=== PATIENT | male | born 1965 | race Caucasian/White ===

== ENCOUNTER 2017-01-16 15:43 | Emergency (ER) | payer MEDICARE, OTHER ==
[~2017-01-16] VITALS: Ht 160 cm; Wt 54.4 kg
[~2017-01-16 15:43] MED LIST: AMOX TR-K CLV1 EACH PO; CLINDAMYCIN HC300 MG PO; CYCLOBENZAPRINE10 MG PO; DEPAKOTE ER250 MG PO; FERROUS SULFAT325 MG PO; FISH OIL 1,0001 EAC2 PO; FLUDROCORTISON0.1 MG PO; GEODON40 MG PO; GOLD BOND MEDI TOP; IBUPROFEN800 MG PO; LAMOTRIGINE25 MG PO; LEVAQUIN750 MG; LEVOTHYROXINE125 MCG PO; LEVOTHYROXINE150 MCG PO; MILK OF MA400 MG/5 M PO; MIRALAX17 GM PO; NAPROXEN500 MG PO; NYSTOP60 GM TOP; QUETIAPINE FUM100 MG PO; SEROQUEL XR200 MG PO; SEROQUEL100 MG PO; SEROQUEL25 MG PO; SERTRALINE20 MG/1 ML PO; THEREMS1 EACH PO; TYLENOL EXTRA500 MG PO; VALPROIC A250 MG/51 PO; VITAMIN E1000 UNI2 PO
[2017-01-16] MEDS ORDERED: LEVOTHYROXINE50 MCG PO (16:13)
[2017-01-16] MEDS ORDERED: KEFLEX500 MG PO (17:04)
== END 2017-01-16 17:11 | disposition home or self-care (01) ==
LOC: ED 15:43
DX: T17.900A Unspecified foreign body in respiratory tract, part unspecified causing asphyxiation, initial encounter (principal); D64.9 Anemia, unspecified; Z88.8 Allergy status to other drugs, medicaments and biological substances; Z79.899 Other long term (current) drug therapy
CPT/HCPCS: 71010; 99283

== ENCOUNTER 2018-06-21 21:50 | Inpatient (IN) | payer MEDICARE, OTHER ==
[~2018-06-21] VITALS: Ht 160 cm; Wt 55.1 kg
--- OUTSIDE RECORDS SUMMARY | ~2018-06-21 | XMS | Clinical Summary ---
Demographics + + + | Address | [address] | | | [place] [address] | + + + | Home Phone | | + + + | Preferred Language | Unknown | + + + | Marital Status | Single | + + + | Bahai Affiliation | Unknown | + + + | Race | Unknown | + + + | Ethnic Group | Unknown | + + + Author + + + | Author | [facility] | + + + | Organization | [facility] | + + + | Address | Unknown | + + + | Phone | Unavailable | + + + Support + + + + + | Name | Relationship | Address | Phone | + + + + + | Doug Finney | ARCHANA | [place] | | | | | [phone] | | + + + + + | Doris Barclay | [place] | [address] | | | | | [place] | | | | | [address] | | + + + + + Care Team Providers + +------+ + | Care Floral Clerk Name | Role | Phone | + +------+ + | Ja Moody NP | PP | | + +------+ + Allergies + + + + + + | Active Allergy | Reactions | Severity | Noted | Comments | | | | | Date | | + + + + + + | Carbamazepine | Other (See Comments) | Medium | 06/10/19 | Unknown- allergy | | | | | 13 | listed in old chart | | | | | | notes | + + + + + + Current Medications + + + +---------+------+------+-------+ | Prescription | Sig. | Disp. | Refills | Star | End | Statu | | | | | | t | Date | s | | | | | | Date | | | + + + +---------+------+------+-------+ | valproic acid | Take 250 mg by mouth | | | | | Activ | | (DEPAKENE) 250 MG | 4 (four) times | | | | | e | | capsule | daily. | | | | | | + + + +---------+------+------+-------+ | Levothyroxine | Take 125 mg by mouth | | | | | Activ | | Sodium 125 MCG CAPS | daily. Skip on | | | | | e | | | saturdays | | | | | | + + + +---------+------+------+-------+ | ZIPRASIDONE HCL PO | Take 120 mg by mouth | | | | | Activ | | | nightly. | | | | | e | + + + +---------+------+------+-------+ | FLUDROCORTISONE | Take 0.1 mg by mouth | | | | | Activ | | ACETATE PO | daily. | | | | | e | + + + +---------+------+------+-------+ | QUEtiapine | Take 400 mg by mouth | | | | | Activ | | Fumarate (SEROQUEL | nightly. | | | | | e | | PO) | | | | | | | + + + +---------+------+------+-------+ | sertraline | Take 100 mg by mouth | | | | | Activ | | (ZOLOFT) 100 MG | daily. | | | | | e | | tablet | | | | | | | + + + +---------+------+------+-------+ | | Take 3 ml | 360 mL | 1 | 03/1 | | Activ | | ipratropium-albutero | nebulization every 6 | | | 1/20 | | e | | l (DUO-NEB) 0.5-2.5 | hours for the next | | | 13 | | | | mg/3mL | one week then 3 ml | | | | | | | | nebulization every 6 | | | | | | | | hours as needed for | | | | | | | | wheezing and | | | | | | | | shortness of breath. | | | | | | + + + +---------+------+------+-------+ | lip moisturizer | Apply 1 each | | | 03/1 | | Activ | | (CHAPSTICK) | topically as needed | | | 1/20 | | e | | | (to dry lips). | | | 13 | | | + + + +---------+------+------+-------+ | | Take one tablet by | 10 | 0 | 03/1 | | Activ | | amoxicillin-clavulan | mouth twice a day | tablet | | 1/20 | | e | | ate (AUGMENTIN) | after meals for five | | | 13 | | | | 875-125 MG per | more days. | | | | | | | tablet | | | | | | | + + + +---------+------+------+-------+ | nebulizer | Use as directed for | 1 each | 0 | 06/08 | | Activ | | | shortness of breath | | | 04/29 | | e | | | and hypoxemia. | | | 13 | | | + + + +---------+------+------+-------+ Active Problems + + + | Problem | Noted Date | + + + | Pressure ulcer, stage 2 | 06/18/2012 | + + + | Dysphagia, late effect of cerebrovascular disease | 06/17/2012 | + + + | Debility, unspecified | 06/14/2012 | + + + | Bacterial pneumonia, unspecified | 06/14/2012 | + + + | Aspiration pneumonia (HCC) | 06/09/2012 | + + + | Acute respiratory failure (HCC) | 06/09/2012 | + + + | Hypoxemia | 06/09/2012 | + + + | Acute renal failure (ARF) | 06/09/2012 | + + + | Septic shock(785.52) | 06/09/2012 | + + + | Down syndrome | | + + + | Recurrent aspiration pneumonia (HCC) | | + + + Immunizations + + + + | Name | Dates Previously Given | Next Due | + + + + | Influenza Split | 06/12/2012 | | + + + + | Pneumococcal | 06/12/2012 | | | Polysaccharide | | | | 23-valent | | | + + + + Family History + + +------+ + | Medical History | Relation | Name | Comments | + + +------+ + | Other (see comments) | Father | | COPD | + + +------+ + + +------+--------+ + | Relation | Name | Status | Comments | + +------+--------+ + | Father | | | | + +------+--------+ + Social History + +-------+ +--------+------+ | Tobacco Use | Types | Packs/Day | Years | Date | | | | | Used | | + +-------+ +--------+------+ | Never Smoker | | | | | + +-------+ +--------+------+ + +---+---+---+ | Smokeless Tobacco: | | | | | Never Used | | | | + +---+---+---+ + + +---------+ + | Alcohol Use | Drinks/We | oz/Week | Comments | | | ek | | | + + +---------+ + | No | | | | + + +---------+ + + + + | Sex Assigned at | Date Recorded | | | | + + + | Not on file | | + + + Last Filed Vital Signs + + + + | Vital Sign | Reading | Time Taken | + + + + | Blood Pressure | 113/74 | 06/18/2012 3:43 PM PDT | + + + + | Pulse | 75 | 06/18/2012 3:43 PM PDT | + + + + | Temperature | 36.4 C (97.5 F) | 06/18/2012 3:43 PM PDT | + + + + | Respiratory Rate | 16 | 06/18/2012 3:43 PM PDT | + + + + | Oxygen Saturation | 91% | 06/18/2012 3:43 PM PDT | + + + + | Inhaled Oxygen | - | - | | Concentration | | | + + + + | Weight | 89.1 kg (196 lb 6.9 | 06/18/2012 12:10 AM PDT | | | oz) | | + + + + | Height | 167.6 cm (5' 6") | 06/09/2012 5:00 PM PST | + + + + | Body Mass Index | 31.7 | 06/18/2012 12:10 AM PDT | + + + + Plan of Treatment Not on file Results Not on filefrom Last 3 Months Insurance + +--------+ +--------+-------+ + | Payer | Benefi | Subscriber | Type | Phone | Address | | | t Plan | ID | | | | | | / | | | | | | | Group | | | | | + +--------+ +--------+-------+ + | [place] - PREMIERCARE | [place] | [id number] | Medica | | | | FAMILY | [place] | | re | | | | | RE | | | | | | | FAMILY | | | | | + +--------+ +--------+-------+ + | MEDICAID | [place] | [id number] | | | [address] | | | N | | | | [place], [place] | | | [place] | | | | [phone] | | | PALLIATIVE NURSE | | | | | + +--------+ +--------+-------+ + + +--------+ +--------+ + + | Guarantor Name | Accoun | Relation to | Date | Phone | Billing Address | | | t Type | Patient | of | | | | | | | | | | + +--------+ +--------+ + + | JULIANE FINNEY JR. | Person | Self [birth year] | Home: | [address] | | | al/Fam | | 1966 | [phone] | [place] | | | ana | | | [phone] | + +--------+ +--------+ + +
--- OUTSIDE RECORDS SUMMARY | ~2018-06-21 | XMS | Clinical Summary ---
Demographics + + + | Address | [address] | | | [place] [address] | + + + | Home Phone [...] [facility] | + + + | Organization | [facility] | + + + | Address | Unknown | + + + | Phone | Unavailable | + + + Support + + + + + | Name | Relationship | Address | Phone | + + + + + | Doug Finney | [place] | [place] | | | | | [phone] | | + + + + + | Doris Barclay | [place] | [address] | | | | | [place] | | | | | [phone] | | + + + + + Care Team Providers + +------+ + | Care Truck Driver Name | Role | Phone | + [...] | [place] - PREMIERCARE | [place]-PRE | [id number] | Medica | | | | FAMILY | [place] | | re | | | | | RE | | | | | | | FAMILY | | | | | + +--------+ +--------+-------+ + | MEDICAID | [place] | [id number] | | | [address] | | | N | | | | [place], [place] | | | [place] | | | | [phone] | | | HEEL MOLDER | | | | | + +--------+ [...] Self | [birth year] | Home: | [address] | | | al/Fam | | 1966 | [phone] | [place] | | | [place] | | | [phone] | [phone] | + +--------+ +--------+ + +
--- OUTSIDE RECORDS SUMMARY | ~2018-06-21 | XMS | Clinical Summary ---
Demographics + + + | Address | [address] | | | [place] [address] | + + + | Home Phone | | + + + | Preferred Language | Unknown | + + + | Marital Status | Single | + + + | Yazidism Affiliation | 1013 | + + + | Race | Unknown | + + + | Ethnic Group | Unknown | + + + Author + + + | Author | [facility] | | | and [place] | + + + | Organization | [facility] [...] Team Providers + +------+ + | Care Stabilizing Machine Operator Name | Role | Phone | + +------+ + | Corin Cordero RESORT DESK CLERK | PP | Unavailable | + +------+ + Allergies No Known Allergies Current Medications + + + +---------+------+------+-------+ | Prescription | Sig. | Disp. | Refills | Star | End | Statu | | | | | | t | Date | s | | | | | | Date | | | + + + +---------+------+------+-------+ | Acetaminophen | Take by mouth Daily | | | | | Activ | | (MAPAP) 500 MG CAPS | as needed. | | | | | e | + + + +---------+------+------+-------+ | magnesium | Take by mouth Daily | | | | | Activ | | hydroxide (MILK OF | as needed for | | | | | e | | MAGNESIA) 400 mg/5 | Constipation. | | | | | | | mL suspension | | | | | | | + + + +---------+------+------+-------+ | QUEtiapine | Take 100 mg by mouth | | | | | Activ | | (SEROQUEL) 100 mg | nightly. | | | | | e | | tablet | | | | | | | + + + +---------+------+------+-------+ | Multiple Vitamin | Take by mouth | | | | | Activ | | (THEREMS PO) | Daily. | | | | | e | + + + +---------+------+------+-------+ | STARCH-MALTO | Take by mouth. | | | | | Activ | | DEXTRIN (THICK-IT) | | | | | | e | | POWD | | | | | | | + + + +---------+------+------+-------+ | Podiatric Products | Apply topically | | | | | Activ | | (GOLD MILLAN FOOT EX) | Daily. | | | | | e | + + + +---------+------+------+-------+ | chlorhexidine | Take 15 mLs by mouth | 900 mL | 11 | 07/0 | | Activ | | (PERIDEX) 0.12% | 2 times daily. | | | 920 | | e | | solution | | | | 15 | | | + + + +---------+------+------+-------+ | lamoTRIgine | Take one tablet | | | 03/2 | | Activ | | (LAMICTAL) 25 mg | twice daily | | | 8/20 | | e | | tablet | | | | 16 | | | + + + +---------+------+------+-------+ | levothyroxine | Take one tablet | | | 03/2 | | Activ | | (SYNTHROID, | daily | | | 2/20 | | e | | LEVOTHROID) 150 mcg | | | | 16 | | | | tablet | | | | | | | + + + +---------+------+------+-------+ | fludrocortisone | Take one tablet | | | 03/2 | | Activ | | [...] | | + +---+ | Seizure disorder (HCC) | | + +---+ | Oropharyngeal dysphagia | | + +---+ Immunizations + + + + | Name | Dates Previously Given | Next Due | + + + + | INFLUENZA, [id number], | 01/16/2014 | | | UNSPECIFIED | [...] + | Oxygen Saturation | 100% | 07/28/20156 PDT | + + + + | Inhaled Oxygen | - | - | | Concentration | | | + + + + | Weight | 64.4 kg (142 lb) | 07/28/20151025 PDT | + + + + | Height | 160 cm (5' 3") | 07/28/20151025 PDT | + + + + | Body Mass Index | 25.15 | 07/28/20151025 PDT | + + + + Plan [...] 01/17/2015, 01/16/2014, | | | (#1) | 8 | 06/12/2012 | | + + + + + Results Not on filefrom Last 3 Months Insurance + +--------+ +--------+ +---------+ | Payer | Benefi | Subscriber | Type | Phone | Address | | | t Plan | ID | | | | | | / | | | | | | | Group | | | | | + +--------+ +--------+ +---------+ | [employer] | MODA | [id number] | Medica | [phone] | | MEDICAID HMO | HEALTH | | id | [phone] | | | | MD[place] | | | | | | | [place]MO [place] | | | | | + +--------+ +--------+ +---------+ + +--------+ +--------+ + + | Guarantor Name | Accoun | Relation to | Date | Phone | Billing Address | | | t Type | Patient | of | | | | | | | | | | + +--------+ +--------+ + + | JULIANE FINNEY | Person | Self | [birth year] | Home: | [address] | | JR. | al/Fam | | 1966 | [phone] | [place] [address] | | | [place] | | | [phone] | | + +--------+ +--------+ + +
--- OUTSIDE RECORDS SUMMARY | ~2018-06-21 | XMS | Clinical Summary ---
Demographics + + + | Address | [address] | | | [place] [address] | + + + | Home Phone [...] Team Providers + +------+ + | Care Accounts Administrator Name | Role | Phone | + +------+ + PP | Unavailable | + +------+ + Source Comments LILA is fully live on both [facility] and [facility] Allergies + + + + + [...]
--- OUTSIDE RECORDS SUMMARY | ~2018-06-21 | XMS | Clinical Summary ---
Demographics + + + | Address | [address] | | | [place] [address] | + + + | Home Phone [...] | Author | [facility] | | | and [place] | + + + | Organization | [facility] | | | and [place] [...] Team Providers + +------+ + | Care Web Content Specialist Name | Role | Phone | + +------+ + | Corin Cordero REGISTERED HEALTH NURSE | PP | Unavailable | + +------+ [...] | + + + + | INFLUENZA, [id number], | 01/16/2014 | | | UNSPECIFIED | [...] | [employer] | MODA | [id number] | Medica | [phone] | | [...] JR. | al/Fam | | 1966 | [phone] | [place] [address] | | | ana | | | [phone] | | + +--------+ +--------+ + +
--- OUTSIDE RECORDS SUMMARY | ~2018-06-21 | XMS | Clinical Summary ---
Demographics + + + | Address | [address] | | | [place] [address] | + + + | Home Phone [...] Team Providers + +------+ + | Care Logistics Officer Name | Role | Phone | + +------+ + PP | Unavailable | + +------+ + Source Comments LILA is fully live on both [facility] and [facility] In[facility] Allergies + + + [...]
--- OUTSIDE RECORDS SUMMARY | ~2018-06-21 | XMS | Clinical Summary ---
Demographics + + + | Address | [address] | | | [place] [address] | + + + | Home Phone | | + + + | Preferred Language | Unknown | + + + | Marital Status | Single | + + + | Druze Affiliation | Unknown | + + + | Race | Unknown | + + + | Ethnic Group | Unknown | + + + Author + + + | Author | [facility] | + + + | Organization | [facility] | + + + | Address | Unknown | + + + | Phone | Unavailable | + + + Support + + + + + | Name | Relationship | Address | Phone | + + + + + | Doug Finney | [place]NA | [place] | | | | | [address] | | + + + + + | Doris Barclay | [place] | [address] | | | | | [place] | | | | | [address] | | + + + + + Care Team Providers + +------+ + | Care Sensor Technician Name | Role | Phone | [...] | [place] - PREMIERCARE | [place]-PRE | [id number] | Medica | | | | FAMILY | [place] | | re | | | | | RE | | | | | | | FAMILY | | | | | + +--------+ +--------+-------+ + | MEDICAID | [employer] | [id number] | | | [address] | | | N | | | | [place], [place] | | | [place] | | | | [phone] | | | BEHAVIORAL THERAPIST | | | | | + +--------+ [...] | [birth year] | Home: | [address] | | | al/Fam | | 1966 | [phone] | [place] | | | [place] | | | [phone] | [phone] | + +--------+ +--------+ + +
--- OUTSIDE RECORDS SUMMARY | ~2018-06-21 | XMS | Clinical Summary ---
Demographics + + + | Address | [address] | | | [place] [address] | + + + | Home Phone [...] | Author | [facility] | | | and [place] | + + + | Organization | [facility] [...] Team Providers + +------+ + | Care Rock Contractor Name | Role | Phone | + +------+ + | Corin Cordero CERTIFIED ORTHOTIC FITTER | PP | Unavailable | + +------+ [...] | + + + + | INFLUENZA, [id number], | 01/16/2014 | | | UNSPECIFIED | [...] | [employer] | MODA | [id number] | Medica | [phone] | | [...] | 1966 | [phone] | [place] [address] | | | [place] | | | [phone] | | + +--------+ +--------+ + +
--- OUTSIDE RECORDS SUMMARY | ~2018-06-21 | XMS | Clinical Summary ---
Demographics + + + | Address | [address] | | | [place] [address] | + + + | Home Phone [...] Providers + +------+ + | Care Sales Support Specialist Name | Role | Phone | + +------+ + PP | Unavailable | + +------+ + Source Comments LILA is fully live on both [facility] and [facility] In[facility] [place] Allergies + + + + [...]
[~2018-06-21 21:50] MED LIST changes: +KEFLEX500 MG PO; +LEVOTHYROXINE50 MCG PO
[2018-06-21] MEDS ORDERED: PERIDEX473 M1 MM (23:27)
[2018-06-21] MEDS ORDERED: COLACE100 MG PO (23:27)
[2018-06-21] MEDS ORDERED: THEREMS1 EACH PO (23:28)
--- NOTE | 2018-06-22 03:50 | NUR ---
PT ARRIVED VIA STRETCHER. HE IS SLEEPING WITH RR OF 16 WHICH IS EVEN AND NONLABORED. HE CALLED OUT WHEN TRANSFTERED OVER TO BED VIA DRAW SHEET. IV BOLUS IS INFUSING AND IV ABX. HIS CAREGIVERS CAME WITH HIM BUT ARE LEAVING NOW. CONTACT # FOR DETENTION IS ON THE WHITE BOARD.
--- NOTE | 2018-06-22 04:30 | NUR ---
PT IS RESTING WITH EYES CLOSED, HE IS AROUSABLE BUT HAYDEE OUT WHEN BOTHERED. ED STATES THEY TRIED TO STRAIGHT CATH HIM X2 BUT COULD NOT GET PAST HIS PROTATE. ATTENDS IS IN PLACE, PT DID NOT ANSWER IF HE NEEDED TO USE THE BATHROOM. PARTIAL ASSESSMENT COMPLETE BUT PT IS UNABLE TO ANSWER AND IS AGITATED WHEN WOKE UP. BED ALARM IS ON AND CALL LIGHT IS ON HIS LAP.
--- NOTE | 2018-06-22 05:40 | NUR ---
PT IS RESTING WITH EYES CLOSED, RR IS EVEN AND NONLABORED. CALL LIGHT IS CLOSE AND BED ALARM IS ON.
--- NOTE | 2018-06-22 07:24 | NUR ---
Bedside report recieved from Coral CARLTON. Pt sleeping at this time. Bed alarm on and call dickey within reach. Sat 90% on room air while sleeping.
--- NOTE | 2018-06-22 08:04 | NUR ---
MD TO BE NOTIFIED OF URINE OUTPUT, LAB RESULTS AND BP.
--- NOTE | 2018-06-22 08:30 | NUR ---
PT AWOKE TO VOICE AND APPEARS IN NO DISTRESS AT THIS TIME. SAT IS 93% ON ROOM AIR AT THIS TIME. PT'S BOTHER (BILL) IS NOW PRESENT AT THE BED SIDE.
--- NOTE | 2018-06-22 09:09 | NUR ---
Dr John notified of the pt's labs, bp and lack of urine as well as the pt's brother stating that he only takes thickened liquids. The pt had just finished eating breakfast which had been thickened. NPO status ordered at this time.
--- NOTE | 2018-06-22 09:21 | NUR ---
Pt sleeping at this time. IV site is CDI.
--- NOTE | 2018-06-22 10:01 | NUR ---
Pt sleeping, sat 91% on room air. Bed alarm is on and call light is within reach. The pt's brother (Yandel) remains at the bedside.
--- NOTE | 2018-06-22 10:20 | NUR ---
RACHEL ASLEEP. SPOKE WITH PATIENTS BROTHER, SIMIN WHO IS POA. HE STATES PATIENT HAS LIVED IN CURRENT SNF WITH [facility] ([phone]) FOR YEARS. HE STATES PATIENT IS WELL MANAGED THERE AND ROUTINE IS EVERYTHING FOR HIM. HE STATES THEY HAVE HIS MEDS WORKING WELL AND THE ONLY CHANGES MADE NEED TO GO THROUGH HIM, OR [facility]. ASSURRED HIM, THIS WILL BE OUR PLAN. HE STATES PATIENT IS NORMALLY AMBULATORY AND THAT PATIENTS PCP MYKEL MANDUJANO IS ALSO VERY GOOD WITH MANAGING PATIENTS CARE. WE DISCUSSED FOR HIM TO MAKE SURE HE UNDERSTANDS ALL DIAGNOSIS, TESTS, MEDICATIONS(SIDE EFFECTS), FOLLOW UP PLAN BEFORE DISCHARGE AND ENCOURAGED HIM TO ASK QUESTIONS NEEDED. HE STATES UNDERSTANDING. QUESTIONS ANSWERED, NO FURTHER CONCERNS AT THIS TIME.
--- NOTE | 2018-06-22 11:06 | NUR ---
Pt's iv was covered with an paul wrap to help prevent the pt from pulling on it. The pt has yet to produce any urine, his brother states that he had a wet diaper just before he came into the hospital. His brother also states it is normal for him to go quite a long time between voids.
--- NOTE | 2018-06-22 11:11 | NUR ---
SAT 95% ON ROOM AIR WHILE SLEEPING.
--- NOTE | 2018-06-22 11:46 | NUR ---
PT ASLEEP, CG IN RM. WILL CONTINUE TO FOLLOW NEEDED
--- NOTE | 2018-06-22 12:41 | NUR ---
I WAS NOTIFIED BY THE PT'S BROTHER THAT HE WAS FEEDING THE PT MINCED FOOD AND THICKENED WATER AND HE COUGHED AND FOOD CAME OUT OF HIS NOSE. HE WAS SITTING UP HIGH IN HIS BED WHEN THIS HAPPENED. HIS LUNG SOUNDS REMAIN UNCHANGED AND HIS SAT IS 91% ON ROOM AIR.
--- NOTE | 2018-06-22 13:51 | NUR ---
Pt sitting up in his bed with his brother in the room. Sat is 90% on room air.
--- NOTE | 2018-06-22 14:12 | NUR ---
Pt has not yet voided and he was bladder scanned for 596ml. Dr John notified of this. Pt is requires very close monitoring to prevent him from pulling out his iv and now an aide is sitting with the pt. Sat is 92% on room air.
--- NOTE | 2018-06-22 16:24 | NUR ---
1550: VO RECEIVED TO PLACE A FERRER CATH. ATTEMPTED A 16 CAPE VERDEAN IN WHICH IT STOPPED AFTER A VERY SHORT DISTANCE. CHANGE THE CATH TO A COUDE AND IT ADVANCED FARTHER BUT WOULD NOT GO IN COMPLETLY. DR ROSE CALLED AND NOTIFIED. BLADDER SCANNED AGAIN WHICH IT STATES GREATER THAN 700 ML. UROJET APPLIED AND WAS HELD IN PLACE FOR A FEW MINUTES AND THEN ANOTHER COUDE WAS USED WHICH WAS SUCCESSFUL. TWO OTHER NURSES AND THE AIDE WERE HELPING TO HOLD HIS ARMS AND LEGS OUT OF THE FIELD. UA DRAWN AND SENT TO THE LAB. FERRER DRAINING CLEAR YELLOW URINE AT THIS TIME.
[2018-06-22] MEDS ORDERED: QUETIAPINE FUM100 MG PO (16:27)
[2018-06-22] MEDS ORDERED: BAZA PROTECT C142 GM TOP (16:30)
[2018-06-22] MEDS ORDERED: [UNRECOGNIZED DRUG - OTHER] TOP (16:31)
[2018-06-22] MEDS ORDERED: IMODIUM A-D2 M2 PO (16:33)
--- NOTE | 2018-06-22 16:35 | NUR ---
725 ML OF CLEAR YELLOW URINE EMPTIED FROM THE FERRER.
[2018-06-22] MEDS ORDERED: CLARITIN10 MG PO (16:41)
[2018-06-22] MEDS ORDERED: NYSTOP60 GM TOP (16:47)
[2018-06-22] MEDS ORDERED: TOBREX3.5 GM OPTH (16:48)
--- NOTE | 2018-06-22 16:49 | NUR ---
MED REC COMPLETE
--- NOTE | 2018-06-22 18:24 | NUR ---
Pt is a 1 on 1 as he tries to get out of bed, pull his iv, pulse ox cord, and raymond. He had not voided until this afternoon when a raymond was placed. The raymond placement was difficult to place. IV infusing d5w 1/2 ns with 20 kcl at 75 ml/hr. UA was drawn from the raymond.
--- NOTE | 2018-06-22 19:40 | NUR ---
REPORT RECEIVED, PT RESTING IN BED, SITTER IN ROOM WITH PT AT THE TIME, PT SITTING UP IN BED, NO VERBAL RESPONSE FROM PT, PT ABLE TO MAKE SOME SOUNDS BUT NOT ABLE TO FOLLOW VERBAL COMMANDS, PT DOES NOT APPEAR TO BE IN ANY DISTRESS, CPOX ON, O2 SAT 98%, HR 80'S, IV FLUIDS INFUSING PER EMAR WNL. CALL LIGHT WITHIN REACH. SITTER REMAINS IN ROOM WITH PT.
--- NOTE | 2018-06-22 21:00 | NUR ---
IN ROOM TO ADMIN EVENING MEDS, SHIFT ASSESSMENT COMPLETE, PT ABLE TO COMMUNICATE SHORT SIMPLE WORDS, UNABLE TO RESPOND MEANINGFULLY TO VERBAL STIMULI BUT NO SIGNS OF DISCOMFORT OR AGITATION PRESENT, SITTER IN ROOM WITH PT, PT APPROPRIATE RESTING IN BED, UNABLE TO ASSESS ORIENTATION, IV FLUIDS INFUSING PER EMAR WNL, FERRER CATH DRAINING WNL, VSS, ON RA, CPOX ON, O2 SAT 98% ON RA, PT WAS ABLE TO TAKE PILLS CRUSHED IN APPLE SAUCE W/O DIFFICULTY, FOLLOWED DIRECTIONS WELL, ASPIRATION PRECAUTIONS USED, NO REQUESTS AT THIS TIME, SITTER REMAINS IN ROOM, CALL LIGHT WITHIN REACH, FALL PRECAUTIONS IN PLACE.
--- NOTE | 2018-06-22 23:15 | NUR ---
PT CRYING OUT, YELLING, SCREAMING IN APPARENT DISCOMFORT, PT UNABLE TO COMMUNICATE WHERE OR WHAT DISCOMFORT IS ORIGINATING FROM, UNABLE TO ASSESS PAIN VERBALLY WITH PT, UNABLE TO COMFORT PT, PT IS DIGGING AT BEDDING, TOSSING IN BED, AND FREQUENLTY YELLING, SITTER RN NOTIFIED THIS RN OF PT'S DISCOMFORT, PT GIVEN PRN TYLENOL IN APPLESAUCE, TOLERATED WELL. NO FURTHER REQUESTS. MAINETER REMAINS IN ROOM.
--- NOTE | 2018-06-22 23:25 | NUR ---
COLLEGE ATHLETE ROUNDING NOTE. RN IN ROOM FOR 1:1, PRIMARY RN ALSO IN ROOM.
--- NOTE | 2018-06-23 00:15 | NUR ---
PT CONTINUES TO INCREASE IN RATE OF CRYING OUT IN APPARENT DISTRESS/DISCOMFORT, FACIAL GRIMACE NOTED, PT WIMPERING, NOTED TO BE CONTINUING TO TOSS AND TURN IN BED, GRABBING AT BLANKETS, THIS RN AND RN IN ROOM SITTING WITH PT UNABLE TO COMFORT PT, PT UNABLE TO COMMUNICATE NEEDS OR LOCATE SOURCE OF DISCOMFORT, DR. ROSE NOTIFIED OF PT'S DISCOMFORT AND CRYING OUT, NEW ORDER FOR OXYCODONE 5-10MG PRN PAIN Q4, PT GIVEN 5MG OF OXYCODONE IN APPLESAUCE PER EMAR, TOLERATED WELL. SITTER REMAINS IN ROOM WITH PT, PT ON CPOX, O2 SAT 98%, VSS, HR 80'S, IV FLUIDS INFUSING PER EMAR WNL, FERRER CATH DRAINING WNL. CALL LIGHT WITHIN REACH.
--- NOTE | 2018-06-23 01:14 | NUR ---
SAT WITH PT . PT WAS CRYING OUT AND PULLING AT HIS FRONT ATTENDS AREA.
--- NOTE | 2018-06-23 02:24 | NUR ---
PT RESTING IN BED, SITTER AT BEDSIDE, PT'S EYES CLOSED, BREATHS EVEN, UNLABORED, ON CPOX, O2 SAT > 95%, HR 80'S NO SIGNS OF DISCOMFORT OR AGITATION, CALL LIGHT WITHIN REACH, IV FLUIDS INFUSING PER EMAR WNL.
--- NOTE | 2018-06-23 04:23 | NUR ---
PT RESTING IN BED QUIETLY, RN SITTER IN ROOM, NO SIGNS OF DISCOMFORT OR AGITATION, PT NODDING IN AND OUT OF SLEEP, IV FLUIDS INFUSING PER EMAR WNL, FERRER CATH DRAINING WNL. SITTER REMAINS IN ROOM.
--- NOTE | 2018-06-23 06:21 | NUR ---
PT ABLE TO COMMUNICATE SHORT PHRASES AT BEST, UNABLE TO ASSESS ORIENTATION, UNABLE TO FOLLOW COMMANDS, PT DID BECOME RESTLESS OCCASIONALLY THIS SHIFT AND WAS YELLING IN DISCOMFORT, CRYING, TEARING CLOTHES OFF, PT WAS PAINFUL AND RECEIVED PRN PAIN MEDICATION X1 THIS SHIFT WELL TYLENOL X2 THIS SHIFT, PT WAS ABLE TO SLEEP ON AND OFF OTHERWISE, PT WAS 1:1 ALL NIGHT, IV FLUIDS INFUSING PER EMAR WNL, FERRER CATH DRAINING WNL, URINE OUTPUT QS. VSS, AFEBRILE, 2 PERSON ASSIST TO BSC/PIVOT, NO BM THIS SHIFT.
--- NOTE | 2018-06-23 07:29 | NUR ---
Bedside report recieved from Devang CARLTON. Pt sitting in his bed and appears in no distress at this time. Jessy CASTELLANO is sitting with to pt to prevent the pt from pulling his iv and raymond and for pt safety.
--- NOTE | 2018-06-23 07:36 | NUR ---
PATIENT IS SLEEPING.
--- NOTE | 2018-06-23 07:58 | NUR ---
ONE OF THE OTHER VICE PRESIDENT FINANCIAL BROUGHT ME A WARM BLANKET FOR THE PATIENT. PATIENT IS NOW SLEEPING. WAITING FOR HIS BREAKFAST.
--- NOTE | 2018-06-23 09:36 | NUR ---
PT RESTING IN HIS BED AND HE APPEARS COMFORTABLE AND IN NO DISTRESS AT THIS TIME. IV ABX INFUSING AT THIS TIME. O2 SAT ON ROOM AIR IS 95%.
--- NOTE | 2018-06-23 09:59 | NUR ---
HELPED PATIENT EAT HIS BREAKFAST. NOW I AM GOING TO ORDERED HIS LUNCH AND DINNER. I AM GOING TO TRY TO GIVE HIM A BED BATH. RIGHT NOW HE IS SLEEPING. HE IS ALSO ON PULSE OX.
--- NOTE | 2018-06-23 10:32 | NUR ---
Pt sleeping with a sat of 97% on room air. Jessy CASTELLANO remains at the bedside.
--- NOTE | 2018-06-23 11:00 | NUR ---
PATIENT GOT A BED BATH AND WASHED HIS HAIR. FERRER CARE. CHANGED HIS ATTENDS.
--- NOTE | 2018-06-23 11:16 | NUR ---
PT IN HIS BED PLAYING WITH HIS BLANKETS. HE APPEARS COMFORTABLE AND IN NO DISTRESS AT THIS TIME.
--- NOTE | 2018-06-23 11:17 | NUR ---
PT WAS GIVEN A BED BATH AND FERRER CARE BY THE COMMERCIAL SUBCONTRACTOR WHICH HE TOLERATED WELL.
--- NOTE | 2018-06-23 11:54 | NUR ---
PATIENT IS VERY UPSET. HE WAS TRYING TO PULL OUT HIS IV. AND YELLING HE WANTS HIS FAMILY RIGHT NOW. TOLD ME TO GET OUT. SO I AM LEAVING HIM ALONE TO SEE IF HE WILL CALM DOWN.
--- NOTE | 2018-06-23 12:22 | NUR ---
Pt appears in no distress at this time. He continues to play with his blankets. IV and raymond remain in place and intact. PROP SETTER remains at the bedside.
--- NOTE | 2018-06-23 14:31 | NUR ---
PATIENT IS NOW SLEEPING.
--- NOTE | 2018-06-23 14:41 | NUR ---
PT AWOKE AT THIS TIME AND APPEARS COMFORTABLE AND IN NO DISRESS.
--- NOTE | 2018-06-23 15:27 | NUR ---
PATIENT IS SLEEPING.
--- NOTE | 2018-06-23 16:55 | NUR ---
Pt sleeping at this time. His caregiver is present in the room at this time.
--- NOTE | 2018-06-23 18:52 | NUR ---
PATIENT CAREGIVER CAME IN TO VISIT AND ALSO SHE FED HIM. FERRER AND IV ARE STILL INTACT. NOW HE IS PLAYING WITH HIS SWEATSHIRT. HE LIKES TO SLEEP WITH THE LIGHTS ON.
--- NOTE | 2018-06-23 19:00 | NUR ---
SHIFT REPORT RECIEVED. PATIENT SITTING UP IN BED. AMORTIZATION CLERK IN ROOM FOR 1:1.
--- NOTE | 2018-06-23 19:30 | NUR ---
TOOL PLANNER ROUNDING NOTE. PT'S IV SITE REWRAPPED WITH ILDA WRAP. PT TOLERATED WELL. DIE FORGER PRESENT FOR 1:1 IN ROOM.
--- NOTE | 2018-06-23 20:15 | NUR ---
PATIENT'S IV SITE ASSESSED. ILDA WRAP REMOVED. GAUZE SLEEVE APPLIED. IV FLUSHES EASILY. REINFORCED WITH FOAM TAPE. PATIENT TOLERATED WELL. PATIENT IS RESTLESS, PULLING ON SHEETS AND HIS SWEATER. APPEARS CALM. REMIANS 1:1 WITH MASSEUR/MASSEUSE.
--- NOTE | 2018-06-23 21:45 | NUR ---
EVENING MEDS PROVIDED PER ORDER. PATIENT TOLERATED THEM WELL IN PUDDING. NO SIGNS OF ASPIATION. IV FLUIDS PER ORDER, SITE WNL. PATIENT RESPONDS TO HIS NAME BUT UNABLE TO ANSWER ORIENTATION QUESTIONS. LUNGS ARE CLEAR. TOLERATING ROOM AIR. APPEARS CALM AND COMFORTABLE, IS FIGETING WITH BLANKETS. UNIFORM DESIGNER 1:1 TO KEEP IV SITE AND FERRER FROM BEING PULLED. FERRER DRAINING ADEQUATE CLEAR YELLOW URINE.
--- NOTE | 2018-06-23 23:57 | NUR ---
SAT WITH PATIENT. AFTER 20 MINUTES, PATIENT FALL ASLEEP. BED ALARM ON.
--- NOTE | 2018-06-24 | NUR ---
PATIENT RESTING QUIETLY IN BED. EYES CLOSED. RR18. MODEL MAKER KEEPING 1:1 WITH PATIENT.
--- NOTE | 2018-06-24 01:17 | NUR ---
Pt was sitting in bed, no aggitation or aggrestion. Repositioned pt at 2044, pt fell asleep between 2099 and 2114. Pt continues to sleep.
--- NOTE | 2018-06-24 02:10 | NUR ---
Pt continues to sleep. Emptied raymond bag.
--- NOTE | 2018-06-24 02:30 | NUR ---
PATIENT APPEARS TO BE SLEEPING. RR 20. IV FLUIDS INFUSING, SITE WNL. FERRER DRAINING FREELY, DILUTE YELLOW URINE.
--- NOTE | 2018-06-24 04:30 | NUR ---
PATIENT CONTINUES TO SLEEP PEACEFULLY. RR 18. IV FLUIDS PER ORDER, SITE WNL.
--- NOTE | 2018-06-24 04:33 | NUR ---
Pt is sleeping.
--- NOTE | 2018-06-24 06:31 | NUR ---
PATIENT CONTINUES TO SLEEP SOUNDLY. RR 17. IV FLUIDS PER ORDER, SITE WNL.
--- NOTE | 2018-06-24 06:32 | NUR ---
PATIENT SLEPT SOUNDLY BETWEEN 2300 AND THIS TIME. VS STABLE. IV FLUIDS PER ORDER. FERRER IN PLACE, URINE OUTPUT QS. DILUTE YELLOW URINE. PATIENT TOLERATES HIS PILLS WITH PUDDING AND REQUIRES REMINDERS TO EAT/DRINK SLOW TO AVOID ASPIRATION. PATIENT WAS 1:1 WHILE AWAKE DUE TO HIS RESTLESS NATURE AND PULLING AT MEDICAL SUPPLIES. LUNGS ARE CLEAR. TOLERATING ROOM AIR. PATIENT HAS DOWNS SYNDROME, HAS SOME VERBAL RESPONCES BUT IS LIMITED. THICKED LIQUIDS WITH PUREE DIET.
--- NOTE | 2018-06-24 06:49 | NUR ---
Pt rested most of the night. Took pts vitals. Pt woke up about 0645. Pt is upset about having vitals done and blood drawn.
--- NOTE | 2018-06-24 07:23 | NUR ---
BEDSIDE REPORT RECIEVED FROM BRIANNA CARLTON. THE PT IS SITTING IN HIS BED AND APPEARS COMFORTABLE AND IS IN A GOOD MOOD. SITTER REMAINS AT THE BEDSIDE. FERRER PRODUCING LIGHT YELLOW URINE. IV SITE INTACT.
--- NOTE | 2018-06-24 08:30 | NUR ---
PATIENT ATE 100% OF BREAKFAST. NOW SITTING UP IN BED. PROVIDING DISTRACTION FROM IV LINE AND FERRER CATHETER. PATIENT SMILING AND LAUGHING.
--- NOTE | 2018-06-24 09:30 | NUR ---
PATIENT CONTINUING TO SIT UP IN BED. APPEARS PLEASANT AND STATING " YEP" AND NODDING HEAD. ENCOURAGING PATIENT TO LEAVE IV LINE ALONE AND FERRER CATHETER TUBING. CONTINUES TO WANT TO PULL LINES OUT. PATIENT STATES " FUCK, I WANT MY FAMILY". REASSURED PATIENT FAMILY WOULD MOST LIKELY BE IN TODAY TO VISIT LATER. PATIENT REDIRECTABLE.
--- NOTE | 2018-06-24 10:36 | NUR ---
CONTINUING TO PROVIDE 1:1 PROTECTING LINES AND TUBES FROM BEING PULLED. PATIENT ROCKING BACK AND FORTH IN BED AND PLAYING WITH SWEATSHIRT. PROVIDED PATIENT WITH WARM BLANKET AND TURNED CARTOONS ON.
--- NOTE | 2018-06-24 10:45 | NUR ---
Pt sitting in his bed and he appears in no distress. Urine continues draining via the raymond and is very light yellow in color and or a good amount.
--- NOTE | 2018-06-24 11:30 | NUR ---
PATIENT UP AMBULATING IN HALLS WITH 2 PERSON ASSIST, SECONDARY TO IV LINE AND FERRER CATHETER. PATIENT STEADY ON FEET WITH GAIT BELT IN PLACE. PATIENT DID 2 LAPS IN HALLS.
--- NOTE | 2018-06-24 12:20 | NUR ---
IV fluid stopped and the site saline locked, site remains CDI.
--- NOTE | 2018-06-24 12:36 | NUR ---
PATIENT AMBULATED ANOTHER LAP IN [place] WITH 1 PERSON ASSIST. ASSISTED PATIENT WITH PUTTING PANTS ON. PATIENT IS NO LONGER PULLING AT FERRER CATHETER WITH PANTS IN PLACE. PATIENT NOW RESTING BACK IN RECLINER, SMILING AND CLAPPING TO SELF. ENCOURAGING MORE ORAL INTAKE, HOWEVER PATIENT IS TAKING FLUIDS WELL AND JUST NEEDS TO BE OFFERED OFTEN.
--- NOTE | 2018-06-24 14:00 | NUR ---
PATIENT CALLING OUT FOR FAMILY. CALLED PATIENT'S BROTHER SIMIN. HIS BROTHER TALKED TO HIM ON PHONE AND SEEMED TO CALM PATIENT. CALLED CAREGIVER IVETTE, WHO REPORTED CAREGIVER WOULD BE UP TO VISIT HIM. PATIENT THEN CALLING OUT AND AND CRYING, TOOK PATIENT FOR A RIDE IN CHAIR. MADE LONG LOOPS THROUGHOUT HOSPITAL, PATIENT APPEARED TO CALM. BACK TO ROOM PATIENT SMILING, AND LAUGHING. CAREGIVER ARRIVED TO ROOM. NOW VISITING WITH PATIENT.
--- NOTE | 2018-06-24 14:32 | NUR ---
PT SLEEPING, HIS CAREGIVER IS AT THE BEDSIDE AT THIS TIME.
--- NOTE | 2018-06-24 15:27 | NUR ---
STAFF SITTING WITH THE PT WHO IS SLEEPING AT THIS TIME.
--- NOTE | 2018-06-24 16:33 | NUR ---
PATIENT RESTING IN RECLINER WITH EYES CLOSED. 1:1 PROVIDED. IV INTACT AND FERRER CATHETER IN PLACE DRAINING CLEAR YELLOW URINE.
--- NOTE | 2018-06-24 17:39 | NUR ---
Pt resting in bed and appears comfortable. He has taken many walks in the [place] with staff today and tolerated it well. Agarwal continues draining yellow urine.
--- NOTE | 2018-06-24 17:56 | NUR ---
PATIENT UP AMBULATING IN HALLS. COMPLETED 4 LOOPS, THEN DINNER ARRIVED. PATIENT CONSUMED 100%, SWALLLOWING WELL, NO CHOKING NOTED. DRINKING WELL. PATIENT UP TO BATHROOM, PASSED GAS. PATIENT RUBBING STOMACH AND BLOWING NOSE. APPEARS CONTENT, SMILING AND LAUGHING WHEN SPOKEN TOO.
--- NOTE | 2018-06-24 18:35 | NUR ---
PATIENT PULLING AT BRIEF AND GOING INTO BATHROOM, NOTED GAS PASSED. AMBULATED IN HALLS. REPORTED PATIENT ANXIOUSNESS TO DR. ROSE AND THAT PATIENT HAD BM REPORTED ON THE 06/22. NEW ORDER FOR MIRALAX, PATIENT DRANK MIXED IN THICKENED JUICE.
--- NOTE | 2018-06-24 19:05 | NUR ---
SHIFT REPORT RECEIVED. PATIENT RESTING IN THE RECLINER. TECHNICAL ASSISTANCE CONSULTANT IN ROOM FOR 1:1.
--- NOTE | 2018-06-24 19:42 | NUR ---
PATIENT UP WALKING IN HALLWAY WITH FIELD CROP FARMING SUPERVISOR. PATIENT HOLDING ONTO FIELD CROP FARMING SUPERVISOR ARM AND WALKING STEADILY.
--- NOTE | 2018-06-24 20:21 | NUR ---
Pt was sitting in chair at the beginning of shift. Took pt for a walk twice around the unit. Took pt to the restroom, pt had a bowel movement. While pt was in restroom he undressed himself. Helped pt to redress and put a new breif on him. Tried to get pt to go for another walk, he would only stand up and then sit back down on the bed. Pt was starting to get aggitated. Pt is now sitting in bed running his hands up and down seams on his sheets and sweatshirt.
--- NOTE | 2018-06-24 20:45 | NUR ---
PATIENT SITTING UP IN BED. ROTO MIXER OPERATOR IN ROOM. PATIENT APPEARS RESTLESS AND TELLS THIS NURSE "GET OUT OF MY ROOM NOW". ROTO MIXER OPERATOR ABLE TO REDIRECT PATIENT. SCHEDULED MEDS PROVIDED AND PATIENT TOLERATED WELL WITH PUDDING. PATIENT BECAME ANXIOUS AGAIN AND YELLING AT THIS NURSE. LEFT ROOM TO ALLOW PATIENT TO CALM DOWN. ROTO MIXER OPERATOR AT BEDSIDE.
--- NOTE | 2018-06-24 21:02 | NUR ---
Helped pt brush his teeth, took pt for walk twice around unit.
--- NOTE | 2018-06-24 22:00 | NUR ---
PATIENT APPEARS RELAXED. ASSESSMENT COMPLETED. PATIENT RESPONDS TO HIS NAME, BUT UNABLE TO ANSWER ORIENTATION QUESTIONS. LUNGS ARE CLEAR. ABD IS SOFT, BOWEL SOUNDS ACTIVE. PATIENT HAD MEDIUM HARD STOOL ACCORDING TO THE VIRTUAL CUSTOMER ASSISTANT. CMS APPEARS INTACT. FERRER IN PLACE. DRAINING FREELY, CLEAR YELLOW URINE. IV FLUSHES EASILY, SITE WNL. PATIENT HAS BEEN UP AMBULATING WITH VIRTUAL CUSTOMER ASSISTANT AND IS NOW PREPARING FOR SLEEP. VIRTUAL CUSTOMER ASSISTANT AT BEDSIDE.
--- NOTE | 2018-06-24 22:08 | NUR ---
Walked with pt around unit 4 laps. Pt is now back in bed.
--- NOTE | 2018-06-24 22:38 | NUR ---
Door is shut, lights are on, pt feel asleep at 2030.
--- NOTE | 2018-06-25 00:40 | NUR ---
Pt is sleeping, RR16.
--- NOTE | 2018-06-25 02:00 | NUR ---
PATIENT APPEARS TO BE SLEEPING SOUNDLY. LIGHT ARMORED VEHICLE OFFICER KEEPING FREQUENT WATCH. RR 16.
--- NOTE | 2018-06-25 04:02 | NUR ---
PATIENT WOKE BRIEFLY. REPOSITION IN BED. APPEARS COMFORTABLE. ALLOWED PATIENT TO REST.
--- NOTE | 2018-06-25 04:30 | NUR ---
Pt has been sleeping. Pt started to wake up around 0400. Got pt a warm blanket to help his go back to sleep. Pt is now awake in bed resting.
--- NOTE | 2018-06-25 05:14 | NUR ---
Pt had a large bm, went into bathroom, bm was not contained by breif. Showered pt to remove bm. Showered, dressed, warm blankets, pt is now back in bed sleeping.
--- NOTE | 2018-06-25 06:22 | NUR ---
PATIENT IN ROOM WITH BRICK VENEER MAKER, SITTING IN BED. APPEARS TO BE IN GOOD SPIRITS.
--- NOTE | 2018-06-25 06:23 | NUR ---
PATIENT ABLE TO HAVE TWO LARGE BM THIS SHIFT, RECOMMEND TO HOLD BOWEL CARE TODAY. TOLERATING DIET. AMULATED IN HALLWAY MULTIPLE TIMES, SBA. SLEPT MOST OF THIS NIGHT. WAS SHOWERED THIS MORNING DUE TO MESSY BM. FERRER IN PLACE, URINE OUTPUT QS. TOLERATING ROOM AIR, LUNG SOUNDS ARE CLEAR.
--- NOTE | 2018-06-25 07:06 | NUR ---
RECIEVED BEDSIDE REPORT FROM BIANKA REED. PT IN BED RESTING QUIETLY.
--- NOTE | 2018-06-25 08:07 | NUR ---
PATIENT IS SLEEPING.
--- NOTE | 2018-06-25 08:19 | NUR ---
PT UPRIGHT IN BED, WITH HOB ELEVATED. SAYING GOOD MORNING AND SMILING AT STAFF. TOOK AM MEDICATIONS, PO IN PUDDING. GRAY HANSON AT BEDSIDE.
[2018-06-25] MEDS ORDERED: DOXYCYCLINE HY100 MG PO (10:01)
[2018-06-25] MEDS ORDERED: TAMSULOSIN HCL0.4 MG PO (10:01)
[2018-06-25] MEDS ORDERED: MELATONIN1 MG PO (10:03)
--- NOTE | 2018-06-25 10:08 | NUR ---
HELPED PATIENT EAT HIS BREAKFAST. WASHED HIS FACE. TOOK VITALS. NOW PATIENT IS SLEEPING.
--- NOTE | 2018-06-25 11:20 | NUR ---
PT IN BED, SLEEPING SOUNDLY. GRAY HANSON IN ROOM AT PT'S BEDSIDE.
--- NOTE | 2018-06-25 12:40 | NUR ---
TOOK PATIENT'S IV OUT AROUND NOON ALSO DID HIS VITALS.
--- NOTE | 2018-06-25 13:24 | NUR ---
[facility] STAFF IN TO PICK PT UP FOR DISCHARGE. GAVE THIS CAREGIVER DISCHARGE INSTRUCTIONS, VERBAL, WRITTEN, ALSO SHOWED CAREGIVER FERRER CATHETER CARE. QUESTIONS ASKED AND ANSWERED. CAREGIVER VERBALIZED UNDERSTANDING. DISCHARGE PACKET, DISCHARGE INSTRUCTIONS PRINTED, AND DISCHARGE EDUCATION PRINTED MATERIALS GIVEN TO Pankaj HARDIN, CAREGIVER.
--- NOTE | 2018-06-26 14:35 | NUR ---
FAXED TO [facility] AND ORDER. FAX CONFIRMATION RECEIVED 06/26/18 201PM.
--- NOTE | 2018-06-26 16:05 | NUR ---
FAXED TO [facility]. CALLED AND SPOKE WITH [facility] [phone] WHO STATES THEY RECEIVED AND ARE PROCESSING.
== END 2018-06-25 13:30 | disposition home health service (06) | DRG 682 ==
LOC: ED 21:50 → MS 21:51
PROVIDERS: ADMIT Internal Medicine
DX: N17.9 Acute kidney failure, unspecified (principal); J69.0 Pneumonitis due to inhalation of food and vomit; J15.4 Pneumonia due to other streptococci; R33.9 Retention of urine, unspecified; Q90.9 Down syndrome, unspecified; G47.00 Insomnia, unspecified; Z88.8 Allergy status to other drugs, medicaments and biological substances; Z79.52 Long term (current) use of systemic steroids; Z79.899 Other long term (current) drug therapy
CPT/HCPCS: 36415; 51701; 71045; 74022; 80048; 80053; 81001; 83605; 83735; 85025; 87088; 99285-25; J0696; J1650; J1720; J2543; J7030; J7060; J7120

== ENCOUNTER 2018-08-09 20:29 | Observation (INO) | payer MEDICARE, OTHER ==
[~2018-08-09] VITALS: Ht 160 cm; Wt 62.0 kg
--- OUTSIDE RECORDS SUMMARY | ~2018-08-09 | XMS | Clinical Summary ---
Demographics + + + | Address | [address] | | | [place] [address] | + + + | Home Phone | | + + + | Preferred Language | Unknown | + + + | Marital Status | Single | + + + | Jainism Affiliation | Unknown | + + + | Race | White | + + + | Ethnic Group | Not or | + + + Author + + + | Author | [facility] | + + + | Organization | [facility] | + + + | Address | Unknown | + + + | Phone | Unavailable | + + + Support + + +---------+ + | Name | Relationship | Address | Phone | + + +---------+ + | IVETTE IRENE | ECON | Unknown | | + + +---------+ + Care Team Providers + +------+ + | Care Car Hop Name | Role | Phone | + +------+ + PP | Unavailable | + +------+ + Source Comments LILA is fully live on both [facility] and [facility] Allergies + + + + + + | Active Allergy | Reactions | Severity | Noted | Comments | | | | | Date | | + + + + + + | Carbamazepine | | | 10/30/19 | behavioral | | | | | 09 | problems | + + + + + + Current Medications + + +-------+---------+------+------+-------+ | Prescription | Sig. | Disp. | Refills | Star | End | Statu | | | | | | t | Date | s | | | | | | Date | | | + + +-------+---------+------+------+-------+ | divalproex DR | Take 250 mg by | | | | | Activ | | (DEPAKOTE) 250 mg | mouth. | | | | | e | | Oral Tablet, Delayed | | | | | | | | Release (E.C.) | | | | | | | + + +-------+---------+------+------+-------+ | ferrous sulfate | Take 650 mg by mouth | | | | | Activ | | delayed release 325 | once daily. | | | | | e | | mg (65 mg Iron) Oral | | | | | | | | Tablet, Delayed | | | | | | | | Release (E.C.) | | | | | | | + + +-------+---------+------+------+-------+ | OMEGA-3 FATTY | Take by mouth two | | | | | Activ | | ACIDS (FISH OIL | times daily. | | | | | e | | CONCENTRATE ORAL) | | | | | | | + + +-------+---------+------+------+-------+ | fludrocortisone | Take 0.1 mg by mouth | | | | | Activ | | (FLORINEF ACETATE) | once daily. | | | | | e | | 0.1 mg Oral Tablet | | | | | | | + + +-------+---------+------+------+-------+ | ziprasidone | Take 40 mg by mouth | | | | | Activ | | (GEODON) 40 mg Oral | once daily in the | | | | | e | | Capsule | evening. | | | | | | + + +-------+---------+------+------+-------+ | levothyroxine 125 | Take 125 mcg by | | | | | Activ | | mcg Oral Tablet | mouth. Every day but | | | | | e | | | skip Monday | | | | | | + + +-------+---------+------+------+-------+ | POLYETHYLENE | Take by mouth once | | | | | Activ | | GLYCOL 3350 (MIRALAX | daily. Two | | | | | e | | ORAL) | tablespoons daily as | | | | | | | | needed | | | | | | + + +-------+---------+------+------+-------+ | MULTIVITAMINS | Take by mouth once | | | | | Activ | | (MULTIVITAMIN ORAL) | daily. | | | | | e | + + +-------+---------+------+------+-------+ | Quetiapine | Take 200 mg by mouth | | | | | Activ | | (SEROQUEL [...] | | | | | + + +-------+---------+------+------+-------+ | Quetiapine | Take 50 mg by mouth | | | | | Activ | | (SEROQUEL [...] | | | | | + + +-------+---------+------+------+-------+ | sertraline 100 mg | Take 100 mg by mouth | | | | | Activ | | Oral Tablet | once daily. | | | | | e | + + +-------+---------+------+------+-------+ | ACETAMINOPHEN | Take 500 mg by | | | | | Activ | | (TYLENOL EXTRA | mouth. Every 4-6 | | | | | e | | STRENGTH ORAL) | hours as needed | | | | | | + + +-------+---------+------+------+-------+ | vitamin E 1,000 | Take 1,000 Units by | | | | | Activ | | unit Oral Capsule | mouth once daily. | | | | | e | + + +-------+---------+------+------+-------+ Active Problems Not on file Social History [...] on file | | + + + Plan of Treatment + + + + + | Health Maintenance | Due Date | Last Done | Comments | + + + + + | Influenza (Flu) | | | | | vaccination (#1) | 8 | | | + + + + + Results Not on filefrom Last 3 Months"
--- OUTSIDE RECORDS SUMMARY | ~2018-08-09 | XMS | Clinical Summary ---
Demographics + + + | Address | [address] | | | [place] [address] | + + + | Home Phone | | + + + | Preferred Language | Unknown | + + + | Marital Status | Single | + + + | Jain Affiliation | 1013 | + + + | Race | Unknown | + + + | Ethnic Group | Unknown | + + + Author + + + | Author | [facility] | | | and Angelana | + + + | Organization | [facility] | | | and Angelana | + + + | Address | Unknown | + + + | Phone | Unavailable | + + + Support + + +---------+ + | Name | Relationship | Address | Phone | + + +---------+ + | Kristy Abbasi | ECON | Unknown | | + + +---------+ + | Yandel Finney | ECON | Unknown | | + + +---------+ + Care Team Providers + +------+ + | Care Agile Java Developer Name | Role | Phone | + +------+ + | Corin Cordero GREENSKEEPER SUPERVISOR | PP | Unavailable | + +------+ + Allergies No Known Allergies Medications + + + +---------+------+------+-------+ | Medication | Sig | Dispensed | Refills | Star | End | Statu | | | | | | t | Date | s | | | | | | Date | | | + + + +---------+------+------+-------+ | Acetaminophen | Take by mouth Daily | | 0 | | | Activ | | (MAPAP) 500 MG CAPS | as needed. | | | | | e | + + + +---------+------+------+-------+ | magnesium | Take by mouth Daily | | 0 | | | Activ | | hydroxide (MILK OF | as needed for | | | | | e | | MAGNESIA) 400 mg/5 | Constipation. | | | | | | | mL suspension | | | | | | | + + + +---------+------+------+-------+ | QUEtiapine | Take 100 mg by mouth | | 0 | | | Activ | | (SEROQUEL) 100 mg | nightly. | | | | | e | | tablet | | | | | | | + + + +---------+------+------+-------+ | Multiple Vitamin | Take by mouth | | 0 | | | Activ | | (THEREMS PO) | Daily. | | | | | e | + + + +---------+------+------+-------+ | STARCH-MALTO | Take by mouth. | | 0 | | | Activ | | DEXTRIN (THICK-IT) | | | | | | e | | POWD | | | | | | | + + + +---------+------+------+-------+ | Podiatric Products | Apply topically | | 0 | | | Activ | | (GOLD MILLAN FOOT EX) | Daily. | | | | | e | + + + +---------+------+------+-------+ | chlorhexidine | Take 15 mLs by mouth | 900 mL | 11 | 07/0 | | Activ | | (PERIDEX) 0.12% | 2 times daily. | | | 9/20 | | e | | solution | | | | 15 | | | + + + +---------+------+------+-------+ | lamoTRIgine | Take one tablet | | 0 | 03/2 | | Activ | | (LAMICTAL) 25 mg | twice daily | | | 8/20 | | e | | tablet | | | | 16 | | | + + + +---------+------+------+-------+ | levothyroxine | Take one tablet | | 0 | 03/2 | | Activ | | (SYNTHROID, | daily | | | 2/20 | | e | | LEVOTHROID) 150 mcg | | | | 16 | | | | tablet | | | | | | | + + + +---------+------+------+-------+ | fludrocortisone | Take one tablet | | 0 | 03/2 | | Activ | | (FLORINEF) 0.1 mg | daily | | | 2/20 | | e | | tablet | | | | 16 | | | + + + +---------+------+------+-------+ Active Problems + + + | Problem | Noted Date | + + + | Exercise hypoxemia | 01/23/2015 | + + + | Translocation Down syndrome | 01/23/2015 | + + + | Recurrent pneumonia | 01/23/2015 | + + + | Anemia | | + + + | Osteoarthritis | | + + + | Chronic kidney disease | | + + + + + | Overview: stage 2 | + + + +---+ | Delayed developmental milestones | | + +---+ | Depression | | + +---+ | Hypercholesterolemia | | + +---+ | Hypotension | | + +---+ | Obsessive compulsive disorder | | + +---+ | Urge incontinence of urine | | + +---+ | Seizure disorder | | + +---+ | Oropharyngeal dysphagia | | + +---+ Immunizations + + + + | Name | Dates Previously Given | Next Due | + + + + | INFLUENZA, [id number], | 01/16/2014 | | | UNSPECIFIED | | | + + + + | INFLUENZA, | 01/17/2015 | | | UNSPECIFIED | | | | FORMULATION | | | + + + + | PNEUMOCOCCAL | 01/16/2010 | | | POLYSACCHARIDE | | | | 23-VALENT (PPSV23) | | | + + + + Family History + + +------+ + | Medical History | Relation | Name | Comments | + + +------+ + | COPD | Father | | | + + +------+ + | Lung cancer | Father | | | + + +------+ + + +------+ + + | Relation | Name | Status | Comments | + +------+ + + | Brother | | Alive | | + +------+ + + | Brother | | | | + +------+ + + | Father | | | lung cancer | | | | (Age | | | | | 76) | | + +------+ + + | Mother | | | | + +------+ + + | Sister | | Alive | | + +------+ + + | Sister | | Alive | | + +------+ + + Social History + +-------+ +--------+------+ | Tobacco Use | Types | Packs/Day | Years | Date | | | | | Used | | + +-------+ +--------+------+ | Never Smoker | | | | | + +-------+ +--------+------+ + +---+---+---+ | Smokeless Tobacco: | | | | | Never Used | | | | + +---+---+---+ + + | Tobacco Cessation: Counseling Given: No | | Comments: Exposed to second hand smoke | + + + + +---------+ + | Alcohol Use | Drinks/We | oz/Week | Comments | | | ek | | | + + +---------+ + | No | 0 | 0.0 | | | | Standard | | | | | drinks or | | | | | | | | | | equivalen | | | | | t | | | + + +---------+ + + + + | Sex Assigned at [...] recent travel history available. | + + Last Filed Vital Signs + + + + | Vital Sign | Reading | Time Taken | + + + + | Blood Pressure | 110/70 | 07/28/2015 1026 PDT | + + + + | Pulse | 70 | 07/28/2015 1026 PDT | + + + + | Temperature | 37 C (98.6 F) | 10/16/2014 1505 PDT | + + + + | Respiratory Rate | 16 | 01/23/2015 1117 PDT | + + + + | Oxygen Saturation | 100% | 07/28/2015 1026 PDT | + + + + | Inhaled Oxygen | - | - | | Concentration | | | + + + + | Weight | 64.4 kg (142 lb) | 07/28/2015 1026 PDT | + + + + | Height | 160 cm (5' 3") | 07/28/2015 1026 PDT | + + + + | Body Mass Index | 25.15 | 07/28/20156 PDT | + + + + Plan of Treatment + + + + + | Health Maintenance | Due Date | Last Done | Comments | + + + + + | Vaccine: | | | | | Dtap/Tdap/Td (1 - | 5 | | | | Tdap) | | | | + + + + + | Vaccine: Zoster (1 | | | | | of 2) | 6 | | | + + + + + | Vaccine: Influenza | | 01/17/2015, 01/16/2014, | | | (Season Ended) | 9 | 06/12/2012 | | + + + + + Results Not on filefrom Last 3 Months Insurance + +--------+ +--------+ +---------+--------+ | Payer | Benefi | Subscriber | Effect | Phone | Address | Type | | | t Plan | ID | greg | | | | | | / | | Dates | | | | | | Group | | | | | | + +--------+ +--------+ +---------+--------+ | [employer] | MODA | [id number] | 10/09/19 | [phone] | | Medica | | MEDICAID HMO | HEALTH | | 14-Pre | 1 | | id | | | MDCD | | sent | | | | | | HMO [place] | | | | | | + +--------+ +--------+ +---------+--------+ + +--------+ +--------+ + + | Guarantor Name | Accoun | Relation to | Date | Phone | Billing Address | | | t Type | Patient | of | | | | | | | | | | + +--------+ +--------+ + + | Ladarius Finney | Person | Self | [birth year] | [address] | | | [place]jas | | 1966 | [phone] | [place] [address] | | | ana | | | 8 (Home) | | + +--------+ +--------+ + + Advance Directives Patient has advance care planning documents on file. For more information, please contact:[place] [address]
--- OUTSIDE RECORDS SUMMARY | ~2018-08-09 | XMS | Clinical Summary ---
Demographics + + + | Address | [address] | | | [place] [address] | + + + | Home Phone | | + + + | Preferred Language | Unknown | + + + | Marital Status | Single | + + + | Quaker Affiliation | 1013 | + + + | Race | Unknown | + + + | Ethnic Group | Unknown | + + + Author + + + | Author | [facility] | | | and [place]ana | + + + | Organization | [facility] | | | and Angelana [...] Team Providers + +------+ + | Care Spanish Interpreter Name | Role | Phone | + +------+ + | Corin Cordero MOLD SHAKER | PP | Unavailable | + +------+ [...] | + + + + | INFLUENZA, [id number], | 01/16/2014 | | | UNSPECIFIED | [...] | [employer] | MODA | [id number] | 10/09/19 | [phone] | | Medica [...] | | alberto/Tejas | | 1966 | [phone] | [place] [address] | | | ana | | | 8 (Home) | | + +--------+ +--------+ + + Advance Directives Patient has advance care planning documents on file. For more information, please contact:[facility] [place] [address]
--- OUTSIDE RECORDS SUMMARY | ~2018-08-09 | XMS | Clinical Summary ---
Demographics + + + | Address | [address] | | | [place] [address] | + + + | Home Phone | | + + + | Preferred Language | Unknown | + + + | Marital Status | Single | + + + | Caodaism Affiliation | 1013 | + + + | Race | Unknown | + + + | Ethnic Group | Unknown | + + + Author + + + | Author | [facility] | | | and Angelana | + + + | Organization | [facility] | | | and [...] Team Providers + +------+ + | Care Master Electrician Name | Role | Phone | + +------+ + | Corin Cordero FIREMAN HELPER | PP | Unavailable | + +------+ [...] | + + + + | INFLUENZA, [id number], | 01/16/2014 | | | UNSPECIFIED | [...] | [employer] | MODA | [id number] | 10/09/19 | [phone] | | Medica [...] | | alberto/Tejas | | 1966 | [phone] | [place] [address] | | | ana | | | 8 (Home) | | + +--------+ +--------+ + + Advance Directives Patient has advance care planning documents on file. For more information, please contact:[facility] [place] [address]
--- OUTSIDE RECORDS SUMMARY | ~2018-08-09 | XMS | Clinical Summary ---
Demographics + + + | Address | [address] | | | [place] [address] | + + + | Home Phone | | + + + | Preferred Language | Unknown | + + + | Marital Status | Single | + + + | Amish Affiliation | Unknown | + + + | Race | Unknown | + + + | Ethnic Group | Unknown | + + + Author + + + | Author | [facility] | + + + | Organization | [facility] | + + + | Address | Unknown | + + + | Phone | Unavailable | + + + Support + + + + + | Name | Relationship | Address | Phone | + + + + + | Doug Finney | [place] | [place] | | | | | [address] | | + + + + + | Doris Barclay | [place] | [address] | | | | | [place] | | | | | [address] | | + + + + + Care Team Providers + +------+ + | Care Catalytic Converter Operator Helper Name | Role | Phone | [...] | [place] PREMIERCARE | [place]-PRE | [id number] | Medica | | | | FAMILY | [place] | | re | | | | | RE | | | | | | | FAMILY | | | | | + +--------+ +--------+-------+ + | MEDICAID | [place] | [id number] | | | [address] | | | N | | | | [place], [place] | | | [place] | | | | [phone] | | | BALER OPERATOR | | | | | + [...] Self | [birth year] | Home: | [address] | | | al/Fam | | 1966 | [phone] | [place] | | | ana | | | [phone] | [phone] | + +--------+ +--------+ + +
--- OUTSIDE RECORDS SUMMARY | ~2018-08-09 | XMS | Clinical Summary ---
Demographics + + + | Address | [address] | | | [place] [address] | + + + | Home Phone [...] | Author | [facility] | + + + | Organization | [facility] | + + + | Address | Unknown | + + + | Phone | Unavailable | + + + Support + + + + + | Name | Relationship | Address | Phone | + + + + + | Doug Finney | [place]NA | [place] | | | | | [address] | | + + + + + | Doris Barclay | [place] | [address] | | | | | [place] | | | | | [address] | | + + + + + Care Team Providers + +------+ + | Care Sawmill Tally Clerk Name | Role | Phone | [...] | [place] - PREMIERCARE | [place]-PRE | [id number] | Medica | | | | FAMILY | [place] | | re | | | | | RE | | | | | | | FAMILY | | | | | + +--------+ +--------+-------+ + | MEDICAID | [facility] | [id number] | | | [address] | | | N | | | | [place], [place] | | | [place] | | | | [phone] | | | PATTERN MOLDER | | | | | + [...] Self | [birth year] | Home: | [address] | | | al/Fam | | 1966 | [phone] | [place] | | | ana | | | [phone] | [phone] | + +--------+ +--------+ + +
--- OUTSIDE RECORDS SUMMARY | ~2018-08-09 | XMS | Clinical Summary ---
Demographics + + + | Address | [address] | | | [place] [address] | + + + | Home Phone [...] Team Providers + +------+ + | Care Physical Optics Teacher Name | Role | Phone | + +------+ + PP | Unavailable | + +------+ + Source Comments LILA is fully live on both [facility] and [facility] Allergies + + + + [...]
--- OUTSIDE RECORDS SUMMARY | ~2018-08-09 | XMS | Clinical Summary ---
Demographics + + + | Address | [address] | | | [place] [address] | + + + | Home Phone | | + + + | Preferred Language | Unknown | + + + | Marital Status | Single | + + + | Catholic Affiliation | Unknown | + + [...] Team Providers + +------+ + | Care Sustainable Agriculture Specialist Name | Role | Phone | + +------+ + PP | Unavailable | + +------+ + Source Comments LILA is fully live on both [facility] and [facility] InPatient.[facility] Allergies + + + + [...]
--- OUTSIDE RECORDS SUMMARY | ~2018-08-09 | XMS | Clinical Summary ---
Demographics + + + | Address | [address] | | | [place] [address] | + + + | Home Phone | | + + + | Preferred Language | Unknown | + + + | Marital Status | Single | + + + | Shinto Affiliation | 1013 | + + + | Race | Unknown | + + + | Ethnic Group | Unknown | + + + Author + + + | Author | [facility] | | | and Angelana | + + + | Organization | [facility] | | | and [...] Team Providers + +------+ + | Care Metal Furniture Assembly Supervisor Name | Role | Phone | + +------+ + | Corin Cordero EAR MUFF ASSEMBLER | PP | Unavailable | + +------+ [...] | + + + + | INFLUENZA, [id number], | 01/16/2014 | | | UNSPECIFIED | [...] | [employer] | MODA | [id number] | 10/09/19 | [phone] | | Medica [...] | | alberto/Tejas | | 1966 | [phone] | [place] [address] | | | ana | | | 8 (Home) | | + +--------+ +--------+ + + Advance Directives Patient has advance care planning documents on file. For more information, please contact:[facility] [place] [address]
--- OUTSIDE RECORDS SUMMARY | ~2018-08-09 | XMS | Clinical Summary ---
Demographics + + + | Address | [address] | | | [place] [address] | + + + | Home Phone | | + + + | Preferred Language | Unknown | + + + | Marital Status | Single | + + + | Druze Affiliation | Unknown | + + + | Race | Unknown | + + + | Ethnic Group | Unknown | + + + Author + + + | Author | [facility] | + + + | Organization | [facility] | + + + | Address | Unknown | + + + | Phone | Unavailable | + + + Support + + + + + | Name | Relationship | Address | Phone | + + + + + | Doug Finney | [place]NA | [place] | | | | | [address] | | + + + + + | Doris Barclay | [place] | [address] | | | | | [place] | | | | | [address] | | + + + + + Care Team Providers + +------+ + | Care Spa Director Name | Role | Phone | [...] | [place] - PREMIERCARE | [place]-PRE | [id number] | Medica | | | | FAMILY | [place] | | re | | | | | RE | | | | | | | FAMILY | | | | | + +--------+ +--------+-------+ + | MEDICAID | [place] | [id number] | | | [address] | | | N | | | | [place], [place] | | | [place] | | | | [phone] | | | SOLAR INSTALLATION TECHNICIAN | | | | | + [...] Self | [birth year] | Home: | [address] | | | al/Fam | | 1966 | [phone] | [place] | | | [place] | | | [phone] | [phone] | + +--------+ +--------+ + +
--- OUTSIDE RECORDS SUMMARY | ~2018-08-09 | XMS | Clinical Summary ---
Demographics + + + | Address | [address] | | | [place] [address] | + + + | Home Phone | | + + + | Preferred Language | Unknown | + + + | Marital Status | Single | + + + | Restorationist Affiliation | Unknown | + + + | Race | Unknown | + + + | Ethnic Group | Unknown | + + + Author + + + | Author | [facility] | + + + | Organization | [facility] | + + + | Address | Unknown | + + + | Phone | Unavailable | + + + Support + + + + + | Name | Relationship | Address | Phone | + + + + + | Doug Finney | [place]NA | [place] | | | | | [address] | | + + + + + | Doris Barclay | [place] | [address] | | | | | [place] | | | | | [address] | | + + + + + Care Team Providers + +------+ + | Care Child Psychologist Name | Role | Phone | + [...] | [place] - PREMIERCARE | [place]-PRE | [id number] | Medica | | | | FAMILY | [place] | | re | | | | | RE | | | | | | | FAMILY | | | | | + +--------+ +--------+-------+ + | MEDICAID | [facility] | [id number] | | | [address] | | | N | | | | [place], [place] | | | [place] | | | | [phone] | | | APPLIANCE SERVICE REPRESENTATIVE | | | | | + +--------+ [...] | [birth year] | Home: | [address] | | | al/Fam | | 1966 | [phone] | [place] | | | ana | | | [phone] | [phone] | + +--------+ +--------+ + +
--- OUTSIDE RECORDS SUMMARY | ~2018-08-09 | XMS | Clinical Summary ---
Demographics + + + | Address | [address] | | | [place] [address] | + + + | Home Phone | | + + + | Preferred Language | Unknown | + + + | Marital Status | Single | + + + | Methodist Affiliation | Unknown | + + + [...] Providers + +------+ + | Care Manager Radiation Name | Role | Phone | + +------+ + PP | Unavailable | + +------+ + Source Comments LILA is fully live on both [facility] and [facility] InPatient.[facility] Allergies + + + + [...]
[~2018-08-09 20:29] MED LIST changes: +COLACE100 MG PO; +DOXYCYCLINE HY100 MG PO; -GOLD BOND MEDI TOP; -LAMOTRIGINE25 MG PO; +MELATONIN1 MG PO; -MILK OF MA400 MG/5 M PO; +PERIDEX473 M1 MM; +TAMSULOSIN HCL0.4 MG PO; +TOBREX3.5 GM OPTH; -TYLENOL EXTRA500 MG PO
--- NOTE | 2018-08-10 00:32 | NUR ---
PT ARRIVED TO THE UNIT VIA STRETCHER, PT EASILY AROUSABLE, PT ALERT, CONFUSED, UNABLE TO ASSESS ORIENTATION, PT MOSTLY NONVERBAL, OCCASIONAL ONE WORD RESPONSE "OK, YEAH, GOOD, NO" PT'S RESPONSES ARE NOT IN CONTEXT WITH COMMUNICATION. IV FLUIDS INFUSING PER EMAR, PT'S LEVOPHED DRIP ON STANDBY AT THIS TIME DUE TO PT'S SYSTOLIC BP > 100. ASSESSMENT COMPLETE, PT'S CAREGIVER HANNA AT BEDSIDE, ABLE TO ANSWER QUESTIONS. NEW IV PLACED IN PT'S LEFT HAND, 22G BY LIZETTE RN, WNL, PT DID NOT TOLERATE WELL. PT PLACED ON 2LNC DUE TO DESATURATION. PT'S VS: BP:106/76, HR:98, O2 SAT:88, RR:19, FERRER CATH DRAINING WNL, URINE OUTPUT GOOD. THIS RN REMAINS IN ROOM WITH PT.
--- NOTE | 2018-08-10 01:15 | NUR ---
IV LEVOPHED STARTED AT 4MCG/MIN, PT'S BP 84/40 (46), HR:104, O2:92 ON 2LNC, PT RESTLESS IN BED, ATTEMPTING TO PULL LINES AND TUBING. IV FLUIDS INFUSING PER EMAR WNL, FERRER CATH DRAINING WNL, THIS RN REMAINS AT BEDSIDE.
--- NOTE | 2018-08-10 01:30 | NUR ---
IV FLUID BOLUS COMPLETE, MAINTENANCE FLUIDS STARTED, PT'S BP:100/58 HR:102 , LEVOPHED DRIP REMAINS AT 4 MCG/MIN, PT'S URINE OUTPUT REMAINS TO BE QS, PT REMAINS TO BE RESTLESS AND ATTEMPTING TO PULL ON LINES, THIS RN REMAINS AT BEDSIDE. PT REMAINS ON 2LNC, O2 SAT 93%.
--- NOTE | 2018-08-10 01:45 | NUR ---
PT'S BP: 89/43 (53), HR: 100, PT'S IV LEVOPHED DRIP TITRATED UP TO 8MCG/MIN, PT BEGINNING TO CLOSE EYES AND REST, BREATHS EVEN, UNLABORED, FERRER CATH DRAINING WNL, URINE QS.
--- NOTE | 2018-08-10 02:00 | NUR ---
PT'S BP 71/40 (48), LEVOPHED DRIP TITRATED UP TO 12 MCG/MIN HR: 90, PT RESTING QUIETLY IN BED, EYES CLOSED, BREATHS EVEN, UNLABORED, ON 2LNC, O2 SAT 94. THIS RN REMAINS IN ROOM.
--- NOTE | 2018-08-10 02:10 | NUR ---
PT'S BP 101/59 (66), HR 84, LEVOPHED DRIP REMAINS AT 12 MCG/MIN, VSS, PT RESTING QUIETLY, THIS RN REMAINS IN ROOM.
--- NOTE | 2018-08-10 02:30 | NUR ---
PT HAS VOIDED 750 MLS OF CLEAR YELLOW URINE IN LAST HOUR, FERRER CATH DRAINING WNL, PT'S IV LEVOPHED DRIP REMAINS AT 12MCG/MIN, BP:105/57(69), HR 86, ON 2LNC, O2 SAT: 96, RR: 15, PT RESTING QUIETLY IN BED, EYES CLOSED, BREATHS EVEN, UNLABORED, THIS RN REMAINS IN ROOM, IV FLUIDS INFUSING PER EMAR NWL.
--- NOTE | 2018-08-10 03:16 | NUR ---
PT RESTING IN BED, EYES CLOSED, BREATHS EVEN, UNLABORED, VSS, PT'S BP: 129/73 (85), PT'S LEVOPHED DRIP TITRATED DOWN TO 10 MCG/MIN, PT'S HR 81, ON 2LNC, O2 SAT 98%, IV FLUIDS INFUSING PER EMAR WNL, FERRER CATH DRAINING WNL. BED ALARM ON. PT VISIBLE FROM NURSES STATION.
--- NOTE | 2018-08-10 03:32 | NUR ---
PT'S LEVOPHED DRIP TITRATED TO 8MCG/MIN, PT'S BP 120/68 (81), VSS. PT RESTING QUIETLY IN BED, VISIBLE FROM NURSES STATION. IV FLUIDS INFUSING PER EMAR WNL.
--- NOTE | 2018-08-10 03:45 | NUR ---
PT'S BP: 114/64 (73), IV LEVOPHED DRIP TITRATED DOWN TO 6 MCG/MIN, PT'S HR 80, O2 SAT 98% ON 2LNC, OXYGEN TITRATED DOWN TO 1LNC, PT RESTING QUIETLY IN BED, EYES CLOSED, BREATHS EVEN, UNLABORED, NO REQUESTS AT THIS TIME.
--- NOTE | 2018-08-10 04:51 | NUR ---
PT CONTINUES TO REST IN BED, EYES CLOSED, BREATHS EVEN, UNLABORED, VSS, ON 1LNC, O2 SAT 98%, HR 77, BP: 109/66(76), RR: 14, LEVOPHED DRIP CURRENTLY AT 6 MCG/MIN, IV FLUIDS INFUSING PER EMAR WNL, FERRER CATH DRAINING WNL. BED ALARM ON, VISIBLE FROM NURSES STATION.
--- NOTE | 2018-08-10 05:46 | NUR ---
PT RESTING IN BED, EYES CLOSED, BREATHS EVEN, UNLABORED, ON 1LNC, O2 SAT 98%, BP: 113/66 (78), HR: 74, RR: 16, PT'S LEVOPHED DRIP ON 6MCG/MIN, IV FLUIDS INFUSING PER EMAR WNL, FERRER CATH DRAINING WNL, URINE OUTPUT QS. NO SIGNS OF RESTLESNESS OR DISCOMFORT, VISIBLE FROM NURSES STATION.
--- NOTE | 2018-08-10 06:00 | NUR ---
PT'S VSS, PT'S LEVOPHED TITRATED TO 4 MCG/MIN, BP: 121/68 (80), HR 70'S, ON 1LNC, O2 SAT 96%, NO SIGNS OF DISTRESS OR DISCOMFORT, CALL LIGHT WITHIN REACH. FALL PRECAUTIONS IN PLACE. VISIBLE FROM NURSES STATION.
--- NOTE | 2018-08-10 06:39 | NUR ---
PT DROWSY BUT ABLE TO AROUSE TO GENTLE TOUCH, PT WAS ABLE TO TAKE PO MED IN APPLE SAUCE, PT QUICK TO FALL BACK TO SLEEP. IV FLUIDS INFUSING PER EMAR WNL, LEVOPHED DRIP AT 4MCG/MIN, BP: 104/58 (68), HR 70'S, ON 1LNC, O2 SAT 96%, NO SIGNS OF DISTRESS OR DISCOMFORT, FERRER CATH DRAINING WNL, IV ABX INFUSING PER EMAR WNL. PT VISIBLE FROM NURSES STATION. FALL PRECAUTIONS IN PLACE. BED ALARM ON.
--- NOTE | 2018-08-10 08:31 | NUR ---
LEVPHED DRIP DECREASED TO 4MCG/MIN AT THIS TIME FOR A BP 107/58 (70).
--- NOTE | 2018-08-10 09:32 | NUR ---
PT BROTHER IS AT THE BEDSIDE ALL QUESTION ANSWERED AT THIS TIME. STARTED TALKING ABOUT HIS WISHES FOR CARE OF HIS BROTHER IF HIS HEART OR IF HE WOULD STOP BREATHING. POLST FORM GIVEN TALKED ABAOUT ALL THE DIFFERENT SECETIONS ON THE FORM. EXPLAINED THAT THERE IS A WEBSITE THAT HE CAN LOOK AT FOR MORE INFORMATION ABOUT THE USE OF THE FORM.
--- NOTE | 2018-08-10 09:34 | NUR ---
LEVPHED DRIP INCREASED BACK TO 6MCG/MIN DUE TO BP DRECREASED. SCOWMAN INTO TALK WITH THE BROTHER AT THIS TIME ALSO.
--- NOTE | 2018-08-10 11:15 | NUR ---
YLEVOPHED DRIP PLACED ON STANDBY AT THIS TIME, MAP GREATER THAN 65 AT THIS TIME. PT SONTIOUES TO BE SITTING UP IN BED, TV ON WITH CARTOONS. NURSE IN ROOM WITH PT AT THIS TIME. BED ALARM ON ALSO AT THIS TIME.
--- NOTE | 2018-08-10 11:16 | NUR ---
DR ROSE INTO SEE PT NEW ORDERS AT THIS TIME. DIET INCREASED, LUNCH TRAY ORDERED FOR PT. LEVEPHODE DRIP REMAINS OFF AT THIS TIME,. MAP (88). NURSE REMAINS AT THE BEDSIDE.
--- NOTE | 2018-08-10 11:43 | NUR ---
PT UP TO CHAIR A TIS TIME, LEVOPHED DRIP REMAINS OFF AT THIS TME MAP (85). PT DRANK THE CUP OF ENSURE AND JUICE THAT HE WAS GIVEN. NO COUGHING NOTED WHEN DRINKING AT THIS TIME.
--- NOTE | 2018-08-10 13:25 | NUR ---
PT BACK TO BED AT THIS TIME, ONE PERSON ASSITS TO BED, PT ATTENDS CHANGED, PT IS PASSING GAS. SIDE RAILS X 4 AND BED ALARM ON. IV BOLUS IS RUNNING.
--- NOTE | 2018-08-10 14:17 | NUR ---
STAFF AT THE BEDSIDE TO KEEP PT FROM PULLING AT TUBES. PT TALKS AT TIME BUT NOT IN ANY RHYMUN OR REASON WHICH IS HIS BASE LINE. BOLUS OF IV FLUIDS CONTIOUE TO INFUSE.
--- NOTE | 2018-08-10 15:36 | NUR ---
PT IN BED STAFF AT BEDSIDE, PT IS COOPERATIVE WITH HOSPITAL ROUTINE. PT WAS GIVEN A STUFF ANIMAL TODAY. PT DOES INTERACT WITH IT.
[2018-08-10] MEDS ORDERED: IRON325 M1 PO (17:01)
[2018-08-10] MEDS ORDERED: LAMOTRIGINE25 MG PO (17:02)
[2018-08-10] MEDS ORDERED: TYLENOL EXTRA500 MG PO (17:04)
[2018-08-10] MEDS ORDERED: DESITIN57 GM TOP (17:04)
[2018-08-10] MEDS ORDERED: BAZA PROTECT C142 GM TOP (17:05)
[2018-08-10] MEDS ORDERED: GOLD BOND MEDI TOP (17:06)
[2018-08-10] MEDS ORDERED: [UNRECOGNIZED DRUG - OTHER] TOP (17:07)
[2018-08-10] MEDS ORDERED: IMODIUM A-D2 M2 PO (17:08)
[2018-08-10] MEDS ORDERED: CLARITIN10 MG PO (17:09)
[2018-08-10] MEDS ORDERED: MELATIN3 MG PO (17:12)
[2018-08-10] MEDS ORDERED: MILK OF MA400 MG/5 M PO (17:13)
--- NOTE | 2018-08-10 17:14 | NUR ---
PT ATE DINNER AT THIS TIME. PT SITTING UP IN BED AND FEED HIS DINNER. NO COUGHING NOTED WHEN FEEDING PT AT THIS MEAL. HANDS AND FACE WASHED AFTER HIS MEAL. PT CONTIOUES TO SIT UPRIGHT IN BED. HE CONTIOUES TO BE COOPERATIVE WITH HOSPITAL ROUTINE.
--- NOTE | 2018-08-10 17:18 | NUR ---
MED REC COMPLETE
--- NOTE | 2018-08-10 19:32 | NUR ---
REPORT RC'D FROM DAY SHIFT NURSE NEHA. REPORTS LEVOPHED OFF, BP GOOD, CAREGIVER TO RETURN THIS EVENING. PT CURRENTLY IN BED WATCHING TV WITH NURSE AT BEDSIDE.
--- NOTE | 2018-08-10 20:02 | NUR ---
PT ONE ON ONE WITH WITH RN IN ROOM. PT RESTING IN BED WATCHING TV. PT ALERT, PLAYING WITH TOY AND BLANKETS, OCCASIONAL WORDS SUCH "OK" AND "YEAH." PT EASILY AGGITATED WITH ASSESSMENT BUT QUICKLY REASSURED. SINUS RHYTHM, SYSTOLIC TRENDING LOW 100'S, NO EDEMA, PULSES +2 IN UPPER AND LOWER EXTEMITIES. BUL CLEAR, BLL DIMINISHED, ON ROOM AIR. BOWEL TONES ACTIVE, GOOD PO INTAKE, ASPIRATION PRECAUTIONS. FERRER CATH IN PLACE DRAINING DILUTE YELLOW URINE. IV SITES PATENT, WNL, COVERED AND SECURED. LR INFUSING AT 75 MLS/HR.
--- NOTE | 2018-08-10 21:27 | NUR ---
HOB ELEVATED, PT SITTING UPRIGHT IN BED, MEDICATIONS CRUSHED AND IN APPLESAUCE, PT UNABLE TO FOLLOW COMANDS. PT SWALLOWED ALL MEDICATIONS W/O DIFFICULTY. HOB TO REMAIN ELEVATED. WILL CONTINUE TO MONTIOR.
--- NOTE | 2018-08-10 22:30 | NUR ---
RN NOTIFIED BY GROUP ACTIVITIES AIDE THAT PT WAS GIVEN SNACK AND TOELRATED WELL. HOB REMAINS ELEVATED. RN AT BESIDE TO MONITOR LINES CLOSELY. NO ACUTE DISTRESS NOTRED.
--- NOTE | 2018-08-11 | NUR ---
NO ACUTE CHANGES TO ASSESSMENT. PT REMAINS PLEASANT AND UP IN BED PLAYING WITH TOYS AND BLANKETS. NO ACUTE DISTRESS NOTED. RN AT BEDSIDE TO MONITOR LINES CLOSELY.
--- NOTE | 2018-08-11 02:59 | NUR ---
PT REMAINS UP IN BED WATCHING TV AND PLAYING WITH TOYS.
--- NOTE | 2018-08-11 04:00 | NUR ---
NO ACUTE CHANGES. PT REMAINS AWAKE AND UP IN BED.
--- NOTE | 2018-08-11 05:55 | NUR ---
STAFF AT BEDSIDE TO SIT WITH PT. PT ABLE TO DRINK CHOCOLATE ENSURE W/O DIFFICULTY. PT PLEASANT, UP IN BED INTERACTING WITH STAFF AND WATCHING TV.
--- NOTE | 2018-08-11 06:51 | NUR ---
PT AWAKE FOR ENTIRE SHIFT, PLEASANT, DIRECTABLE, AND NO EMOTIONAL OUTBURTS. BP HAVE REMAINED STABLE WITH NO HYPOTENSION. LUNG SOUNFS UNCHANGED AND TOLERATING ROOM AIR. BOWEL TONES ACTIVE, TOLERATING MINCED MOIST FOOD, ASPIRATION PRECAUTIONS, ABLE TO SWALLOW W/O DIFFICULTY. FERRER CATH IN PLACE AND VOIDING QS. REDNESS TO COCCYX BLANCHABLE AND NO BREAKDOWN NOTED. IV SITES PATENT, WNL, AND COVERED. LR INFUSING AT 75 MLS/HR.
--- NOTE | 2018-08-11 07:51 | NUR ---
PATIENT AWAKE, SITTING UP IN BED UPON INITIAL ASSESSMENT. PT IS IN A PLEASANT MOOD, AND ALLOWS ASSESSMENT TO BE PERFORMED. BREAKFAST ORDERED FOR PATIENT. PT CONTINUES TO HAVE FERRER CATHETER DRAINING YELLOW URINE. IV FLUIDS CONTINUE IN RIGHT AC WITH LR AT 75 ML/HR. MORNING MEDICATIONS GIVEN WITH APPLE SAUCE. CONTINUE TO MONITOR.
--- NOTE | 2018-08-11 08:39 | NUR ---
pt able to eat a full applesauce and a full serving of oatmeal with feeding from nurse. pt able to drink two milks with a straw slightly more independent. pt cooperative and appears in good spirits this morning.
--- NOTE | 2018-08-11 09:08 | NUR ---
PT UP AMBULATED TO THE TOILET WITH ONE PERSON STANDBY ASSIST. PT ABLE TO HAVE A EXTRA LARGE BM, CLEAN ATTENDS IN PLACE. PT AMBULATED BACK TO BED. PT COOPERATIVE AND APPEARS CHEERFUL.
--- NOTE | 2018-08-11 10:27 | NUR ---
DR. ORSE IN ROOM TO SEE PATIENT. PATIENT WILL BE TRANSFERRED TO MED/SURG WITHOUT TELEMETRY. IVF TO BE D/C. PT CURRENTLY SLEEPING IN BED, BUT AWAKENS WHEN LIGHTLY TOUCHED. CONTINUE TO MONITOR.
--- NOTE | 2018-08-11 11:08 | NUR ---
REPORT GIVEN TO BIANKA DHALIWAL. PATIENT TO BE TRANSFERRED TO MED/SURG ROOM 121 VIA BED. ALL BELONGINGS TO BE TAKEN WITH PATIENT.
--- NOTE | 2018-08-11 11:08 | NUR ---
REPORT RECEIVED FROM BIANKA STERN. PT ARRIVES TO ROOM 121 MED SURG. PT ASSESSMENT COMPLETED AND CALL LIGHT AND H20 IN REACH. PT NOW APPEARS TO BE SLEEPING COMFORTABLY WITH EYES CLOSED AND RESPIRATIONS EVEN AND UNLABORED.
--- NOTE | 2018-08-11 13:55 | NUR ---
PATIENT IN BED WATCHING TV. RN IN ROOM. VITAL SIGNS AND I&O DONE. CALL LIGHT WITHIN REACH. NO OTHER NEEDS AT THIS TIME
--- NOTE | 2018-08-11 14:11 | NUR ---
PT RESTING SUPINE IN BED WITH HOB ELEVATED. PT WATCHING TV. IV ABX INFUSING. CALL LIGHT AND H2O IN REACH. 1:1 WITH MANAGER SAS AT THIS TIME PT HAS SATYA IMPULSIVE AND ATTEMPTS TO GET OUT OF BED.
--- NOTE | 2018-08-11 18:24 | NUR ---
P TSITTING UP IN BED, WATCHING TV. PT REMAINS IMPULSIVE ATTEMTPS TO PULL AT CATHETER AT TIMES AND ATTEMPTS TO GET UP OUT OF BED AT TIMES WELL SO HE REMAINS A 1:1 WITH GRAY ROJAS FOR SAFETY.
--- NOTE | 2018-08-11 19:47 | NUR ---
WITH THE HELP OF BIANKA CLEMONS WE CHANGED PT'S ATTEND DUE TO INCONTINENCE OF BM.BED ALARM SET. BEDSIDE TABLE AND CALL LIGHT IN REACH.
--- NOTE | 2018-08-11 19:59 | NUR ---
REPORT RECEIVED, PT RESTING IN BED, NO SIGNS OF RESTLESNESS OR AGITATION, PT INCONTINENT OF STOOL ATTENDS CHANGED, SITTER IN ROOM, NO REQUESTS AT THIS TIME, CALL LIGHT WITHIN REACH. FALL PRECAUTIONS IN PLACE. BED ALARM ON.
--- NOTE | 2018-08-11 20:21 | NUR ---
PT WAS ABLE TO TAKE PO MEDS IN APPLE SAUCE, TOLERATED WELL. ASSESSMENT COMPLETE, PT ALERT, UNABLE TO ASSESS ORIENTATION, PT ABLE TO VERBALIZE SHORT RESPONSES: "YEP, OK, HELLO, NO", PT RESTING IN BED, NO SIGNS OF DISCOMFORT OR AGITATION, PT'S LS CLEAR, ON RA, FERRER CATH DRAINING WNL, BT ACTIVE, ABDOMEN NONTENDER, PULSES EQUAL, FALL PRECAUTIONS IN PLACE. BED ALARM ON. VISIBLE FROM NURSES STATION.
--- NOTE | 2018-08-11 20:51 | NUR ---
VITALS DONE AND CHARTED. BEDSIDE TABLE AND CALL LIGHT IN REACH. BED ALARM ON.
--- NOTE | 2018-08-11 22:26 | NUR ---
PT RESTING IN BED, EYES CLOSED, BREATHS EVEN, UNLABORED, NO REQUESTS AT THIS TIME, CALL LIGHT WITHIN REACH. FALL PRECAUTIONS IN PLACE. BIANKA LOOMIS WATCHING PT FROM NURSES STATION. FALL PRECAUTIONS IN PLACE. CARISSA ARRINGTON WNL.
--- NOTE | 2018-08-11 23:56 | NUR ---
PT C/O FEELING ANXIOUS, STATING "MY NERVES ARE SHOT", PT GIVEN PRN ANXIETY MED PER EMAR. NO FURTHER REQUESTS AT THIS TIME. ADOPTION COUNSELOR JULY IN PT'S ROOM SITTING 1:1 WITH HIM. FALL PRECAUTIONS IN PLACE.
--- NOTE | 2018-08-12 00:59 | NUR ---
PT RESTING IN BED, EYES CLOSED, BREATHS EVEN, UNLABORED, REPOSTIONED IN BED, NO REQUESTS AT THIS TIME, CALL LIGHT WITHIN REACH. VISIBLE FROM NURSES STATION, FALL PRECAUTIONS IN PLACE. BED ALARM ON.
--- NOTE | 2018-08-12 02:56 | NUR ---
PT RESTING IN BED, EYES CLOSED, BREATHSE EVEN, UNLABORED, NO REQUESTS AT THIS TIME, CALL LIGHT WITHIN REACH. FERRER CATH DRAINING WNL.
--- NOTE | 2018-08-12 05:24 | NUR ---
PT ALERT, CONFUSED, NO SIGNS OF DISTRESS OR AGITATION, PT HAS BEEN ABLE TO REST MOST OF SHIFT, BED ALARM ON, VISIBLE FROM NURSES STATION. FERRER CATH DRAINING WNL, VSS, 1 PERSON ASSIST/FWW, PT DID HAVE A BM THIS SHIFT, ATTENDS ON,
[2018-08-12] MEDS ORDERED: DOXYCYCLINE HY100 MG PO (09:13)
--- NOTE | 2018-08-12 09:31 | NUR ---
PT SITTNIG UP IN RECLINER, GRAY AJ AT SIDE, PT COLORING ON PAPER WITH MARKERS. PT ATE 100% OF BREAKFAST WITH ASSIST FROM BIANKA ALTAMIRANO WHILE SITTING UP IN RECLINER. PT TOLERATED WELL. PT TOOK PO MEDICATIONS CRUSHED IN PUDDING. PT SMILING, MAKING VOCALIZATIONS, SAYING "YEAH" IN RESPONSE TO QUESTIONS. DID NOT GIVE APROPRIATE RESPONSES FOR ORIENTATION QUESTIONS. THIS IS PT'S BASELINE. RESPIRATIONS EVEN AND UNLABORED, 20 BPM. LUNGS CTA.
== END 2018-08-12 12:23 | disposition home or self-care (01) ==
LOC: ED 20:29 → CCU 20:30 → ED 23:57 → CCU 23:57 → MS 08-11 11:25
PROVIDERS: ADMIT Student in an Organized Health Care Education/Training Program
DX: A41.9 Sepsis, unspecified organism (principal); J69.0 Pneumonitis due to inhalation of food and vomit; R33.9 Retention of urine, unspecified; E03.9 Hypothyroidism, unspecified; Q90.9 Down syndrome, unspecified; Z79.52 Long term (current) use of systemic steroids; Z79.899 Other long term (current) drug therapy
CPT/HCPCS: 36415; 51702; 71046; 80048; 80053; 81001; 83605; 83735; 83880; 85025; 85610; 85730; 87088; 87502; 96361; 96372; 96375; 96376; 99284-25; G0378; J0456; J0696; J1650; J1720; J2543; J7030; J7060; J7120

== ENCOUNTER 2018-08-18 22:15 | Observation (INO) | payer MEDICARE, OTHER ==
[~2018-08-18] VITALS: Ht 160 cm; Wt 56.7 kg
--- OUTSIDE RECORDS SUMMARY | ~2018-08-18 | XMS | Clinical Summary ---
Demographics + + + | Address | [address] | | | [place] [address] | + + + | Home Phone | | + + + | Preferred Language | Unknown | + + + | Marital Status | Single | + + + | Mandaeism Affiliation | Unknown | + + + | Race | White | + + + | Ethnic Group | Not or | + + + Author + + + | Author | [facility] | + + + | Organization | [facility] | + + + | Address | Unknown | + + + | Phone | Unavailable | + + + Support + + +---------+ + | Name | Relationship | Address | Phone | + + +---------+ + | Kristy Sharma | ECON | Unknown | | + + +---------+ + Care Team Providers + +------+ + | Care Information Security Director Name | Role | Phone | + +------+ + PP | Unavailable | + +------+ + Source Comments LILA is fully live on both [facility] Ambulatory and [facility] InPatient.[facility] Allergies + + + + + + | Active Allergy | Reactions | Severity | Noted | Comments | | | | | Date | | + + + + + + | Carbamazepine | | | 10/30/19 | behavioral | | | | | 09 | problems | + + + + + + Medications + + + +---------+------+------+-------+ | Medication | Sig | Dispensed | Refills | Star | End | Statu | | | | | | t | Date | s | | | | | | Date | | | + + + +---------+------+------+-------+ | divalproex DR | Take 250 mg by | | 0 | | | Activ | | (DEPAKOTE) 250 mg | mouth. | | | | | e | | Oral Tablet, Delayed | | | | | | | | Release (E.C.) | | | | | | | + + + +---------+------+------+-------+ | ferrous sulfate | Take 650 mg by mouth | | 0 | | | Activ | | delayed release 325 | once daily. | | | | | e | | mg (65 mg Iron) Oral | | | | | | | | Tablet, Delayed | | | | | | | | Release (E.C.) | | | | | | | + + + +---------+------+------+-------+ | OMEGA-3 FATTY | Take by mouth two | | 0 | | | Activ | | ACIDS (FISH OIL | times daily. | | | | | e | | CONCENTRATE ORAL) | | | | | | | + + + +---------+------+------+-------+ | fludrocortisone | Take 0.1 mg by mouth | | 0 | | | Activ | | (FLORINEF ACETATE) | once daily. | | | | | e | | 0.1 mg Oral Tablet | | | | | | | + + + +---------+------+------+-------+ | ziprasidone | Take 40 mg by mouth | | 0 | | | Activ | | (GEODON) 40 mg Oral | once daily in the | | | | | e | | Capsule | evening. | | | | | | + + + +---------+------+------+-------+ | levothyroxine 125 | Take 125 mcg by | | 0 | | | Activ | | mcg Oral Tablet | mouth. Every day but | | | | | e | | | skip Monday | | | | | | + + + +---------+------+------+-------+ | POLYETHYLENE | Take by mouth once | | 0 | | | Activ | | GLYCOL 3350 (MIRALAX | daily. Two | | | | | e | | ORAL) | tablespoons daily as | | | | | | | | needed | | | | | | + + + +---------+------+------+-------+ | MULTIVITAMINS | Take by mouth once | | 0 | | | Activ | | (MULTIVITAMIN ORAL) | daily. | | | | | e | + + + +---------+------+------+-------+ | Quetiapine | Take 200 mg by mouth | | 0 | | | Activ | | (SEROQUEL XR) 200 mg | three times daily. | | | | | e | | Oral Tablet | Take with additional | | | | | | | Sustained Release 24 | 50 mg tablet for | | | | | | | hr | total of 250 mg | | | | | | | | three times daily | | | | | | + + + +---------+------+------+-------+ | Quetiapine | Take 50 mg by mouth | | 0 | | | Activ | | (SEROQUEL XR) 50 mg | three times daily. | | | | | e | | Oral Tablet | Take with 200 mg | | | | | | | Sustained Release 24 | tablet of seroquel | | | | | | | hr | for total of 250 mg | | | | | | | | 3 x per day | | | | | | + + + +---------+------+------+-------+ | sertraline 100 mg | Take 100 mg by mouth | | 0 | | | Activ | | Oral Tablet | once daily. | | | | | e | + + + +---------+------+------+-------+ | ACETAMINOPHEN | Take 500 mg by | | 0 | | | Activ | | (TYLENOL EXTRA | mouth. Every 4-6 | | | | | e | | STRENGTH ORAL) | hours as needed | | | | | | + + + +---------+------+------+-------+ | vitamin E 1,000 | Take 1,000 Units by | | 0 | | | Activ | | unit Oral Capsule | mouth once daily. | | | | | e | + + + +---------+------+------+-------+ Active Problems Not on file Social History + +-------+ +--------+------+ | Tobacco Use | Types | Packs/Day | Years | Date | | | | | Used | | + +-------+ +--------+------+ | Never Assessed | | | | | + +-------+ +--------+------+ + + + | Sex Assigned at | Date Recorded | | | | + + + | Not on file | | + + + + + + + | Job Start Date | Occupation | Industry | + + + + | Not on file | Not on file | Not on file | + + + + + + + + | Travel History | Travel Start | Travel End | + + + + + + | No recent travel history available. | + + Plan of Treatment + + + + + | Health Maintenance | Due Date | Last Done | Comments | + + + + + | Influenza (Flu) | | | | | vaccination (Season | 9 | | | | Ended) | | | | + + + + + Results Not on filefrom Last 3 Months Advance Directives + + + + + | Type | Date Recorded | Patient | Explanation | | | | Surgical Elastic Knitter Hand Frame | | + + + + + | Advance | | | | | Directives and | | | | | Living Will | | | | + + + + + | Power of | | | | | Gerentological Physiotherapist | | | | + + + + +"
--- OUTSIDE RECORDS SUMMARY | ~2018-08-18 | XMS | Encounter Summary ---
Demographics + + + | Address | [address] | | | [place] [address] | + + + | Home Phone | | + + + | Preferred Language | Unknown | + + + | Marital Status | Single | + + + | Mandaen Affiliation | Unknown | + + + | Race | White | + + + | Ethnic Group | Not or | + + + Author + + + | Author | [facility] | + + + | Organization | [facility] | + + + | Address | Unknown | + + + | Phone | Unavailable | + + + Support + + +---------+ + | Name | Relationship | Address | Phone | + + +---------+ + | Kristy Medabalime | ECON | Unknown | | + + +---------+ + Care Team Providers + +------+ + | Care Gas Meter Installer Helper Name | Role | Phone | + +------+ + | Kvng Wheatley MD | PCP | | + +------+ + Encounter Details +--------+ + + + + | Date | Type | Department | Care Team | Description | +--------+ + + + + | 10/30/ | General Production Worker | Cardiology General | Mannie Rosa | Screening for | | 2008 | | at [facility] [address] | EMD [address] | Cardiovascular | | | | Sean Lenz Mailcode: | [place], [place] | Condition (Primary | | | | [facility] | [address] | Dx) | | | | Health and Healing, | [phone] | | | | | [address]th Floor [place], | | | | | | [place] [address] | | | | | | [phone] | | | +--------+ + + + [...] Not on filedocumented as of this encounter Visit Diagnoses + + | Diagnosis | + + | Screening for cardiovascular condition - Primary Screening for other and unspecified | | cardiovascular conditions | + + documented in this encounter"
--- OUTSIDE RECORDS SUMMARY | ~2018-08-18 | XMS | Clinical Summary ---
Demographics + + + | Address | [address] | | | [place] [address] | + + + | Home Phone | | + + + | Preferred Language | Unknown | + + + | Marital Status | Single | + + + | Evangelical Affiliation | 1013 | + + + | Race | Unknown | + + + | Ethnic Group | Unknown | + + + Author + + + | Author | [facility] | | | and [place] | + + + | Organization | [facility] | | | and Angelana [...] Team Providers + +------+ + | Care Sewer Pipe Press Operator Name | Role | Phone | + +------+ + | Corin Cordero MIXER WET POUR | PP | Unavailable | + +------+ [...] | + + + + | INFLUENZA, [id number], | 01/16/2014 | | | UNSPECIFIED | [...] | [employer] [facility] [employer] | [facility] | [id number] | 10/09/19 | [phone] | | Medica [...] | | alberto/Tejas | | 1966 | [phone] | [place] [address] | | | ana | | | 8 (Home) | | + +--------+ +--------+ + + Advance Directives Patient has advance care planning documents on file. For more information, please contact:[place] [address]
--- OUTSIDE RECORDS SUMMARY | ~2018-08-18 | XMS | Clinical Summary ---
Demographics + + + | Address | [address] | | | [place] [address] | + + + | Home Phone | | + + + | Preferred Language | Unknown | + + + | Marital Status | Single | + + + | Tenriism Affiliation | 1013 | + + + | Race | Unknown | + + + | Ethnic Group | Unknown | + + + Author + + + | Author | [facility] | | | and [place] | + + + | Organization | [facility] | | | and [...] Team Providers + +------+ + | Care Production Control Scheduler Name | Role | Phone | + +------+ + | Corin Cordero CLINICAL REHAB SPECIALIST | PP | Unavailable | + +------+ [...] | + + + + | INFLUENZA, [id number], | 01/16/2014 | | | UNSPECIFIED | [...] | [employer] | [facility] | [id number] | 10/09/19 | [phone] | | Medica [...] | | alberto/Tejas | | 1966 | [phone] | [place] [address] | | | ana | | | 8 (Home) | | + +--------+ +--------+ + + Advance Directives Patient has advance care planning documents on file. For more information, please contact:[facility] [place] [address]
--- OUTSIDE RECORDS SUMMARY | ~2018-08-18 | XMS | Clinical Summary ---
Demographics + + + | Address | [address] | | | [place] [address] | + + + | Home Phone | | + + + | Preferred Language | Unknown | + + + | Marital Status | Single | + + + | Gnosticist Affiliation | Unknown | + + + [...] Team Providers + +------+ + | Care Gluing Machine Operator Electronic Name | Role | Phone | + +------+ + PP | Unavailable | + +------+ + Source Comments LILA is fully live on both [facility] Ambulatory and [facility] InPatient.[facility] Allergies + + + + + [...] Patient | Explanation | | | | Sleeve Machine Tender | | + + + + + | Advance | | | | | Directives and | | | | | Living Will | | | | + + + + + | Power of | | | | | Heavy Forger Helper | | | | + + + + +"
--- OUTSIDE RECORDS SUMMARY | ~2018-08-18 | XMS | Clinical Summary ---
Demographics + + + | Address | [address] | | | [place] [address] | + + + | Home Phone | | + + + | Preferred Language | Unknown | + + + | Marital Status | Single | + + + | Amish Affiliation | Unknown | + + + [...] Team Providers + +------+ + | Care Survey Technologist Name | Role | Phone | + +------+ + PP | Unavailable | + +------+ + Source Comments LILA is fully live on both [facility] Ambulatory and [facility] InPatient.[facility] Allergies + + + + + [...] Patient | Explanation | | | | Circus Roustabout | | + + + + + | Advance | | | | | Directives and | | | | | Living Will | | | | + + + + + | Power of | | | | | Development Rep | | | | + + + + +"
--- OUTSIDE RECORDS SUMMARY | ~2018-08-18 | XMS | Clinical Summary ---
Demographics + + + | Address | [address] | | | [place] [address] | + + + | Home Phone | | + + + | Preferred Language | Unknown | + + + | Marital Status | Single | + + + | Church Affiliation | 1013 | + + + | Race | Unknown | + + + | Ethnic Group | Unknown | + + + Author + + + | Author | [facility] | | | and [place] | + + + | Organization | [facility] | | | and [place] [...] Team Providers + +------+ + | Care Offset Second Press Operator Name | Role | Phone | + +------+ + | Corin Cordero STULL INSTALLER | PP | Unavailable | + +------+ [...] | + + + + | INFLUENZA, [id number], | 01/16/2014 | | | UNSPECIFIED | [...] | [employer] | MOD[facility] | [id number] | 10/09/19 | [phone] | | Medica [...] | | alberto/Tejas | | 1966 | [phone] | [place] [address] | | | ana | | | 8 (Home) | | + +--------+ +--------+ + + Advance Directives Patient has advance care planning documents on file. For more information, please contact:[facility] [address]
--- OUTSIDE RECORDS SUMMARY | ~2018-08-18 | XMS | Clinical Summary ---
Demographics + + + | Address | [address] | | | [place] [address] | + + + | Home Phone | | + + + | Preferred Language | Unknown | + + + | Marital Status | Single | + + + | Jewish Affiliation | Unknown | + + + | Race | Unknown | + + + | Ethnic Group | Unknown | + + + Author + + + | Author | [facility] [employer] [facility] [facility] | + + + | Organization | [facility] [employer] [facility] [facility] | + + + | Address | Unknown | + + + | Phone | Unavailable | + + + Support + + + + + | Name | Relationship | Address | Phone | + + + + + | Doug Finney | [place]CHANA | [place] | | | | | [address] | | + + + + + | Doris Braclay | [place] | [address] | | | | | [place] | | | | | [address] | | + + + + + Care Team Providers + +------+ + | Care Utility Operator Yarn Name | Role | Phone | + [...] | MA - PREMIERCARE | MA-PRE | [id number] | Medica | | | | FAMILY | [place] | | re | | | | | RE | | | | | | | FAMILY | | | | | + +--------+ +--------+-------+ + | MEDICAID | EASTER | [id number] | | | [address] | | | N | | | | [place], [place] | | | [place] | | | | [phone] | | | TOBACCO PACKING MACHINE OPERATOR | | | | | + +--------+ [...] Self | [birth year] Home: | [address] | | | al/Fam | | 1966 | [phone] | [place] | | | ana | | | [address] | [phone] | + +--------+ +--------+ + +
--- OUTSIDE RECORDS SUMMARY | ~2018-08-18 | XMS | Clinical Summary ---
Demographics + + + | Address | [address] | | | [place] [address] | + + + | Home Phone | | + + + | Preferred Language | Unknown | + + + | Marital Status | Single | + + + | Confucianism Affiliation | Unknown | + + + | Race | Unknown | + + + | Ethnic Group | Unknown | + + + Author + + + | Author | [facility] | + + + | Organization | [facility] | + + + | Address | Unknown | + + + | Phone | Unavailable | + + + Support + + + + + | Name | Relationship | Address | Phone | + + + + + | Doug Finney | ARCHANA | [place] | | | | | [phone] | | + + + + + | Doris Barclay | ARCHANA | [address] | | | | | [place] | | | | | [phone] | | + + + + + Care Team Providers + +------+ + | Care Apprentice Cosmetologist Name | Role | Phone | + [...] | MA - PREMIERCARE | MA-PRE | [id number] | Medica | | | | FAMILY | [place] | | re | | | | | RE | | | | | | | FAMILY | | | | | + +--------+ +--------+-------+ + | MEDICAID | [facility] | [id number] | | | [address] | | | N | | | | [place], [place] | | | [place] | | | | [address] | | | AUTOMOTIVE ENGINEERING TECHNICIAN | | | | | + +--------+ [...] Self | [birth year] | Home: | [address] | | | al/Fam | | 1966 | [phone] | [place] | | | ana | | | [phone] | [phone] | + +--------+ +--------+ + +
--- OUTSIDE RECORDS SUMMARY | ~2018-08-18 | XMS | Encounter Summary ---
Demographics + + + | Address | [address] | | | [place] [address] | + + + | Home Phone | | + + + | Preferred Language | Unknown | + + + | Marital Status | Single | + + + | Hoahaoism Affiliation | Unknown | + + + | Race | White | + + + | Ethnic Group | Not or | + + + Author + + + | Author | [facility] | + + + | Organization | [facility] | + + + | Address | Unknown | + + + | Phone | Unavailable | + + + Support + + +---------+ + | Name | Relationship | Address | Phone | + + +---------+ + | Kristy Medabalime | ECON | Unknown | | + + +---------+ + Care Team Providers + +------+ + | Care Automobile Tester Name | Role | Phone | + +------+ + | Kvng Wheatley MD | PCP | | + +------+ + Encounter Details +--------+ + + + + | Date | Type | Department | Care Team | Description | +--------+ + + + + | 10/29/ | Hand Carver | Cardiology General | Mannie Rosa | Screening for | | 2008 | | at [facility] [address] | [address] | Cardiovascular | | | | Sean Lenz Mailcode: | [place], [place] | Condition (Primary | | | | [facility] for | [address] | Dx); Cardiac Murmur | | | | Health and Healing, | [phone] | | | | | 9th [facility], | | | | | | [place] [address] | | | | | | [phone] | | | +--------+ + + + [...]
--- OUTSIDE RECORDS SUMMARY | ~2018-08-18 | XMS | Encounter Summary ---
Demographics + + + | Address | [address] | | | [place] [address] | + + + | Home Phone | | + + + | Preferred Language | Unknown | + + + | Marital Status | Single | + + + | Zoroastrianism Affiliation | Unknown | + + + | Race | White | + + + | Ethnic Group | Not or | + + + Author + + + | Author | [facility] | + + + | Organization | [facility] | + + + | Address | Unknown | + + + | Phone | Unavailable | + + + Support + + +---------+ + | Name | Relationship | Address | Phone | + + +---------+ + | Kristy Medabalime | ECON | Unknown | | + + +---------+ + Care Team Providers + +------+ + | Care Oracle Erp Developer Name | Role | Phone | + +------+ + | Kvng Wheatley MD | PCP | | + +------+ + Encounter Details +--------+ + + + + | Date | Type | Department | Care Team | Description | +--------+ + + + + | 10/29/ | Feed Mill Lab Technician | Cardiology General | Mannie Rosa | Screening for | | 2008 | | at [facility] [address] | [address] | Cardiovascular | | | | Sean Lenz Mailcode: | [place], [place] | Condition (Primary | | | | [facility] | [address] | Dx); Cardiac Murmur | | | | Health and Healing, | [phone] | | | | | 9th [facility], | | | | | | [place] [address] | | | | | | [phone] | | | +--------+ + + + [...]
--- OUTSIDE RECORDS SUMMARY | ~2018-08-18 | XMS | Encounter Summary ---
Demographics + + + | Address | [address] | | | [place] [address] | + + + | Home Phone [...] Author + + + | Author | [facility] | + + + | Organization | [facility] | + + + | Address | Unknown | + + + | Phone | Unavailable | + + + Support + + +---------+ + | Name | Relationship | Address | Phone | + + +---------+ + | Kristy Medabalime | ECON | Unknown | | + + +---------+ + Care Team Providers + +------+ + | Care Communications Representative Name | Role | Phone | + +------+ + | Kvng Wheatley MD | PCP | | + +------+ + Encounter Details +--------+ + + + + | Date | Type | Department | Care Team | Description | +--------+ + + + + | 10/29/ | Prototype Fabricator | Cardiology General | Mannie Rosa | Screening for | | 2008 | | at [facility] [address] | [address] | Cardiovascular | | | | Sean Lenz Mailcode: | [place], [place] | Condition (Primary | | | | [facility] | [address] | Dx); Cardiac Murmur | | | | Health and Healing, | [phone] | | | | | 9th [facility], | | | | | | [place] [address] | | | | | | [phone] | | | +--------+ + + + [...]
--- OUTSIDE RECORDS SUMMARY | ~2018-08-18 | XMS | Encounter Summary ---
Demographics + + + | Address | [address] | | | [place] [address] | + + + | Home Phone [...] Author + + + | Author | [facility] | + + + | Organization | [facility] | + + + | Address | Unknown | + + + | Phone | Unavailable | + + + Support + + +---------+ + | Name | Relationship | Address | Phone | + + +---------+ + | Kristy Medabalime | ECON | Unknown | | + + +---------+ + Care Team Providers + +------+ + | Care Process Camera Operator Name | Role | Phone | + +------+ + | Kvng Wheatley MD | PCP | | + +------+ + Encounter Details +--------+ + + + + | Date | Type | Department | Care Team | Description | +--------+ + + + + | 10/30/ | Translational Specialist | Cardiology General | Mannie Rosa | Screening for | | 2008 | | at [facility] [address] | [address] | Cardiovascular | | | | Sean Lenz Mailcode: | [place], [place] | Condition (Primary | | | | [facility] | [address] | Dx) | | | | Health and Healing, | [phone] | | | | | 9th Floor [place], | | | | | | [place] [address] | | | | | | [phone] | | | +--------+ + + + [...]
--- OUTSIDE RECORDS SUMMARY | ~2018-08-18 | XMS | Clinical Summary ---
Demographics + + + | Address | [address] | | | [place] [address] | + + + | Home Phone | | + + + | Preferred Language | Unknown | + + + | Marital Status | Single | + + + | Buddhism Affiliation | Unknown | + + + | Race | Unknown | + + + | Ethnic Group | Unknown | + + + Author + + + | Author | [facility] | + + + | Organization | [facility] | + + + | Address | Unknown | + + + | Phone | Unavailable | + + + Support + + + + + | Name | Relationship | Address | Phone | + + + + + | Doug Finney | ARCHANA | [place] | | | | | [address] | | + + + + + | Doris Barclay | ARCHANA | [address] | | | | | [place] | | | | | [address] | | + + + + + Care Team Providers + +------+ + | Care Grievance And Appeals Specialist Name | Role | Phone | [...] | MA - PREMIERCARE | MA-PRE | [id number] | Medica | | | | FAMILY | [place] | | re | | | | | RE | | | | | | | FAMILY | | | | | + +--------+ +--------+-------+ + | MEDICAID | [facility] | [id number] | | | [address] | | | N | | | | [place], [place] | | | [place] | | | | [address] | | | LEGAL AIDE | | | | | + +--------+ [...] Self | [birth year] | Home: | [address] | | | al/Fam | | 1966 | [phone] | [place] | | | [place] | | | [phone] | [phone] | + +--------+ +--------+ + +
--- OUTSIDE RECORDS SUMMARY | ~2018-08-18 | XMS | Encounter Summary ---
Demographics + + + | Address | [address] | | | [place] [address] | + + + | Home Phone | | + + + | Preferred Language | Unknown | + + + | Marital Status | Single | + + + | Protestant Affiliation | Unknown | + + + | Race | White | + + + | Ethnic Group | Not or | + + + Author + + + | Author | [facility] | + + + | Organization | [facility] | + + + | Address | Unknown | + + + | Phone | Unavailable | + + + Support + + +---------+ + | Name | Relationship | Address | Phone | + + +---------+ + | Kristy Medabalime | ECON | Unknown | | + + +---------+ + Care Team Providers + +------+ + | Care Emt/Paramedic Name | Role | Phone | + +------+ + | Kvng Wheatley MD | PCP | | + +------+ + Encounter Details +--------+ + + + + | Date | Type | Department | Care Team | Description | +--------+ + + + + | 10/30/ | Site Project Manager | Cardiology General | Mannie Rosa | Screening for | | 2008 | | at [facility] [address] | [address] | Cardiovascular | | | | Sean Lenz Mailcode: | [place], [place] | Condition (Primary | | | | [facility] | [address] | Dx) | | | | Health and Healing, | [phone] | | | | | 9th Floor [place], | | | | | | [place] [address] | | | | | | [phone] | | | +--------+ + + + [...]
[~2018-08-18 22:15] MED LIST changes: +BAZA PROTECT C142 GM TOP; +CLARITIN10 MG PO; +DESITIN57 GM TOP; +GOLD BOND MEDI TOP; +IMODIUM A-D2 M2 PO; +IRON325 M1 PO; +LAMOTRIGINE25 MG PO; +MELATIN3 MG PO; +MILK OF MA400 MG/5 M PO; +TYLENOL EXTRA500 MG PO; +[UNRECOGNIZED DRUG - OTHER] TOP
--- OUTSIDE RECORDS SUMMARY | 2018-08-18 22:18 | XMS ---
PreManage Notification: JULIANE MARINA Security Surgical Rn Events No recent Security Events currently on file CRITERIA MET - [facility] - 2 Visits in 30 Days CARE PROVIDERS LEENA MANDUJANO Nurse Practitioner: 06/29/2018-Current PHONE: [phone] LEENA MANDUJANO Primary Care 12/09/2010-Current PHONE: Unknown Eric has no Care Guidelines for this patient. Kim VISIT COUNT (12 MO.) [address] [place] [address] TOTAL 3 NOTE: Visits indicate total known visits. ED/UCC VISIT TRACKING (12 MO.) 08/18/2018 22:15 [facility] [place] TYPE: Emergency COMPLAINT: - FEVER 08/09/2018 20:29 [facility] [place] TYPE: Emergency COMPLAINT: - PNEUMONIA, NON SEVERE SEPSIS 06/21/2018 21:50 [facility] [place] TYPE: Emergency COMPLAINT: - PAIN INPATIENT VISIT TRACKING (12 MO.) 08/09/2018 20:30 [facility] [place] TYPE: Observation COMPLAINT: - PNEUMONIA, NON SEVERE SEPSIS DIAGNOSES: - Volume depletion, unspecified - ocean transportation intermediary (current) use of systemic steroids - Hypothyroidism, unspecified - Other [place] [facility] ([facility] drug therapy - Sepsis, unspecified organism - Down syndrome, unspecified - Retention of urine, unspecified - Pneumonitis due to inhalation of food and vomit 06/22/2018 11:15 [facility] [place] TYPE: Medical Surgical COMPLAINT: - PNEUMONIA, DEHYDRATION DIAGNOSES: - Pneumonia due to other streptococci - Pneumonitis due to inhalation of food and vomit - shelter (current) use of systemic steroids - Down syndrome, unspecified - Retention of urine, unspecified - Pneumonitis due to inhalation of food and vomit - Acute kidney failure, unspecified - Pneumonia due to other streptococci - Insomnia, unspecified - Other superintendent container terminal (current) drug therapy - shelter (current) use of systemic steroids - Allergy status to other drugs, medicaments and biological substances status - Retention of urine, unspecified - Insomnia, unspecified - Down syndrome, unspecified - Other [place] [facility] (current[facility] drug therapy - Allergy status to other drugs, medicaments and biological substances status [email or web address]
--- NOTE | 2018-08-19 | NUR ---
PATIENT ARRIVED FROM ER VIA STRETCHER AND MOVED INTO HOSPITAL BED WITH A DRAW SHEET WHERE HIS ASSESSMENT WAS DONE. CAREGIVER FROM [facility] PRESENT.
--- NOTE | 2018-08-19 02:20 | NUR ---
PATIENT FELL ASLEEP ALSMOST SOON HE WAS PUT IN BED AND TALKS JIBBRISH IN HIS SLEEP, WHICH IS NOT MUCH DIFFERENT THEN WHEN AWAKE WITH HIS DOWN SYNDROME. PATIENT RESTING QUIETLY AT THIS TIME AND VS ARE STABLE EXCEPT HIS BLOOD PRESSURE IS STILL A LITTLE SOFT IT WAS IN THE ER. IV FLUIDS AT 125MLS/HR.
--- NOTE | 2018-08-19 05:22 | NUR ---
PATIENT HAS REMAINED RESTING QUIETLY EXCEPT FOR OCCASIONAL WORDS IN HIS SLEEP ,EYES CLOSED, RESPIRATIONS REGULAR AND EVEN. B/P REMAINS SOFT IN ER AND PER HX AT 90/50. FERRER DRAINING WELL. IV WNL AT 125MLS/HR.
--- NOTE | 2018-08-19 07:46 | NUR ---
Pt resting in his bed and appears comfortable. Call dickey within reach and the bed alarm is on. WBC's 34.1 called to me at 0720 and the results were called to DR John with no new orders given at this time.
--- NOTE | 2018-08-19 09:27 | NUR ---
PT APPEARS COMFORTABLE AND IN NO DISTRESS. VSS. DR CEBALLOS TO BEDSIDE CHECKING ON THE PT. PT MOVING ABOUT IN HIS BED, SAT IN THE 90'S ON ROOM AIR AND HR IN THE 80'S AND SINUS RHYTHM. TELE DC'D AT THIS TIME.
--- NOTE | 2018-08-19 09:40 | NUR ---
D5 1/2 NS WITH 20 KCL RATE CHANGED TO 100 ML/HR ORDERED.
--- NOTE | 2018-08-19 09:40 | NUR ---
PATIENT WALKING IN THE [place]EN[place] WITH PHYSICAL THERAPIST AND RN. PATIENT WALKED ONE LAP. LINENS CHANGED. PATIENT BACKS TO BED. CALL LIGHT WITHIN REACH. BED ALARM ON. NO OTHER NEEDS AT THIS TIME
--- NOTE | 2018-08-19 09:51 | NUR ---
A DOSE OF ROBITUSSIN WAS GIVEN REQUESTED BY DR CEBALLOS DUE TO HIS POST NASAL DRIP WHICH COULD POSSIBLY BE CAUSING HIS ASPIRATION. PT SITTING UP IN HIS BED PLAYING WITH HIS BLANKETS AT THIS TIME.
--- NOTE | 2018-08-19 11:18 | NUR ---
PATIENT SITTING UP IN BED. RN IN ROOM. VITAL SIGNS DONE. LOW SYSTOLIC BLOOD PRESSURE. RN NOTIFIED. CALL LIGHT WITHIN REACH. NO OTHER NEEDS AT THIS TIME
--- NOTE | 2018-08-19 11:26 | NUR ---
CALLED IVETTE JEWELRY TECHNICIAN WITH [facility]. PT HAS BEEN UPSET SAYING "LET MY FAMILY GO" AND CRYING OUT IN DISTRESS, IVETTE AGREEABLE TO SPEAK WITH PATIENT ON PHONE, THIS HELPED PT CALM NOW RESTING IN BED WITH 1:1 STAFF FOR PT SAFTY HE HAS ATTEMPTED TO EXIT BED WITHOUT ASSISTANCE. IVETTE SAID SHE WOULD GET READY AND COME VISIT PATIENT SOON.
--- NOTE | 2018-08-19 11:36 | NUR ---
AROUND 1030 A STAFF MEMBER IS SITTING WITH THE PT. PHYSICAL THERAPY HAS ALSO SEEN HIM AND TOOK HIM FOR A WALK IN THE HEN[place].
--- NOTE | 2018-08-19 13:14 | NUR ---
patient was becoming aggitated. assistted patient to the bathroom, patient had an incontinent bowel movement, patient was cleaned up, bed was changed, patient is currently up in the chair listening to music.
--- NOTE | 2018-08-19 16:01 | NUR ---
PT RESTING IN HIS CHIAR WITH A 1 ON 1 STAFF MEMBER WITH HIM. PT APPEARS IN NO DISTRESS AT THIS TIME.
--- NOTE | 2018-08-19 16:35 | NUR ---
IV AND FERRER CONTINUE FUNCTIONING CORRECLTY. PT APPEARS IN NO CURRENT DISTRESS AND IS SITTING UP IN HIS BED INTERACTING WITH THE FLOW TRADER.
--- NOTE | 2018-08-19 17:53 | NUR ---
PATIENT HAS BEEN IN GOOD SPIRITS, PLAYING WITH DOG, AND BLANKETS, AND LAUGHING, PATIENT AND THIS CNA2 WENT ON A WALK, PATIENT TOLERATED THE WALK WELL
--- NOTE | 2018-08-19 19:08 | NUR ---
CHARGE REPORT FROM DAY RN. PT UP AMBULATING HENSON WITH CIRCULAR KNITTER HELPER.
--- NOTE | 2018-08-19 19:20 | NUR ---
BEDSIDE REPORT RECEIVED FROM OFFGOING RN. PT SITTING IN BED WITH 1:1 CLIENT EXPERIENCE SPECIALIST PRESENT. ROOM IN VIEW OF RN STATION.
--- NOTE | 2018-08-19 20:44 | NUR ---
pt up in eubanks with 1:1 emissions testing technician. pt ambulates easily back to room and climbs into bed. tolerates well. speech is garbled, pt repeats phrases in response to questions. does not answer appropriately. no nonverbal s/sx of pain present at this time. lung sounds dim throughout. pt with dry sounding cough during assessment. raymond cath draining clear yellow urine. attends in place for stool incontinence. emissions testing technician remains 1:1 with pt. room in view of rn station.
--- NOTE | 2018-08-19 22:26 | NUR ---
PT RESTING IN BED AWAKE WITH 1:1 MACHINE BILLER PRESENT. NO NONVERBAL S/SX OF DISTRESS PRESENT. CALL LIGHT IN REACH. ROOM IN VIEW OF RN STATION.
--- NOTE | 2018-08-19 22:59 | NUR ---
V/S AND I&O TAKEN AND RECORDED. HELPED PICKER FLOAT CLEANED/ CHANGED ATTENDS.
--- NOTE | 2018-08-19 23:51 | NUR ---
PT RESTING IN BED, CONTINUES TO BE RESTLESS. NO NONVERBAL S/SX OF DISTRESS NOTED. 1:1 FUEL CELL BATTERY TECHNICIAN PRESENT IN ROOM. CALL LIGHT IN REACH. ROOM IN VIEW OF RN STATION.
--- NOTE | 2018-08-20 02:18 | NUR ---
PT RESTING IN BED WITH EYES CLOSED. RESPIRATIONS EVEN AND UNLABORED. PT APPEARS TO BE SLEEPING, DOES NOT WAKE WHILE WATERPROOF COATING MACHINE TENDER CLEARS PUMP. CALL LIGHT IN REACH. 1:1 CAR RENTAL AGENT PRESENT IN ROOM. ROOM IN VIEW OF RN STATION.
--- NOTE | 2018-08-20 03:54 | NUR ---
PT RESTING IN BED WITH EYES CLOSED. RESPIRATIONS EVEN AND UNLABORED. PT APPEARS TO BE SLEEPING. DOES NOT WAKE WHILE RISK ASSESSMENT ANALYST IN DOORWAY. CALL LIGHT WITHIN REACH. ROOM IN VIEW OF RN STATION. 1:1 STUDIO OPERATION ENGINEER PRESENT.
--- NOTE | 2018-08-20 05:13 | NUR ---
PT ASSESSMENT COMPLETE. PT SLEPT THROUGHOUT ASSESSMENT, OPENED EYES ONLY BRIEFLY BUT QUICKLY FELL BACK TO SLEEP. LUNGS SOUND DIM THROUGHOUT. NO COUGH NOTED DURING ASSESSMENT. FERRER CATH DRAINING CLEAR YELLOW URINE. ATTENDS IN PLACE FOR INCONTINENCE. 1:1 BAKER HEAD CONTINUES TO BE PRESENT. ROOM IN VIEW OF RN STATION. CALL LIGHT WITHIN REACH.
--- NOTE | 2018-08-20 05:28 | NUR ---
PT SLEPT MOST OF SHIFT. NO NONVERBAL S/SX OF DISTRESS NOTED THIS SHIFT. LUNG SOUND DIM THROUGHOUT. OCCASSIONAL COUGH NOTED. PT TOLERATING RA WELL. CHRONIC FERRER CATH IN PLACE SINCE 06/15/2018. CLEAR YELLOW URINE, UO QS. ATTENDS IN PLACE FOR STOOL INCONTINENCE. PUDDING THICK LIQ. MEDS WITH PUDDING. REDNESS TO GROIN AND BUTTOCK, BARRIER CREAM. MARTA. D51/2NS+20K @ 100. 1 PA. 1:1 DUE TO IMPULSIVITY.
--- NOTE | 2018-08-20 07:50 | NUR ---
PATIENT IN BED RESTING WITH EYES CLOSED. CENTRAL SERVICE SUPPLY DISTRIBUTOR IN ROOM 1:1. CALL LIGHT IN REACH. NO FURTHER NEEDS AT THIS TIME.
--- NOTE | 2018-08-20 10:00 | NUR ---
PT SITTING UP IN BED, BE BELT BRANDER AND CAREGIVER AT BEDSIDE WITH PT. PT VERBAL COMMUNICATION LIMITED, REPEATS "YEAH" FREQUENTLY. PT SMILEY AND COOPERATIVE AT THIS TIME. LUNG SOUND DIMINISHED BUT CLEAR, NO WHEEZES NOTED. PT HAS OCC MOIST SOUNDING COUGH. CHRONIC FERRER IN PLACE PUTTING OUT QS YELLOW URINE. IV INFUSING WNL. PT ASSISTED TO HAVE MILDLY THICK CLEAR LIQUIDS FOR BREAKFAST, BETO WELL. BED ALARM ON.
--- NOTE | 2018-08-20 12:38 | NUR ---
PATIENT WAS SLEEPING WHEN I ARRIVED AT 7 AM. AROUND 9 AM PATIENT CAREGIVER CAME IN. STAYED UNTIL 11:30 AM. PATIENT ATE A GOOD BREAKFAST AND ALSO ATE 90 % OF HIS LUNCH. PATIENT IS SETTING UP IN BED, PATIENT IS IN A VERY GOOD MOOD.
--- NOTE | 2018-08-20 12:50 | NUR ---
PT SITTING UP IN BED. DIET ADVANCED TO MINCED AND MOIST. PT ATE MOST OF LUNCH WITH ASSISTANCE FROM BETO LR. PT SMILING AND LAUGHING. NO SIGNS OF RESPIRATORY DISTRESS. BED ALARM ON. BE AT BEDSIDE.
--- NOTE | 2018-08-20 13:17 | NUR ---
PT APPEARS TO BE SOMEWHAT AGGITATED. 1X1 WITH COMPUTER FIELD TECHNICIAN AND RN IN CARING FOR PT. WILL CONTINUE TO MONITOR, WILL FOLLOW NEEDED
--- NOTE | 2018-08-20 14:10 | NUR ---
PT AMB WITH BE IN HALLWAY, APPEARS TO BE BETO WELL. NO SIGNS OF DISTRESS NOTED.
--- NOTE | 2018-08-20 14:44 | NUR ---
Medications reconciled with chart notes from last week's admission. Doxycycline x 5 days therapy was ordered at discharge. This therapy is completed
--- NOTE | 2018-08-20 17:10 | NUR ---
PT SITTING UP IN BED EATING DINNER WITH ASSISTANCE FROM BE CASTELLANO. NO NEEDS OR CONCERNS AT THIS TIME.
--- NOTE | 2018-08-20 17:20 | NUR ---
Patient has been awake all day, patient walked around the nurses station 2 x 1/2 . patient ambulated to and from the bed to the restroom X2. fresh water was given. shower was given.
--- NOTE | 2018-08-20 19:05 | NUR ---
BEDSIDE REPORT RECEIVED FROM OFFGOING RN. PT SITTING UP IN BED, FIDGETS WITH BLANKETS. 1:1 KOSHER DIETARY SERVICE MANAGER PRESENT IN ROOM WITH PT. CALL LIGHT IN REACH. ROOM IN VIEW OF RN STATION.
--- NOTE | 2018-08-20 22:28 | NUR ---
PT ASSESSMENT COMPLETE. PT DISORIENTED TO ALL. SITTING IN BED. REPEATS PHRASES MULTIPLE TIMES. PT LAUGHING AND COVERING HIS FACE SAYING "[place]". LUNG SOUNDS DIM THROUGHOUT. PT WITH OCCASIONAL COUGH DURING ASSESSMENT. IV SITE FLUSHED, WITH SOME RESISTANCE INTIALLY. COBAN SECURMENT REMOVED. IV TUBING REPOSITIONED, AND COBAN REPLACED. GOOD BLOOD RETURN TO IV SITE, FLUSHES WELL. INFUSING WNL. PT WITH FERRER CATH DRAINING CLEAR YELLOW URINE. ATTENDS IN PLACE FOR INCONTINENCE. PT UP TO WALK WITH 1:1 FILTER TIP INSPECTOR.
--- NOTE | 2018-08-20 22:53 | NUR ---
@4348 HELPED FLOAT HOOKER OFF CLEANED/CHANGED PATIENT'S ATTENDS. PATIENT HAD A SMEAR BOWEL MOVEMENT.
--- NOTE | 2018-08-21 01:20 | NUR ---
PT RESTING IN BED WITH EYES CLOSED. RESPIRATIONS EVEN AND UNLABORED. PT APPERAS TO BE SLEEPING. 1:1 BELT CONVEYOR DRIER PRESENT. ROOM IN VIEW OF RN STATION.
--- NOTE | 2018-08-21 03:55 | NUR ---
PT ASSESSMENT COMPLETE. PT AWAKE AND RESTLESS IN BED. PT REPEATS "GOOD MORNING". LUNG SOUND DIMINISHED IN BILATERAL BASES. PT COUGHS OCCASIONALLY DURING ASSESSMENT. NO NONVERBAL S/SX OF DISTRESS NOTED. IV SITE FLUSHED, BLOOD RETURN PRESENT. IV FLUIDS INFUSING WNL. 1:1 DOCTOR OF PHARMACY PRESENT WITH PT. ROOM IN VIEW OF RN STATION. CALL LIGHT WITHIN REACH.
--- NOTE | 2018-08-21 05:40 | NUR ---
PT RESTING IN BED AWAKE. 1:1 YOKE PRESSER PRESENT. ROOM IN VIEW OF RN STATION. CALL LIGHT IN REACH.
--- NOTE | 2018-08-21 05:42 | NUR ---
PT RESTED WELL THIS SHIFT. NO NONVERBAL S/SX OF PAIN, NAUSEA, OR SOB. LUNG SOUNDS DIM IN BASES. TOLERATING RA WELL. CHRONIC FERRRE CATH IN PLACE, DRAINING LARGE AMOUNTS OF CLEAR YELLOW URINE. NYSTATIN TO GROIN AND BUTTOCK REDNESS. ATTENDS IN PLACE. MARTA. D51/2NS+20K @ 100. HOME TODAY? 1:1. 1 TIFFANIE.
--- NOTE | 2018-08-21 07:50 | NUR ---
PT SITTING UP IN BED REPEATING "YEAH!". BE CASTELLANO AT BEDSIDE. NO SIGNS OF DISTRESS OR PAIN. IV INFUSING WNL.
--- NOTE | 2018-08-21 08:03 | NUR ---
PATIENT SITTING UP IN BED, MANUFACTURING QUALITY INSPECTOR IN ROOM 1:1. CALL LIGHT IN REACH. NO FURTHER NEEDS AT THIS TIME.
[2018-08-21] MEDS ORDERED: AUGMENTIN600 MG/5 M PO (08:18)
--- NOTE | 2018-08-21 09:35 | NUR ---
PATIENT WAS AWAKE WHEN GRAY CEDILLO ARRIVED, PATIENT HAS BEEN IN A GOOD MOOD VERY TALKATIVE. PATIENT ATE ALL HIS BREAKFAST. PATIENT WAS GIVEN FRESH WATER. PERPARED PATIENT TO GO HOME.
--- NOTE | 2018-08-21 10:22 | NUR ---
IV DC'D, CATH TIP INTACT, SITE WITHOUT REDNESS OR INFLAMMATION. BE CASTELLANO ASSISTING PT TO GET DRESSED. PT ATE 100% OF BREAKFAST WITH ASSISTANCE, BETO WELL.
[2018-08-21] MEDS ORDERED: DOXYCYCLINE HY100 MG PO (11:15)
== END 2018-08-21 11:23 | disposition home or self-care (01) ==
LOC: ED 22:15 → MS 08-19 00:50
PROVIDERS: ADMIT Internal Medicine
DX: J18.9 Pneumonia, unspecified organism (principal); Q90.9 Down syndrome, unspecified; I95.89 Other hypotension; R47.01 Aphasia; R13.10 Dysphagia, unspecified; R33.9 Retention of urine, unspecified; Z79.899 Other long term (current) drug therapy; Z88.8 Allergy status to other drugs, medicaments and biological substances
CPT/HCPCS: 36415; 51701; 71045; 80048; 80053; 81001; 83605; 85025; 87088; 96372; 96374; 96376; 97161; 99284-25; G0378; J1650; J1720; J2543; J7030; J7060

== ENCOUNTER 2018-09-01 20:50 | Observation (INO) | payer MEDICARE, OTHER ==
[~2018-09-01] VITALS: Ht 160 cm; Wt 59.1 kg
--- OUTSIDE RECORDS SUMMARY | ~2018-09-01 | XMS | Encounter Summary ---
Demographics + + + | Address | [address] | | | [place] [address] | + + + | Home Phone | | + + + | Preferred Language | Unknown | + + + | Marital Status | Single | + + + | Restorationism Affiliation | Unknown | + + + | Race | White | + + + | Ethnic Group | Not or | + + + Author + + + | Author | [facility] | + + + | Organization | [facility] | + + + | Address | Unknown | + + + | Phone | Unavailable | + + + Support + + +---------+ + | Name | Relationship | Address | Phone | + + +---------+ + | Kristy Medabalime | ECON | Unknown | | + + +---------+ + Care Team Providers + +------+ + | Care Network Controller Name | Role | Phone | + +------+ + | Kvng Wheatley MD | PCP | | + +------+ + Encounter Details +--------+ + + + + | Date | Type | Department | Care Team | Description | +--------+ + + + + | 10/30/ | Box Stapler | Cardiology General | Mannie Rosa | Screening for | | 2008 | | at [facility] [address] | EMD [address] | Cardiovascular | | | | Sean Lenz Mailcode: | [place], [place] | Condition (Primary | | | | [facility] | [address] | Dx) | | | | Health and Healing, | [phone] | | | | | 9th Floor [place], | | | | | | [place] [address] | | | | | | [phone] | | | +--------+ + + + [...]
--- OUTSIDE RECORDS SUMMARY | ~2018-09-01 | XMS | Clinical Summary ---
Demographics + + + | Address | [address] | | | [place] [address] | + + + | Home Phone | | + + + | Preferred Language | Unknown | + + + | Marital Status | Single | + + + | Jain Affiliation | Unknown | + + + [...] Team Providers + +------+ + | Care Tea Leaf Reader Name | Role | Phone | + +------+ + PP | Unavailable | + +------+ + Source Comments LILA is fully live on both [facility] and [facility] Allergies + + + + [...] | + + + + + | Pneumococcal | Aged Out | | No longer eligible | | vaccination | | | based on patient's | | | | | age to complete this | | | | | topic | + + + + + Results Not on filefrom Last 3 Months Advance Directives + + + + + | Type | Date Recorded | Patient | Explanation | | | | Auto Parts Counter Person | | + + + + + | Advance | | | | | Directives and | | | | | Living Will | | | | + + + + + | Power of | | | | | Ship'S Electronic Warfare Officer | | | | + + + + +"
--- OUTSIDE RECORDS SUMMARY | ~2018-09-01 | XMS | Encounter Summary ---
Demographics + + + | Address | [address] | | | [place] [address] | + + + | Home Phone | | + + + | Preferred Language | Unknown | + + + | Marital Status | Single | + + + | Roman Catholic Affiliation | Unknown | + + + | Race | White | + + + | Ethnic Group | Not or | + + + Author + + + | Author | [facility] | + + + | Organization | [facility] | + + + | Address | Unknown | + + + | Phone | Unavailable | + + + Support + + +---------+ + | Name | Relationship | Address | Phone | + + +---------+ + | Kristy Medabalime | ECON | Unknown | | + + +---------+ + Care Team Providers + +------+ + | Care Ship Cleaner Name | Role | Phone | + +------+ + | Kvng Wheatley MD | PCP | | + +------+ + Encounter Details +--------+ + + + + | Date | Type | Department | Care Team | Description | +--------+ + + + + | 10/30/ | Lace Weaver | Cardiology General | Mannie oRsa | Screening for | | 2008 | | at [facility] [address] | E[address] | Cardiovascular | | | | Sean Lenz Mailcode: | [place], [place] | Condition (Primary | | | | [facility] | [address] | Dx) | | | | Health and Healing, | [phone] | | | | | 9th Floor [place], | | | | | | [place] [address] | | | | | | [phone] | | | +--------+ + + + [...]
--- OUTSIDE RECORDS SUMMARY | ~2018-09-01 | XMS | Clinical Summary ---
Demographics + + + | Address | [address] | | | [place] [address] | + + + | Home Phone | | + + + | Preferred Language | Unknown | + + + | Marital Status | Single | + + + | Sikhism Affiliation | Unknown | + + + [...] Team Providers + +------+ + | Care Steel Inspector Name | Role | Phone | + +------+ + PP | Unavailable | + +------+ + Source Comments LILA is fully live on both [facility] and [facility] InPatient.[facility] Allergies + + + + + [...] Patient | Explanation | | | | Produce Inspector | | + + + + + | Advance | | | | | Directives and | | | | | Living Will | | | | + + + + + | Power of | | | | | Gate Clerk | | | | + + + + +"
--- OUTSIDE RECORDS SUMMARY | ~2018-09-01 | XMS | Encounter Summary ---
Demographics + + + | Address | [address] | | | [place] [address] | + + + | Home Phone | | + + + | Preferred Language | Unknown | + + + | Marital Status | Single | + + + | Latter Day Affiliation | Unknown | + + + | Race | White | + + + | Ethnic Group | Not or | + + + Author + + + | Author | [facility] | + + + | Organization | [facility] | + + + | Address | Unknown | + + + | Phone | Unavailable | + + + Support + + +---------+ + | Name | Relationship | Address | Phone | + + +---------+ + | Kristy Medabalime | ECON | Unknown | | + + +---------+ + Care Team Providers + +------+ + | Care Resolution Rep Name | Role | Phone | + +------+ + | Kvng Wheatley MD | PCP | | + +------+ + Encounter Details +--------+ + + + + | Date | Type | Department | Care Team | Description | +--------+ + + + + | 10/29/ | Airplane Rental Clerk | Cardiology General | Mannie Rosa | Screening for | | 2008 | | at [facility] [address] | [address] | Cardiovascular | | | | Sean Lenz Mailcode: | [place], [place] | Condition (Primary | | | | [facility] | [address] | Dx); Cardiac Murmur | | | | Health and Healing, | [phone] | | | | | 9th [facility], | | | | | | [place] [address] | | | | | | [phone] | | | +--------+ + + + [...]
--- OUTSIDE RECORDS SUMMARY | ~2018-09-01 | XMS | Encounter Summary ---
Demographics + + + | Address | [address] | | | [place] [address] | + + + | Home Phone [...] Author + + + | Author | [facility] | + + + | Organization | [facility] | + + + | Address | Unknown | + + + | Phone | Unavailable | + + + Support + + +---------+ + | Name | Relationship | Address | Phone | + + +---------+ + | Kristy Medabalime | ECON | Unknown | | + + +---------+ + Care Team Providers + +------+ + | Care Fire Investigation Manager Name | Role | Phone | + +------+ + | Kvng Wheatley MD | PCP | | + +------+ + Encounter Details +--------+ + + + + | Date | Type | Department | Care Team | Description | +--------+ + + + + | 10/29/ | Jewel Diameter Gauger | Cardiology General | Mannie Rosa | Screening for | | 2008 | | at [facility] [address] | [address] | Cardiovascular | | | | Sean Lenz Mailcode: | [place], [place] | Condition (Primary | | | | [facility] | [address] | Dx); Cardiac Murmur | | | | Health and Healing, | [phone] | | | | | 9th [facility], | | | | | | [place] [address] | | | | | | [phone] | | | +--------+ + + + [...]
--- OUTSIDE RECORDS SUMMARY | ~2018-09-01 | XMS | Encounter Summary ---
Demographics + + + | Address | [address] | | | [place] [address] | + + + | Home Phone | | + + + | Preferred Language | Unknown | + + + | Marital Status | Single | + + + | Episcopal Affiliation | Unknown | + + + | Race | White | + + + | Ethnic Group | Not or | + + + Author + + + | Author | [facility] | + + + | Organization | [facility] | + + + | Address | Unknown | + + + | Phone | Unavailable | + + + Support + + +---------+ + | Name | Relationship | Address | Phone | + + +---------+ + | Kristy Medabalime | ECON | Unknown | | + + +---------+ + Care Team Providers + +------+ + | Care Head Irrigator Name | Role | Phone | + +------+ + | Kvng Wheatley MD | PCP | | + +------+ + Encounter Details +--------+ + + + + | Date | Type | Department | Care Team | Description | +--------+ + + + + | 10/29/ | Packer | Cardiology General | Mannie Rosa | Screening for | | 2008 | | at [facility] [address] | [address] | Cardiovascular | | | | Sean Lenz Mailcode: | [place], [place] | Condition (Primary | | | | [facility] | [address] | Dx); Cardiac Murmur | | | | Health and Healing, | [phone] | | | | | 9th [facility], | | | | | | [place] [address] | | | | | | [phone] | | | +--------+ + + + [...]
--- OUTSIDE RECORDS SUMMARY | ~2018-09-01 | XMS | Clinical Summary ---
Demographics + + + | Address | [address] | | | [place] [address] | + + + | Home Phone | | + + + | Preferred Language | Unknown | + + + | Marital Status | Single | + + + | Roman Catholic Affiliation | 1013 | + + + | Race | Unknown | + + + | Ethnic Group | Unknown | + + + Author + + + | Author | [facility] | | | and [place] | + + + | Organization | [facility] | | | and [place] | [...] Team Providers + +------+ + | Care Players Club Representative Name | Role | Phone | + +------+ + | Corin Cordero CHIROPRACTIC DOCTOR | PP | Unavailable | + +------+ [...] | + + + + | INFLUENZA, [id number], | 01/16/2014 | | | UNSPECIFIED | [...] | [employer] | MODA | [id number] | 10/09/19 | [phone] | | Medica [...] | [address] | | | alberto/eTjas | | 1966 | [phone] | [place] [address] | | | ana | | | 8 (Home) | | + +--------+ +--------+ + + Advance Directives Patient has advance care planning documents on file. For more information, please contact:[facility] [address]
--- OUTSIDE RECORDS SUMMARY | ~2018-09-01 | XMS | Clinical Summary ---
Demographics + + + | Address | [address] | | | [place] [address] | + + + | Home Phone | | + + + | Preferred Language | Unknown | + + + | Marital Status | Single | + + + | Sikhism Affiliation | Unknown | + + + | Race | Unknown | + + + | Ethnic Group | Unknown | + + + Author + + + | Author | [facility] | + + + | Organization | [facility] | + + + | Address | Unknown | + + + | Phone | Unavailable | + + + Support + + + + + | Name | Relationship | Address | Phone | + + + + + | Doug Finney | [place] | [place] | | | | | [address] | | + + + + + | Doris Barclay | [place] | [address] | | | | | [place] | | | | | [address] | | + + + + + Care Team Providers + +------+ + | Care Travertine Installer Name | Role | Phone | + [...] | [place] - PREMIERCARE | [place]-PRE | [id number] | Medica | | | | FAMILY | [place] | | re | | | | | RE | | | | | | | FAMILY | | | | | + +--------+ +--------+-------+ + | MEDICAID | [place] | [id number] | | | [address] | | | N | | | | [place], [place] | | | [place] | | | | [address] | | | [employer] | | | | | + +--------+ [...] Self | [birth year] | Home: | [address] | | | al/Fam | | 1966 | [phone] | [place] | | | ana | | | [phone] | [phone] | + +--------+ +--------+ + +
--- OUTSIDE RECORDS SUMMARY | ~2018-09-01 | XMS | Clinical Summary ---
Demographics + + + | Address | [address] | | | [place] [address] | + + + | Home Phone | | + + + | Preferred Language | Unknown | + + + | Marital Status | Single | + + + | Rastafarian Affiliation | 1013 | + + + | Race | Unknown | + + + | Ethnic Group | Unknown | + + + Author + + + | Author | [facility] | | | and [place] | + + + | Organization | [facility] | | | and [place] [...] Providers + +------+ + | Care Senior Qa Engineer Name | Role | Phone | + +------+ + | Corin Cordero ABRASIVE GRINDER | PP | Unavailable | + +------+ [...] | + + + + | INFLUENZA, [id number], | 01/16/2014 | | | UNSPECIFIED | [...] | [employer] | MODA | [id number] | 10/09/19 | [phone] | | Medica [...] | | alberto/Tejas | | 1966 | [phone] | [place] [address] | | | ana | | | 8 (Home) | | + +--------+ +--------+ + + Advance Directives Patient has advance care planning documents on file. For more information, please contact:[facility] [place] [address]
--- OUTSIDE RECORDS SUMMARY | ~2018-09-01 | XMS | Encounter Summary ---
Demographics + + + | Address | [address] | | | [place] [address] | + + + | Home Phone [...] Author + + + | Author | [facility] | + + + | Organization | [facility] | + + + | Address | Unknown | + + + | Phone | Unavailable | + + + Support + + +---------+ + | Name | Relationship | Address | Phone | + + +---------+ + | Kristy Medabalime | ECON | Unknown | | + + +---------+ + Care Team Providers + +------+ + | Care Development Geologist Name | Role | Phone | + +------+ + | Kvng Wheatley MD | PCP | | + +------+ + Encounter Details +--------+ + + + + | Date | Type | Department | Care Team | Description | +--------+ + + + + | 10/30/ | Web Production Designer | Cardiology General | Mannie Rosa | Screening for | | 2008 | | at [facility] [address] | [address] | Cardiovascular | | | | Sean Lenz Mailcode: | [place], [place] | Condition (Primary | | | | [facility] | [address] | Dx) | | | | Health and Healing, | [phone] | | | | | 9th Floor [place], | | | | | | [place] [address] | | | | | | [phone] | | | +--------+ + + + [...]
--- OUTSIDE RECORDS SUMMARY | ~2018-09-01 | XMS | Clinical Summary ---
Demographics + + + | Address | [address] | | | [place] [address] | + + + | Home Phone | | + + + | Preferred Language | Unknown | + + + | Marital Status | Single | + + + | Rastafarian Affiliation | Unknown | + + + [...] Team Providers + +------+ + | Care Lisw Name | Role | Phone | + +------+ + PP | Unavailable | + +------+ + Source Comments LILA is fully live on both [facility] and [facility] Allergies + + + + [...] Patient | Explanation | | | | Technical Writing Lead/Mgr | | + + + + + | Advance | | | | | Directives and | | | | | Living Will | | | | + + + + + | Power of | | | | | Shoe Puller | | | | + + + + +"
--- OUTSIDE RECORDS SUMMARY | ~2018-09-01 | XMS | Clinical Summary ---
Demographics + + + | Address | [address] | | | [place] [address] | + + + | Home Phone | | + + + | Preferred Language | Unknown | + + + | Marital Status | Single | + + + | Synagogue Affiliation | Unknown | + + + | Race | Unknown | + + + | Ethnic Group | Unknown | + + + Author + + + | Author | [facility] | + + + | Organization | [facility] | + + + | Address | Unknown | + + + | Phone | Unavailable | + + + Support + + + + + | Name | Relationship | Address | Phone | + + + + + | Doug Finney | [place] | [place] | | | | | [address] | | + + + + + | Doris Barclay | [place] | [address] | | | | | [place] | | | | | [address] | | + + + + + Care Team Providers + +------+ + | Care Group Exercise Manager Name | Role | Phone | [...] | [place] - PREMIERCARE | [place]-PRE | [id number] | Medica | | | | FAMILY | [place] | | re | | | | | RE | | | | | | | FAMILY | | | | | + +--------+ +--------+-------+ + | MEDICAID | [facility] | [id number] | | | [address] | | | N | | | | [place], [place] | | | [place] | | | | [address] | | | [employer] | | | | | + +--------+ [...] Self | [birth year] | Home: | [address] | | | al/Fam | | 1966 | [phone] | [place] | | | [place] | | | [phone] | [phone] | + +--------+ +--------+ + +
--- OUTSIDE RECORDS SUMMARY | ~2018-09-01 | XMS | Clinical Summary ---
Demographics + + + | Address | [address] | | | [place] [address] | + + + | Home Phone | | + + + | Preferred Language | Unknown | + + + | Marital Status | Single | + + + | Anglican Affiliation | 1013 | + + + | Race | Unknown | + + + | Ethnic Group | Unknown | + + + Author + + + | Author | [facility] | | | and [place] | + + + | Organization | [facility] | | | and [place] [...] Team Providers + +------+ + | Care Heel Emery Buffer Name | Role | Phone | + +------+ + | Corin Cordero CARTRIDGE GAUGER | PP | Unavailable | + +------+ [...] | + + + + | INFLUENZA, [id number], | 01/16/2014 | | | UNSPECIFIED | [...] | [employer] | MODA | [id number] | 10/09/19 | [phone] | | Medica [...] | | alberto/Tejas | | 1966 | [phone] | [place] [address] | | | ana | | | 8 (Home) | | + +--------+ +--------+ + + Advance Directives Patient has advance care planning documents on file. For more information, please contact:[facility] [address]
--- OUTSIDE RECORDS SUMMARY | ~2018-09-01 | XMS | Clinical Summary ---
Demographics + + + | Address | [address] | | | [place] [address] | + + + | Home Phone | | + + + | Preferred Language | Unknown | + + + | Marital Status | Single | + + + | Evangelical Affiliation | Unknown | + + + | Race | Unknown | + + + | Ethnic Group | Unknown | + + + Author + + + | Author | [facility] | + + + | Organization | [facility] | + + + | Address | Unknown | + + + | Phone | Unavailable | + + + Support + + + + + | Name | Relationship | Address | Phone | + + + + + | Doug Finney | [place]NA | [place] | | | | | [address] | | + + + + + | oDris Barclay | [place] | [address] | | | | | [place] | | | | | [address] | | + + + + + Care Team Providers + +------+ + | Care Polisher Eyeglass Frames Name | Role | Phone | + [...] | [place] - PREMIERCARE | [place]-PRE | [id number] | Medica | | | | FAMILY | [place] | | re | | | | | RE | | | | | | | FAMILY | | | | | + +--------+ +--------+-------+ + | MEDICAID | [facility] | [id number] | | | [address] | | | N | | | | [place], [place] | | | [place] | | | | [address] | | | RN TELEPHONE TRIAGE | | | | | + +--------+ [...] | [birth year] | Home: | [address] | | | al/Fam | | 1966 | [phone] | [place] | | | ana | | | [phone] | [phone] | + +--------+ +--------+ + +
[~2018-09-01 20:50] MED LIST changes: +AUGMENTIN600 MG/5 M PO
--- OUTSIDE RECORDS SUMMARY | 2018-09-01 20:52 | XMS ---
PreManage Notification: JULIANE MAIRNA Security Pulp Cooker Events No recent Security Events currently on file CRITERIA MET - [facility] - 2 Visits in 30 Days CARE PROVIDERS LEENA MANDUJANO Nurse Practitioner: 06/29/2018-Current PHONE: [phone] LEENA MANDUJANO Primary Care 12/09/2010-Current PHONE: Unknown Eric has no Care Guidelines for this patient. iKm VISIT COUNT (12 MO.) [address] [place] [address] TOTAL 4 NOTE: Visits indicate total known visits. ED/UCC VISIT TRACKING (12 MO.) 09/01/2018 20:[address] [facility] [place] TYPE: Emergency COMPLAINT: - FEVER 08/18/2018 22:15 [facility] [place] TYPE: Emergency COMPLAINT: - PNEUMONIA DIAGNOSES: - Aphasia - Other mcfp (current) drug therapy - Other hypotension - Allergy status to other drugs, medicaments and biological substances status - Dysphagia, unspecified - Pneumonia, unspecified organism - Down syndrome, unspecified - Retention of urine, unspecified 08/09/2018 20:[address] [facility] [place] TYPE: Emergency COMPLAINT: - PNEUMONIA, NON SEVERE SEPSIS 06/21/2018 21:[address] [facility] [place] TYPE: Emergency COMPLAINT: - PAIN INPATIENT VISIT TRACKING (12 MO.) 08/18/2018 22:[address] [facility] [place] TYPE: Observation COMPLAINT: - PNEUMONIA DIAGNOSES: - Other hypotension - Down syndrome, unspecified - Other manager intermediate (current) drug therapy - Retention of urine, unspecified - Pneumonia, unspecified organism - Allergy status to other drugs, medicaments and biological substances status - Dysphagia, unspecified - Aphasia 08/09/2018 20:30 [facility] [place] TYPE: Observation COMPLAINT: - PNEUMONIA, NON SEVERE SEPSIS DIAGNOSES: - Volume depletion, unspecified - FCI (current) use of systemic steroids - Hypothyroidism, unspecified - Other manager intermediate (current) drug therapy - Sepsis, unspecified organism - Down syndrome, unspecified - Retention of urine, unspecified - Pneumonitis due to inhalation of food and vomit 06/22/2018 11:15 [facility] [place] TYPE: Medical Surgical COMPLAINT: - PNEUMONIA, DEHYDRATION DIAGNOSES: - Pneumonia due to other streptococci - Pneumonitis due to inhalation of food and vomit - intermodal dispatcher (current) use of systemic steroids - Down syndrome, unspecified - Retention of urine, unspecified - Pneumonitis due to inhalation of food and vomit - Acute kidney failure, unspecified - Pneumonia due to other streptococci - Insomnia, unspecified - Other mcfp (current) drug therapy - FCI (current) use of systemic steroids - Allergy status to other drugs, medicaments and biological substances status - Retention of urine, unspecified - Insomnia, unspecified - Down syndrome, unspecified - Other mcfp (current) drug therapy - Allergy status to other drugs, medicaments and biological substances status [email or web address]
--- NOTE | 2018-09-02 01:04 | NUR ---
NEW ADMIT TO THE FLOOR. PT AWAKE, ALERT AND ORIENTED. PT ORIENTED TO ROOM AND CALL LIGHT. PT ON RA, RESP EVEN AND NON LABORED. VS STABLE. FERRER INTACT, CLEAR YELLOW URINE IN BAG. PT DENIES NEEDS. CALL LIGHT WITHIN REACH. 1:1 WITH PT FOR SUPERVISION PURPOSES TO PREVENT IV AND FERRER FROM BEING PULLED OUT. PER REPORT PT PULLING AT LINES.
--- NOTE | 2018-09-02 07:18 | NUR ---
REPORT RECEIVED FROM SALESPERSON DRIVER RN. PT IN BED AWAKE. APPEARS COMFORTABLE. RESPIRATIONS EQUAL AND NONLABORED. FERRER IN PLACE WITH YELLOW URINE. NS AT 125ML/HR. ZOSYN INFUSING. PT 1:1 JOSE HANSON CNA.
--- NOTE | 2018-09-02 07:35 | NUR ---
HE DIDN'T WANT TO WASH HIS FACE. I DID COMB HIS HAIR. HE IS SITTING UP IN HIS BED.
--- NOTE | 2018-09-02 07:37 | EKG ---
[facility] [address] [facility] [place], [place] [address] Signed Sinus tachycardia Otherwise normal ECG No previous ECGs available Confirmed by SURYA CEBALLOS MD ([id number]) on 09/02/2018 7:37:02 AM Electronically Signed By: SURYA CEBALLOS MD 09/02/18 0737 PATIENT NAME: JULIANE MARINA Electrocardiogram DATE OF : 65 PHYSICIAN: SURYA CEBALLOS MD REPORT #: [id number] REPORT IS CONFIDENTIAL AND NOT TO BE RELEASED WITHOUT AUTHORIZATION
--- NOTE | 2018-09-02 09:57 | NUR ---
BED SIDE SWALLOW EVAL DONE. PT TOLERATED 3 SPOON FULLS OF WATER WITHOUT COUGHING. SWALLOWED WATER WITHIN 2 SECONDS. PILLS ADMINISTERED CRUSHED IN APPLE SAUCE. PT TOLERATED WELL. CAN 1:1 AT BEDSIDE. TYLENOL ADMINISTERED.
--- NOTE | 2018-09-02 10:00 | NUR ---
PATIENT IS RESTING.
--- NOTE | 2018-09-02 10:39 | NUR ---
PATIENT IS SLEEPING.
--- NOTE | 2018-09-02 12:08 | NUR ---
PATIENT IS SLEEPING. THIS MORNING CHANGED HIS GOWN.
--- NOTE | 2018-09-02 13:17 | NUR ---
pt in bed. appears comfortable. ns at 125. zosyn started. pt smiling and laughing. respiraiotns equal and nonlabored. lungs clear and dim in the bases.bed alarm in place.
--- NOTE | 2018-09-02 14:22 | NUR ---
PATIENT SITTING ON BED. THIS SALES REPRESENTATIVE ELECTRIC SERVICE IN ROOM 1 ON 1. CALL LIGHT IN REACH. NO FURTHER NEEDS AT THIS TIME.
--- NOTE | 2018-09-02 16:19 | NUR ---
PATIENT UP TO AMBULATE IN HALLWAY, 3 LAPS, 1PA. PATIENT NOW IN CHAIR RESTSING WITH EYES CLOSED. LINENS CHANGED. CALL LIGHT IN REACH. NO FURTHER NEEDS AT THIS TIME.
--- NOTE | 2018-09-02 18:07 | NUR ---
PATIENT IS SITTING UP IN HIS CHAIR. WE BROUGHT HIM TWO WARM BLANKETS.
--- NOTE | 2018-09-02 21:01 | NUR ---
ROUNDED CHARGE. NATHANAEL SLATERA PRESENT IN ROOM A 1 ON 1. NO NEEDS NOTED. CALL LIGHT IN REACH.
--- NOTE | 2018-09-02 21:02 | NUR ---
SITTING UP IN BED, WAS SEMI COOPERATIVE WITH ASSESSMENT AND VITASL, CONTINUES NPO X FOR MEDS. ASPIRATION PRECAUTIONS IN PLACE. NURSING STAFF IN ROOM WITHIN ARMS REACH TO PREVENT ACCIDENTAL DISLODGEMENT OF IV TUBES. IVF INFUSING W/O PROBLEMS. PT HAS A F/C CHRONIC, PATENT. CALM AT THIS TIME. WAS SEMICOOPERATIVE WITH ASSESSMENTS, EASILY REDIRECTABLE.
--- NOTE | 2018-09-02 22:28 | NUR ---
V/S AND I&O TAKEN AND RECORDED. PM CARE DONE.
--- NOTE | 2018-09-03 00:04 | NUR ---
RESTING, NO DISTRESS, IVF INFUSING, ASPIRATION PRECAUTIONS IN PLACE. BED ALARM ON,. CALL LIGHT AT BEDSIDE
--- NOTE | 2018-09-03 04:15 | NUR ---
AWAKE, HAS SLEPT SINCE 2099 TIL NOW, CONTINUES TO MAKE VERBAL NOISE BUT CALM, EASILY REDIRECTABLE, F/C PATENT, NO BM. BED ALARM ON, CONTINUES TO BE ON CLOSE OBSERVATION STATUS, ASPIRATION PRECAUTIONS IN PLACE, NPO
--- NOTE | 2018-09-03 04:59 | NUR ---
PATIENT FALL ASLEEP AT 2100 AND WOKE UP @ 0400.
--- NOTE | 2018-09-03 05:14 | NUR ---
PT SLEPT LAST NIGHT THIS SHIFT. CURRENTLY AWAKE, SITTING IN BED, CALM, TALKS SOME WORDS, IVF INFUSING, NO ADVERSE REACTION TO ABX. ON TOOM AIR, LUNGS DIM AT BASES. CHRONIC F/C IN PLACE, ATTENDS IN PLACE, NO BM THIS SHIFT. CONTINUES ON ASPIRATION PRECAUTIONS, NPO, NURSING STAFF AT [facility], . PT ON HIGH RISK FALL PRECAUTIONS. CALL LIGHT AT BEDSIDE, BED ALARM ON.
--- NOTE | 2018-09-03 07:24 | NUR ---
RECIEVED BEDSIDE REPORT FROM BIANKA POTTS. SHAISTA CASTELLANO AT BEDSIDE FOR SAFETY. PT SITTING IN BED, AWAKE AND ALERT.
--- NOTE | 2018-09-03 08:33 | NUR ---
PATIENT SITTING IN BED, HAT CUTTER IN ROOM. CALL LIGHT IN REACH. NO FURTHER NEEDS AT THIS TIME.
--- NOTE | 2018-09-03 09:46 | NUR ---
RN AT BEDSIDE. ASSISTED WITH PUREE DIET. PT TOLERATED DIET WELL. PT IS AXIOUS AND AGITATED IN BED.
--- NOTE | 2018-09-03 11:04 | NUR ---
PATIENT IS SETTING UP IN BED, ATE A LITTLE BREAKFAST, VITALS TAKEN.
--- NOTE | 2018-09-03 17:26 | NUR ---
PT AWAKE AND ALERT MOST OF THE DAY. AT BASELINE FOR BEHAVIORS, PT HAD SEVERAL EPISODES OF AGITATION. EASILY DISTRACTED BY WALKS. REMAINED 1:1 WITH SAFETY PATROL OFFICER BAG CUTTER. PT HAD LARGE BM. FERRER IS DRAINING WELL.
--- NOTE | 2018-09-03 19:05 | NUR ---
CHARGE NURSE REPORT RECEIVED FROM SARITA BROWN WITH 1:1.
--- NOTE | 2018-09-03 19:30 | NUR ---
REPORT RECEIVED FROM DAY SHIFT RNCARLOS. PT SITTING UP IN BED. FRONT END WHEEL LOADER OPERATOR AT BEDSIDE. CARISSA PATENT. CALL LIGHT IN REACH.
--- NOTE | 2018-09-03 21:53 | NUR ---
PT SITTING UP IN BED. GENERATOR OPERATOR STRAIGHT BEVEL GEAR AT BEDSIDE. PM MEDICATIONS GIVEN CRUSHED IN PUDDING, NO SWALLOWING DIFFICULTIES OR CHOKING NOTED. IV ABX DC'D PER MD DUE TO INFILTRATED IV SITE. EXCORIATED ABILIO AREA NOTED, ABILIO AND CATH CARE COMPLETED. BARRIER CREAM APPLIED. ASSESSMENT COMPLETE. GENERATOR OPERATOR STRAIGHT BEVEL GEAR REMAINS AT BEDSIDE.
--- NOTE | 2018-09-03 22:30 | NUR ---
PATIENTS IV NO LONGER PATENT. ORDER RECEIVED FROM DR CEBALLOS TO LEAVE IV OUT, AND THAT HE WILL BE TRANSTITIONED TO PO ABX IN AM. MAY SKIP IV DOSE THIS EVENING. PATIENTS GROIN AREAS IS RED AND INFLAMMED. PATIENTS STAT LOCK REMOVED AND SORES NOTICED UNDER STAT LOCK. ABILIO AND COATH CARE COMPLETED, BARRIER CREAM PLACED ON GROIN AREA. BACATRACIN PLACED ON LEFT INNER THIGH AND ALLYVEN OVER THE TOP. STAT LOCK MOVED TO LEFT INNER THIGH. PATIENT TOELRATED ACTIVITY WELL. PICS TAKEN AND PLACED IN THE CHART.
--- NOTE | 2018-09-04 00:40 | NUR ---
PT RESTING IN BED WITH EYES CLOSED. RR EVEN AND UNLABORED. FERRER DRAINING CLEAR YELLOW URINE. BED ALARM FOR PT SAFETY.
--- NOTE | 2018-09-04 03:30 | NUR ---
PT RESTING IN BED WITH EYES CLOSED. RR EVEN AND UNLABORED. BED ALARM ON FOR PT SAFETY. INDUSTRIAL MAINTENANCE ELECTRICIAN AT THE DOOR TO OBSERVE PT. CALL LIGHT IN REACH.
--- NOTE | 2018-09-04 05:07 | NUR ---
PT RESTED WELL THROUGH THE NIGHT. PT LEFT WRIST SL JUAN DANIEL'Veronique. AWARE. PT'S ABILIO AREA NOTED TO BE EXCORIATED WELL SCABS/EXCORIATION UNDER STAT LOCK ON RIGHT THIGH. ABILIO AREA CLEANED AND DRIED. NYSTATIN POWDER APPLIED. ALLEVYN DRESSING APPLIED TO RIGHT THIGH BY BIANKA WILEY. PT REMAINS 1:1 WHEN AWAKE. AMBULATES THE HENSON WITH SBA. TAKES MEDS CRUSHED IN PUDDING WITHOUT DIFFICULTY. LUNG SOUNDS CLEAR, O2 SATS WNL
--- NOTE | 2018-09-04 06:05 | NUR ---
ASSESSMENT COMPLETE. PT PLEASANT AND COOPERATIVE. THICK LIQ PROVIDED, LIE DETECTOR OPERATOR ASSISTING PT. PT BETO WELL, NO CHOCKING NOTED. LIE DETECTOR OPERATOR TO REMAIN AT BED SIDE.
--- NOTE | 2018-09-04 06:24 | NUR ---
PATIENTS COCYX IS NOTED TO BE RED AND EXCORIATED. PLACED ALLYVN ON COCYX. PATIENT REMAINS 1 ON 1. WINE CONSULTANT IN ROOM WITH PATIENT. NEW BEDDING AND GOWN PLACED ON PATIENT. WINE CONSULTANT REMAINS ON THE ROOM.
--- NOTE | 2018-09-04 07:32 | NUR ---
Pt awake, alert and oriented x3. Pt sitting up visiting with tooling inspector at bedside. Pt appears comfortable, flacc scale 0/10. Personal supplies and call light within reach. No needs.
[2018-09-04] MEDS ORDERED: AUGMENTIN600 MG/5 M PO (09:22)
== END 2018-09-04 10:30 | disposition home or self-care (01) ==
LOC: ED 20:50 → MS 20:51
PROVIDERS: ADMIT Internal Medicine
DX: R50.9 Fever, unspecified (principal); Q90.9 Down syndrome, unspecified; I95.89 Other hypotension; D64.9 Anemia, unspecified; E03.9 Hypothyroidism, unspecified; R13.10 Dysphagia, unspecified; Z88.8 Allergy status to other drugs, medicaments and biological substances; Z79.899 Other long term (current) drug therapy; Z96.0 Presence of urogenital implants
CPT/HCPCS: 36415; 71045; 80048; 80053; 81001; 83605; 85025; 87088; 93005; 93010; 96361; 96366; 96374; 96375; 99284-25; G0378; J1720; J2543; J7030; J7060

== ENCOUNTER 2019-04-16 18:38 | Emergency (ER) | payer MEDICARE, OTHER ==
[~2019-04-16] VITALS: Ht 160 cm; Wt 59.1 kg
--- OUTSIDE RECORDS SUMMARY | ~2019-04-16 | XMS | Encounter Summary ---
Demographics + + + | Address | [address] | | | [place] [address] | + + + | Home Phone | | + + + | Preferred Language | Unknown | + + + | Marital Status | Single | + + + | Sikh Affiliation | 1013 | + + + | Race | Unknown | + + + | Ethnic Group | Unknown | + + + Author + + + | Author | [facility] | | | and Angelana | + + + | Organization | [facility] | | | and [place] | + + + | Address | Unknown | + + + | Phone | Unavailable | + + + Support + + +---------+ + | Name | Relationship | Address | Phone | + + +---------+ + | Kristy Medavaline | ECON | Unknown | | + + +---------+ + | Yandel Finney | ECON | Unknown | | + + +---------+ + Care Team Providers + +------+ + | Care Animal Nutrition Teacher Name | Role | Phone | + +------+ + | Corin Cordero NP | PCP | | + +------+ + Encounter Details +--------+ + + + + | Date | Type | Department | Care Team | Description | +--------+ + + + + | 10/05/ | Orders Only | [facility] | Gloria Coombs, | | | 2010 | | MEDICAL CENTER | [address] | | | | | CLINICAL LABORATORY | [place] [address] | | | | | [address] | [phone] | | | | | [place], [place] | | | | | | [address] | | | | | | [phone] | | | +--------+ + + + + Social History + +-------+ +--------+------+ | Tobacco [...] recent travel history available. | + + documented as of this encounter Plan of Treatment Not on filedocumented as of this encounter Procedures + +--------+ + + + | Procedure Name | Priori | Date/Time | Associated Diagnosis | Comments | | | ty | | | | + +--------+ + + + | HISTORICAL | Routin | 10/05/2010 | | Results for this | | MICROBIOLOGY RESULT | e | 3:06 PM | | procedure are in the | | | | PDT | | results section. | + +--------+ + + + documented in this encounter Results HISTORICAL MICROBIOLOGY RESULT (10/05/2010 3:06 PM PDT) + + | Specimen | + + | | + + + + + | Narrative | Performed At | + + + | Toxigenic C Difficile Toxigenic C.diff NEGATIVE | EXTERNAL LAB | | Testing performed at [facility];[address] [facility];[place] [address] | | + + + + +---------+ + + | Performing | Address | City/State/Zipcode | Phone Number | | Organization | | | | + +---------+ + + | EXTERNAL LAB | | | | + +---------+ + + documented in this encounter Visit Diagnoses Not on filedocumented in this encounter"
--- OUTSIDE RECORDS SUMMARY | ~2019-04-16 | XMS | Encounter Summary ---
Demographics + + + | Address | [address] | | | [place] [address] | + + + | Home Phone | | + + + | Preferred Language | Unknown | + + + | Marital Status | Single | + + + | Temple Affiliation | 1013 | + + + | Race | Unknown | + + + | Ethnic Group | Unknown | + + + Author + + + | Author | [facility] | | | and [place] | + + + | Organization | [facility] | | | and [place] | + + + | Address | Unknown | + + + | Phone | Unavailable | + + + Support + + +---------+ + | Name | Relationship | Address | Phone | + + +---------+ + | Kristy Medavaline | ECON | Unknown | | + + +---------+ + | Bill Blue | ECON | Unknown | | + + +---------+ + Care Team Providers + +------+ + | Care Customer Care Representative Name | Role | Phone | + +------+ + PCP | Unavailable | + +------+ + Encounter Details +--------+ + + + + | Date | Type | Department | Care Team | Description | +--------+ + + + + | 03/06/ | Hospital | [facility] | | | | 2000 | Encounter | MED CTR GENERIC OP | | | | | | CONV DEPT [address] | | | | | | [place], | | | | | | [place] [address] | | | | | | [phone] | | | +--------+ + + + [...] filedocumented as of this encounter Visit Diagnoses Not on filedocumented in this encounter"
--- OUTSIDE RECORDS SUMMARY | ~2019-04-16 | XMS | Encounter Summary ---
Demographics + + + | Address | [address] | | | [place] [address] | + + + | Home Phone | | + + + | Preferred Language | Unknown | + + + | Marital Status | Single | + + + | Yazidism Affiliation | Unknown | + + + | Race | White | + + + | Ethnic Group | Not or | + + + Author + + + | Author | [facility] | + + + | Organization | [facility] | + + + | Address | Unknown | + + + | Phone | Unavailable | + + + Support + + +---------+ + | Name | Relationship | Address | Phone | + + +---------+ + | Kristy Medabalime | ECON | Unknown | | + + +---------+ + Care Team Providers + +------+ + | Care Pipefitter Welder Name | Role | Phone | + +------+ + | Corin Cordero NP | PCP | | + +------+ + Encounter Details +--------+ + + + + | Date | Type | Department | Care Team | Description | +--------+ + + + + | 09/07/ | Housing Property Manager | Pulmonary & | Clinic, Pulmonary | Pneumonitis due to | | 2018 | | Critical Care | | inhalation of food | | | | Medicine at | | and vomit (HCC) | | | | [facility] | | (Primary Dx) | | | | [address] | | | | | | [address] Mailcode: | | | | | | [facility] | | | | | | [address] | | | | | | [place], [place] | | | | | | [address] | | | | | | [phone] | | | +--------+ + + + [...] Not on filedocumented as of this encounter Results SPIROMETRY, PULM FUNCTION LAB (12/11/2018 11:30 AM PDT) + + + + + + | Component | Value | Ref Range | Performed | Pathologist | | | | | At | Signature | + + + + + + | PULMONARY | Site: [facility] | | [facility] | | | INTERPRETAT | [facility], [address] | [address] | | [address] | [address] | | DIAGNOSTICS | | | | [address],[place], [place], | | - | | | | [address]ZM: [id number] | | PULMONARY | | | | Name: JULIANE FINNEY | | FUNCTION | | | | EVisit Date: 12/11/2018 | | | | | | Second ID: | | | | | | [id number]: | | | | | | PalmBrianelleAge: 53 | | | | | | : 1965 Sex: | | | | | | Male Race: | | | | | | CaucasianHeight: 157.00 | | | | | | Cms Weight: 50.00 | | | | | | Kgs BSA: 1.48Order | | | | | | IDs: [id number] | | | | | | Test(s): | | | | | | <SPIROMETRY>Diagnosis: | | | | | | J69.0 pnemonitisDyspnea: | | | | | | No Dyspnea Cough: No | | | | | | Cough Wheeze: No | | | | | | WheezeTbco Prod: Never | | | | | | SmokedPost Test | | | | | | Comments: ATS not met- | | | | | | Quality Review: The | | | | | | results of this test | | | | | | donot meet ATS | | | | | | standards, although a | | | | | | physician will review | | | | | | the data to determineany | | | | | | potential benefit. | | | | | | The results of this | | | | | | test are questionable | | | | | | due to thepatient's | | | | | | inability to perform the | | | | | | maneuvers according to | | | | | | the ATS | | | | | | standards.Interpret with | | | | | | caution.Review Status: | | | | | | Completed+Posted+Locked | | | | | | | | | | | | | | | | | | Pre-Bronch | | | | | | Post-Bronch | | | | | | | | | | | | Pred | | | | | | Actual %Pred Actual | | | | | | %ChngSPIROMETRYFVC (L) | | | | | | | | | | | | 3.67 | | | | | | 1.69 46FEV1 (L) | | | | | | | | | | | | 2.84 1.33 | | | | | | 46FEV1/FVC (%) | | | | | | | | | | | | 77 78 | | | | | | 101FEF 25% (L/sec) | | | | | | | | | | | | 5.99 2.08 | | | | | | 34FEF 50% (L/sec) | | | | | | 4.29 | | | | | | 1.69 39FEF 75% | | | | | | (L/sec) | | | | | | 1.24 0.48 | | | | | | 38FEF 25-75% | | | | | | (L/sec) | | | | | | 2.58 1.26 | | | | | | 48FEF Max (L/sec) | | | | | | | | | | | | 7.91 2.18 | | | | | | 27FIVC (L) | | | | | | | | | | | | 0.70FIF 50% | | | | | | (L/sec) | | | | | | 6.27 1.46 | | | | | | 23FIF Max (L/sec) | | | | | | | | | | | | | | | | | | 1.58Expiratory Time | | | | | | (sec) | | | | | | 4.56Back Extrap | | | | | | Vol (L) | | | | | | 0.03Time | | | | | | To FEFmax (sec) | | | | | | 0.141 | | | | | | Interpretation: | | | | | | INTERPRETATION:Results | | | | | | unable to be | | | | | | interepreted as test | | | | | | results did not meet ATS | | | | | | standards.This | | | | | | interpretation has been | | | | | | electronically signed: | | | | | | Lashawn Isaac | | | | | | 12/22/201804:15:21 PM | | | | + + + + + + | FVC PRE | 1.69 | 3.67 L | [facility] | | | | | | SPECIAL | | | | | | DIAGNOSTICS | | | | | | - | | | | | | PULMONARY | | | | | | FUNCTION | | + + + + + + | FVC PRE | 46 | % | [facility] | | | (%REF) | | | SPECIAL | | | | | | DIAGNOSTICS | | | | | | - | | | | | | PULMONARY | | | | | | FUNCTION | | + + + + + + | FEV1 PRE | 1.33 | 2.84 L | [facility] | | | | | | SPECIAL | | | | | | DIAGNOSTICS | | | | | | - | | | | | | PULMONARY | | | | | | FUNCTION | | + + + + + + | FEV1 PRE | 46 | % | [facility] | | | (%REF) | | | SPECIAL | | | | | | DIAGNOSTICS | | | | | | - | | | | | | PULMONARY | | | | | | FUNCTION | | + + + + + + | FEV1/FVC | 78 | 77 % | [facility] | | | PRE | | | SPECIAL | | | | | | DIAGNOSTICS | | | | | | - | | | | | | PULMONARY | | | | | | FUNCTION | | + + + + + + | FEV1/FVC | 101 | % | [facility] | | | PRE (%REF) | | | SPECIAL | | | | | | DIAGNOSTICS | | | | | | - | | | | | | PULMONARY | | | | | | FUNCTION | | + + + + + + | PEF PRE | 2.18 | 7.91 L/sec | [facility] | | | | | | SPECIAL | | | | | | DIAGNOSTICS | | | | | | - | | | | | | PULMONARY | | | | | | FUNCTION | | + + + + + + | PEF PRE | 27 | % | [facility] | | | (%REF) | | | SPECIAL | | | | | | DIAGNOSTICS | | | | | | - | | | | | | PULMONARY | | | | | | FUNCTION | | + + + + + + | RNG09-47% | 1.26 | 2.58 L/sec | [facility] | | | PRE | | | SPECIAL | | | | | | DIAGNOSTICS | | | | | | - | | | | | | PULMONARY | | | | | | FUNCTION | | + + + + + + | HWA25-32% | 48 | % | [facility] | | | PRE (%REF) | | | SPECIAL | | | | | | DIAGNOSTICS | | | | | | - | | | | | | PULMONARY | | | | | | FUNCTION | | + + + + + + | FIF50% PRE | 1.46 | 6.27 L/sec | [facility] | | | | | | SPECIAL | | | | | | DIAGNOSTICS | | | | | | - | | | | | | PULMONARY | | | | | | FUNCTION | | + + + + + + | FIF50% PRE | 23 | % | [facility] | | | (%REF) | | | SPECIAL | | | | | | DIAGNOSTICS | | | | | | - | | | | | | PULMONARY | | | | | | FUNCTION | | + + + + + + + + | Specimen | + + | | + + + + + | Narrative | Performed At | + + + | | | + + + + + + + + | Performing | Address | City/State/Zipcode | Phone Number | | Organization | | | | + + + + + | [facility] | [address] | [place], [place] | | | DIAGNOSTICS - | [address] | [address] | | | PULMONARY FUNCTION | | | | + + + + + documented in this encounter Visit Diagnoses + + | Diagnosis | + + | Pneumonitis due to inhalation of food and vomit (HCC) - Primary Pneumonitis due to | | inhalation of food or vomitus | + + documented in this encounter"
--- OUTSIDE RECORDS SUMMARY | ~2019-04-16 | XMS | Encounter Summary ---
Demographics + + + | Address | [address] | | | [place] [address] | + + + | Home Phone | | + + + | Preferred Language | Unknown | + + + | Marital Status | Single | + + + | Mandaen Affiliation | 1013 | + + + | Race | Unknown | + + + | Ethnic Group | Unknown | + + + Author + + + | Author | [facility] | | | and [place] | + + + | Organization | [facility] | | | and [...] Team Providers + +------+ + | Care Director Of Restaurant Name | Role | Phone | + +------+ + | Corin Cordero NP | PCP | | + +------+ + Encounter Details +--------+ + + + + | Date | Type | Department | Care Team | Description | +--------+ + + + + | 10/05/ | Orders Only | [facility] | Gloria Coombs, | | | 2010 | | MEDICAL CENTER | [address] | | | | | CLINICAL LABORATORY | [place] [address] | | | | | [address] | [phone] | | | | | [place], [place] | | | | | | [address] | | | | | | [phone] | | | +--------+ + + + [...] EXTERNAL LAB | | Testing performed at [facility];[address] [facility];[place] [address] | | + + + + +---------+ + + | Performing | Address | City/State/Zipcode | Phone Number | | Organization | | | | + +---------+ + + | EXTERNAL LAB | | | | + +---------+ + + documented in this encounter Visit Diagnoses Not on filedocumented in this encounter"
--- OUTSIDE RECORDS SUMMARY | ~2019-04-16 | XMS | Encounter Summary ---
Demographics + + + | Address | [address] | | | [place] [address] | + + + | Home Phone | | + + + | Preferred Language | Unknown | + + + | Marital Status | Single | + + + | Oriental Orthodox Affiliation | Unknown | + + + | Race | White | + + + | Ethnic Group | Not or | + + + Author + + + | Author | [facility] | + + + | Organization | [facility] | + + + | Address | Unknown | + + + | Phone | Unavailable | + + + Support + + +---------+ + | Name | Relationship | Address | Phone | + + +---------+ + | Kristy Medabalime | ECON | Unknown | | + + +---------+ + Care Team Providers + +------+ + | Care Still Operator Gin Name | Role | Phone | + +------+ + | Corin Cordero NP | PCP | | + +------+ + Encounter Details +--------+ + + + + | Date | Type | Department | Care Team | Description | +--------+ + + + + | 09/02/ | Abstract | Pulmonary & | Service, Pulmonary | | | 2019 | | Critical Care | Consult [address] | | | | | Medicine at | [facility] | | | | | [facility] | Road [place], [place] | | | | | [address] | [address] | | | | | Loop Mailcode: | | | | | | [id number] | | | | | | [address] | | | | | | [place], [place] | | | | | | [address] | | | | | | [phone] | | | +--------+ + + + [...] + + documented as of this encounter Progress Notes Jose Stevens MD - 09/02/2018 2:50 PM PDTReviewed outside imaging, now available. Patie nt had a right middle lobe pulmonary abscess with small ipsilateral free flowing pleural eff usion on CT 2014 with subsequent CXRs showing appropriate resolution. This accounts for the right middle lobe scarring noted on current imaging. Continue with previously recommended pl an. documented in this encounter Plan of Treatment Not on filedocumented as of this encounter Visit Diagnoses Not on filedocumented in this encounter"
--- OUTSIDE RECORDS SUMMARY | ~2019-04-16 | XMS | Encounter Summary ---
Demographics + + + | Address | [address] | | | [place] [address] | + + + | Home Phone | | + + + | Preferred Language | Unknown | + + + | Marital Status | Single | + + + | Anabaptism Affiliation | Unknown | + + + | Race | White | + + + | Ethnic Group | Not or | + + + Author + + + | Organization | Unknown | + + + | Address | Unknown | + + + | Phone | Unavailable | + + + Support + + +---------+ + | Name | Relationship | Address | Phone | + + +---------+ + | Kristy Sharma | ECON | Unknown | | + + +---------+ + Care Team Providers + +------+ + | Care Senior Mainframe Programmer Analyst Name | Role | Phone | + +------+ + | Corin Cordero NP | PCP | | + +------+ + Encounter Details +--------+--------+ + + + | Date | Type | Department | Care Team | Description | +--------+--------+ + + + | 09/03/ | Travel | | | | | 2019 | | | | | +--------+--------+ + + + Social History + +-------+ +--------+------+ | Tobacco Use | Types | Packs/Day | Years | Date | | | | | Used | | + +-------+ +--------+------+ | Passive Smoke | | | | | | Exposure - Never | | | | | | Smoker | | | | | + +-------+ +--------+------+ + +---+---+---+ | Smokeless Tobacco: | | | | | Never Used | | | | + +---+---+---+ + + + | Sex Assigned at [...]
--- OUTSIDE RECORDS SUMMARY | ~2019-04-16 | XMS | Encounter Summary ---
Demographics + + + | Address | [address] | | | [place] [address] | + + + | Home Phone | | + + + | Preferred Language | Unknown | + + + | Marital Status | Single | + + + | Cheondoism Affiliation | Unknown | + + + | Race | White | + + + | Ethnic Group | Not or | + + + Author + + + | Author | [facility] | + + + | Organization | [facility] | + + + | Address | Unknown | + + + | Phone | Unavailable | + + + Support + + +---------+ + | Name | Relationship | Address | Phone | + + +---------+ + | Kristy Medabalime | ECON | Unknown | | + + +---------+ + Care Team Providers + +------+ + | Care Data Reduction Technician Name | Role | Phone | + +------+ + | Corin Cordero NP | PCP | | + +------+ + Encounter Details +--------+ + + + + | Date | Type | Department | Care Team | Description | +--------+ + + + + | 12/11/ | Hospital | Pulmonary Function | Tech, Pfl Adult | | | 2019 | Encounter | Lab at [facility] [address] | [address] | | | | | [address] | [facility] | | | | | Mailcode: [facility] | [place] [address] | | | | | [place] | | | | | | [address] [place], [place] | | | | | | [address] | | | | | | [phone] | | | +--------+ + + + [...] + + documented as of this encounter Medications at Time of Discharge + + + +---------+--------+ + | Medication | Sig | Dispensed | Refills | Start | End Date | | | | | | Date | | + + + +---------+--------+ + | ACETAMINOPHEN | Take 500 mg by | | 0 | | | | (TYLENOL EXTRA | mouth. Every 4-6 | | | | | | STRENGTH ORAL) | hours as needed | | | | | + + + +---------+--------+ + | fludrocortisone | Take 0.1 mg by mouth | | 0 | | | | (FLORINEF ACETATE) | once daily. | | | | | | 0.1 mg Oral Tablet | | | | | | + + + +---------+--------+ + | lamoTRIgine 25 mg | Take 50 mg by mouth | | 0 | | | | oral tablet | two times daily. | | | | | + + + +---------+--------+ + | levothyroxine 50 | Take 50 mcg by mouth | | 0 | | | | mcg oral tablet | before breakfast. | | | | | + + + +---------+--------+ + | loperamide 2 mg | Take 4 mg by mouth | | 0 | | | | oral capsule | four times daily as | | | | | | | needed for diarrhea. | | | | | + + + +---------+--------+ + | loratadine 10 mg | Take 10 mg by mouth | | 0 | | | | oral tablet | once daily. | | | | | + + + +---------+--------+ + | magnesium | Take by mouth. | | 0 | | | | hydroxide (MILK OF | | | | | | | MAGNESIA ORAL) | | | | | | + + + +---------+--------+ + | Menthol-Zinc Oxide | Apply to affected | | 0 | | | | (GOLD MILLAN | area. | | | | | | MEDICATED) 0.8-5 % | | | | | | | topical powder | | | | | | + + + +---------+--------+ + | multivitamin | Take 1 tablet by | | 0 | | | | (THEREMS) oral | mouth once daily. | | | | | | tablet | | | | | | + + + +---------+--------+ + | nystatin 100,000 | Apply to affected | | 0 | | | | unit/gram topical | area two times | | | | | | ointment | daily. Apply | | | | | | | liberally to the | | | | | | | affected areas. | | | | | + + + +---------+--------+ + | QUEtiapine 100 mg | Take 100 mg by mouth | | 0 | | | | oral tablet | once daily. | | | | | + + + +---------+--------+ + | tobramycin | 0.5 inches three | | 0 | | | | (TOBREX) 0.3 % | times daily. | | | | | | ophthalmic (eye) | | | | | | | ointment | | | | | | + + + +---------+--------+ + documented as of this encounter Plan of Treatment Not on filedocumented as of this encounter Procedures + +--------+ + + + | Procedure Name | Priori | Date/Time | Associated Diagnosis | Comments | | | ty | | | | + +--------+ + + + | SPIROMETRY, PULM | Routin | 12/11/2018 | Pneumonitis due to | Results for this | | FUNCTION LAB | e | 11:30 AM | inhalation of food | procedure are in the | | | | PDT | and vomit (HCC) | results section. | + +--------+ + + + documented in this encounter Results SPIROMETRY, PULM FUNCTION LAB (12/11/2018 11:30 AM PDT) + + + + + + | Component | Value | Ref Range | Performed | Pathologist | | | | | At | Signature | + + + + + + | PULMONARY | Site: [facility] and | | [facility] | | | INTERPRETAT | [facility] | | SPECIAL | | | ION | [facility] | | DIAGNOSTICS | | | | Rd,[place], [place], | | - | | | | [address]AF: [id number] | | PULMONARY | | | | Name: JULIANE FINNEY | | FUNCTION | | | | EVisit Date: 12/11/2018 | | | | | | Second ID: | | | | | | [id number]: | | | | | | Jerica Teixeira: 53 | | | | | | : 1965 Sex: | | | | | | Male Race: | | | | | | CaucasianHeight: 157.00 | | | | | | Cms Weight: 50.00 | | | | | | Kgs BSA: 1.48Order | | | | | | IDs: [id number] | | | | | | Test(s): [...] signed: | | | | | | Isaac Hardin | | | | | | 12/22/201804:15:21 [...] + + + + + + | PHC22-67% | 1.26 | 2.58 L/sec | [facility] | | | PRE | | | SPECIAL | | | | | | DIAGNOSTICS | | | | | | - | | | | | | PULMONARY | | | | | | FUNCTION | | + + + + + + | XFT02-43% | 48 | % | [facility] | [...] + + + + + | [facility] | [address] | [place], [place] | | | DIAGNOSTICS - | [address] | [address] | | | PULMONARY FUNCTION | | | | + + + + + documented in this encounter Visit Diagnoses + + | Diagnosis | + + | Pneumonitis due to inhalation of food and vomit (HCC) Pneumonitis due to inhalation | | of food or vomitus | + + documented in this encounter"
--- OUTSIDE RECORDS SUMMARY | ~2019-04-16 | XMS | Encounter Summary ---
Demographics + + + | Address | [address] | | | [place] [address] | + + + | Home Phone | | + + + | Preferred Language | Unknown | + + + | Marital Status | Single | + + + | Jehovah'S Witness Affiliation | 1013 | + + + | Race | Unknown | + + + | Ethnic Group | Unknown | + + + Author + + + | Author | [facility] | | | and Angelana | + + + | Organization | [facility] | | | and Angelana [...] Team Providers + +------+ + | Care Wafer Substrate Tester Name | Role | Phone | + +------+ + | Corin Cordero NP | PCP | | + +------+ + Encounter Details +--------+ + + + + | Date | Type | Department | Care Team | Description | +--------+ + + + + | 01/23/ | Orders Only | [facility] [place] | Luz Godfrey, | Exercise hypoxemia | | 2015 | | PULMONARY [address] | RN | | | | | [place], | | | | | | [place] [address] | | | | | | [phone] | | | +--------+ + + + + Social History + +-------+ +--------+------+ | Tobacco Use | Types | Packs/Day | Years | Date | | | | | Used | | + +-------+ +--------+------+ | Never Smoker | | | | | + +-------+ +--------+------+ + + | Comments: exposed to second hand smoke | + + + + +---------+ + | Alcohol Use | Drinks/Week | oz/Week | Comments | + + +---------+ + | No | 0 Standard drinks | 0.0 | | | | or equivalent | | | + + +---------+ + [...] + | Diagnosis | + + | Exercise hypoxemia Hypoxemia | + + documented in this encounter"
--- OUTSIDE RECORDS SUMMARY | ~2019-04-16 | XMS | Encounter Summary ---
Demographics + + + | Address | [address] | | | [place] [address] | + + + | Home Phone | | + + + | Preferred Language | Unknown | + + + | Marital Status | Single | + + + | Evangelical Affiliation | 1013 | + + + | Race | Unknown | + + + | Ethnic Group | Unknown | + + + Author + + + | Author | [facility] | | | and Angelana | + + + | Organization | [facility] | | | and Angelana [...] Team Providers + +------+ + | Care Sales Account Executive Name | Role | Phone | + +------+ + | Corin Cordero NP | PCP | | + +------+ + Encounter Details +--------+ + + + + | Date | Type | Department | Care Team | Description | +--------+ + + + + | 09/30/ | Orders Only | [facility] | Jose Daniel Nicole | | | 2010 | | MEDICAL CENTER | Howie Cifuentes MD [address] | | | | | CLINICAL LABORATORY | [address] | | | | | [address] | [place] [address] | | | | | [place], [place] | [phone] | | | | | [address] | | | | | | [phone] | | | +--------+ + + + [...] | + +--------+ + + + | CULTURE, BLOOD | Timed | 09/30/2010 | | Results for this | | | | 2:15 AM | | procedure are in the | | | | PDT | | results section. | + +--------+ + + + documented in this encounter Results Culture, Blood (09/30/2010 2:15 AM PDT) + + | Specimen | + + | | + + + + + | Narrative | Performed At | + + + | Specimen Description BLOOD, PERIPHERAL DRAW | EXTERNAL LAB | | Testing performed | | | at [facility];[address] [place] [address];[place] [address] CULTURE | | | NO GROWTH IN 5 DAYS. | | | Testing performed at [facility];[address] [address] [facility] | | | [place] [address] REPORT STATUS | | | 10/05/2010 FINAL | | + + + + +---------+ + + | Performing | Address | City/State/Zipcode | Phone Number | | Organization | | | | + +---------+ + + | EXTERNAL LAB | | | | + +---------+ + + documented in this encounter Visit Diagnoses Not on filedocumented in this encounter"
--- OUTSIDE RECORDS SUMMARY | ~2019-04-16 | XMS | Encounter Summary ---
Demographics + + + | Address | [address] | | | [place] [address] | + + + | Home Phone | | + + + | Preferred Language | Unknown | + + + | Marital Status | Single | + + + | Mormon Affiliation | 1013 | + + + | Race | Unknown | + + + | Ethnic Group | Unknown | + + + Author + + + | Author | [facility] | | | and Angelana | + + + | Organization | [facility] | | | and [...] Team Providers + +------+ + | Care Compressor Repairer Name | Role | Phone | + +------+ + | Corin Cordero NP | PCP | | + +------+ + Encounter Details +--------+ + + + + | Date | Type | Department | Care Team | Description | +--------+ + + + + | 01/23/ | Hospital | [facility] | Offenstein, | Recurrent pneumonia | | 2015 | Encounter | MED CTR XRAY [address] | Yareli Nava MD | | | | | [address] | | | | | | [place] [address] | | | | | | [phone] | | | +--------+ + + + [...] at Time of Discharge + + + +---------+ + + | Medication | Sig | Dispensed | Refills | Start | End Date | | | | | | Date | | + + + +---------+ + + | Acetaminophen | Take by mouth Daily | | 0 | | | | (MAPAP) 500 MG CAPS | as needed. | | | | | + + + +---------+ + + | chlorhexidine | Take 15 mLs by mouth | 900 mL | 11 | 10/17/19 | | | (PERIDEX) 0.12% | 2 times daily. | | | 15 | | | solution | | | | | | + + + +---------+ + + | magnesium | Take by mouth Daily | | 0 | | | | hydroxide (MILK OF | as needed for | | | | | | MAGNESIA) 400 mg/5 | Constipation. | | | | | | mL suspension | | | | | | + + + +---------+ + + | Multiple Vitamin | Take by mouth | | 0 | | | | (THEREMS PO) | Daily. | | | | | + + + +---------+ + + | Podiatric Products | Apply topically | | 0 | | | | (GOLD MILLAN FOOT EX) | Daily. | | | | | + + + +---------+ + + | QUEtiapine | Take 100 mg by mouth | | 0 | | | | (SEROQUEL) 100 mg | nightly. | | | | | | tablet | | | | | | + + + +---------+ + + | STARCH-MALTO | Take by mouth. | | 0 | | | | DEXTRIN (THICK-IT) | | | | | | | POWD | | | | | | + + + +---------+ + + | azithromycin | Take 2 tablets by | 6 | 0 | 01/24/20 | | | (ZITHROMAX) 250 mg | mouth on day 1, and | tablet | | 15 | 5 | | tablet | 1 tablet by mouth | | | | | | | every day | | | | | + + + +---------+ + + | divalproex | Take 250 mg by mouth | | 0 | | | | (DEPAKOTE) 250 mg EC | 2 times daily. | | | | 6 | | tablet | 500mg in am and | | | | | | | 750mg in pm, | | | | | | | tapering off | | | | | + + + +---------+ + + | ferrous sulfate | Take 325 mg by mouth | | 0 | | | | 325 mg tablet | daily (with | | | | 6 | | | breakfast). | | | | | + + + +---------+ + + | levothyroxine | Take 125 mcg by | | 0 | | | | (SYNTHROID, | mouth every morning | | | | 6 | | LEVOTHROID) 125 mcg | (before breakfast). | | | | | | tablet | | | | | | + + + +---------+ + + | Skin Protectants, | Apply topically as | | 0 | | | | Misc. | needed. | | | | 6 | | (DIMETHICONE-ZINC | | | | | | | OXIDE) cream | | | | | | + + + +---------+ + + documented as of this encounter Plan of Treatment Not on filedocumented as of this encounter Procedures + +--------+ + + + | Procedure Name | Priori | Date/Time | Associated Diagnosis | Comments | | | ty | | | | + +--------+ + + + | XR CHEST PA AND | Routin | 01/23/2015 | Recurrent | Results for this | | LATERAL | e | 1:06 PM | pneumonia | procedure are in the | | | | PDT | | results section. | + +--------+ + + + documented in this encounter Results XR Chest PA and Lateral (01/23/2015 1:06 PM PDT) + + | Specimen | + + | | + + + + + | Narrative | Performed At | + + + | XR CHEST PA AND LATERAL 01/23/2015 1:06 PM HISTORY: mild cough, | [facility] | | known history of recurrent pneumonia with minimal presenting signs. | [facility] | | COMPARISON: Multiple priors. Findings: Heart size is within | MEDICAL CENTER | | normal limits. Aorta is normal. Mediastinum is unremarkable. Central | - IMAGING | | pulmonary vasculature is normal. There has been interval development | | | of a small amount of airspace disease in the right middle lobe that | | | is consistent with known pneumonia. The left lung is clear. No pleural | | | effusion or pneumothorax is present. There are no acute osseous | | | abnormalities. Prominent gas is in the stomach. IMPRESSION - | | | Interval development of mild pneumonia in right middle lobe. | | | Dictated and Signed by: Chuy Cruz MD Electronically signed: | | | 01/23/2015 1:10 PM | | + + + + + | Procedure Note | + + | Enrike, Rad Results In - 01/23/2015 1:13 PM PDT XR CHEST PA AND LATERAL 01/23/2015 1:06 | | PMHISTORY: mild cough, known history of recurrent pneumonia with minimalpresenting | | signs.COMPARISON: Multiple priors.Findings:Heart size is within normal limits. Aorta is | | normal. Mediastinum isunremarkable. Central pulmonary vasculature is normal. There has | | been intervaldevelopment of a small amount of airspace disease in the right middle lobe | | thatis consistent with known pneumonia. The left lung is clear. No pleural effusionor | | pneumothorax is present. There are no acute osseous abnormalities. Prominentgas is in | | the stomach.IMPRESSION -Interval development of mild pneumonia in right middle | | lobe.Dictated and Signed by: Chuy Cruz MD Electronically signed: 01/23/2015 1:10 PM | |unremarkable. Central pulmonary vasculature is normal. There has been interval | |development of a small amount of airspace disease in the right middle lobe that | |is consistent with known pneumonia. The left lung is clear. No pleural effusion | |or pneumothorax is present. There are no acute osseous abnormalities. Prominent | |gas is in the stomach. | | | |IMPRESSION - | |Interval development of mild pneumonia in right middle lobe. | | | |Dictated and Signed by: Chuy Cruz MD | | Electronically signed: 01/23/2015 1:10 PM | + + + + + + + | Performing | Address | City/State/Zipcode | Phone Number | | Organization | | | | + + + + + | [facility] | [address] | [place] | [phone] | | [facility] | | [address] | | | - IMAGING | | | | + + + + + documented in this encounter Visit Diagnoses + + | Diagnosis | + + | Recurrent pneumonia Pneumonia, organism unspecified | + + documented in this encounter"
--- OUTSIDE RECORDS SUMMARY | ~2019-04-16 | XMS | Encounter Summary ---
Demographics + + + | Address | [address] | | | [place] [address] | + + + | Home Phone | | + + + | Preferred Language | Unknown | + + + | Marital Status | Single | + + + | Caodaism Affiliation | Unknown | + + + | Race | White | + + + | Ethnic Group | Not or | + + + Author + + + | Author | [facility] | + + + | Organization | [facility] | + + + | Address | Unknown | + + + | Phone | Unavailable | + + + Support + + +---------+ + | Name | Relationship | Address | Phone | + + +---------+ + | Kristy Medabalime | ECON | Unknown | | + + +---------+ + Care Team Providers + +------+ + | Care Senior Construction Project Manager Name | Role | Phone | + +------+ + | Kvng Wheatley MD | PCP | | + +------+ + Encounter Details +--------+ + + + + | Date | Type | Department | Care Team | Description | +--------+ + + + + | 10/29/ | Institutional Research Director | Cardiology General | Mannie Rosa | Screening for | | 2008 | | at [facility] [address] | Cardiovascular | | | | Sean Lenz Mailcode: | [place], [place] | Condition (Primary | | | | [facility] Center for | [address] | Dx); Cardiac Murmur | | | | Health and Healing, | [phone] | | | | | | | | | | | Floor [place], [place] | | | | | | [address] | | | | | | [phone] | | | +--------+ + + + [...] as of this encounter Plan of Treatment + +------+--------+ + + | Name | Type | Priori | Associated Diagnoses | Order Schedule | | | | ty | | | + +------+--------+ + + | 12 LEAD ECG | ECG | Routin | Screening for | Ordered: 10/29/2008 | | | | e | Cardiovascular | | | | | | Condition Cardiac | | | | | | Murmur | | + +------+--------+ + + documented as of this encounter Visit Diagnoses + + | Diagnosis | + + | Screening for cardiovascular condition - Primary Screening for other and unspecified | | cardiovascular conditions | + + | Cardiac murmur Undiagnosed cardiac murmurs | + + documented in this encounter"
--- OUTSIDE RECORDS SUMMARY | ~2019-04-16 | XMS | Encounter Summary ---
Demographics + + + | Address | [address] | | | [place] [address] | + + + | Home Phone | | + + + | Preferred Language | Unknown | + + + | Marital Status | Single | + + + | Buddhism Affiliation | 1013 | + + + | Race | Unknown | + + + | Ethnic Group | Unknown | + + + Author + + + | Author | [facility] | | | and Angelana | + + + | Organization | [facility] | | | and Angelana | [...] Team Providers + +------+ + | Care Consulting Database Administrator Name | Role | Phone | + +------+ + | Corin Cordero NP | PCP | | + +------+ + Reason for Visit +---------+ + | Reason | Comments | +---------+ + | Results | walking oximetry | +---------+ + Encounter Details +--------+ + + + + | Date | Type | Department | Care Team | Description | +--------+ + + + + | 08/05/ | Telephone | [facility] [place] | Offenstein, | Results (walking | | 2015 | | PULMONARY [address] | Yareli Nava MD | oximetry) | | | | [place], | | | | | | [place] [address] | | | | | | [phone] | | | +--------+ + + + [...] | | + +---+---+---+ + + | Comments: Exposed to second hand smoke [...] of this encounter Plan of Treatment + + +--------+ + + | Name | Type | Priori | Associated Diagnoses | Order Schedule | | | | ty | | | + + +--------+ + + | Oxygen Therapy | Respiratory | Routin | Exercise hypoxemia | 1 Occurrences | | | Care | e | | starting 08/06/2015 | | | | | | until 08/05/2016 | + + +--------+ + + documented as of this encounter Visit Diagnoses + + | Diagnosis | + + | Exercise hypoxemia - Primary Hypoxemia | + + documented in this encounter"
--- OUTSIDE RECORDS SUMMARY | ~2019-04-16 | XMS | Encounter Summary ---
Demographics + + + | Address | [address] | | | [place] [address] | + + + | Home Phone | | + + + | Preferred Language | Unknown | + + + | Marital Status | Single | + + + | Jehovah'S Witness Affiliation | Unknown | + + + | Race | White | + + + | Ethnic Group | Not or | + + + Author + + + | Author | [facility] | + + + | Organization | [facility] | + + + | Address | Unknown | + + + | Phone | Unavailable | + + + Support + + +---------+ + | Name | Relationship | Address | Phone | + + +---------+ + | Kristy Medabalime | ECON | Unknown | | + + +---------+ + Care Team Providers + +------+ + | Care Sorting Machine Operator Name | Role | Phone | + +------+ + | Kvng Wheatley MD | PCP | | + +------+ + Encounter Details +--------+ + + + + | Date | Type | Department | Care Team | Description | +--------+ + + + + | 10/29/ | Premix Operator Concentrate | Cardiology General | Mannie Rosa | Screening for | | 2008 | | at [facility] [address] | Cardiovascular | | | | Sean Lenz Mailcode: | [place], [place] | Condition (Primary | | | | [facility] Center for | [address] | Dx); Cardiac Murmur | | | | Health and Healing, | [phone] | | | | | | | | | | | Floor [place], [place] | | | | | | [address] | | | | | | [phone] | | | +--------+ + + + [...]
--- OUTSIDE RECORDS SUMMARY | ~2019-04-16 | XMS | Encounter Summary ---
Demographics + + + | Address | [address] | | | [place] [address] | + + + | Home Phone | | + + + | Preferred Language | Unknown | + + + | Marital Status | Single | + + + | Pentecostal Affiliation | Unknown | + + + | Race | White | + + + | Ethnic Group | Not or | + + + Author + + + | Author | [facility] | + + + | Organization | [facility] | + + + | Address | Unknown | + + + | Phone | Unavailable | + + + Support + + +---------+ + | Name | Relationship | Address | Phone | + + +---------+ + | Kristy Medabalime | ECON | Unknown | | + + +---------+ + Care Team Providers + +------+ + | Care Supervisor Leaf Spring Repair Name | Role | Phone | + +------+ + | Corin Cordero NP | PCP | | + +------+ + Encounter Details +--------+------+ + + + | Date | Type | Department | Care Team | Description | +--------+------+ + + + | 12/11/ | Lab | Laboratory, | | Pneumonia due to | | 2018 | | Specimen Collection | | organism | | | | at [address] | | | | | | [address] | | | | | | Loop [place], [place] | | | | | | [address] | | | | | | [phone] | | | +--------+------+ + + + Social History + +-------+ [...] | + +--------+ + + + | CBC AND AUTO DIFF | Routin | 12/11/2018 | Pneumonia due to | Results for this | | | e | 2:33 PM | organism | procedure are in the | | | | PDT | | results section. | + +--------+ + + + | CBC, WITH | Routin | 12/11/2018 | Pneumonia due to | Results for this | | DIFFERENTIAL | e | 2:33 PM | organism | procedure are in the | | | | PDT | | results section. | + +--------+ + + + | COMPLETE METABOLIC | Routin | 12/11/2018 | Pneumonia due to | Results for this | | SET | e | 2:33 PM | organism | procedure are in the | | (NA,K,CL,CO2,BUN,CRE | | PDT | | results section. | | AT,GLUC,CA,AST,ALT,B | | | | | | MARIA TOTAL,ALK | | | | | | PHOS,ALB,PROT TOTAL) | | | | | + +--------+ + + + | IGM, SERUM | Routin | 12/11/2018 | Pneumonia due to | Results for this | | | e | 2:33 PM | organism | procedure are in the | | | | PDT | | results section. | + +--------+ + + + | IGG, SERUM | Routin | 12/11/2018 | Pneumonia due to | Results for this | | | e | 2:33 PM | organism | procedure are in the | | | | PDT | | results section. | + +--------+ + + + | IGA, SERUM | Routin | 12/11/2018 | Pneumonia due to | Results for this | | | e | 2:33 PM | organism | procedure are in the | | | | PDT | | results section. | + +--------+ + + + documented in this encounter Results CBC AND AUTO DIFF (12/11/2018 2:33 PM PDT) + + + + + + | Component | Value | Ref Range | Performed | Pathologist | | | | | At | Signature | + + + + + + | WHITE CELL | 7.96 | 3.50 - 10.80 | [facility] | | | COUNT | | K/cu mm | LABORATORY | | | | | | SERVICES, | | | | | | CORE | | + + + + + + | RED CELL | 3.68 (L) | 4.50 - 6.00 | [facility] | | | COUNT | | M/cu mm | LABORATORY | | | | | | SERVICES, | | | | | | CORE | | + + + + + + | HEMOGLOBIN | 11.6 (L) | 13.5 - 17.5 | [facility] | | | | | g/dL | LABORATORY | | | | | | SERVICES, | | | | | | CORE | | + + + + + + | HEMATOCRIT | 36.6 (L) | 41.0 - 53.0 % | [facility] | | | | | | LABORATORY | | | | | | SERVICES, | | | | | | CORE | | + + + + + + | MCV | 99.5 | 80.0 - 100.0 fL | [facility] | | | | | | LABORATORY | | | | | | SERVICES, | | | | | | CORE | | + + + + + + | MCHC | 31.7 (L) | 32.0 - 36.0 | [facility] | | | | | g/dL | LABORATORY | | | | | | SERVICES, | | | | | | CORE | | + + + + + + | RDW SD | 63.0 (H) | 35.1 - 46.3 fL | [facility] | | | | | | LABORATORY | | | | | | SERVICES, | | | | | | CORE | | + + + + + + | PLATELET | 269 | 150 - 400 K/cu | [facility] | | | COUNT | | mm | LABORATORY | | | | | | SERVICES, | | | | | | CORE | | + + + + + + | MPV | 10.9 | 9.7 - 12.3 fL | [facility] | | | | | | LABORATORY | | | | | | SERVICES, | | | | | | CORE | | + + + + + + | NRBC% | 0.0 | 0.0 - 0.3 % | [facility] | | | | | | LABORATORY | | | | | | SERVICES, | | | | | | CORE | | + + + + + + | NRBC# | 0.00 | 0.00 - 0.02 | [facility] | | | | | K/cu mm | LABORATORY | | | | | | SERVICES, | | | | | | CORE | | + + + + + + | NEUTROPHIL | 66.0 | 50.0 - 70.0 % | [facility] | | | % | | | LABORATORY | | | | | | SERVICES, | | | | | | CORE | | + + + + + + | LYMPHOCYTE | 24.0 | 18.0 - 42.0 % | [facility] | | | % | | | LABORATORY | | | | | | SERVICES, | | | | | | CORE | | + + + + + + | MONOCYTE % | 8.8 | 3.5 - 9.0 % | [facility] | | | | | | LABORATORY | | | | | | SERVICES, | | | | | | CORE | | + + + + + + | EOS % | 0.4 (L) | 1.0 - 3.0 % | [facility] | | | | | | LABORATORY | | | | | | SERVICES, | | | | | | CORE | | + + + + + + | BASO % | 0.4 | 0.0 - 2.0 % | [facility] | | | | | | LABORATORY | | | | | | SERVICES, | | | | | | CORE | | + + + + + + | IG% | 0.4Comment: Increased | 0.0 - 1.0 % | [facility] | | | | immature granulocytes | | LABORATORY | | | | (IG) define a left | | SERVICES, | | | | shift. Immature | | CORE | | | | granulocytes (IG) are an | | | | | | automated count of | | | | | | metamyelocytes, | | | | | | myelocytes and | | | | | | promyelocytes. Bands | | | | | | are not included in the | | | | | | IG count. Bands are | | | | | | included in the | | | | | | neutrophil count. | | | | + + + + + + | NEUTROPHIL | 5.26 | 1.80 - 7.70 | [facility] | | | # | | K/cu mm | LABORATORY | | | | | | SERVICES, | | | | | | CORE | | + + + + + + | LYMPHOCYTE | 1.91 | 1.00 - 4.80 | [facility] | | | # | | K/cu mm | LABORATORY | | | | | | SERVICES, | | | | | | CORE | | + + + + + + | MONOCYTE # | 0.70 | 0.10 - 0.90 | [facility] | | | | | K/cu mm | LABORATORY | | | | | | SERVICES, | | | | | | CORE | | + + + + + + | EOS # | 0.03 | 0.00 - 0.50 | [facility] | | | | | K/cu mm | LABORATORY | | | | | | SERVICES, | | | | | | CORE | | + + + + + + | BASO # | 0.03 | 0.00 - 0.10 | [facility] | | | | | K/cu mm | LABORATORY | | | | | | SERVICES, | | | | | | CORE | | + + + + + + | IG# | 0.03 | 0.00 - 0.10 | [facility] | | | | | K/cu mm | LABORATORY | | | | | | SERVICES, | | | | | | CORE | | + + + + + + + + | Specimen | + + | Blood - Blood | | (substance) | + + + + + | Narrative | Performed At | + + + | Increased immature granulocytes (IG) define a left shift. Immature | [facility] | | granulocytes (IG) are an automated count of metamyelocytes, myelocytes | LABORATORY | | and promyelocytes. Bands are not included in the IG count. Bands are | SERVICES, CORE | | included in the neutrophil count. | | + + + + + + + + | Performing | Address | City/State/Zipcode | Phone Number | | Organization | | | | + + + + + | [facility] | [address] | [place] [address] | | | SERVICES, CORE | [address] | | | + + + + + IGG, SERUM (12/11/2018 2:33 PM PDT) + +-------+ + + + | Component | Value | Ref Range | Performed | Pathologist | | | | | At | Signature | + +-------+ + + + | IGG SERUM | 1171 | 700 - 1600 | [facility] | | | | | mg/dL | [facility] | | | | | | [place] | | + +-------+ + + + + + | Specimen | + + | Blood - Blood | | (substance) | + + + + + + + | Performing | Address | City/State/Zipcode | Phone Number | | Organization | | | | + + + + + | [facility] - | [address] | [place] [address] | | | [facility] | | | | + + + + + COMPLETE METABOLIC SET (NA,K,CL,CO2,BUN,CREAT,GLUC,CA,AST,ALT,BILI TOTAL,ALK PHOS,ALB,PROT TOTAL) (12/11/2018 2:33 PM PDT) + +---------+ + + + | Component | Value | Ref Range | Performed | Pathologist | | | | | At | Signature | + +---------+ + + + | GLUCOSE, | 85 | 70 - 99 mg/dL | [facility] | | | PLASMA | | | LABORATORY | | | (LAB) | | | SERVICES, | | | | | | CORE | | + +---------+ + + + | BUN, PLASMA | 27 (H) | 6 - 20 mg/dL | [facility] | | | (LAB) | | | LABORATORY | | | | | | SERVICES, | | | | | | CORE | | + +---------+ + + + | CREATININE | 0.92 | 0.70 - 1.30 | [facility] | | | PLASMA | | mg/dL | LABORATORY | | | (LAB) | | | SERVICES, | | | | | | CORE | | + +---------+ + + + | EGFR | >60 | >60 mL/min | [facility] | | | - | | | LABORATORY | | | THAI | | | SERVICES, | | | | | | CORE | | + +---------+ + + + | EGFR NON | >60 | >60 mL/min | [facility] | | | -MIGUEL A | | | LABORATORY | | | RICAN | | | SERVICES, | | | | | | CORE | | + +---------+ + + + | SODIUM, | 140 | 136 - 145 | [facility] | | | PLASMA | | mmol/L | LABORATORY | | | (LAB) | | | SERVICES, | | | | | | CORE | | + +---------+ + + + | POTASSIUM, | 4.2 | 3.4 - 5.0 | [facility] | | | PLASMA | | mmol/L | LABORATORY | | | (LAB) | | | SERVICES, | | | | | | CORE | | + +---------+ + + + | CHLORIDE, | 104 | 97 - 108 mmol/L | [facility] | | | PLASMA | | | LABORATORY | | | (LAB) | | | SERVICES, | | | | | | CORE | | + +---------+ + + + | TOTAL CO2, | 31 | 21 - 32 mmol/L | [facility] | | | PLASMA | | | LABORATORY | | | (LAB) | | | SERVICES, | | | | | | CORE | | + +---------+ + + + | CALCIUM, | 9.1 | 8.6 - 10.2 | [facility] | | | PLASMA | | mg/dL | LABORATORY | | | (LAB) | | | SERVICES, | | | | | | CORE | | + +---------+ + + + | CALCIUM(ALB | 10.0 | 8.6 - 10.2 | [facility] | | | CORRECTED) | | mg/dL | LABORATORY | | | | | | SERVICES, | | | | | | CORE | | + +---------+ + + + | BILIRUBIN | 0.4 | 0.3 - 1.2 mg/dL | [facility] | | | TOTAL | | | LABORATORY | | | | | | SERVICES, | | | | | | CORE | | + +---------+ + + + | TOTAL | 7.4 | 6.4 - 8.2 g/dL | [facility] | | | PROTEIN, | | | LABORATORY | | | PLASMA | | | SERVICES, | | | (LAB) | | | CORE | | + +---------+ + + + | ALBUMIN, | 2.9 (L) | 3.5 - 4.7 g/dL | [facility] | | | PLASMA | | | LABORATORY | | | (LAB) | | | SERVICES, | | | | | | CORE | | + +---------+ + + + | ALK PHOS | 72 | 53 - 128 U/L | [facility] | | | | | | LABORATORY | | | | | | SERVICES, | | | | | | CORE | | + +---------+ + + + | AST(SGOT) | 25 | <=41 U/L | [facility] | | | | | | LABORATORY | | | | | | SERVICES, | | | | | | CORE | | + +---------+ + + + | ALT (SGPT) | 24 | <=60 U/L | [facility] | | | | | | LABORATORY | | | | | | SERVICES, | | | | | | CORE | | + +---------+ + + + | ANION GAP | 5 | 4 - 11 mmol/L | [facility] | | | | | | LABORATORY | | | | | | SERVICES, | | | | | | CORE | | + +---------+ + + + | ANION | 7 | 4 - 11 mmol/L | [facility] | | | GAP(ALB | | | LABORATORY | | | CORRECTED) | | | SERVICES, | | | | | | CORE | | + +---------+ + + + | POTASSIUM | No Hemo | | [facility] | | | CMNT | | | LABORATORY | | | | | | SERVICES, | | | | | | CORE | | + +---------+ + + + | BILI T CMNT | No Hemo | | [facility] | | | | | | LABORATORY | | | | | | SERVICES, | | | | | | CORE | | + +---------+ + + + | AST CMNT | No Hemo | | [facility] | | | | | | LABORATORY | | | | | | SERVICES, | | | | | | CORE | | + +---------+ + + + + + | Specimen | + + | Blood - Blood | | (substance) | + + + + + | Narrative | Performed At | + + + | GFR is estimated using the MDRD equation recommended by the National | [facility] | | Kidney Disease Education Program. Estimated GFR Interpretive | LABORATORY | | Information: <60 mL/min/1.73 sq m Chronic Kidney | SERVICES, CORE | | Disease <15 mL/min/1.73 sq m Kidney Failure | | | Estimated GFR greater than 60 mL/min/1.73 sq m is of limited clinical | | | value. The MDRD equation is not valid in the following situations: - | | | Patients under 18 years of age - Severe malnutrition or obesity - | | | Vegetarian diet - Rapidly changing kidney function - Amputees, | | | paraplegics, or other muscle-wasting diseases | | + + + + + + + + | Performing | Address | City/State/Zipcode | Phone Number | | Organization | | | | + + + + + | [facility] | [address] | [place] [address] | | | SERVICES, CORE | [address] | | | + + + + + IGM, SERUM (12/11/2018 2:33 PM PDT) + +-------+ + + + | Component | Value | Ref Range | Performed | Pathologist | | | | | At | Signature | + +-------+ + + + | IGM SERUM | 167 | 40 - 230 mg/dL | [facility] | | | | | | [facility] | | | | | | [place] | | + +-------+ + + + + + | Specimen | + + | Blood - Blood | | (substance) | + + + + + + + | Performing | Address | City/State/Zipcode | Phone Number | | Organization | | | | + + + + + | [facility] - | [address] | [place] [address] | | | [place] | | | | + + + + + IGA, SERUM (12/11/2018 2:33 PM PDT) + +---------+ + + + | Component | Value | Ref Range | Performed | Pathologist | | | | | At | Signature | + +---------+ + + + | IGA SERUM | 515 (H) | 70 - 400 mg/dL | [facility] | | | | | | [facility] - | | | | | | [place] | | + +---------+ + + + + + | Specimen | + + | Blood - Blood | | (substance) | + + + + + + + | Performing | Address | City/State/Zipcode | Phone Number | | Organization | | | | + + + + + | [facility] - | [address] | [place] [address] | | | [place] | | | | + + + + + documented in this encounter Visit Diagnoses + + | Diagnosis | + + | Pneumonia due to organism Pneumonia due to other specified organism | + + documented in this encounter"
--- OUTSIDE RECORDS SUMMARY | ~2019-04-16 | XMS | Encounter Summary ---
Demographics + + + | Address | [address] | | | [place] [address] | + + + | Home Phone | | + + + | Preferred Language | Unknown | + + + | Marital Status | Single | + + + | Hinduism Affiliation | Unknown | + + + | Race | White | + + + | Ethnic Group | Not or | + + + Author + + + | Author | [facility] | + + + | Organization | [facility] | + + + | Address | Unknown | + + + | Phone | Unavailable | + + + Support + + +---------+ + | Name | Relationship | Address | Phone | + + +---------+ + | Kristy Medabalime | ECON | Unknown | | + + +---------+ + Care Team Providers + +------+ + | Care Fitness Assistant Name | Role | Phone | + [...] 2019 | | Critical Care | Consult [address] | | | | | Medicine at | [facility] | | | | | [facility] | Road [place], [place] | | | | | [address] | [address] | | | | | Loop Mailcode: | | | | | | [id number] [address] | | | | | [address] | | | | | | [place], [place] | | | | | | [address] | | | | | | [phone] | | | +--------+ + + + [...]
--- OUTSIDE RECORDS SUMMARY | ~2019-04-16 | XMS | Clinical Summary ---
Demographics + + + | Address | [address] | | | [place] [address] | + + + | Home Phone [...] Team Providers + +------+ + | Care Envelope Folding Machine Adjuster Name | Role | Phone | + +------+ + | Consuelo Corin Abad LEWIS | PCP | | + +------+ + Source Comments LILA is fully live on both [facility] and [facility] Allergies + + + + + + [...] | | + + + +---------+------+------+-------+ | ACETAMINOPHEN | Take 500 mg by | | 0 | | | Activ | | (TYLENOL EXTRA | mouth. Every 4-6 | | | | | e | | STRENGTH ORAL) | hours as needed | | | | | | + + + +---------+------+------+-------+ | lamoTRIgine 25 mg | Take 50 mg by mouth | | 0 | | | Activ | | oral tablet | two times daily. | | | | | e | + + + +---------+------+------+-------+ | levothyroxine 50 | Take 50 mcg by mouth | | 0 | | | Activ | | mcg oral tablet | before breakfast. | | | | | e | + + + +---------+------+------+-------+ | QUEtiapine 100 mg | Take 100 mg by mouth | | 0 | | | Activ | | oral tablet | once daily. | | | | | e | + + + +---------+------+------+-------+ | multivitamin | Take 1 tablet by | | 0 | | | Activ | | (THEREMS) oral | mouth once daily. | | | | | e | | tablet | | | | | | | + + + +---------+------+------+-------+ | Menthol-Zinc Oxide | Apply to affected | | 0 | | | Activ | | (GOLD MILLAN | area. | | | | | e | | MEDICATED) 0.8-5 % | | | | | | | | topical powder | | | | | | | + + + +---------+------+------+-------+ | loperamide 2 mg | Take 4 mg by mouth | | 0 | | | Activ | | oral capsule | four times daily as | | | | | e | | | needed for diarrhea. | | | | | | + + + +---------+------+------+-------+ | magnesium | Take by mouth. | | 0 | | | Activ | | hydroxide (MILK OF | | | | | | e | | MAGNESIA ORAL) | | | | | | | + + + +---------+------+------+-------+ | nystatin 100,000 | Apply to affected | | 0 | | | Activ | | unit/gram topical | area two times | | | | | e | | ointment | daily. Apply | | | | | | | | liberally to the | | | | | | | | affected areas. | | | | | | + + + +---------+------+------+-------+ | loratadine 10 mg | Take 10 mg by mouth | | 0 | | | Activ | | oral tablet | once daily. | | | | | e | + + + +---------+------+------+-------+ | tobramycin | 0.5 inches three | | 0 | | | Activ | | (TOBREX) 0.3 % | times daily. | | | | | e | | ophthalmic (eye) | | | | | | | | ointment | | | | | | | [...] Filed Vital Signs + + + + + | Vital Sign | Reading | Time Taken | Comments | + + + + + | Blood Pressure | 105/75 | 12/11/2018 12:41 PM | | | | | PDT | | + + + + + | Pulse | 73 | 12/11/2018 12:41 PM | | | | | PDT | | + + + + + | Temperature | - | - | | + + + + + | Respiratory Rate | 16 | 12/11/2018 12:41 PM | | | | | PDT | | + + + + + | Oxygen Saturation | 99% | 12/11/2018 12:41 PM | | | | | PDT | | + + + + + | Inhaled Oxygen | - | - | | | Concentration | | | | + + + + + | Weight | 55.6 kg (122 lb 9.6 | 12/11/2018 12:41 PM | | | | oz) | PDT | | + + + + + | Height | 160 cm (5' 3") | 12/11/2018 12:41 PM | | | | | PDT | | + + + + + | Body Mass Index | 21.72 | 12/11/2018 12:41 PM | | | | | PDT | | + + + + + Plan of Treatment + + + + + | Health Maintenance | Due Date | Last Done | Comments | + + + + + | Influenza (Flu) | | 01/08/2018, 01/16/2017, | | | vaccination (#1) | 9 | 01/04/2016, Additional history | | | | | exists | | + + + + + | Pneumococcal | Aged Out | 06/12/2012, 01/16/2010, | No longer eligible | | vaccination | | 08/13/2008, Additional history | based on patient's | | | | exists | age to complete this | | | | | topic | + + + + + Results Not on filefrom Last 3 Months Insurance + +--------+ +--------+ + +--------+ | Payer | Benefi | Subscriber | Effect | Phone | Address | Type | | | t Plan | ID | greg | | | | | | / | | Dates | | | | | | Group | | | | | | + +--------+ +--------+ + +--------+ | MEDICARE | MEDICA | xxxxxxxxxxx | | [phone] | [address] | [address] | | | RE A & | | [phone] | | [address] | | [address] | | [place] | | | | | | | | [phone] | | + +--------+ +--------+ + +--------+ | REGIONAL CLINICAL DIRECTOR MEDICAID | REGIONAL CLINICAL DIRECTOR | xxxxxxxx | | | | Medica | | | [place] | | [address] | | | id | | | [place] | | esent | | | | + +--------+ +--------+ + +--------+ + +--------+ +--------+ + + | Guarantor Name | Accoun | Relation to | Date | Phone | Billing Address | | | t Type | Patient | of | | | | | | | | | | + +--------+ +--------+ + + | Ladarius Finney | Person | Self [birth year] | [address] | | | al/Fam | | 1966 | [phone] | [place] [address] | | | ana | | | 8 (Home) | | + +--------+ +--------+ + + Advance Directives + + + + + | Type | Date Recorded | Patient | Explanation | | | | Art Gallery Director | | + + + + + | Advance | | | | | Directives and | | | | | Living Will | | | | + + + + + | Power of | | | | | Hunter Guide | | | | + + + + +
--- OUTSIDE RECORDS SUMMARY | ~2019-04-16 | XMS | Encounter Summary ---
Demographics + + + | Address | [address] | | | [place] [address] | + + + | Home Phone | | + + + | Preferred Language | Unknown | + + + | Marital Status | Single | + + + | Mu-Ism Affiliation | 1013 | + + + | Race | Unknown | + + + | Ethnic Group | Unknown | + + + Author + + + | Author | [facility] | | | and [place] | + + + | Organization | [facility] | | | and [place] [...] Team Providers + +------+ + | Care Gun Number Name | Role | Phone | + +------+ + | Corin Cordero NP | PCP | | + +------+ + Encounter Details +--------+ + + + + | Date | Type | Department | Care Team | Description | +--------+ + + + + | 10/08/ | Orders Only | [facility] | Gloria Coombs, | | | 2010 | | MEDICAL CENTER | [address] | | | | | CLINICAL LABORATORY | [place] [address] | | | | | [address] | [phone] | | | | | [place], [place] | | | | | | [address] | | | | | | [phone] | | | +--------+ + + + [...] | + +--------+ + + + | EXTERNAL LAB: OCCULT | STAT | 10/08/2010 | | Results for this | | BLOOD, SCREENING | | 12:32 AM | | procedure are in the | | | | PDT | | results section. | + +--------+ + + + documented in this encounter Results External Lab: Occult Blood, Screening (10/08/2010 12:32 AM PDT) + + | Specimen | + + | | + + + + + | Narrative | Performed At | + + + | Fecal Occult Blood NEGATIVE Testing | EXTERNAL LAB | | performed at [facility];[address];[place] [address] | | + + + + +---------+ + + | Performing | Address | City/State/Zipcode | Phone Number | | Organization | | | | + +---------+ + + | EXTERNAL LAB | | | | + +---------+ + + documented in this encounter Visit Diagnoses Not on filedocumented in this encounter"
--- OUTSIDE RECORDS SUMMARY | ~2019-04-16 | XMS | Encounter Summary ---
Demographics + + + | Address | [address] | | | [place] [address] | + + + | Home Phone | | + + + | Preferred Language | Unknown | + + + | Marital Status | Single | + + + | Lutheran Affiliation | [id number] | + + + | Race | Unknown | + + + | Ethnic Group | Unknown | + + + Author + + + | Author | [facility] | | | and Angelana | + + + | Organization | [facility] | | | and Angelana [...] Team Providers + +------+ + | Care Needle Setter Name | Role | Phone | + +------+ + | Corin Cordero NP | PCP | | + +------+ + Reason for Visit +--------+ + | Reason | Comments | +--------+ + | Other | 3 month follow up | +--------+ + Encounter Details +--------+---------+ + + + | Date | Type | Department | Care Team | Description | +--------+---------+ + + + | 01/23/ | Office | [facility] | [place], | Exercise hypoxemia | | 2015 | Visit | PULMONARY [address] | Yareli Nava MD | (Primary Dx); | | | | [place], | | Translocation [place] | | | | [place] [address] | | syndrome; Recurrent | | | | [phone] | | pneumonia; Anemia, | | | | | | unspecified anemia | | | | | | type; Oropharyngeal | | | | | | dysphagia | +--------+---------+ + + + Social History + +-------+ [...] + + documented as of this encounter Last Filed Vital Signs + + + + + | Vital Sign | Reading | Time Taken | Comments | + + + + + | Blood Pressure | 120/60 | 01/23/2015 11:17 AM | | | | | PDT | | + + + + + | Pulse | 97 | 01/23/2015 11:17 AM | | | | | PDT | | + + + + + | Temperature | - | - | | + + + + + | Respiratory Rate | 16 | 01/23/2015 11:17 AM | | | | | PDT | | + + + + + | Oxygen Saturation | 98% | 01/23/2015 11:17 AM | 2 liters | | | | PDT | | + + + + + | Inhaled Oxygen | - | - | | | Concentration | | | | + + + + + | Weight | 71.2 kg (157 lb) | 01/23/2015 11:17 AM | | | | | PDT | | + + + + + | Height | 160 cm (5' 3") | 01/23/2015 11:17 AM | | | | | PDT | | + + + + + | Body Mass Index | 27.81 | 01/23/2015 11:17 AM | | | | | PDT | | + + + + + documented in this encounter Patient Instructions Patient Instructions Yareli Love MD - 01/23/2015 12:16 PM PDTDiscontinue the oxy gen at night. He does not need oxygen at rest. If he walks for more than 1-2 minutes, he should wear 1-2L of oxygen. I would try swabbing the chlorhexidine instead of doing a swish, and you can just put enoug h on there to basically scrub his mouth with, you don't need to drip it in to prevent him sw allowing it. Check chest x-ray today. Have heart ultrasound here when convenient. I will find out what blood tests Dr. Suresh ordered, and then send orders to [facility] in [place] with what I want. We will call and let you know the orders are there. Electronically sig siva by Yareli Love MD at 01/23/2015 12:32 PM PDT documented in this encounter Progress Notes Yareli Love MD - 01/23/2015 11:22 AM PDTFormatting of this note might be differe nt from the original. Pulmonary Follow Up HPI Ladarius Finney Jr. is a 49 y.o. male patient of Corin Cordero NP here today fo r follow up of hypoxemia and recurrent aspiration. At their last visit, we had ordered a reflux evaluation, walking oximetry, and overnight ox imetry. They note that he seems to be doing better overall. He seems like he has more energy . They are working to keep him awake during the day, and keep things quiet at night. He is s taying awake all of the day, and then a lot of the night. He is staying awake until 2-3 am. He then gets up between 7:30am and 8am. They find he sleeps very well on the couch, which he has historically slept on, and they will keep him awake until drowsy, and then when they pu t him down in his bed, he will be wide awake. He is on the quetiapine at night still at 100m g. They do note that he seems a little red around they eyes today, he has been coughing a abdelrahman le bit, and has a little bit of runny nose the last few days. They are not certain if he is catching a cold or having allergies. He did do another swallow study, which again did not show aspiration. They continue to work with him prevent any aspiration. He did not have aspiration on his reflux evaluation either. His overnight oximetry showed he did not need oxygen at night. His ambulating oximetry show ed he required oxygen at 1L with exertion only. He does seem somewhat short of breath when he is walking. They do take him for walks, and h e does get tired out pretty easily. He is getting a bone marrow biopsy at the end of the month due to low red blood cells. He s aw Dr. Meyers in [place] on Monday. There was no additional lab work done at that visit, but he apparently is doing lab work at the time of the biopsy. Past Medical History Past Medical History Diagnosis Date Anemia Osteoarthritis Chronic kidney disease stage 2 Delayed developmental milestones Depression Hypercholesterolemia Hypotension Obsessive compulsive disorder Translocation Down syndrome Urge incontinence of urine Respiratory failure (HCC) 07/2014 Pneumonia 07/2014 Pneumonia 09/2012 Pneumonia 2010 Seizure disorder (HCC) Oropharyngeal dysphagia Past Surgical History History reviewed. No pertinent past surgical history. Social History: History Social History Marital Status: Single Spouse Name: N/A Number of Children: N/A Years of Education: N/A Occupational History [employer] Social History Main Topics Smoking status: Never Smoker Smokeless tobacco: None Comment: exposed to second hand smoke Alcohol Use: No Drug Use: No Sexual Activity: None Other Topics Concern None Social History Narrative Lives: in [place] With: foster home [place] up: [place] previously lived in: [place] Exposure to toxic chemicals: no Exposure to asbestos: no Exposure to tuberculosis: none known Has had a PPD or Quantiferon before: yes, negative Has pets at home: dogs and cats Has ever owned birds: yes Other animal exposures: no Hobbies: reading, working around the home, signs Allergies: No Known Allergies Medications: Outpatient Encounter Prescriptions as of 01/23/2015 Medication Sig Dispense Refill Acetaminophen (MAPAP) 500 MG CAPS Take by mouth Daily as needed. chlorhexidine (PERIDEX) 0.12% solution Take 15 mLs by mouth 2 times daily. 900 mL 11 divalproex (DEPAKOTE) 250 mg EC tablet Take 250 mg by mouth 2 times daily. ferrous sulfate 325 mg tablet Take 325 mg by mouth daily (with breakfast). levothyroxine (SYNTHROID, LEVOTHROID) 125 mcg tablet Take 125 mcg by mouth every mornin g (before breakfast). magnesium hydroxide (MILK OF MAGNESIA) 400 mg/5 mL suspension Take by mouth Daily as n eeded for Constipation. Multiple Vitamin (THEREMS PO) Take by mouth Daily. Podiatric Products (GOLD MILLAN FOOT EX) Apply topically Daily. QUEtiapine (SEROQUEL) 100 mg tablet Take 100 mg by mouth nightly. Skin Protectants, Misc. (DIMETHICONE-ZINC OXIDE) cream Apply topically as needed. STARCH-MALTO DEXTRIN (THICK-IT) POWD Take by mouth. No facility-administered encounter medications on file as of 01/23/2015. Review of Systems: General: []Weight loss/gain (over 10 lbs) [x]Fever/chills/sweats []Night sweats EENT: []Hearing loss []Vision loss/change [x]Sinus congestion/nasal drainage []Nosebleeds [ ]Hoarseness Cardiac: []Chest pain []Palpitations/heart racing []Swelling of legs/ankles []Waking up at night s hort of breath []Difficulty sleeping flat Gastrointestinal: []Nausea/vomiting []Difficulty swallowing []Heartburn/acid reflux []Loss of appetite [x]Ab dominal pain Urologic: []Blood in urine []Frequent urination at night []Burning/painful urination []Difficulty wit h urination Objective BP 120/60 mmHg | Pulse 97 | Resp 16 | Ht 1.6 m (5' 3") | Wt 71.215 kg (157 lb) | BMI 27.82 kg/m2 | SpO2 98% General Appearance: Alert, cooperative, no distress, appears stated age, non verbal, giggl ing a lot Head: Down's facies, without obvious abnormality, atraumatic Eyes: PERRL, conjunctiva clear, no scleral icterus, EOM's intact Ears: Normal TM's, external auditory canals, seemingly normal acuity Nose: Nares normal, septum midline, mucosa normal Mouth: No oral lesions or exudate Neck: Supple, symmetrical, no adenopathy Lungs: No accessory muscle use, breath sounds are diminished bilaterally, no wheezes, leather crafter ckles or rhonchi Chest Wall: No deformity Heart: Regular rate and rhythm, no murmur, rub or gallop Abdomen: Soft, non-tender, non-distended, mildly obese Extremities: No cyanosis, clubbing, or edema Pulses: Radial pulses 2+ and symmetric Skin: Warm and dry Lymph nodes: Cervical and supraclavicular nodes normal Data: UGI barium swallow was done on October 18, 2014 and was reviewed and interpreted in clinic tonancy ortiz. It shows no evidence of reflux. Overnight oximetry was done on October 18, 2014 on room air and was reviewed and interpreted i n clinic today. It shows he spent 40 minutes with a saturation less than 88%. This appeared to be artifact. Ambulating oximetry was done prior to clinic today and was reviewed and interpreted in clin ic today. It shows he required 1 L to keep his saturation more than 88% with exertion only. Immunization History Administered Date(s) Administered INFLUENZA, [id number], ALL FORMULATIONS 01/16/2014 INFLUENZA, UNSPECIFIED FORMULATION 01/17/2015 PNEUMOCOCCAL, UNSPECIFIED FORMULATION 01/16/2010 Assessment ICD-10-CM ICD-9-CM 1. Exercise hypoxemia R09.02 799.02 Likely primarily related to hypoventilation, but I woul d check an echo to exclude shunt given history of Down's syndrome and risk for congenital ca rdiac disease. His oxygen needs have decreased significantly, and we will wean him to 2L with exertion onl y. ECHO Complete Oxygen Order 2. Translocation Down syndrome Q90.2 758.0 ECHO Complete 3. Recurrent pneumonia J18.9 486 Likely related to dysphagia, though per caregiver report, his second swallow study did not show significant aspiration. He may only aspirate at times however. I do not have those results to know exactly what was said regarding his risk. I would continue the chlorhexidine and good oral hygiene. XR Chest PA and Lateral 4. Anemia, unspecified anemia type D64.[address] Meyers and undergoing evalua tion for blood dyscrasia. I will see what labs he ordered so I do not duplicate as I would a lso like to do testing for immunodeficiency given negative swallow study and UGI. 5. Oropharyngeal dysphagia R13.12 787.22 Following speech path recommendations. Plan 1.Change oxygen to 1-2L with exertion, and only if he walks for more than 1-2 minutes. 2.Check echocardiogram with bubble study. 3.Continue aspiration precautions, and chlorhexidine swabs. 4. Check basic immunodeficiency work up (Ig levels, SPEP, UPEP) once I see what Dr. Darius cox ordered. 5. Check chest x-ray today given cough. He was advised to call if new pulmonary symptoms were to develop. Return to clinic in 3 months, or sooner with concerns. CC: Corin Cordero NP Portions of this report were transcribed using voice recognition software. Every effort wa s made to ensure accuracy; however, inadvertent computerized rn training errors may be pre sent. documented in t his encounter Plan of Treatment + + +--------+ + + | Name | Type | Priori | Associated Diagnoses | Order Schedule | | | | ty | | | + + +--------+ + + | Oxygen Order | Respiratory | Routin | Exercise hypoxemia | Expected: | | | Care | e | | 01/23/2015, Expires: | | | | | | 01/23/2016 | + + +--------+ + + documented as of this encounter Results XR Chest PA and Lateral (01/23/2015 1:06 PM PDT) + + | Specimen | + + | | + + + + + | Narrative | Performed At | + + + | XR CHEST PA AND LATERAL 01/23/2015 1:06 PM HISTORY: mild cough, | [facility] | | known history of recurrent pneumonia with minimal presenting signs. | [facility] | | COMPARISON: Multiple priors. Findings: Heart [...] | + + + + + | [facility] | [address] | [place], [place] | [phone] | | [facility] | | [id number] | | | - IMAGING | | | | + + + + + documented in this encounter Visit Diagnoses + + | Diagnosis | + + | Exercise hypoxemia - Primary Hypoxemia | + + | Translocation Down syndrome Down's syndrome | + + | Recurrent pneumonia Pneumonia, organism unspecified | + + | Anemia, unspecified anemia type | + + | Oropharyngeal dysphagia Dysphagia, oropharyngeal phase | + + documented in this encounter
--- OUTSIDE RECORDS SUMMARY | ~2019-04-16 | XMS | Encounter Summary ---
Demographics + + + | Address | [address] | | | [place] [address] | + + + | Home Phone | | + + + | Preferred Language | Unknown | + + + | Marital Status | Single | + + + | Congregation Affiliation | Unknown | + + + | Race | White | + + + | Ethnic Group | Not or | + + + Author + + + | Author | [facility] | + + + | Organization | [facility] | + + + | Address | Unknown | + + + | Phone | Unavailable | + + + Support + + +---------+ + | Name | Relationship | Address | Phone | + + +---------+ + | Kristy Medabalime | ECON | Unknown | | + + +---------+ + Care Team Providers + +------+ + | Care Paint Spray Inspector Name | Role | Phone | + +------+ + | Corin Cordero NP | PCP | | + +------+ + Encounter Details +--------+ + + + + | Date | Type | Department | Care Team | Description | +--------+ + + + + | 12/20/ | Telephone | Pulmonary & | [facility], | | | 2019 | | Critical Care | [address] | | | | | Medicine at | [facility] | | | | | [facility] | [place], [place] | | | | | [address] | [address] | | | | | Loop Mailcode: | [phone] | | | | | [id number] | | | | | | [address] | | | | | | [place], [place] | | | | | | [address] | | | | | | [phone] | | | +--------+ + + + [...]
--- OUTSIDE RECORDS SUMMARY | ~2019-04-16 | XMS | Encounter Summary ---
Demographics + + + | Address | [address] | | | [place] [address] | + + + | Home Phone [...] Author + + + | Author | [facility] | | | and [place] | + + + | Organization | [facility] | | | and [...] Team Providers + +------+ + | Care Group Underwriter Name | Role | Phone | + +------+ + | Corin Cordero NP | PCP | | + +------+ + Encounter Details +--------+ + + + + | Date | Type | Department | Care Team | Description | +--------+ + + + + | 07/27/ | Hospital | [facility] | [place], | Exercise hypoxemia | | 2016 | Encounter | MED CTR PULMONARY | Yareli Nava MD | | | | | FUNCTION [address] | | | | | | [place], | | | | | | [place] [address] | | | | | | [phone] | | | +--------+ + + + [...] + + + +---------+ + + | fludrocortisone | Take one tablet | | 0 | 06/30/19 | | | (FLORINEF) 0.1 mg | daily | | | 16 | | | tablet | | | | | | + + + +---------+ + + | lamoTRIgine | Take one tablet | | 0 | 07/06/19 | | | (LAMICTAL) 25 mg | twice daily | | | 16 | | | tablet | | | | | | + + + +---------+ + + | levothyroxine | Take one tablet | | 0 | 06/30/19 | | | (SYNTHROID, | daily | | | 16 | | | LEVOTHROID) 150 mcg | | | | | | | [...] | + +--------+ + + + | PFT PULMONARY | NURY | 07/28/2015 | Exercise hypoxemia | | | FUNCTION TESTING | | 11:50 AM | | | | ORDERS | | PDT | | | + +--------+ + + + | DIAGNOSTIC REPORT - | | 07/28/2015 | | Results for this | | EXTERNAL SCAN | | 12:00 AM | | procedure are in the | | | | PDT | | results section. | + +--------+ + + + | DIAGNOSTIC REPORT - | | 07/28/2015 | | Results for this | | EXTERNAL SCAN | | 12:00 AM | | procedure are in the | | | | PDT | | results section. | + +--------+ + + + documented in this encounter Results DIAGNOSTIC REPORT - EXTERNAL SCAN (07/28/2015 12:00 AM PDT) + + + | Narrative | Performed At | + + + | Ordered by an | | | unspecified provider. | | + + + DIAGNOSTIC REPORT - EXTERNAL SCAN (07/28/2015 12:00 AM PDT) + + + | Narrative | Performed At | + + + | Ordered by an | | | unspecified provider. | | + + + documented in this encounter Visit Diagnoses + + | Diagnosis | + + | Exercise hypoxemia Hypoxemia | + + documented in this encounter"
--- OUTSIDE RECORDS SUMMARY | ~2019-04-16 | XMS | Encounter Summary ---
Demographics + + + | Address | [address] | | | [place] [address] | + + + | Home Phone | | + + + | Preferred Language | Unknown | + + + | Marital Status | Single | + + + | Shinto Affiliation | Unknown | + + + | Race | White | + + + | Ethnic Group | Not or | + + + Author + + + | Author | [facility] | + + + | Organization | [facility] | + + + | Address | Unknown | + + + | Phone | Unavailable | + + + Support + + +---------+ + | Name | Relationship | Address | Phone | + + +---------+ + | Kristy Medabalime | ECON | Unknown | | + + +---------+ + Care Team Providers + +------+ + | Care Mechatronics Technician Name | Role | Phone | + +------+ + | Corin Cordero DOCUMENT DESIGN SPECIALIST | PCP | | + +------+ + Reason for Visit Intake Referral (Routine) + +--------+ + + + + | Status | Reason | Specialty | Diagnoses / | Referred By | Referred To | | | | | Procedures | Contact | Contact | + +--------+ + + + + | Referred | | Pulmonary | Diagnoses | | Pul Faculty | | | | Disease | Pneumonitis | Consuelo, | 3rd Ppv | | | | | due to | Corin Del Toro NP | [address] | | | | | inhalation | [facility] [address] | | | | | of food and | [facility] | Mailcode: | | | | | vomit | [address] | [address] | | | | | | [address] [place] | Physician's | | | | | | [place], | [address] | | | | | | [place] [address] | [place], [place] | | | | | | Phone: | [phone] | | | | | | [phone] | Phone: | | | | | | Fax: | [phone] | | | | | | [phone] | Fax: | | | | | | | [phone] | + +--------+ + + + + Encounter Details +--------+---------+ + + + | Date | Type | Department | Care Team | Description | +--------+---------+ + + + | 12/11/ | Office | Pulmonary & | Jose Stevens, | Pneumonia due to | | 2019 | Visit | Critical Care | [address] | organism (Primary | | | | Medicine at | [facility] [facility] [address] | Dx) | | | | [facility] | [place], [place] | | | | | [address] | [phone] | | | | | [address] Mailcode: | [phone] | | | | | [facility] [facility] | | | | | | [address] | | | | | | [place], [place] | | | | | | [address] | | | | | | [phone] | | | +--------+---------+ + + + Social History [...] in this encounter Patient Instructions Patient Instructions Jose Stevens MD - 12/11/2018 12:40 PM PDTWhat is my diagnosis/What am I being treated for? -Recurrent pneumonia. Aspiration with or without subsequent abscess is a reasonable diagnos is, though we should evaluate other immunosuppression What is my plan for today s visit (what tests I have to do when I leave, how am I suppose d to use my medications)? -Get blood tests to evaluate immunosuppression -Repeat a chest X-Ray; if it looks ok then we won't worry about a CT scan. We'll have our s taff get the images moved to our system. -Talk to Mrs Cordero about starting an anti-acid medication -I will look into the chlorhexidine mouth swabs -Come back to us in about 3-6 months What is the name of the doctor I saw today? -Jose Stevens MD How do I get in touch with the doctor(s) in case I have a question? -Call [phone] We recommend signing up for [facility] our secure online messaging system that will allow you to communicate with your provider electronically. Directions for signing up are included in this packet. My Chart is an excellent way to ask questions and get advice about non-urgent problems. For more pressing concerns, call our office. In the event of an medical emergency you shou ld call 911 or present to the nearest Emergency Room. documented in this encounter Progress Notes Jose Stevens MD - 12/11/2018 12:40 PM PDTFormatting of this note might be different fro m the original. Pulmonary New Referral Clinic Visit on 12/11/2018 with Jose Stevens PCP: Corin Cordero NP Referred by: Corin Cordero NP [facility] [address] [address] Reason for Referral: Recurrent pneumonia ID: Ladarius Finney is a 53 y.o. male, never smoker, with a history of Downs Syndrome and two hospitalizations 08/2018 for bilateral lower hemithorax pneumonia attributed to aspiration w keiko is referred for recurrent pneumonia. Subjective/HPI: Patient presents with Kristy (caregiver at adult foster home) for evaluation. Entire histor y taken from Kristy, who has been caring for the patient for almost a decade, as patient is developmentally delayed. Patient apparently had multiple admissions April, July, and August for pneumonia after developing fever (and noted to be septic on presentation) with significa nt clear nasal drainage but without cough, obvious aspiration, new sputum, or wheeze. He was treated with multiple rounds of antibiotics for recurrent aspiration pneumonia dx on CXR by ED providers at [facility] in [place], and fever ultimately resolved at the end of August. Jodie del toro was also treated for UTI once during this time and now has an indwelling catheter for urin eddie retention. The patient is a known aspiration risk and had multiple pneumonias in his lif e, but the last one was two years prior. He had been doing well well with thickened nectar l iquids, close observation during eating, and raising head of bed to 45%. He sleeps well with melatonin, though does intermittent talk in his sleep. Without melatonin, caregivers have a difficult time getting him to rest. At baseline, he has no respiratory difficulty but does exhibit choking if food isn't cut up appropriately. At baseline, he has no respiratory signs ; caregiver denies cough, wheeze, shortness of breath. He tends to follow caregivers around and walks up and down stairs with them. He can lay flat without respiratory distress but hoffman s occasionally have lower extremity edema after standing all day (caregivers have to encoura ge him to sit, otherwise he will stand all day) He used to follow with Dr Yareli enciso (pul), who moved away from [place] in 2016. Given sinus drainage with these events, he was evaluated by ENT with x-rays that (per caregiver) showed no evidence of chronic sinusiti s. Pulmonary History: Smoking history: Never smoker, second hand smoke from dad (left 8-9 years ago). Denies othe r Occupation history: Prior jail work Hobbies: Follows wrokers around, likes car rides Inhalants/fumes: Denies Asbestos: Denies Pets: Dogs, no birds, no farm animals Travel/Areas Lived: [place] and [place] TB exposure: Denies Sinus disease: Denies, saw ENT after perfuse nasal secretions; XRay neg; Allergic rhinitis: ?seasonal allergies, on claritin Aspiration: swallow study 08/31/2018, +aspiration and pooling secretions, on purreed/nectar thick liquids GERD: no coughing after meal, no "spit-ups" Joint issues: arthritis (knees and hips; some days has a hard time walking; depends on his sleeping positional). Most morning not stiff but some days stiff most of day; ankles and kne es swell intermittently Skin issues: has rash in gluteal cleft from georges gdpeneds upp, from catheter, occasionall y if really sweaty between legs; no facial/arm rashes Raynaud's? Sometimes hand durns white/purple especially when white, usually couple of minut es, resolves with jacket Medication exposure? denies SETH: did a home sleep study, negative Vaccinations: up to date, pending flu shot Sick contacts: no sick contacts at the time Family history: dad had emphysea and lung cancer, no autoimmune, brother had leukemia Review of Systems: General: Denies fatigue, changes in weight, fevers, chills, night sweats Eyes: Denies changes in vision, tearing, or eye pain Ears/Nose/Throat: Denies sore throat, dental pain, hoarseness, dysphagia, hearing loss, ear pain Pulmonary: As indicated in HPI section Cardiovascular: Denies chest pain, palpitations, orthopnea, paroxysmal nocturnal dyspnea Gastrointestinal: Denies abdominal or flank pain, anorexia, nausea or vomiting, dysphagia, change in bowel habits, black or bloody stools Genitourinary: Denies dysuria, hematuria, polyuria Musculoskeletal: Denies joint pain, swelling, myalgias, back pain Neurologic: Denies focal motor or sensory neurologic deficit, loss of balance, vertigo Skin: Denies recent rashes, sores, skin changes Psychological: Denies anxiety or depression Heme/Lymphatic: Denies abnormal bruising, abnormal bleeding, enlarged lymph nodes Sleep: Denies frequent awakenings, known snoring, witnessed apneas, nonrefreshing sleep Past Medical History: Down's syndrome Chronic hypotension on fludrocortisone Urinary retention Constipation Past Surgical History: None Home Medications: Current Outpatient Medications Medication Sig ACETAMINOPHEN (TYLENOL EXTRA STRENGTH ORAL) Take 500 mg by mouth. Every 4-6 hours as ne eded fludrocortisone (FLORINEF ACETATE) 0.1 mg Oral Tablet Take 0.1 mg by mouth once daily. lamoTRIgine 25 mg oral tablet Take 50 mg by mouth two times daily. levothyroxine 50 mcg oral tablet Take 50 mcg by mouth before breakfast. loperamide 2 mg oral capsule Take 4 mg by mouth four times daily as needed for diarrhea . loratadine 10 mg oral tablet Take 10 mg by mouth once daily. magnesium hydroxide (MILK OF MAGNESIA ORAL) Take by mouth. Menthol-Zinc Oxide (GOLD MILLAN MEDICATED) 0.8-5 % topical powder Apply to affected area. multivitamin (THEREMS) oral tablet Take 1 tablet by mouth once daily. nystatin 100,000 unit/gram topical ointment Apply to affected area two times daily. Darion ly liberally to the affected areas. QUEtiapine 100 mg oral tablet Take 100 mg by mouth once daily. tobramycin (TOBREX) 0.3 % ophthalmic (eye) ointment 0.5 inches three times daily. No current facility-administered medications for this visit. Allergies: Allergies Allergen Reactions Carbamazepine behavioral problems Social History: Social History Tobacco Use Smoking status: Passive Smoke Exposure - Never Smoker Smokeless tobacco: Never Used Substance Use Topics Alcohol use: Not on file Social History Social History Narrative Not on file Family History: Physical Exam: BP 105/75 | Pulse 73 | Resp 16 | Ht 1.6 m (5' 3") | Wt 55.6 kg (122 lb 9.6 oz) | SpO2 99% | BMI 21.72 kg/m | BSA 1.57 m General Appearance: Non-toxic, in NAD, single word sentences but breathing comfortably HEENT: EOMI, MMM, nares patent Neck: No LAD, no JVP CV: RRR, no M/R/G Respiratory: CTAB Abdomen: Soft, NT, ND, +BS, raymond in place draining clear urine Extremities: WWP, no cyanosis, 1+ edema at ankles, no clubbing Skin: No rashes Psych: Euthymic Neuro: A&O, no focal deficits, normal gait Labs Reviewed Today: 08/2018 normal except WBC 25 Lab Results Component Value Date WBC 7.96 12/11/2018 HB 11.6 12/11/2018 HCT 36.6 12/11/2018 PLT 269 12/11/2018 MCV 99.5 12/11/2018 RDW 63.0 12/11/2018 Lab Results Component Value Date NA 140 12/11/2018 K 4.2 12/11/2018 CL 104 12/11/2018 BICARB 31 12/11/2018 BUN 27 12/11/2018 CR 0.92 12/11/2018 GLU 85 12/11/2018 CA 9.1 12/11/2018 AST 25 12/11/2018 ALT 24 12/11/2018 AP 72 12/11/2018 TBILI 0.4 12/11/2018 TP 7.4 12/11/2018 ALB 2.9 12/11/2018 ANIONGAP 5 12/11/2018 ANIONALBCOR 7 12/11/2018 No results found for: APTT, FIBRINOGEN 09/2010 IGG 1130 Subclass 1 836 Subclass 2 150 Subclass 3 194 (H) Subclass 4 8 12/2018 IgA 515 IgG 1171 IgM 167 PFT's Spirometry FVC Pre FVC Pre % FEV1 PRE FEV1 Pre % FEV1/FVC Pre FEV1/FVC PRE (% REF) 12/11/18 1130 1.69 46 1.33 46 78 101 Pulmonary Function Test: " Result Narrative Yareli Love MD 10/19/2014 20:35 PULMONARY FUNCTION TESTING METHOD: Spirometry was obtained pre administration of inhaled bronchodilator only. Further testing was not performed due to patient's difficulty understanding testing. ATS standards were not met as the patient had difficulty understanding how to perform testing. SPIROMETRY: FVC was moderately reduced at 2.03 L or 51% of predicted. FEV1 was moderately reduced at 1.75 L or 54% of predicted. FEV1/FVC ratio was normal at 86%. IMPRESSION: Spirometry is consistent with moderate restrictive physiology, but results should be interpreted with caution Electronically signed by: Yareli Love MD 10/19/2014 20:33 [facility] " Imaging: None available; per referral CXR 08/19/18: "FINDINGS: New airspace opacities are note dint he right lower lobe with silhouetting of th e hemidiaphragm and probably to some extent the right middle lobe. The remainder the airspac es are clear. The heart is not enlarged. IMPRESSION: Findings suggestive of multifocal bronchopneumonia." CT Chest 02/2016: IMPRESSION 1. BILATERAL/SYMMETRIC ASPIRATION PNEUMONITIS. 2. EXPANSION OF THE ESOPHAGUS AT THE LEVEL OF THE THORACIC INLET SUSPICIOUS FOR RETAINED FOREIGN BODY AT THIS LEVEL. THIS CAN BE APPRECIATED ON IMAGE 4. CXR 12/11/18: Radiology calls [facility] linear scar, lungs appear normal to me. Other Data: No results found for this or any previous visit. There is no immunization history on file for this patient. Impression Ladarius Finney is a 53 y.o. male, never smoker, with a history of Downs Syndrome and two hos pitalizations 08/2018 for bilateral lower hemithorax pneumonia attributed to aspiration who i s referred for recurrent pneumonia. Keo shows decrease in FVC which would be concerning fo r restriction, but is more likely due to inability to comply with maneuver. CXR 2 view today is clear, which argues against fixed mass causing obstruction. Additionally, the patient sotelo s no risk factors (smoking, immunosuppression) for endobronchial mass and a malignancy causi ng post-obstructive pneumonia would show signs of progression between 2016 and 2019. His imm unoglobulins are normal, which argue against an acquired immunodeficiency. Aspiration is mos t like the etiology of his pneumonias. His requiring multiple rounds of antibiotics may be r elated to ongoing aspiration, a pulmonary abscess that was finally treated after multiple co urses of abx, or non-pulmonary source of infection (such as sinuses). Regardless, the event has resolved and he is clinically doing well with serologic and radiographic signs of cleari ng. Unfortunately, there is not much intervention we can recommend for aspiration other than attention to precautions. An anti-acid medication may decrease severity of aspiration event s if there is any component of GERD. Percutanous entero-gastric tube is a possibility, but d oes not protect against aspiration of saliva and has some morbidity associated. Ultimately, there are surgical interventions for patients with recurrent aspiration who do not speak suc h as tracheostomy with vocal fold suturing or tracheal separation, but these procedures come with significant morbidity. We would only recommend these with extremely frequent aspiratio n events. Plan: Recommend proton-pump inhibitor or H2 william if not otherwise contraindicated Continue aspiration precautions Will work with staff regarding pushing outside imaging to compare Immunizations: up to date Note routed to PCP Summary given to patient on AVS RTC 3-6 months with me Orders Placed This Encounter X-RAY CHEST 2 VIEW Standing Status: Future Number of Occurrences: 1 Standing Expiration Date: 01/11/2020 IGA, SERUM Standing Status: Future Number of Occurrences: 1 Standing Expiration Date: 01/11/2020 IGM, SERUM Standing Status: Future Number of Occurrences: 1 Standing Expiration Date: 01/11/2020 CBC, WITH DIFFERENTIAL Standing Status: Future Number of Occurrences: 1 Standing Expiration Date: 01/11/2020 COMPLETE METABOLIC SET (NA,K,CL,CO2,BUN,CREAT,GLUC,CA,AST,ALT,BILI TOTAL,ALK PHOS,ALB,P ROT TOTAL) Standing Status: Future Number of Occurrences: 1 Standing Expiration Date: 01/11/2020 IGG, SERUM Standing Status: Future Number of Occurrences: 1 Standing Expiration Date: 01/11/2020 lamoTRIgine 25 mg oral tablet Sig: Take 50 mg by mouth two times daily. levothyroxine 50 mcg oral tablet Sig: Take 50 mcg by mouth before breakfast. QUEtiapine 100 mg oral tablet Sig: Take 100 mg by mouth once daily. multivitamin (THEREMS) oral tablet Sig: Take 1 tablet by mouth once daily. Menthol-Zinc Oxide (GOLD MILLAN MEDICATED) 0.8-5 % topical powder Sig: Apply to affected area. loperamide 2 mg oral capsule Sig: Take 4 mg by mouth four times daily as needed for diarrhea. magnesium hydroxide (MILK OF MAGNESIA ORAL) Sig: Take by mouth. nystatin 100,000 unit/gram topical ointment Sig: Apply to affected area two times daily. Apply liberally to the affected areas. loratadine 10 mg oral tablet Sig: Take 10 mg by mouth once daily. tobramycin (TOBREX) 0.3 % ophthalmic (eye) ointment Si.5 inches three times daily. The history, findings, diagnoses and treatment plan that I have documented were reviewed [facility] staff physician Dr. Murphy Calloway at the time of this visit. Jose Stevens MD Pulmonary and Critical Care Fellow [facility] & [address] Mailcode: [id number] [place] [phone] Pager [phone] Associated attestation - Murphy Calloway MD - 12/14/2018 2:07 PM PDTI have seen patient acco mpanied by caregiver and foster home resident care spec, Lennie, with Dr. Stevens. I agree with All of h istory from Lennie as patient can not answer to simple questions such as request for age. H e was alert and in no distress. 53 y/o man with developmental delay refer for recurrent aspi ration pneumonia.. He had a hospitalization for this problem in 2016, none in 2016 nor 2017, but either several events or one extended begin this past winter extend into Aug, 2018 incl uding 2 hospitalizations. Symptoms tricky as Lennie rarely notices cough or phlegm. She not ices something wrong when temperature taken and noted to be elevated. She takes temp. BID. Jodie del toro has a Raymond catheter since at least this past winter that is also a possible source. All meals must be fed to patient and are blenderized administered with patient upright and is ho w he sleeps. Patient does ambulate although seen in wc on this visit. With episodes the past winter he had infiltrates in dependent parts of the lung right>left. Treatment this past wi nter included 2-3 or more courses antibiotics. He does not have a alternative feeding device . No fevers since August and no obvious aspiration events. On exam, no distress in wc with Fole y in place and clear yellow urine, and patient cooperative. No red throat. No neck nodes. Au scultation difficult as he does not take deep breaths. CBC today shows mild anemia with WBC decreased compared outside study. Metabolic panel is normal except low albumin. Chest xray i s normal with no infiltrates. There is horizontal linear line mid-chest of possible atelecta sis. Spirometry shows severe restriction, but unclear about effort that can cause low values . Swallow study has shown aspiration. Tough situation being addressed and handled as best as possible by Lennie and colleagues. He certainly is prone to aspiration. Events past winter into spring likely partly aspiration pneumonia and maybe UTI. Chest xray today reveals not persistent infiltration ( that could have suggested abcess or major scar). He has findings of chronic illness with mild anemia an d low albumin, but sounds like nutritional supplementaion provided as tolerated. We [facility] ed upright positioning. Alternative feeding ( PEG) a consideration but not sure 1 episode i n 3 years enough and can be fraught with own set of problems. Also would not prevent oral se cretion aspiration-would require tracheotomy with cuff- a big deal. I am OK with PPI but not certain that is best. Will buffer secretions and perhaps reduce bronchial irritation and in jury, but studies in favor not overwhelming. Happy to review again if further setbacks occur. I spent 50 minutes with the patient and Lennie, caregiver. Greater than 80% of the time wa s spent counseling the patient regarding all above. I spent an additional 20 minutes reviewing data which included blood studies, pfts, chest x ray review. documented in this encounter Plan of Treatment Not on filedocumented as of this encounter Results IGG, SERUM (12/11/2018 2:33 PM PDT) + [...] | + + + + + | [facility] - | [address] | [place] [address] | | | [place] | | | | + + + [...] | | | LABORATORY | | | [place] | | | SERVICES, | | | [...] MDRD equation recommended by the National | [facility] | | Kidney Disease Education Program. Estimated [...] | + + + + + | [facility] | [address] | [place] [address] | | | SERVICES, CORE | BEATRICE [...] + | [facility] - | [address] | [place] [address] | | | [place] | | | [...] - | | | | | | [facility] | | + +---------+ + + + + + | Specimen | + + | Blood - Blood | | (substance) | + + + + + + + | Performing | Address | City/State/Zipcode | Phone Number | | Organization | | | | + + + + + | [facility] - | [address] | [place] [address] | | | [facility] | | | | + + + + + X-RAY CHEST 2 VIEW (12/11/2018 2:17 PM PDT) + + | Specimen | + + | | + + + + + | Narrative | Performed At | + + + | EXAM: CHEST 2 VIEWS HISTORY: Recent suspected aspiration | [facility] | | pneumonia. COMPARISON: Outside chest radiographs from 07/28/2015 | RADIOLOGY VOICE | | and 02/27/[address] chest from 02/21/2015. FINDINGS: The | RECOGNITION 2 | | cardiomediastinal contour is normal. Right middle lung linear | | | horizontal opacity likely represents chronic scarring, otherwise clear | | | lungs. There is no pneumothorax or pulmonary edema. No acute osseous | | | abnormality. IMPRESSION: Linear opacity in the right middle | | | lobe consistent with minimal scarring. Lungs otherwise clear with no | | | evidence for pneumonia. I have personally reviewed the images and, | | | if necessary, edited the report. I agree with the report as now | | | presented. Final signature: Dominic Rowe MD 12/11/2018 4:57 PM | | | Preliminary: Anthony Evans MD Dictation initiated: Anthony | | | MD Nathan 12/11/2018 3:00 PM | | + + + + + | Procedure Note | + + | Service Account, Radiant Res In Interface - 12/11/2018 4:58 PM PDT EXAM: CHEST 2 | | VIEWS HISTORY: Recent suspected aspiration pneumonia. COMPARISON: Outside chest | | radiographs from 07/28/2015 and 02/27/[address] chest from 02/21/2015. FINDINGS: The | | cardiomediastinal contour is normal. Right middle lung linear horizontal opacity likely | | represents chronic scarring, otherwise clear lungs. There is no pneumothorax or | | pulmonary edema. No acute osseous abnormality. IMPRESSION: Linear opacity in the right | | middle lobe consistent with minimal scarring. Lungs otherwise clear with no evidence for | | pneumonia. I have personally reviewed the images and, if necessary, edited the report. | | I agree with the report as now presented. Final signature: Dominic Rowe MD 12/11/2018 | | 4:57 PM Preliminary: Anthony Evans MD Dictation initiated: Anthony Evans MD | | 12/11/2018 3:00 PM | | | |Linear opacity in the right middle lobe consistent with minimal scarring. Lungs otherwise c lear with no evidence for pneumonia. | | | |I have personally reviewed the images and, if necessary, edited the report. I agree with e report as now presented. | | | |Final signature: Dominic Rowe MD 12/11/2018 4:57 PM | |Preliminary: Anthony Evans MD | |Dictation initiated: Anthony Evans MD 12/11/2018 3:00 PM | + + + +---------+ + + | Performing | Address | City/State/Zipcode | Phone Number | | Organization | | | | + +---------+ + + | [facility] | | | | | VOICE RECOGNITION 2 | | | | + +---------+ + + documented in this encounter Visit Diagnoses + + | Diagnosis | + + | Pneumonia due to organism - Primary Pneumonia due to other specified organism | + + documented in this encounter
--- OUTSIDE RECORDS SUMMARY | ~2019-04-16 | XMS | Clinical Summary ---
Demographics + + + | Address | [address] | | | [place] [address] | + + + | Home Phone | | + + + | Preferred Language | Unknown | + + + | Marital Status | Single | + + + | Orthodoxy Affiliation | Unknown | + + + | Race | Unknown | + + + | Ethnic Group | Unknown | + + + Author + + + | Author | [facility] (Historical as of | | | 11-24-18) | + + + | Organization | [facility] (Historical as of | | | 11-24-18) | + + + | Address | Unknown | + + + | Phone | Unavailable | + + + Support + + + + + | Name | Relationship | Address | Phone | + + + + + | Doug Finney | ARCHANA | [place] | | | | | [phone] | | + + + + + | Doris Barclay | ECON | [address] | | | | | [place] | | | | | [address] | | + + + + + Care Team Providers + +------+ + | Care Proofsheet Corrector Name | Role | Phone | + +------+ + | Ja Moody AIRPLANE NAVIGATOR | PP | | + +------+ + [...] for | 1 each | 0 | 03/1 | | Activ | | | shortness of breath | | | 1/20 | | e | | | and [...] | MA - PREMIERCARE | MA-PRE | [id number] | Medica | | | | FAMILY | [place] | | re | | | | | RE | | | | | | | FAMILY | | | | | + +--------+ +--------+-------+ + | MEDICAID | EASTER | [id number] | | | [address] | | | N | | | | [place] | | | [place] | | | | [address] | | | 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
--- OUTSIDE RECORDS SUMMARY | ~2019-04-16 | XMS | Encounter Summary ---
Demographics + + + | Address | [address] | | | [place] [address] | + + + | Home Phone | | + + + | Preferred Language | Unknown | + + + | Marital Status | Single | + + + | Confucianism Affiliation | 1013 | + + + | Race | Unknown | + + + | Ethnic Group | Unknown | + + + Author + + + | Author | [facility] | | | and [place] | + + + | Organization | [facility] | | | and Angelana [...] Team Providers + +------+ + | Care Executor Of Estate Name | Role | Phone | + +------+ + | Corin Cordero NP | PCP | | + +------+ + Encounter Details +--------+ + + + + | Date | Type | Department | Care Team | Description | +--------+ + + + + | 07/27/ | Hospital | [facility] | [place], | Exercise hypoxemia | | 2016 | Encounter | MED CTR PULMONARY | Yareli Nava MD | | | | | FUNCTION [address] | | | | | | [place], | | | | | | [place] [address] | | | | | | [phone] | | | +--------+ + + + [...]
--- OUTSIDE RECORDS SUMMARY | ~2019-04-16 | XMS | Encounter Summary ---
Demographics + + + | Address | [address] | | | [place] [address] | + + + | Home Phone | | + + + | Preferred Language | Unknown | + + + | Marital Status | Single | + + + | Baptism Affiliation | 1013 | + + + | Race | Unknown | + + + | Ethnic Group | Unknown | + + + Author + + + | Author | [facility] | | | and [place] | + + + | Organization | [facility] | | | and Angelana [...] Team Providers + +------+ + | Care Biomass Production Manager Name | Role | Phone | + +------+ + | Corin Cordero NP | PCP | | + +------+ + Encounter Details +--------+ + + + + | Date | Type | Department | Care Team | Description | +--------+ + + + + | 04/28/ | Hospital | [facility] | [place], | Recurrent pneumonia | | 2016 | Encounter | MED CTR XRAY [address] | Yareli Nava MD | | | | | [place] | | | | | | [place] [address] | | | | | | [phone] | | | +--------+ + + + [...] XR CHEST PA AND | Routin | 04/28/2015 | Recurrent | Results for this | | LATERAL | e | 2:46 PM | pneumonia | procedure are in the | | | | PST | | results section. | + +--------+ + + + documented in this encounter Results XR Chest PA and Lateral (04/28/2015 2:46 PM PST) + + | Specimen | + + | | + + + + + | Narrative | Performed At | + + + | TWO-VIEW CHEST: 04/28/2015 2:46 PM CLINICAL HISTORY: F/u | [facility] | | pneumonia in January COMPARISON: 01/23/2015 FINDINGS: | [facility] | | Heart size is normal. Aorta and pulmonary vasculature are normal. No | [facility] | | mediastinal widening. Airspace density previously seen in the | - IMAGING | | right middle lobe has almost entirely resolved. Only a small amount | | | of density in the right infrahilar region persists. No new areas of | | | abnormal lung density. No effusion or pneumothorax. No bony or | | | upper abdominal abnormalities. IMPRESSION - Near complete | | | resolution of previously noted right middle lobe airspace process. | | | Follow-up to complete resolution is recommended. Dictated and | | | Signed by: Sampson Bradford MD Electronically signed: 04/28/2015 4:01 | | | PM | | + + + + + | Procedure Note | + + | Enrike, Rad Results In - 04/28/2015 4:05 PM PST TWO-VIEW CHEST: 04/28/2015 2:46 PM | | | | CLINICAL HISTORY: F/u pneumonia in January | | | | COMPARISON: 01/23/2015 | | | | FINDINGS: Heart size is normal. Aorta and pulmonary vasculature are normal. No | | mediastinal widening. | | | | Airspace density previously seen in the right middle lobe has almost entirely | | resolved. Only a small amount of density in the right infrahilar region | | persists. No new areas of abnormal lung density. No effusion or pneumothorax. | | | | No bony or upper abdominal abnormalities. | | | | IMPRESSION - Near complete resolution of previously noted right middle lobe | | airspace process. Follow-up to complete resolution is recommended. | | | | Dictated and Signed by: Sampson Bradford MD | | Electronically signed: 04/28/2015 4:01 PM | + + + + + + + | Performing | Address | City/State/Zipcode | Phone Number | | Organization | | | | + + + + + | [facility] | [address] | [place], [place] | [phone] | | [facility] | | [address] | | | - IMAGING | | | | + + + + + documented in this encounter Visit Diagnoses + + | Diagnosis | + + | Recurrent pneumonia Pneumonia, organism unspecified | + + documented in this encounter"
--- OUTSIDE RECORDS SUMMARY | ~2019-04-16 | XMS | Encounter Summary ---
Demographics + + + | Address | [address] | | | [place] [address] | + + + | Home Phone | | + + + | Preferred Language | Unknown | + + + | Marital Status | Single | + + + | Christianity Affiliation | Unknown | + + + | Race | White | + + + | Ethnic Group | Not or | + + + Author + + + | Author | [facility] | + + + | Organization | [facility] | + + + | Address | Unknown | + + + | Phone | Unavailable | + + + Support + + +---------+ + | Name | Relationship | Address | Phone | + + +---------+ + | Kristy Medabalime | ECON | Unknown | | + + +---------+ + Care Team Providers + +------+ + | Care Cane Splicer Name | Role | Phone | + +------+ + | Corin Cordero NP | PCP | | + +------+ + Encounter Details +--------+ + + + + | Date | Type | Department | Care Team | Description | +--------+ + + + + | 12/11/ | Telephone | Pulmonary & | Jose Stevens, | | | 2019 | | Critical Care | [address] | | | | | Medicine at | [facility] | | | | | Physicians [facility] | [place], [place] | | | | | [address] | [address] | | | | | Loop Mailcode: | [phone] | | | | | [facility] | | | | | | [address] | | | | | | [place], [place] | | | | | | [address] | | | | | | [phone] | | | +--------+ + + + [...]
--- OUTSIDE RECORDS SUMMARY | ~2019-04-16 | XMS | Encounter Summary ---
Demographics + + + | Address | [address] | | | [place] [address] | + + + | Home Phone | | + + + | Preferred Language | Unknown | + + + | Marital Status | Single | + + + | Christian Affiliation | 1013 | + + + | Race | Unknown | + + + | Ethnic Group | Unknown | + + + Author + + + | Author | [facility] | | | and [place] | + + + | Organization | [facility] | | | and Angelana [...] Team Providers + +------+ + | Care Formula Maker Name | Role | Phone | + +------+ + | Corin Cordero NP | PCP | | + +------+ + Encounter Details +--------+ + + + + | Date | Type | Department | Care Team | Description | +--------+ + + + + | 10/05/ | Orders Only | [facility] | Nakul Nichols MD | | | 2010 | | [facility] | | | | | | CLINICAL LABORATORY | | | | | | [address] | | | | | | [place], [place] | | | | | | [address] | | | | | | [phone] | | | +--------+ + + + [...] | + +--------+ + + + | STREPTOCOCCUS | Routin | 10/05/2010 | | Results for this | | PNEUMONIAE AG, URINE | e | 11:08 AM | | procedure are in the | | | | PDT | | results section. | + +--------+ + + + documented in this encounter Results Streptococcus Pneumoniae Ag, Urine (10/05/2010 11:08 AM PDT) + + | Specimen | + + | | + + + + + | Narrative | Performed At | + + + | S PNEUMONIAE AG, UR NEGATIVE A NEGATIVE | EXTERNAL LAB | | S. PNEUMONIAE URINARY ANTIGEN TEST RESULT DOES NOT EXCLUDE INFECTION | | | WITH S. PNEUMONIAE. CLINICAL CORRELATION IS RECOMMENDED. Testing | | | performed at [address] [address] | | + + + + +---------+ + + | Performing | Address | City/State/Zipcode | Phone Number | | Organization | | | | + +---------+ + + | EXTERNAL LAB | | | | + +---------+ + + documented in this encounter Visit Diagnoses Not on filedocumented in this encounter"
--- OUTSIDE RECORDS SUMMARY | ~2019-04-16 | XMS | Encounter Summary ---
Demographics + + + | Address | [address] | | | [place] [address] | + + + | Home Phone | | + + + | Preferred Language | Unknown | + + + | Marital Status | Single | + + + | Jewish Affiliation | 1013 | + + + | Race | Unknown | + + + | Ethnic Group | Unknown | + + + Author + + + | Author | [facility] | | | and [place] | + + + | Organization | [facility] | | | and [...] Team Providers + +------+ + | Care Recreational Leader Name | Role | Phone | + +------+ + PCP | Unavailable | + +------+ + Encounter Details +--------+ + + + + | Date | Type | Department | Care Team | Description | +--------+ + + + + | 09/21/ | Hospital | [facility] | | | | 2006 | Encounter | MED CTR GENERIC OP | | | | | | CONV DEPT [address] | | | | | | [place], | | | | | | [place] [address] | | | | | | [phone] | | | +--------+ + + + [...]
--- OUTSIDE RECORDS SUMMARY | ~2019-04-16 | XMS | Clinical Summary ---
Demographics + + + | Address | [address] | | | [place] [address] | + + + | Home Phone | | + + + | Preferred Language | Unknown | + + + | Marital Status | Single | + + + | Yarsanism Affiliation | Unknown | + + + [...] Team Providers + +------+ + | Care Athletic Trainer Name | Role | Phone | + +------+ + | Consuelo Corin Abad LEWIS | PCP | | + +------+ + Source Comments LILA is fully live on both [facility] Ambulatory and [facility] InPatient.[facility] Allergies + + + + + + [...] | | | | | | | [address] | | + +--------+ +--------+ + +--------+ | FILLING MACHINE TENDER MEDICAID | FILLING MACHINE TENDER | xxxxxxxx | | | | Medica [...] | 1966 | [phone] | [place] [address] | | | ana | | | 8 (Home) | | + +--------+ +--------+ + + Advance Directives + + + + + | Type | Date Recorded | Patient | Explanation | | | | Rn Neurology | | + + + + + | Advance | | | | | Directives and | | | | | Living Will | | | | + + + + + | Power of | | | | | Production Potter | | | | + + + + +
--- OUTSIDE RECORDS SUMMARY | ~2019-04-16 | XMS | Encounter Summary ---
Demographics + + + | Address | [address] | | | [place] [address] | + + + | Home Phone | | + + + | Preferred Language | Unknown | + + + | Marital Status | Single | + + + | Congregation Affiliation | 1013 | + + + | Race | Unknown | + + + | Ethnic Group | Unknown | + + + Author + + + | Author | [facility] | | | and [place]ana | + + + | Organization | [facility] | | | and Angelana | [...] Team Providers + +------+ + | Care Child Watch Attendant Name | Role | Phone | + +------+ + PCP | Unavailable | + +------+ + Encounter Details +--------+ + + + + | Date | Type | Department | Care Team | Description | +--------+ + + + + | 02/06/ | Hospital | [facility] | Anderson Quesada MD | Dysphagia | | 2005 - | Encounter | MEDICAL CENTER | [address] | | | | | OUTPATIENT | [place] [address] | | | 02/07/ | | PROCEDURES [address] | [phone] | | | 2005 | | NERY CHAVEZ | | | | | | [facility] [place] | | | | | | [address] | | | | | | [phone] | | | +--------+ + + + [...] + | Diagnosis | + + | Dysphagia Dysphagia, unspecified | + + documented in this encounter"
--- OUTSIDE RECORDS SUMMARY | ~2019-04-16 | XMS | Encounter Summary ---
Demographics + + + | Address | [address] | | | [place] [address] | + + + | Home Phone | | + + + | Preferred Language | Unknown | + + + | Marital Status | Single | + + + | Hoahaoism Affiliation | 1013 | + + + | Race | Unknown | + + + | Ethnic Group | Unknown | + + + Author + + + | Author | [facility] | | | and [place] | + + + | Organization | [facility] | | | and Angelana | [...] Team Providers + +------+ + | Care Tire Service Supervisor Name | Role | Phone | + +------+ + | Corin Cordero NP | PCP | | + +------+ + Encounter Details +--------+ + + + + | Date | Type | Department | Care Team | Description | +--------+ + + + + | 10/16/ | Hospital | [facility] | [place], | Aspiration | | 2015 | Encounter | MED CTR PULMONARY | Yareli Nava MD | pneumonia, | | | | FUN[address] | | unspecified | | | | [place], | | aspiration pneumonia | | | | [place] [address] | | type ([facility]) (Primary | | | | [phone] | | Dx) | +--------+ + + + + Social [...] + + + | PFT PULMONARY | Routin | 10/19/2014 | Aspiration | Results for this | | FUNCTION TESTING | e | 8:35 PM | pneumonia, | procedure are in the | | ORDERS | | PDT | unspecified | results section. | | | | | aspiration pneumonia | | | | | | type (HCC) | | + +--------+ + + + | PFT PULMONARY | Routin | 10/19/2014 | Aspiration | Results for this | | FUNCTION TESTING | e | 8:35 PM | pneumonia, | procedure are in the | | ORDERS | | PDT | unspecified | results section. | | | | | aspiration pneumonia | | | | | | type (HCC) | | + +--------+ + + + | DIAGNOSTIC REPORT - | | 10/16/2014 | | | | EXTERNAL SCAN | | 12:00 AM | | | | | | PDT | | | + +--------+ + + + documented in this encounter Visit Diagnoses + + | Diagnosis | + + | Aspiration pneumonia, unspecified aspiration pneumonia type - Primary | + + documented in this encounter"
--- OUTSIDE RECORDS SUMMARY | ~2019-04-16 | XMS | Encounter Summary ---
Demographics + + + | Address | [address] | | | [place] [address] | + + + | Home Phone | | + + + | Preferred Language | Unknown | + + + | Marital Status | Single | + + + | Restorationist Affiliation | Unknown | + + + | Race | White | + + + | Ethnic Group | Not or | + + + Author + + + | Author | [facility] | + + + | Organization | [facility] | + + + | Address | Unknown | + + + | Phone | Unavailable | + + + Support + + +---------+ + | Name | Relationship | Address | Phone | + + +---------+ + | Kristy Medabalime | ECON | Unknown | | + + +---------+ + Care Team Providers + +------+ + | Care Kitchen Hand Name | Role | Phone | + +------+ + | Corin Cordero NP | PCP | | + +------+ + Encounter Details +--------+ + + + + | Date | Type | Department | Care Team | Description | +--------+ + + + + | 09/02/ | Rice Milling Supervisor | Pulmonary & | Jason Allison, | | | 2018 | | Critical Care | [address] | | | | | Medicine at | [facility] | | | | | Physicians Pavilion | [place], [place] | | | | | [address] | [address] | | | | | Loop Mailcode: | [phone] | | | | | [facility] | | | | | | [address] | | | | | | [place], [place] | | | | | | [address] | | | | | | [phone] | | | +--------+ + + + [...]
--- OUTSIDE RECORDS SUMMARY | ~2019-04-16 | XMS | Encounter Summary ---
Demographics + + + | Address | [address] | | | [place] [address] | + + + | Home Phone [...] Author + + + | Author | [facility] | + + + | Organization | [facility] | + + + | Address | Unknown | + + + | Phone | Unavailable | + + + Support + + +---------+ + | Name | Relationship | Address | Phone | + + +---------+ + | Kristy Medabalime | ECON | Unknown | | + + +---------+ + Care Team Providers + +------+ + | Care Clinical Support Tech Name | Role | Phone | + [...] | organism | | | | at [address] | | | | | | [address] | | | | | | Loop [place], [place] | | | | | | [address] | | | | | | [phone] | | | +--------+------+ + + + [...] | + + + + + | [facility] | [address] | [place] [address] | | | SERVICES, CORE | BEATRICE [...] | + + + + + | [facility] - | [address] | [place] [address] | | | [facility] | | | | + + + [...] | | | LABORATORY | | | MAURITIAN | | | SERVICES, | | | [...] MDRD equation recommended by the National | [facility] | | Kidney Disease Education Program. [...] | + + + + + | [facility] | [address] | [place] [address] | | | SERVICES, CORE | BEATRICE [...] + | [facility] | [address] | [place] [address] | | | [place] | | | | + + + [...] - | | | | | | [place] | | + +---------+ + + + + + | Specimen | + + | Blood - Blood | | (substance) | + + + + + + + | Performing | Address | City/State/Zipcode | Phone Number | | Organization | | | | + + + + + | [facility] | [address] | [place] [address] | | | [place] | | | | + + + + + documented in this encounter Visit Diagnoses + + | Diagnosis | + + | Pneumonia due to organism Pneumonia due to other specified organism | + + documented in this encounter"
--- OUTSIDE RECORDS SUMMARY | ~2019-04-16 | XMS | Encounter Summary ---
Demographics + + + | Address | [address] | | | [place] [address] | + + + | Home Phone | | + + + | Preferred Language | Unknown | + + + | Marital Status | Single | + + + | Scientology Affiliation | 1013 | + + + | Race | Unknown | + + + | Ethnic Group | Unknown | + + + Author + + + | Author | [facility] | | | and [place] | + + + | Organization | [facility] | | | and [place] | + + + | Address | Unknown | + + + | Phone | Unavailable | + + + Support + + +---------+ + | Name | Relationship | Address | Phone | + + +---------+ + | Kristy Medavaline | ECON | Unknown | | + + +---------+ + | Yandel Blue | ECON | Unknown | | + + +---------+ + Care Team Providers + +------+ + | Care Cosmetics And Toiletries Salesperson Name | Role | Phone | + +------+ + | Corin Cordero NP | PCP | | + +------+ + Encounter Details +--------+ + + + + | Date | Type | Department | Care Team | Description | +--------+ + + + + | 09/16/ | Abstract | [facility] [place] | [place], | | | 2014 | | PULMONARY [address] | Yareli Nava MD | | | | | [place], | | | | | | [place] [address] | | | | | | [phone] | | | +--------+ + + + [...]
--- OUTSIDE RECORDS SUMMARY | ~2019-04-16 | XMS | Encounter Summary ---
Demographics + + + | Address | [address] | | | [place] [address] | + + + | Home Phone [...] + + + | Author | [facility] | | | and Angelana | + + + | Organization | [facility] | | | and [...] Team Providers + +------+ + | Care Tunnel Kiln Repairer Name | Role | Phone | + +------+ + PCP | Unavailable | + +------+ + Encounter Details +--------+ + + + + | Date | Type | Department | Care Team | Description | +--------+ + + + + | 09/29/ | Hospital | [facility] GENERIC IP | Jose Daniel Nicole | Unspecified chest | | 2010 - | Encounter | CONVERSION DEP [address] | Howie Cifuentes MD [address] | pain; Nutritional | | | | [address] | [address]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 (HCC); | | 10/09/ | | [place], [place] | [place] [address] | Other Alteration of | | 2010 | | [address] | [phone] | Consciousness; OTHER | | | | [phone] | | SPECIFIED DISORDER | | | | | | OF MALE GENITAL | | | | | | ORGANS; Unspecified | | | | | | retention of urine; | | | | | | Dysphagia, | | | | | | oropharyngeal phase; | | | | | | Unspecified iron | | | | | | deficiency anemia; | | | | | | Vaccin strep | | | | | | pneumoniae; BMI | | | | | | 37.0-37.9,Adult; | | | | | | Abscess of lung | | | | | | ([facility]); PNEUMONIA, | | | | | | ORGANISM | | | | | | UNSPECIFIED; Down's | | | | | | syndrome; | | | | | | Unspecified | | | | | | disturbance of | | | | | | conduct; Unspecified | | | | | | essential | | | | | | hypertension; | | | | | | Unspecified | | | | | | hypothyroidism | +--------+ + + + + Social [...] +--------+ + + + | XR CHEST 2 VIEWS | Routin | 10/08/2010 | | Results for this | | | e | 3:35 PM | | procedure are in the | | | | PDT | | results section. | + +--------+ + + + documented in this encounter Results XR Chest 2 Vws (10/08/2010 3:35 PM PDT) + + | Specimen | + + | | + + + + + | Narrative | Performed At | + + + | [facility] [id number] Ph: | | | Patient Name: JULIANE MARINA Date of : | | | 1965 Medical Record: [id number] Account: [id number] | | | Exam Date/Time: 10/08/2010 11:50 Ordering | | | Physician: PRIYA GALICIA Order Detail: [id number] Exam Description: XR | | | CHEST 2 VIEW | | | | | | HISTORY: Follow-up lung abscess. SCANNING PROTOCOL: Two views of | | | the chest. FINDINGS: Compared with October 05, 2010. Again | | | demonstrated is a right middle lobe lung mass, consistent with the | | | known abscess. Previously it measured approximately 7 x 7 cm and | | | currently measures 6.3 x 6.3 cm, suggesting slight improvement. The | | | heart is normal in size. No pneumothorax or pleural effusions are | | | seen. Please note that the left PICC has retracted with a coil of | | | the catheter probably extending into the proximal left internal | | | jugular vein. Repositioning of the catheter is suggested. | | | IMPRESSION: 1. Right middle lobe lung mass, compatible with the | | | history of a lung abscess, slightly decreased from the prior | | | examination. 2. Atypical position of a left PICC with partial | | | retraction and a coil that may extend in the lower left internal | | | jugular vein. Repositioning is suggested. Critical result was | | | phoned to the referring clinician shortly after the dictation. | | | | | + + + + + | Procedure Note | + + | Alen Calvert Conversion - 12/01/2018 2:59 PM PDT | | [facility] | | [facility] [address] | | | | | | Patient Name: JULIANE MARINA | | Date of : 1965 | | Medical Record: [id number] | | Account: [id number] | | | | | | Exam Date/Time: 10/08/2010 11:50 | | Ordering Physician: PRIYA GALICIA | | Order Detail: [id number] | | Exam Description: XR CHEST 2 VIEW | | | | HISTORY: | | Follow-up lung abscess. | | | | SCANNING PROTOCOL: | | Two views of the chest. | | | | FINDINGS: | | Compared with October 05, 2010. Again demonstrated is a right middle lobe | | lung mass, consistent with the known abscess. Previously it measured | | approximately 7 x 7 cm and currently measures 6.3 x 6.3 cm, suggesting | | slight improvement. The heart is normal in size. No pneumothorax or | | pleural effusions are seen. Please note that the left PICC has retracted | | with a coil of the catheter probably extending into the proximal left | | internal jugular vein. Repositioning of the catheter is suggested. | | | | IMPRESSION: | | 1. Right middle lobe lung mass, compatible with the history of a lung | | abscess, slightly decreased from the prior examination. | | 2. Atypical position of a left PICC with partial retraction and a coil | | that may extend in the lower left internal jugular vein. Repositioning is | | suggested. | | | | Critical result was phoned to the referring clinician shortly after the | | dictation. 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) Other specified disorder of | | male genital organs | + + | Retention of urine, unspecified | + + | Dysphagia, oropharyngeal phase | + + | Iron deficiency anemia, unspecified | + + | Need for prophylactic vaccination against Streptococcus pneumoniae (pneumococcus) | | Need for prophylactic vaccination against streptococcus pneumoniae (pneumococcus) | + + | BMI 37.0-37.9,adult Body Mass Index 37.0-37.9, adult | + + | Abscess of lung(513.0) Abscess of lung | + + | Pneumonia, organism unspecified(486) Pneumonia, organism unspecified | + + | Down's syndrome | + + | Unspecified disturbance of conduct | + + | Unspecified essential hypertension | + + | Unspecified hypothyroidism | + + documented in this encounter"
--- OUTSIDE RECORDS SUMMARY | ~2019-04-16 | XMS | Encounter Summary ---
Demographics + + + | Address | [address] | | | [place] [address] | + + + | Home Phone | | + + + | Preferred Language | Unknown | + + + | Marital Status | Single | + + + | Christianity Affiliation | 1013 | + + + | Race | Unknown | + + + | Ethnic Group | Unknown | + + + Author + + + | Author | [facility] | | | and Angelana | + + + | Organization | [facility] | | | and [...] Team Providers + +------+ + | Care Cushion Padder Name | Role | Phone | + +------+ + | Corin Cordero NP | PCP | | + +------+ + Reason for Referral Diagnostic/Screening (Routine) +--------+--------+ + + + + | Status | Reason | Specialty | Diagnoses / | Referred By | Referred To | | | | | Procedures | Contact | Contact | +--------+--------+ + + + + | Closed | | | Diagnoses | | OP ST | | | | | Recurrent | [place], | [place] | | | | | aspiration | Yareli B, | HOSPITAL | | | | | pneumonia | MD [address] | [address] | | | | | ([facility]) | [address] | AVE | | | | | Procedures | [place], | [place], [place] | | | | | XR Chest PA | [place] [address] | [address] | | | | | and Lateral | | Phone: | | | | | | | [phone] | | | | | | | Fax: | | | | | | | [phone] | +--------+--------+ + + + + Diagnostic/Screening (Routine) +--------+--------+ + + + + | Status | Reason | Specialty | Diagnoses / | Referred By | Referred To | | | | | Procedures | Contact | Contact | +--------+--------+ + + + + | Closed | | | Diagnoses | | [address] ST | | | | | Recurrent | [place], | [place] | | | | | aspiration | Yareli B, | HOSPITAL | | | | | pneumonia | MD [address] | [address] | | | | | ([facility]) | [address] | AVE | | | | | Procedures | [place], | [place], [place] | | | | | [place]GI | [place] [address] | [address] | | | | | | | Phone: | | | | | | | [phone] | | | | | | | Fax: | | | | | | | [phone] | +--------+--------+ + + + + Reason for Visit + + + | Reason | Comments | + + + | Apnea | Consult ([facility]) | + + + | Pneumonia | | + + + Evaluate & Treat (Routine) +--------+--------+ + + + + | Status | Reason | Specialty | Diagnoses / | Referred By | Referred To | | | | | Procedures | Contact | Contact | +--------+--------+ + + + + | Closed | | Pulmonology | Diagnoses | | [place], | | | | | PNEUMONIA | Consuelo, | Yareli Nava, | | | | | POSSIBLE SETH | Corin Melgoza DIRECTOR OF CONSERVATION | [address] | | | | | Procedures | [address] | [address] | | | | | NEW PT | [address] [place] | [place], | | | | | CONSULT | [facility], | [place] [address] | | | | | | [place] [address] | | | | | | | Phone: | | | | | | | [phone] | | | | | | | Fax: | | | | | | | [phone] | | +--------+--------+ + + + + Encounter Details +--------+---------+ + + + | Date | Type | Department | Care Team | Description | +--------+---------+ + + + | 10/16/ | Office | [facility] | Kate, | Hypoxemia (Primary | | 2014 | Visit | PULMONARY [address] | Yareli Nava MD | Dx); Recurrent | | | | [place], | | aspiration pneumonia | | | | [place] [address] | | ([facility]); Excessive | | | | [phone] | | daytime sleepiness | +--------+---------+ + + + Social History [...] + + + | Blood Pressure | - | - | | + + + + + | Pulse | 77 | 10/16/2014 3:05 PM | | | | | PDT | | + + + + + | Temperature | 37 C (98.6 F) | 10/16/2014 3:05 PM | | | | | PDT | | + + + + + | Respiratory Rate | 14 | 10/16/2014 3:05 PM | | | | | PDT | | + + + + + | Oxygen Saturation | 97% | 10/16/2014 3:05 PM | room air | | | | PDT | | + + + + + | Inhaled Oxygen | - | - | | | Concentration | | | | + + + + + | Weight | 73.8 kg (162 lb 12.8 | 10/16/2014 3:05 PM | | | | oz) | PDT | | + + + + + | Height | 160 cm (5' 3") | 10/16/2014 3:05 PM | | | | | PDT | | + + + + + | Body Mass Index | 28.84 | 10/16/2014 3:05 PM | | | | | PDT | | + + + + + documented in this encounter Patient Instructions Patient Instructions Yareli Love MD - 10/16/2014 4:46 PM PDTI would work on con verting his day night schedule back, and see how he does. If he does not get back to himself , we can then talk more about a sleep study. See if his brother would agree to this plan. Do barium swallow, chest x-ray, and walking oxygen test at [facility]. Do an overnight oxygen test through [facility]. Call to have a box delivered by the [employer]. Wear the finger probe through the night. Do the test on room air. Call t [facility] to have the box picked up the following day. Start on chlorhexidene mouth rinses twice daily, 15mL swish and spit or swabs twice daily. documented in this encounter Progress Notes Yareli Love MD - 10/16/2014 2:54 PM PDTFormatting of this note might be differe nt from the original. Sleep Consult Referring Provider: Corin Cordero NP HPI Ladarius Finney Jr. is a 49 y.o. male patient of Corin Cordero NP here today fo r evaluation of possible sleep apnea and hypoxemia. His caregiver notes that a few years ago he was diagnosed with silent aspiration. He then d eveloped pneumonia. He was seen by speech therapy, put on a pureed diet, thickened liquids. He then had a second episode of pneumonia, and was hospitalized for 9 days. He has since had a third pneumonia, and his caregiver notes that with this episode, his symptoms came on slo wly. He developed sepsis by the time they figured out he was sick. He was hospitalized at [facility] and in the ICU. He did undergo a speech swallow evaluation, which did not show any f rank aspiration. He had a right upper lobe pneumonia during that hospital stay. It was also complicated by the sepsis, JOSSELYN, thrombocytopenia, and acute metabolic encephalopathy. Since he had that episode, he has dwindled a lot. He has had weight loss, poor fluid intake , poor appetite, sleeping a lot, and has seemed really tired. He was seen in the clinic, and they checked his oxygen level, and it was 82%. He was placed on oxygen, at 1L all the time. With starting this, he has been much more alert, interactive, and has seemed much better. Esau corby note he still takes a nap after breakfast, and sleeps often. Currently they are able to walk 1/8th mile at their own pace on level ground. The distance walked is predominately limited by shortness of breath. One year ago, they feel that they co uld walk 1/2 mile. His caregiver notes that before this last episode of pneumonia, he could make it to the park 1/2 mile away. He does exercise regularly, walking to the park as much a s they can get him to go. He did not get any physical therapy after the last hospital stay, but he did the hospital stay before. He does not cough chronically, but does intermittently do a periodic cough that seems to be to clear his lungs. He does cough and choke when eating at times. He has not been evaluated for heartburn or reflux. He has not had an overnight oximetry done. He has had an ambulating oximetry done. They try to keep him on a regular sleep schedule, otherwise he will be up all night. He has difficulty falling asleep. He sleeps often during the day, taking several naps during the d ay. Previous to this, he would go to bed by 7-8 pm, and getting up by 7-8 am. He used to nap at times during the day, and then sleep at night depending on how is day went. They have bl ack out curtains in the room, which they have tried keeping open during the daytime, but he can shut these on his own. They note he wakes up 3-4 times a night if he manages to fall asleep. They have noticed he will wake up confused at times, dressing in the middle of the night, and saying good mornin g after a nap. He has been noticed to be snoring a little bit in the night. He has not been noticed to be gasping, choking, stopping breathing at night. He has not been noticed to do any rhythm leg or arm movements when sleeping. He has been found to be waking up crying in the middle of night. He does not sleep walk or act his dreams out in his sleep. He has not been noticed to collapse under strong emotion. He does take Seroquel nightly. He eats dinner at 5pm, and then they do not let him lie down for the night until 7pm. Past Medical History Past Medical History Diagnosis Date Anemia Osteoarthritis Chronic kidney disease stage 2 Delayed developmental milestones Depression Hypercholesterolemia Hypotension Obsessive compulsive disorder Translocation Down syndrome Urge incontinence of urine Respiratory failure (HCC) 07/2014 Pneumonia 07/2014 Pneumonia 09/2012 Pneumonia 2010 Seizure disorder (HCC) Oropharyngeal dysphagia Past Surgical History History reviewed. No pertinent past surgical history. Family History: Family History Problem Relation Age of Onset Lung cancer Father COPD Father Social History: History Social History Marital Status: Single Spouse Name: N/A Number of Children: N/A Years of Education: N/A Occupational History [employer] Social History Main Topics Smoking status: Never Smoker Smokeless tobacco: None Comment: exposed to second hand smoke Alcohol Use: No Drug Use: No Sexual Activity: None Other Topics Concern None Social History Narrative Lives: in [place] With: foster home Grew up: [place] Has [...] Allergies Medications: Outpatient Encounter Prescriptions as of 10/16/2014 Medication Sig Dispense Refill Acetaminophen (MAPAP) 500 MG CAPS Take by mouth Daily as needed. divalproex (DEPAKOTE) 250 mg EC tablet Take 250 mg by mouth 2 times daily. ferrous sulfate 325 mg tablet Take 325 mg by mouth daily (with breakfast). fluconazole (DIFLUCAN) 100 mg tablet Take 100 mg by mouth Daily. levothyroxine (SYNTHROID, LEVOTHROID) 125 mcg tablet Take [...] facility-administered encounter medications on file as of 10/16/2014. Review of Systems: General: [x]Weight loss/gain (over 10 lbs) []Fever/chills/sweats []Night sweats Hematologic: []Bleeding/bruising tendencies []History of blood transfusion [x]Anemia []Enlarged lymph n odes EENT: []Hearing loss []Vision loss/change [x]Sinus congestion/nasal drainage []Nosebleeds [ ]Hoarseness Cardiac: []Chest pain []Palpitations/heart racing []Swelling of legs/ankles []Waking up at night s hort of breath []Difficulty sleeping flat Gastrointestinal: []Nausea/vomiting []Difficulty swallowing []Heartburn/acid reflux []Loss of appetite []Abd ominal pain Musculoskeletal: []Joint stiffness/swelling [x]Joint pain []Back pain [x]Arthritis []Gout Urologic: []Blood in urine []Frequent urination at night []Burning/painful urination []Difficulty wit h urination Neurological: []Headaches []Seizures []Memory loss or confusion []Numbness or tingling in feet or hands Psychiatric: [x]Depression []Anxiety/panic attacks []Suicidal ideation Pulmonary: []Shortness of breath []Frequent coughing []Excessive mucous production []Wheezing []Hi story of asthma or COPD Objective Pulse 77 | Temp(Src) 37 C (98.6 F) (Temporal) | Resp 14 | Ht 1.6 m (5' 3") | Wt 73.846 kg (162 lb 12.8 oz) | BMI 28.85 kg/m2 | SpO2 97% RA General Appearance: Alert, cooperative, no distress, appears stated age Head: Normocephalic, without obvious abnormality, atraumatic Eyes: PERRL, conjunctiva clear, no scleral icterus, EOM's intact Ears: Normal TM's, external auditory canals, seemingly normal acuity acuity Nose: Nares normal, septum midline, mucosa normal Mouth: No oral lesions or exudate, Mallampati 4, small oropharynx Neck: Supple, symmetrical, no adenopathy Lungs: No accessory muscle use, breath sounds are somewhat diminished bilaterally ? Exam? , no wheezes, crackles or rhonchi Chest Wall: No deformity Heart: Regular rate and rhythm, no murmur, rub or gallop Abdomen: Soft, non-tender, non-distended, mildly obese Extremities: No cyanosis, clubbing, or edema Pulses: Radial pulses 2+ and symmetric Skin: Warm and dry Lymph nodes: Cervical and supraclavicular nodes normal Data: Chest x-ray was done on July 13, 2014 and was reviewed and interpreted in clinic today. It shows a dense right upper lobe consolidative opacity. Prior x-rays are not available for rev iew. Hospital records from [facility] admit 07/2014were reviewed today. Pulmonary function tests were attempted prior to clinic today and were reviewed and interpr eted in clinic today. They did not get reliable results. Corin Cordero NP's notes were reviewed in clinic today. [place] sleepiness scale score 22. Immunization History Administered Date(s) Administered INFLUENZA, [id number], ALL FORMULATIONS 01/16/2014 PNEUMOCOCCAL, UNSPECIFIED FORMULATION 01/16/2010 Assessment 1. Hypoxemia - This seems to have resolved, at least during the daytime. I suspect he had r esidual low saturations and poor perfusion post hospitalization when he saw Corin in clinic, and is now much better. We will do repeat testing prior to discontinuing this, with formal ambulating oximetry and overnight oximetry testing. I did advise her he may still require no cturnal oxygen. 2. Recurrent aspiration pneumonia (HCC) - Interestingly, the most recent pneumonia was in t he right upper lobe, which is not a classic location for an aspiration pneumonia, in the cla ssic sense (technically all pneumonias are aspiration pneumonia). I did suggest that he have a reflux evaluation, though his caregiver thinks he likely aspirates with eating even thoug h his swallow study was really unremarkable. In addition, I suggested in addition to regular dental visits, that he start chlorhexidine oral rinses to lower the bacterial count in his mouth. 3. Excessive daytime sleepiness - I suspect that currently this is due to disrupted circadi an rhythm due to recent hospitalization and acute illness that has led to prolonged daytime napping and then poor nighttime sleep. That being said, having Down's syndrome lead's to a f acial structure that increases risk of SETH. The caregiver notes his brother had said he did not wish to pursue a sleep study, so I suggested starting with rigorously working on fixing his sleep schedule and seeing how he did with decreasing his daytime sleeping and getting hi m back on a nighttime schedule. If this does not improve his nighttime sleeping, I asked her to see if the brother would th en consider a sleep study. She feels the patient would be fine doing one 1:1, but without a caregiver. Plan 1.Check UGI barium swallow. 2.Chlorhexidine oral rinses twice daily. 3.Routine dental visits. 4. We did discuss not eating 4 hours before bed, not lying down an hour after eating, and e ating larger meals earlier in the day. 5. Check ambulating oximetry. 6. Check overnight oximetry on room air. 7. Work on having him stay awake during the daytime, and sleep at night. If this does not i mprove his nighttime sleep, then consider seeing if his brother will reconsider a sleep stud y. Return to clinic in 3 months, or sooner with concerns. CC: Corin Cordero NP Portions of this report were transcribed using voice recognition software. Every effort wa s made to ensure accuracy; however, inadvertent computerized acid condenser errors may be pre sent. documented in t his encounter Plan of Treatment + + +--------+ + + | Name | Type | Priori | Associated Diagnoses | Order Schedule | | | | ty | | | + + +--------+ + + | Overnight oximetry, | Respiratory | Routin | Hypoxemia | Expected: | | room air | Care | e | | 10/16/2014, Expires: | | | | | | 10/16/2015 | + + +--------+ + + | [place] UGI | Imaging | Routin | Recurrent | Expected: | | | | e | aspiration pneumonia | 10/16/2014, Expires: | | | | | (HCC) | 10/16/2015 | + + +--------+ + + | XR Chest PA and | Imaging | Routin | Recurrent | Expected: | | Lateral | | e | aspiration pneumonia | 10/16/2014, Expires: | | | | | (HCC) | 10/16/2015 | + + +--------+ + + documented as of this encounter Procedures + +--------+ + + + | Procedure Name | Priori | Date/Time | Associated Diagnosis | Comments | | | ty | | | | + +--------+ + + + | IMAGING REPORT - | | 07/13/2014 | | Results for this | | EXTERNAL SCAN | | 12:00 AM | | procedure are in the | | | | PDT | | results section. | + +--------+ + + + | IMAGING REPORT - | | 07/10/2014 | | Results for this | | EXTERNAL SCAN | | 12:00 AM | | procedure are in the | | | | PDT | | results section. | + +--------+ + + + documented in this encounter Results IMAGING REPORT - EXTERNAL SCAN (07/13/2014 12:00 AM PDT) + + + | Narrative | Performed At | + + + | Ordered by an | | | unspecified provider. | | + + + IMAGING REPORT - EXTERNAL SCAN (07/10/2014 12:00 AM PDT) + + + | Narrative | Performed At | + + + | Ordered by an | | | unspecified provider. | | + + + documented in this encounter Visit Diagnoses + + | Diagnosis | + + | Hypoxemia - Primary | + + | Recurrent aspiration pneumonia (HCC) Pneumonitis due to inhalation of food or vomitus | + + | Excessive daytime sleepiness | + + documented in this encounter
--- OUTSIDE RECORDS SUMMARY | ~2019-04-16 | XMS | Encounter Summary ---
Demographics + + + | Address | [address] | | | [place] [address] | + + + | Home Phone | | + + + | Preferred Language | Unknown | + + + | Marital Status | Single | + + + | Latter Day Affiliation | 1013 | + + + | Race | Unknown | + + + | Ethnic Group | Unknown | + + + Author + + + | Author | [facility] | | | and [place] | + + + | Organization | [facility] | | | and [place] [...] Team Providers + +------+ + | Care Cable Operator Name | Role | Phone | + +------+ + | Corin Cordero NP | PCP | | + +------+ + Encounter Details +--------+ + + + + | Date | Type | Department | Care Team | Description | +--------+ + + + + | 09/30/ | Orders Only | [facility] | Nakul Nichols MD | | | 2010 | | [facility] | | | | | | CLINICAL LABORATORY | | | | | | [address] | | | | | | [place], [place] | | | | | | [address] | | | | | | [phone] | | | +--------+ + + + [...] | + +--------+ + + + | MRSA NAAT | STAT | 09/30/2010 | | Results for this | | | | 4:31 PM | | procedure are in the | | | | PDT | | results section. | + +--------+ + + + documented in this encounter Results MRSA NAAT (09/30/2010 4:31 PM PDT) + + | Specimen | + + | | + + + + + | Narrative | Performed At | + + + | [facility] | EXTERNAL LAB | | Testing performed at [facility];[address] [place] [address];[place] [address] MRSA PCR | | | NEGATIVE Testing performed at | | | [facility];[address] [place] [address];[place] [address] | | + + + + +---------+ + + | Performing | Address | City/State/Zipcode | Phone Number | | Organization | | | | + +---------+ + + | EXTERNAL LAB | | | | + +---------+ + + documented in this encounter Visit Diagnoses Not on filedocumented in this encounter"
--- OUTSIDE RECORDS SUMMARY | ~2019-04-16 | XMS | Encounter Summary ---
Demographics + + + | Address | [address] | | | [place] [address] | + + + | Home Phone | | + + + | Preferred Language | Unknown | + + + | Marital Status | Single | + + + | Church Affiliation | 1013 | + + + | Race | Unknown | + + + | Ethnic Group | Unknown | + + + Author + + + | Author | [facility] | | | and [place] | + + + | Organization | [facility] | | | and [...] Team Providers + +------+ + | Care Dairy Husbandry Worker Name | Role | Phone | + +------+ + | Corin Cordero NP | PCP | | + +------+ + Reason for Visit +---------+ + | Reason | Comments | +---------+ + | Results | Upper GI and CXR | +---------+ + Encounter Details +--------+ + + + + | Date | Type | Department | Care Team | Description | +--------+ + + + + | 12/05/ | Telephone | [facility] | [place], | Results (Upper GI | | 2015 | | PULMONARY [address] | Yareli Nava MD | and CXR) | | | | [place], | | | | | | [place] [address] | | | | | | [phone] | | | +--------+ + + + [...]
--- OUTSIDE RECORDS SUMMARY | ~2019-04-16 | XMS | Encounter Summary ---
Demographics + + + | Address | [address] | | | [place] [address] | + + + | Home Phone | | + + + | Preferred Language | Unknown | + + + | Marital Status | Single | + + + | Jew Affiliation | 1013 | + + + | Race | Unknown | + + + | Ethnic Group | Unknown | + + + Author + + + | Author | [facility] | | | and [place] | + + + | Organization | [facility] | | | and [...] Providers + +------+ + | Care Sales And Merchandising Associate Name | Role | Phone | + +------+ + | Corin Cordero NP | PCP | | + +------+ + Encounter Details +--------+ + + + + | Date | Type | Department | Care Team | Description | +--------+ + + + + | 07/27/ | Hospital | [facility] | [place], | Recurrent pneumonia | | 2016 | Encounter | MED CTR XRAY [address] | Yareli Nava MD | | | | | [address] | | | | | | [place] [address] | | | | | | [phone] | | | +--------+ + + + [...] Take one tablet | | 0 | 03/22/20 | | | (SYNTHROID, | daily | [...] of this encounter Plan of Treatment + +---------+--------+ + + | Name | Type | Priori | Associated Diagnoses | Order Schedule | | | | ty | | | + +---------+--------+ + + | XR Chest PA and | Imaging | Routin | Recurrent | 1 Occurrences | | Lateral | | e | pneumonia | starting 07/28/2015 | | | | | | until 07/28/2015 | + +---------+--------+ + + documented as of this encounter Visit Diagnoses + + | Diagnosis | + + | Recurrent pneumonia Pneumonia, organism unspecified | + + documented in this encounter"
--- OUTSIDE RECORDS SUMMARY | ~2019-04-16 | XMS | Encounter Summary ---
Demographics + + + | Address | [address] | | | [place] [address] | + + + | Home Phone [...] + + + | Author | [facility] | | | and [place] | + + + | Organization | [facility] | | | and [place] | [...] Team Providers + +------+ + | Care Interior Block Wirer Name | Role | Phone | + [...] marasmus (HCC); | | 10/09/ | | [place], [place] | [place] [address] | Other Alteration of | | 2010 | | [address] | [phone] | Consciousness; OTHER | | | | [phone] | | SPECIFIED DISORDER | | | [...] lung | | | | | | ([facility]); PNEUMONIA, | | | | | | [...] Performed At | + + + | [facility] [address] Ph: | | | Patient Name: JULIANE MARINA Date of : | | | 1965 Medical Record: [id number] Account: [id number] | | | Exam Date/Time: 10/08/2010 11:50 [...] - 12/01/2018 2:59 PM PDT | | | | [facility] [address] | | | | | | Patient Name: JULIANE MARINA | | Date of : 1965 | | Medical Record: [id number] | | Account: [id number] | | | | | | Exam [...]
--- OUTSIDE RECORDS SUMMARY | ~2019-04-16 | XMS | Encounter Summary ---
Demographics + + + | Address | [address] | | | [place] [address] | + + + | Home Phone [...] Author | [facility] | | | and [place] | + + + | Organization | [facility] | | | and [place] [...] Team Providers + +------+ + | Care Public Speaker Name | Role | Phone | + +------+ + PCP | Unavailable | + +------+ + Encounter Details +--------+ + + + + | Date | Type | Department | Care Team | Description | +--------+ + + + + | 09/21/ | Hospital | [facility] | | | | 2006 | Encounter | MED CTR GENERIC OP | | | | | | CONV DEPT [address] | | | | | | [place], | | | | | | [place] [address] | | | | | | [phone] | | | +--------+ + + + [...]
--- OUTSIDE RECORDS SUMMARY | ~2019-04-16 | XMS | Encounter Summary ---
Demographics + + + | Address | [address] | | | [place] [address] | + + + | Home Phone | | + + + | Preferred Language | Unknown | + + + | Marital Status | Single | + + + | Restoration Affiliation | 1013 | + + + | Race | Unknown | + + + | Ethnic Group | Unknown | + + + Author + + + | Author | [facility] | | | and [place] | + + + | Organization | [facility] | | | and [place] [...] Team Providers + +------+ + | Care Terra Cotta Mason Name | Role | Phone | + +------+ + | Corin Cordero HUSBANDRY PERSON | PCP | | + +------+ + Reason for Visit + + + | Reason | Comments | + + + | Pulmonary Disease | 3 month follow up - hypoxemia | | Appointment | | + + + Encounter Details +--------+---------+ + + + | Date | Type | Department | Care Team | Description | +--------+---------+ + + + | 04/28/ | Office | [facility] | [place], | Exercise hypoxemia | | 2015 | Visit | PULMONARY [address] | Yareli Nava MD | (Primary Dx); | | | | [place], | | Recurrent pneumonia; | | | | [place] [address] | | Oropharyngeal | | | | [phone] | | dysphagia | +--------+---------+ + + [...] + + + | Blood Pressure | 106/60 | 04/28/2015 1:10 PM | | | | | PST | | + + + + + | Pulse | 78 | 04/28/2015 1:10 PM | | | | | PST | | + + + + + | Temperature | - | - | | + + + + + | Respiratory Rate | - | - | | + + + + + | Oxygen Saturation | 97% | 04/28/2015 1:10 PM | | | | | PST | | + + + + + | Inhaled Oxygen | - | - | | | Concentration | | | | + + + + + | Weight | 68 kg (150 lb) | 04/28/2015 1:10 PM | | | | | PST | | + + + + + | Height | 160 cm (5' 3") | 04/28/2015 1:10 PM | | | | | PST | | + + + + + | Body Mass Index | 26.57 | 04/28/2015 1:10 PM | | | | | PST | | + + + + + documented in this encounter Patient Instructions Patient Instructions Yareli Love MD - 04/28/2015 2:23 PM PSTHe should be using the oxygen at 2L when walking, but if he refuses, I would not force the issue as he is doing better and we will repeat the test to see if we can stop it. Have walking oxygen test at [facility] to see if we can stop the oxygen during the day. Have chest x-ray before you go today.Electronically signed by Yareli Love MD at 0 04/28/2015 2:25 PM PST documented in this encounter Progress Notes Yareli Love MD - 04/28/2015 1:16 PM PSTFormatting of this note might be differe nt from the original. Pulmonary Follow Up HPI Ladarius Finney Jr. is a 49 y.o. male patient of Corin Cordero NP here today fo r follow up of hypoxemia and recurrent pneumonia. He recently was hospitalized at [facility], for pneumonia. I had prescribed a course of antibiotics in January. He got better, and then he had a low grade temperature. He was treat ed a second time, and then he went for his bone marrow biopsy, and had significant hypoxemia . Since then, he has been doing well. He did not have any signs of leukemia on his bone marrow biopsy, so they think the depakote is likely causing his anemia. He did have to get a transfusion for critically low anemia th day of his biopsy as well. His caregiver believes that his WBC count has been low, but onl y marginally. He did have another swallow study done while at [facility], and this did show he aspirat ed. He has continued on aspiration precautions. It is not clear that his pneumonia frequency has decreased significantly. He is still using the chlorhexidine swabs. He returns today fo r routine follow up. Currently he is able to walk at least several hundred feet at his own pace on level ground. He is not exercising regularly, though in the summer they do walk regularly. He does go jeovanny pping and is fairly busy. He will also do yoga if on TV, or dancing. He has been evaluated for nocturnal oxygen and does not need to use it. He does not like us ing the oxygen at all, and keeps trying to give it away. He was not wearing it when he chec ked in today. Past Medical History Past Medical History Diagnosis [...] Topics Smoking status: Never Smoker Smokeless tobacco: Never Used Comment: Exposed to second hand smoke Alcohol Use: No Drug Use: No Sexual Activity: None Other Topics Concern None Social History Narrative Lives: in [place] With: foster home Grew up: [place] Has [...] Allergies Medications: Outpatient Encounter Prescriptions as of 04/28/2015 Medication Sig Dispense Refill Acetaminophen (MAPAP) 500 MG CAPS Take by mouth Daily as needed. chlorhexidine (PERIDEX) 0.12% solution Take 15 mLs by mouth 2 times daily. 900 mL 11 divalproex (DEPAKOTE) 250 mg EC tablet Take 250 mg by mouth 2 times daily. [DISCONTINUED] ferrous sulfate 325 mg tablet Take 325 mg by mouth daily (with breakfast ). levothyroxine (SYNTHROID, LEVOTHROID) 125 mcg tablet Take [...] facility-administered encounter medications on file as of 04/28/2015. Review of Systems: General: []Weight loss/gain (over 10 lbs) []Fever/chills/sweats []Night sweats EENT: []Hearing loss []Vision loss/change []Sinus congestion/nasal drainage []Nosebleeds [] Hoarseness Cardiac: []Chest pain []Palpitations/heart racing []Swelling of legs/ankles []Waking up at night s hort of breath []Difficulty sleeping flat Gastrointestinal: []Nausea/vomiting []Difficulty swallowing []Heartburn/acid reflux []Loss of appetite []Abd ominal pain Urologic: []Blood in urine []Frequent urination at night []Burning/painful urination []Difficulty wit h urination [x] Patient denies all of the above Objective BP 106/60 mmHg | Pulse 78 | Ht 1.6 m (5' 3") | Wt 68.04 kg (150 lb) | BMI 26.58 kg/m2 | SpO 2 97% RA General Appearance: Alert, cooperative, no distress, appears stated age Head: Normocephalic, without obvious abnormality, atraumatic Eyes: PERRL, conjunctiva clear, no scleral icterus, EOM's intact Ears: Normal TM's, external auditory canals, normal acuity Nose: Nares normal, septum midline, mucosa normal Mouth: No oral lesions or exudate Neck: Supple, symmetrical, no adenopathy Lungs: No accessory muscle use, breath sounds are slightly diminished bilaterally, no whe ezes, crackles or rhonchi Chest Wall: No deformity Heart: Regular rate and rhythm, no murmur, rub or gallop Abdomen: Soft, non-tender, non-distended Extremities: No cyanosis, clubbing, or edema Pulses: Radial pulses 2+ and symmetric Skin: Warm and dry Lymph nodes: Cervical and supraclavicular nodes normal Data: Immunization History Administered Date(s) Administered INFLUENZA, [id number], ALL FORMULATIONS 01/16/2014 INFLUENZA, UNSPECIFIED FORMULATION 01/17/2015 PNEUMOCOCCAL, UNSPECIFIED FORMULATION 01/16/2010 Assessment ICD-10-CM ICD-9-CM 1. Exercise hypoxemia R09.02 799.02 Oxygen needs are steadily decreasing with correction of anemia and being further out from his pneumonia. We will recheck an ambulating oximetry at [facility] to see if we can discontinue the portable oxy gen. Ambulating oximetry- Ancillary 2. Recurrent pneumonia J18.9 486 On dysphagia diet and using chlorhexidine rinses. I am not certain that he has decreased the frequency of these episodes, but he is also not doing ter [facility] with good caregiving. This may also be due in part to leukopenia from dilantin, but I need more information so I will attempt to get records. XR Chest PA and Lateral 3. Oropharyngeal dysphagia R13.12 787.22 On dysphagia diet and followed closely by his anesthesiologist and critical care. Plan 1.Recheck ambulating oximetry. 2.Continue dysphagia diet, and chlorhexidine rinses. 3.I will get records and imaging from [facility] and Dr. Meyers. 4. Recheck chest x-ray today. He was advised to call if new pulmonary symptoms were to develop. Return to clinic in 3 months, or sooner with concerns. CC: Corin Cordero NP Portions of this report were transcribed using voice recognition software. Every effort wa s made to ensure accuracy; however, inadvertent computerized ballistics teacher errors may be pre sent. documented in t his encounter Plan of Treatment Not on filedocumented as of this encounter Results XR Chest PA and Lateral (04/28/2015 2:46 PM PST) + + | Specimen | + + | | + + + + + | Narrative | Performed At | + + + | TWO-VIEW CHEST: 04/28/2015 2:46 PM CLINICAL HISTORY: F/u | [facility] | | pneumonia in January COMPARISON: 01/23/2015 FINDINGS: | [facility] | | Heart size is normal. Aorta [...] + + | [facility] | [address] | [place] | [phone] | | [facility] | | [address] | | | - IMAGING | | | | + + + + + documented in this encounter Visit Diagnoses + + | Diagnosis | + + | Exercise hypoxemia - Primary Hypoxemia | + + | Recurrent pneumonia Pneumonia, organism unspecified | + + | Oropharyngeal dysphagia Dysphagia, oropharyngeal phase | + + documented in this encounter
--- OUTSIDE RECORDS SUMMARY | ~2019-04-16 | XMS | Encounter Summary ---
Demographics + + + | Address | [address] | | | [place] [address] | + + + | Home Phone | | + + + | Preferred Language | Unknown | + + + | Marital Status | Single | + + + | Adventist Affiliation | 1013 | + + + | Race | Unknown | + + + | Ethnic Group | Unknown | + + + Author + + + | Author | [facility] | | | and Angelana | + + + | Organization | [facility] | | | and [...] Team Providers + +------+ + | Care Country Printer Name | Role | Phone | + +------+ + | Corin Cordero SHOP COORDINATOR | PCP | | + +------+ + Reason for Visit + + + | Reason | Comments | + + + | Pulmonary Disease | 3 month follow up - hypoxemia | | Appointment | | + + + Encounter Details +--------+---------+ + + + | Date | Type | Department | Care Team | Description | +--------+---------+ + + + | 07/27/ | Office | [facility] [place] | [place], | Recurrent pneumonia | | 2015 | Visit | PULMONARY [address] | Yareli Nava MD | (Primary Dx); | | | | [place], | | Exercise hypoxemia; | | | | [place] [address] | | Oropharyngeal | | | | [phone] | | dysphagia | +--------+---------+ + + [...] | Blood Pressure | 110/70 | 07/28/2015 10:26 AM | | | | | PDT | | + + + + + | Pulse | 70 | 07/28/2015 10:26 AM | | | | | PDT | | + + + + + | Temperature | - | - | | + + + + + | Respiratory Rate | - | - | | + + + + + | Oxygen Saturation | 100% | 07/28/2015 10:26 AM | | | | | PDT | | + + + + + | Inhaled Oxygen | - | - | | | Concentration | | | | + + + + + | Weight | 64.4 kg (142 lb) | 07/28/2015 10:26 AM | | | | | PDT | | + + + + + | Height | 160 cm (5' 3") | 07/28/2015 10:26 AM | | | | | PDT | | + + + + + | Body Mass Index | 25.15 | 07/28/2015 10:26 AM | | | | | PDT | | + + + + + documented in this encounter Patient Instructions Patient Instructions Yareli Love MD - 07/28/2015 11:33 AM PDTHave chest x-ray to day. Have walking oxygen test today. We will try to clarify what is going on and if he needs antibiotics or another CT scan. If his walking oxygen test looks good, we will discontinue the portable oxygen. Otherwise no change as I think overall, he is doing better with the current management and the improved blood count. 11 :34 AM PDT documented in this encounter Progress Notes Yareli Love MD - 07/28/2015 10:35 AM PDTFormatting of this note might be differe nt from the original. Pulmonary Follow Up HPI Ladarius Finney Jr. is a 49 y.o. male patient of Corin Cordero NP here today fo r follow up of recurrent pneumonia. At their last visit, we had rechecked his chest x-ray, which showed almost complete clearan ce of his prior pneumonia. His caregiver mentions that Corin had done a chest x-ray shortly thereafter at [facility] and this again raised concern of a possible mass, and they were looking in to possibly doing a chest CT scan with sedation. Since their last visit he feels like he has been doing well. They have not noticed any cou ghing, wheezing, phlegm, sneezing or runny nose. He has not had fevers, chills, sweats. He is transitioning off of Depakote and is having a few more OCD behaviors due to some aplastic anemia issues. He has also been more stable off of this as he is less anemic, his oxygen le jer is better, and he seems better in general. Currently he is able to walk 1/4 to 1/2 mile at his own pace on level ground. He is exercis ing regularly. They are walking every afternoon for 1/4 to 1/2 mile. He has been evaluated for nocturnal oxygen and does not need to use it. He has portable oxy gen, but has not been needing to use it as his oxygen level seems to be better and he has no t been having breathing issues. They have an oximeter, but have not been checking him as he has been doing so well. 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 No pertinent past surgical history. 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 chlorhexidine (PERIDEX) 0.12% solution Take 15 mLs by mouth 2 times daily. 900 mL 11 [DISCONTINUED] divalproex (DEPAKOTE) 250 mg EC tablet Take 250 mg by mouth 2 times joanna y. 500mg in am and 750mg in pm, tapering off fludrocortisone (FLORINEF) 0.1 mg tablet Take one tablet daily lamoTRIgine (LAMICTAL) 25 mg tablet Take one tablet twice daily [DISCONTINUED] levothyroxine (SYNTHROID, LEVOTHROID) 125 mcg tablet Take 125 mcg by caroline th every morning (before breakfast). levothyroxine (SYNTHROID, LEVOTHROID) 150 mcg tablet Take one tablet daily magnesium hydroxide (MILK OF MAGNESIA) 400 mg/5 mL suspension Take by mouth Daily as n eeded for Constipation. Multiple Vitamin (THEREMS PO) Take by mouth Daily. Podiatric Products (GOLD MILLAN FOOT EX) Apply topically Daily. QUEtiapine (SEROQUEL) 100 mg tablet Take 100 mg by mouth nightly. [DISCONTINUED] Skin Protectants, Misc. (DIMETHICONE-ZINC OXIDE) cream Apply topically as needed. STARCH-MALTO DEXTRIN (THICK-IT) POWD Take by mouth. No facility-administered encounter medications on file as of 07/28/2015. Review of Systems: General: []Weight loss/gain (over [...] []Frequent urination at night []Burning/painful urination []Difficulty wi th urination [x] Patient denies all of the above Objective BP 110/70 mmHg | Pulse 70 | Ht 1.6 m (5' 3") | Wt 64.411 kg (142 lb) | BMI 25.16 kg/m2 | Sp O2 100% General Appearance: Alert, cooperative, no distress, appears stated age, non verbal Head: Normocephalic, without obvious abnormality, atraumatic Eyes: PERRL, conjunctiva clear, no scleral icterus, EOM's intact Ears: Normal TM's, external auditory canals, normal acuity Nose: Nares normal, septum midline, mucosa normal Mouth: No oral lesions or exudate Neck: Supple, symmetrical, no adenopathy Lungs: No accessory muscle use, breath sounds are clear to auscultation bilaterally with limited, no wheezes, crackles or rhonchi Chest Wall: No deformity Heart: Regular rate and rhythm, no murmur, rub or gallop Abdomen: Soft, non-tender, non-distended Extremities: No cyanosis, clubbing, or edema Pulses: Radial pulses 2+ and symmetric Skin: Warm and dry Lymph nodes: Cervical and supraclavicular nodes normal Data: Chest x-ray was done on April 28, 2015 and was reviewed and interpreted in clinic today. It shows near complete resolution of previously seen right sided opacity in the chest. Immunization History Administered Date(s) Administered INFLUENZA, [id number], ALL FORMULATIONS 01/16/2014 INFLUENZA, UNSPECIFIED FORMULATION 01/17/2015 PNEUMOCOCCAL POLYSACCHARIDE 23-VALENT (PPSV23) 01/16/2010 Assessment ICD-10-CM ICD-9-CM 1. Recurrent pneumonia J18.9 486 Concern raised for mass previously, but consolidative shannon ges resolved on prior chest x-ray in April. I am uncertain as to what additional imaging i s available, but will request any to see if he has a new consolidation. We will also repeat imaging today to trend. If we can avoid a CT with sedation or biopsy, that would be ideal, a nd if he needs additional antibiotics, we need to give those. XR Chest PA and Lateral 2. Exercise hypoxemia R09.02 799.02 No longer using oxygen and saturations are much better. We will repeat ambulating oximetry, and determine if we can discontinue this or if he shoul d be using this. Ambulating oximetry- Clinic 3. Oropharyngeal dysphagia R13.12 787.22 He has undergone evaluation and they are working w ith him to avoid aspiration. Plan 1.Check chest x-ray today. 2.Obtain recent chest x-rays from [facility] and notes from Eneida Heart NP. 3.Recheck ambulating oximetry. Discontinue if he no longer needs this. 4. Continue aspiration and reflux precautions. He was advised to call if new pulmonary symptoms were to develop. Return to clinic in 3 months, or sooner with concerns. CC: Corin Cordero NP Portions of this report were transcribed using voice recognition software. Every effort wa s made to ensure accuracy; however, inadvertent computerized solid waste engineer errors may be pre sent. documented in t his encounter Plan of Treatment + +---------+--------+ + + | Name | Type | Priori | Associated Diagnoses | Order Schedule | | | | ty | | | + +---------+--------+ + + | XR Chest PA and | Imaging | Routin | Recurrent | Expected: | | Lateral | | e | pneumonia | 07/28/2015, Expires: | | | | | | 07/27/2016 | + +---------+--------+ + + documented as of this encounter Procedures + +--------+ + + + | Procedure Name | Priori | Date/Time | Associated Diagnosis | Comments | | | ty | | | | + +--------+ + + + | IMAGING REPORT - | | 02/28/2016 | | Results for this | | EXTERNAL SCAN | | 12:00 AM | | procedure are in the | | | | PST | | results section. | + +--------+ + + + | IMAGING REPORT - | | 06/02/2015 | | Results for this | | EXTERNAL SCAN | | 12:00 AM | | procedure are in the | | | | PST | | results section. | + +--------+ + + + documented in this encounter Results IMAGING REPORT - EXTERNAL SCAN (02/28/2016 12:00 AM PST) + + + | Narrative | Performed At | + + + | Ordered by an | | | unspecified provider. | | + + + IMAGING REPORT - EXTERNAL SCAN (06/02/2015 12:00 AM PST) + + + | Narrative | Performed At | + + + | Ordered by an | | | unspecified provider. | | + + + documented in this encounter Visit Diagnoses + + | Diagnosis | + + | Recurrent pneumonia - Primary Pneumonia, organism unspecified | + + | Exercise hypoxemia Hypoxemia | + + | Oropharyngeal dysphagia Dysphagia, oropharyngeal phase | + + documented in this encounter
--- OUTSIDE RECORDS SUMMARY | ~2019-04-16 | XMS | Encounter Summary ---
Demographics + + + | Address | [address] | | | [place] [address] | + + + | Home Phone | | + + + | Preferred Language | Unknown | + + + | Marital Status | Single | + + + | Zoroastrian Affiliation | 1013 | + + + | Race | Unknown | + + + | Ethnic Group | Unknown | + + + Author + + + | Author | [facility] | | | and Angelana | + + + | Organization | [facility] | | | and Angelana [...] Providers + +------+ + | Care Sales Systems Engineer Name | Role | Phone | + +------+ + | Corin Cordero NP | PCP | | + +------+ + Encounter Details +--------+ + + + + | Date | Type | Department | Care Team | Description | +--------+ + + + + | 10/03/ | Orders Only | [facility] | Nakul Nichols MD | | | 2010 | | [facility] | | | | | | CLINICAL LABORATORY | | | | | | [address] | | | | | | [place], [place] | | | | | | [address] | | | | | | [phone] | | | +--------+ + + + [...] | EXTERNAL LAB: OCCULT | STAT | 10/03/2010 | | Results for this | | BLOOD, SCREENING | | 9:09 AM | | procedure are in the | | | | PDT | | results section. | + +--------+ + + + documented in this encounter Results External Lab: Occult Blood, Screening (10/03/2010 9:09 AM PDT) + + | Specimen | + + | | + + + + + | Narrative | Performed At | + + + | Fecal Occult Blood POSITIVE Abnormal | EXTERNAL LAB | | Testing performed at [facility];[address] [place] [address];[place] [address] | | + + + + +---------+ + + | Performing | Address | City/State/Zipcode | Phone Number | | Organization | | | | + +---------+ + + | EXTERNAL LAB | | | | + +---------+ + + documented in this encounter Visit Diagnoses Not on filedocumented in this encounter"
--- OUTSIDE RECORDS SUMMARY | ~2019-04-16 | XMS | Encounter Summary ---
Demographics + + + | Address | [address] | | | [place] [address] | + + + | Home Phone [...] + + + | Author | [facility] | | | and Angelana | + + + | Organization | [facility] | | | and Angelana [...] Team Providers + +------+ + | Care Power Manager Name | Role | Phone | + +------+ + | Corin Cordero NP | PCP | | + +------+ + Encounter Details +--------+ + + + + | Date | Type | Department | Care Team | Description | +--------+ + + + + | 08/06/ | Orders Only | [facility] [place] | Luz Godfrey, | Exercise hypoxemia | | 2016 | | PULMONARY [address] | RN | | | | | [place], | | | | | | [place] [address] | | | | | | [phone] | | | +--------+ + + + [...]
--- OUTSIDE RECORDS SUMMARY | ~2019-04-16 | XMS | Clinical Summary ---
Demographics + + + | Address | [address] | | | [place] [address] | + + + | Home Phone | | + + + | Preferred Language | Unknown | + + + | Marital Status | Single | + + + | Scientologist Affiliation | 1013 | + + + | Race | Unknown | + + + | Ethnic Group | Unknown | + + + Author + + + | Author | [facility] | | | and Angelana | + + + | Organization | [facility] [...] Team Providers + +------+ + | Care Radio Officer Name | Role | Phone | + +------+ + | Corin Cordero MOTH EXTERMINATOR | PCP | | + +------+ + Allergies No Known [...] + + + + | Name | Administration Dates | Next Due | + + + + | INFLUENZA, [id number], | 01/16/2014 | | | UNSPECIFIED | | | + + + + | INFLUENZA, | 01/17/2015 | | | UNSPECIFIED | | | | FORMULATION | | | + + + + | PNEUMOCOCCAL | 06/12/2012, 01/16/2010 | | | POLYSACCHARIDE | | [...] | | | Dtap/Tdap/Td (1 - | 7 | | | | Tdap) | | | | + + + + + | Vaccine: Zoster (1 | | | | | of 2) | 6 | | | + + + + + | Vaccine: Influenza | | 01/17/2015, 01/16/2014, | | | (#1) | 9 | 06/12/2012 | | + [...] | [employer] | [facility] | [id number] | 10/09/19 | [phone] | | Medica [...] Self | [birth year] | [address] | | | al/[place]jas | | 1966 | [phone] | [place] [address] | | | ana | | | 8 (Home) | | + +--------+ +--------+ + + Advance Directives + + + + + | Type | Date Recorded | Patient | Explanation | | | | Occupational Health Specialist | | + + + + + | Power of | | | brother jessica | | | | | | + + + + + | Advance | 04/28/2015 2:33 | | | | Directive | PM | | | + + + + +
--- OUTSIDE RECORDS SUMMARY | ~2019-04-16 | XMS | Encounter Summary ---
Demographics + + + | Address | [address] | | | [place] [address] | + + + | Home Phone | | + + + | Preferred Language | Unknown | + + + | Marital Status | Single | + + + | Mu-Ism Affiliation | Unknown | + + + [...] Team Providers + +------+ + | Care Rail Project Engineer Name | Role | Phone | + +------+ + | Corin Cordero NP | PCP | | + +------+ + Encounter Details +--------+ + + + + | Date | Type | Department | Care Team | Description | +--------+ + + + + | 12/11/ | Hospital | Diagnostic | Murphy Calloway MD | | | 2019 | Encounter | Radiology at [facility] | [address] | | | | | [address] | [place], | | | | | Loop Mailcode: | [place] [address] | | | | | [address] [facility] | [phone] | | | | | [place], | | | | | | [place] [address] | | | | | | [phone] | | | +--------+ + + + [...] | + +--------+ + + + | X-RAY CHEST 2 VIEW | Routin | 12/11/2018 | Pneumonia due to | Results for this | | | e | 2:17 PM | organism | procedure are in the | | | | PDT | | results section. | + +--------+ + + + documented in this encounter Results X-RAY CHEST 2 VIEW (12/11/2018 2:17 PM [...] MD 12/11/2018 4:57 PM | |Preliminary: Anthony Evasn MD | |Dictation initiated: Anthony Evans MD [...]
--- OUTSIDE RECORDS SUMMARY | ~2019-04-16 | XMS | Encounter Summary ---
Demographics + + + | Address | [address] | | | [place] [address] | + + + | Home Phone | | + + + | Preferred Language | Unknown | + + + | Marital Status | Single | + + + | Orthodox Affiliation | 1013 | + + + | Race | Unknown | + + + | Ethnic Group | Unknown | + + + Author + + + | Author | [facility] | | | and Angelana | + + + | Organization | [facility] | | | and Angelana [...] Team Providers + +------+ + | Care Patcher Helper Name | Role | Phone | [...] MD | oximetry) | | | | [place], | | | | | | [place] [address] | | | | | | [phone] | | | +--------+ + + + [...]
--- OUTSIDE RECORDS SUMMARY | ~2019-04-16 | XMS | Encounter Summary ---
Demographics + + + | Address | [address] | | | [place] [address] | + + + | Home Phone [...] + + + | Author | [facility] | | | and Angelana | + + + | Organization | [facility] | | | and [...] Team Providers + +------+ + | Care Tile Molder Name | Role | Phone | + +------+ + | Corin Cordero NP | PCP | | + +------+ + Encounter Details +--------+ + + + + | Date | Type | Department | Care Team | Description | +--------+ + + + + | 09/15/ | Abstract | [facility] [place] | [place], | | | 2014 | | PULMONARY [address] | Yareli Nava MD | | | | | [place], | | | | | | [place] [address] | | | | | | [phone] | | | +--------+ + + + [...]
--- OUTSIDE RECORDS SUMMARY | ~2019-04-16 | XMS | Encounter Summary ---
Demographics + + + | Address | [address] | | | [place] [address] | + + + | Home Phone | | + + + | Preferred Language | Unknown | + + + | Marital Status | Single | + + + | Hindu Affiliation | 1013 | + + + | Race | Unknown | + + + | Ethnic Group | Unknown | + + + Author + + + | Author | [facility] | | | and Angelana | + + + | Organization | [facility] | | | and [...] Team Providers + +------+ + | Care Inspector Air Carrier Name | Role | Phone | + +------+ + | Corin Cordero NP | PCP | | + +------+ + Encounter Details +--------+ + + + + | Date | Type | Department | Care Team | Description | +--------+ + + + + | 07/27/ | Hospital | [facility] | [place], | Recurrent pneumonia | | 2016 | Encounter | MED CTR XRAY [address] | Yareli Nava MD | | | | | [place] | | | | | | [place] [address] | | | | | | [phone] | | | +--------+ + + + [...]
--- OUTSIDE RECORDS SUMMARY | ~2019-04-16 | XMS | Encounter Summary ---
Demographics + + + | Address | [address] | | | [place] [address] | + + + | Home Phone | | + + + | Preferred Language | Unknown | + + + | Marital Status | Single | + + + | Scientologist Affiliation | Unknown | + + + | Race | White | + + + | Ethnic Group | Not or | + + + Author + + + | Author | [facility] | + + + | Organization | [facility] | + + + | Address | Unknown | + + + | Phone | Unavailable | + + + Support + + +---------+ + | Name | Relationship | Address | Phone | + + +---------+ + | Kristy Medabalime | ECON | Unknown | | + + +---------+ + Care Team Providers + +------+ + | Care Sensitizer Name | Role | Phone | + +------+ + | Corin Cordero RADIOGRAPHER TECHNOLOGIST | PCP | | + +------+ + [...] | | | | | | [address] | Physician's | | | | | | [place], | [address] | | | | | | [place] [address] | [place], [place] | | | | | | Phone: | [phone] | | | | | | [phone] | Phone: | | | | | | Fax: | [phone] | | | | | | [phone] | Fax: | | | | | | | [phone] | + +--------+ + + + + [...] | | | | Medicine at | [address] | Dx) | | | | Physicians [facility] | [place], [place] | | | | | [address] | [address] | | | | | Loop Mailcode: | [phone] | | | | | [id number] [facility] | | | | | | [address] | | | | | | [place], [place] | | | | | | [address] | | | | | | [phone] | | | +--------+---------+ + + + [...] in case I have a question? -Call [phone] We recommend signing up for [email or web address] our secure online messaging system that will [...] Cordero NP Referred by: Corin Cordero NP [facility] [address] [address] Reason for Referral: Recurrent pneumonia ID: Ladarius [...] dx on CXR by ED providers at [facility] in [place], and fever ultimately resolved at the end [...] Yareli enciso (pul), who moved away from [place] in 2016. Given sinus drainage with these events, he was evaluated by ENT with x-rays that (per caregiver) showed no evidence of chronic sinusiti s. Pulmonary History: Smoking history: Never smoker, second hand smoke from dad (left 8-9 years ago). 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 CXR 12/11/18: Radiology calls [facility] linear scar, lungs appear normal to me. [...] plan that I have documented were reviewed [facility] staff physician Dr. Murphy Calloway at the time of this visit. Jose Stevens MD Pulmonary and Critical Care Fellow [facility] & [address] Mailcode: [address] [place] [phone] Pager [phone] Associated attestation - Murphy Calloway MD - 12/14/2018 2:07 PM PDTI have seen patient acco mpanied by caregiver and foster home cook apprentice, Lennie, with Dr. Stevens. I agree with [...] like nutritional supplementaion provided as tolerated. We [facility] ed upright positioning. Alternative feeding ( PEG) [...] | + + + + + | [facility] - | [address] | [place] [address] | | | [place] | | | | + + + [...] | | | LABORATORY | | | [place] | | | SERVICES, | | | [...] | + + + + + | [facility] | [address] | [place] [address] | | | SERVICES, CORE | BEATRICE [...] + | [facility] - | [address] | [place] [address] | | | [place] | | | [...] - | | | | | | [facility] | | + +---------+ + + + + + | Specimen | + + | Blood - Blood | | (substance) | + + + + + + + | Performing | Address | City/State/Zipcode | Phone Number | | Organization | | | | + + + + + | [facility] | [address] | [place] [address] | | | [facility] | | | | + + + [...]
--- OUTSIDE RECORDS SUMMARY | ~2019-04-16 | XMS | Encounter Summary ---
Demographics + + + | Address | [address] | | | [place] [address] | + + + | Home Phone | | + + + | Preferred Language | Unknown | + + + | Marital Status | Single | + + + | Presybeterian Affiliation | 1013 | + + + | Race | Unknown | + + + | Ethnic Group | Unknown | + + + Author + + + | Author | [facility] | | | and Angelana | + + + | Organization | [facility] | | | and [...] Team Providers + +------+ + | Care Paste Maker Name | Role | Phone | + +------+ + | Corin Cordero NP | PCP | | + +------+ + Encounter Details +--------+ + + + + | Date | Type | Department | Care Team | Description | +--------+ + + + + | 09/30/ | Orders Only | [facility] | Nakul Nichols MD | | | 2010 | | [facility] | | | | | | CLINICAL LABORATORY | | | | | | [address] | | | | | | [place], [place] | | | | | | [address] | | | | | | [phone] | | | +--------+ + + + [...] EXTERNAL LAB | | Testing performed at [facility];[address] [place] [address];[place] [address] MRSA PCR | | | NEGATIVE Testing performed at | | | [facility];[address] [place] [address];[place] [address] | | + + + + +---------+ + + | Performing | Address | City/State/Zipcode | Phone Number | | Organization | | | | + +---------+ + + | EXTERNAL LAB | | | | + +---------+ + + documented in this encounter Visit Diagnoses Not on filedocumented in this encounter"
--- OUTSIDE RECORDS SUMMARY | ~2019-04-16 | XMS | Encounter Summary ---
Demographics + + + | Address | [address] | | | [place] [address] | + + + | Home Phone [...] | Located Within [facility] | | | and Angelana | + + + | Organization | Located [facility] | | | and Angelana [...] Team Providers + +------+ + | Care Card Dealer Name | Role | Phone | + +------+ + | Corin Cordero NP | PCP | | + +------+ + Reason for Visit +---------+ + | Reason | Comments | +---------+ + | Results | | +---------+ + Encounter Details +--------+ + + + + | Date | Type | Department | Care Team | Description | +--------+ + + + + | 11/05/ | Telephone | [facility] [place] | [place], | Results | | 2015 | | PULMONARY [address] | Yareli Nava MD | | | | | [place], | | | | | | [place] [address] | | | | | | [phone] | | | +--------+ + + + [...]
--- OUTSIDE RECORDS SUMMARY | ~2019-04-16 | XMS | Encounter Summary ---
Demographics + + + | Address | [address] | | | [place] [address] | + + + | Home Phone | | + + + | Preferred Language | Unknown | + + + | Marital Status | Single | + + + | Jainism Affiliation | 1013 | + + + | Race | Unknown | + + + | Ethnic Group | Unknown | + + + Author + + + | Author | [facility] | | | and Angelana | + + + | Organization | [facility] | | | and Angelana [...] Team Providers + +------+ + | Care Tobacco Stripper Name | Role | Phone | + [...] | RN | | | | | [place], | | | | | | [place] [address] | | | | | | [phone] | | | +--------+ + + + [...]
--- OUTSIDE RECORDS SUMMARY | ~2019-04-16 | XMS | Encounter Summary ---
Demographics + + + | Address | [address] | | | [place] [address] | + + + | Home Phone | | + + + | Preferred Language | Unknown | + + + | Marital Status | Single | + + + | Methodist Affiliation | 1013 | + + + | Race | Unknown | + + + | Ethnic Group | Unknown | + + + Author + + + | Author | [facility] | | | and Angelana | + + + | Organization | [facility] | [...] Team Providers + +------+ + | Care Genetic Engineer Name | Role | Phone | + +------+ + | Corin Cordero NP | PCP | | + +------+ + Encounter Details +--------+ + + + + | Date | Type | Department | Care Team | Description | +--------+ + + + + | 09/12/ | Orders Only | [facility] | [place], | Aspiration | | 2015 | | MED CTR PULMONARY | Yareli Nava MD | pneumonia, | | | | FUNCTION [address] | | unspecified | | | | [place], | | aspiration pneumonia | | | | [place] [address] | | type (HCC) (Primary | | | | [phone] | | Dx) | +--------+ + + [...] on filedocumented as of this encounter Results PFT PULMONARY FUNCTION TESTING ORDERS Full PFT (Keo w/BD, lung volumes, diffusion)?: Yes (10/19/2014 8:35 PM PDT) + + + | Narrative | Performed At | + + + | Yareli Love MD 10/19/2014 20:35 PULMONARY | | | FUNCTION TESTING METHOD: Spirometry was obtained pre | | | administration of inhaled bronchodilator only. Further testing was | | | not performed due to patient's difficulty understanding testing. | | | ATS standards were not met as the patient had difficulty | | | understanding how to perform testing. SPIROMETRY: FVC was | | | moderately reduced at 2.03 L or 51% of predicted. FEV1 was | | | moderately reduced at 1.75 L or 54% of predicted. FEV1/FVC ratio was | | | normal at 86%. IMPRESSION: Spirometry is consistent with | | | moderate restrictive physiology, but results should be interpreted | | | with caution Electronically signed by: Yareli Love MD | | | 10/19/2014 20:33 [facility] CC: | | | Corin Cordero NP | | + + + documented in this encounter Visit Diagnoses + + | Diagnosis | + + | Aspiration pneumonia, unspecified aspiration pneumonia type - Primary | + + documented in this encounter"
--- OUTSIDE RECORDS SUMMARY | ~2019-04-16 | XMS | Encounter Summary ---
Demographics + + + | Address | [address] | | | [place] [address] | + + + | Home Phone [...] Author + + + | Author | [facility] | + + + | Organization | [facility] | + + + | Address | Unknown | + + + | Phone | Unavailable | + + + Support + + +---------+ + | Name | Relationship | Address | Phone | + + +---------+ + | Kristy Medabalime | ECON | Unknown | | + + +---------+ + Care Team Providers + +------+ + | Care Scrap Sorter Name | Role | Phone | + +------+ + | Kvng Wheatley MD | PCP | | + +------+ + Encounter Details +--------+ + + + + | Date | Type | Department | Care Team | Description | +--------+ + + + + | 10/30/ | Target Developer | Cardiology General | Mannie Rosa | Screening for | | 2008 | | at [facility] [address] | Cardiovascular | | | | Sean Lenz Mailcode: | [place], [place] | Condition (Primary | | | | [facility] for | [address] | Dx) | | | | Health and Healing, | [phone] | | | | | [facility] | | | | | | Floor [place], [place] | | | | | | [address] | | | | | | [phone] | | | +--------+ + + + [...]
--- OUTSIDE RECORDS SUMMARY | ~2019-04-16 | XMS | Encounter Summary ---
Demographics + + + | Address | [address] | | | [place] [address] | + + + | Home Phone | | + + + | Preferred Language | Unknown | + + + | Marital Status | Single | + + + | Lutheran Affiliation | 1013 | + + + | Race | Unknown | + + + | Ethnic Group | Unknown | + + + Author + + + | Author | [facility] | | | and Angelana | + + + | Organization | [facility] | | | and [...] Team Providers + +------+ + | Care Powerplant Operator Name | Role | Phone | + +------+ + | Corin Cordero NP | PCP | | + +------+ + Encounter Details +--------+ + + + + | Date | Type | Department | Care Team | Description | +--------+ + + + + | 10/08/ | Orders Only | [facility] | Gloria Coombs, | | | 2010 | | MEDICAL CENTER | [address] | | | | | CLINICAL LABORATORY | [place] [address] | | | | | [address] | [phone] | | | | | [place], [place] | | | | | | [address] | | | | | | [phone] | | | +--------+ + + + [...] | EXTERNAL LAB | | performed at [facility];[address];[place] [address] | | + + + + +---------+ + + | Performing | Address | City/State/Zipcode | Phone Number | | Organization | | | | + +---------+ + + | EXTERNAL LAB | | | | + +---------+ + + documented in this encounter Visit Diagnoses Not on filedocumented in this encounter"
--- OUTSIDE RECORDS SUMMARY | ~2019-04-16 | XMS | Clinical Summary ---
Demographics + + + | Address | [address] | | | [place] [address] | + + + | Home Phone | | + + + | Preferred Language | Unknown | + + + | Marital Status | Single | + + + | Evangelical Affiliation | 1013 | + + + | Race | Unknown | + + + | Ethnic Group | Unknown | + + + Author + + + | Author | [facility] | | | and Angelana | + + + | Organization | [facility] | | | and Angelana [...] Team Providers + +------+ + | Care Pipeline Maintenance Supervisor Name | Role | Phone | + +------+ + | Corin Cordero NEWS CAMERA PERSON | PCP | | + +------+ [...] | + + + + | INFLUENZA, [id number], | 01/16/2014 | | | UNSPECIFIED | [...] | [employer] | [facility] | [id number] | 10/09/19 | [phone] | | Medica [...] | 1966 | [phone] | [place] [address] | | | ana | | | 8 (Home) | | + +--------+ +--------+ + + Advance Directives + + + + + | Type | Date Recorded | Patient | Explanation | | | | Nail Specialist | | + + + + + | Power of | | | brother jessica | | | | | | + + + + + | Advance | 04/28/2015 2:33 | | | | Directive | PM | | | + + + + +
--- OUTSIDE RECORDS SUMMARY | ~2019-04-16 | XMS | Encounter Summary ---
Demographics + + + | Address | [address] | | | [place] [address] | + + + | Home Phone | | + + + | Preferred Language | Unknown | + + + | Marital Status | Single | + + + | Faith Affiliation | 1013 | + + + | Race | Unknown | + + + | Ethnic Group | Unknown | + + + Author + + + | Author | [facility] | | | and Angelana | + + + | Organization | [facility] | | | and Angelana [...] Team Providers + +------+ + | Care Practice Specialist Name | Role | Phone | + [...] | | | | | | [place] [address] | | | | | | [phone] | | | +--------+ + + + [...]
--- OUTSIDE RECORDS SUMMARY | ~2019-04-16 | XMS | Encounter Summary ---
Demographics + + + | Address | [address] | | | [place] [address] | + + + | Home Phone [...] [facility] | | | and Angelana | + + + | Organization | [facility] | | | and Angelana | [...] Team Providers + +------+ + | Care Girl Friday Name | Role | Phone | + +------+ + | Corin Cordero NP | PCP | | + +------+ + Reason for Visit +---------+ + | Reason | Comments | +---------+ + | Results | CXR- pneumonia | +---------+ + Encounter Details +--------+ + + + + | Date | Type | Department | Care Team | Description | +--------+ + + + + | 01/23/ | Telephone | [facility] [place] | [place], | Results (CXR- | | 2014 | | PULMONARY [address] | Yareli Nava MD | pneumonia) | | | | [place], | | | | | | [place] [address] | | | | | | [phone] | | | +--------+ + + + [...]
--- OUTSIDE RECORDS SUMMARY | ~2019-04-16 | XMS | Encounter Summary ---
Demographics + + + | Address | [address] | | | [place] [address] | + + + | Home Phone | | + + + | Preferred Language | Unknown | + + + | Marital Status | Single | + + + | Anabaptism Affiliation | 1013 | + + + | Race | Unknown | + + + | Ethnic Group | Unknown | + + + Author + + + | Author | [facility] | | | and Angelana | + + + | Organization | [facility] | | | and Angelana [...] Team Providers + +------+ + | Care Geological Survey Field Assistant Name | Role | Phone | + +------+ + PCP | Unavailable | + +------+ + Encounter Details +--------+ + + + + | Date | Type | Department | Care Team | Description | +--------+ + + + + | 03/06/ | Hospital | [facility] | | | | 2000 | Encounter | MED CTR GENERIC OP | | | | | | CONV DEPT [address] | | | | | | [place], | | | | | | [place] [address] | | | | | | [phone] | | | +--------+ + + + [...]
--- OUTSIDE RECORDS SUMMARY | ~2019-04-16 | XMS | Encounter Summary ---
Demographics + + + | Address | [address] | | | [place] [address] | + + + | Home Phone | | + + + | Preferred Language | Unknown | + + + | Marital Status | Single | + + + | Confucianist Affiliation | Unknown | + + + | Race | White | + + + | Ethnic Group | Not or | + + + Author + + + | Author | [facility] | + + + | Organization | [facility] | + + + | Address | Unknown | + + + | Phone | Unavailable | + + + Support + + +---------+ + | Name | Relationship | Address | Phone | + + +---------+ + | Kristy Medabalime | ECON | Unknown | | + + +---------+ + Care Team Providers + +------+ + | Care Change Room Attendant Name | Role | Phone | [...] | | | | Medicine at | [facility] | | | | | [facility] | [place], [place] | | | | | [address] | [address] | | | | | Loop Mailcode: | [phone] | | | | | [id number] | | | | | | [address] | | | | | | [place], [place] | | | | | | [address] | | | | | | [phone] | | | +--------+ + + + [...]
--- OUTSIDE RECORDS SUMMARY | ~2019-04-16 | XMS | Encounter Summary ---
Demographics + + + | Address | [address] | | | [place] [address] | + + + | Home Phone [...] Author | [facility] | | | and Angelana | + + + | Organization | [facility] | | | and Angelana [...] Team Providers + +------+ + | Care Cook Barbecue Name | Role | Phone | + +------+ + | Corin Cordero NP | PCP | | + +------+ + Encounter Details +--------+ + + + + | Date | Type | Department | Care Team | Description | +--------+ + + + + | 10/05/ | Orders Only | [facility] | Nakul Nichols MD | | | 2010 | | [facility] | | | | | | CLINICAL LABORATORY | | | | | | [address] | | | | | | [place], [place] | | | | | | [address] | | | | | | [phone] | | | +--------+ + + + [...] RECOMMENDED. Testing | | | performed at [address] [address] | | + + + + +---------+ + + | Performing | Address | City/State/Zipcode | Phone Number | | Organization | | | | + +---------+ + + | EXTERNAL LAB | | | | + +---------+ + + documented in this encounter Visit Diagnoses Not on filedocumented in this encounter"
--- OUTSIDE RECORDS SUMMARY | ~2019-04-16 | XMS | Encounter Summary ---
Demographics + + + | Address | [address] | | | [place] [address] | + + + | Home Phone [...] | Author | [facility] | | | and Angelana | + + + | Organization | [facility] | | | and Angelana [...] Team Providers + +------+ + | Care Refractory Specialist Name | Role | Phone | + +------+ + | Corin Cordero NP | PCP | | + +------+ + Encounter Details +--------+ + + + + | Date | Type | Department | Care Team | Description | +--------+ + + + + | 07/27/ | Hospital | [facility] | [place], | Recurrent pneumonia | | 2016 | Encounter | MED CTR XRAY [address] | Yareli Nava MD | | | | | [place] [address] | | | | | | [place] [address] | | | | | | [phone] | | | +--------+ + + + [...] XR CHEST 2 VIEWS | Routin | 07/28/2015 | Recurrent | Results for this | | | e | 12:41 PM | pneumonia | procedure are in the | | | | PDT | | results section. | + +--------+ + + + documented in this encounter Results XR Chest 2 VW (07/28/2015 12:41 PM PDT) + + | Specimen | + + | | + + + + + | Narrative | Performed At | + + + | TWO-VIEW CHEST: 07/28/2015 12:00 PM CLINICAL HISTORY: pnuemonia | [facility] | | COMPARISON: 04/28/2015 FINDINGS: Heart size is normal. Aorta and | [facility] | | pulmonary vasculature are within normal limits. No mediastinal | MEDICAL CENTER | | widening. Thin horizontal linear scar in the right midlung, where | - IMAGING | | pneumonia was previously present. No other residual airspace density. | | | No effusion or pneumothorax. No acute bony abnormalities. No | | | upper abdominal abnormalities. IMPRESSION - Thin linear scar right | | | midlung. Otherwise complete clearing of previously noted airspace | | | process. Dictated and Signed by: Sampson Bradford MD | | | Electronically signed: 07/28/2015 1:54 PM | | + + + + + | Procedure Note | + + | Enrike, Rad Results In - 07/28/2015 1:57 PM PDT TWO-VIEW CHEST: 07/28/2015 12:00 PM | | | | CLINICAL HISTORY: pnuemonia | | | | COMPARISON: 04/28/2015 | | | | FINDINGS: Heart size is normal. Aorta and pulmonary vasculature are within | | normal limits. No mediastinal widening. | | | | Thin horizontal linear scar in the right midlung, where pneumonia was previously | | present. No other residual airspace density. No effusion or pneumothorax. | | | | No acute bony abnormalities. No upper abdominal abnormalities. | | | | IMPRESSION - Thin linear scar right midlung. Otherwise complete clearing of | | previously noted airspace process. | | | | Dictated and Signed by: Sampson Bradford MD | | Electronically signed: 07/28/2015 1:54 PM | + + + + + + + | Performing | Address | City/State/Zipcode | Phone Number | | Organization | | | | + + + + + | [facility] | [address] | [place] | [phone] | | [facility] | | [address] | | | - IMAGING | | | | + + + + + documented in this encounter Visit Diagnoses + + | Diagnosis | + + | Recurrent pneumonia Pneumonia, organism unspecified | + + documented in this encounter"
--- OUTSIDE RECORDS SUMMARY | ~2019-04-16 | XMS | Encounter Summary ---
Demographics + + + | Address | [address] | | | [place] [address] | + + + | Home Phone | | + + + | Preferred Language | Unknown | + + + | Marital Status | Single | + + + | Latter-Day Affiliation | 1013 | + + + | Race | Unknown | + + + | Ethnic Group | Unknown | + + + Author + + + | Author | [facility] | | | and Angelana | + + + | Organization | [facility] | | | and Angelana [...] Team Providers + +------+ + | Care Mine Motor Operator Name | Role | Phone | + +------+ + | Corin Cordero NP | PCP | | + +------+ + Encounter Details +--------+ + + + + | Date | Type | Department | Care Team | Description | +--------+ + + + + | 10/03/ | Orders Only | [facility] | Nakul Nichols MD | | | 2010 | | [facility] | | | | | | CLINICAL LABORATORY | | | | | | [address] | | | | | | [place], [place] | | | | | | [address] | | | | | | [phone] | | | +--------+ + + + [...] EXTERNAL LAB | | Testing performed at [facility];[address] [place] [address];[place] [address] | | + + + + +---------+ + + | Performing | Address | City/State/Zipcode | Phone Number | | Organization | | | | + +---------+ + + | EXTERNAL LAB | | | | + +---------+ + + documented in this encounter Visit Diagnoses Not on filedocumented in this encounter"
--- OUTSIDE RECORDS SUMMARY | ~2019-04-16 | XMS | Clinical Summary ---
Demographics + + + | Address | [address] | | | [place] [address] | + + + | Home Phone | | + + + | Preferred Language | Unknown | + + + | Marital Status | Single | + + + | Sabianism Affiliation | Unknown | + + + | Race | Unknown | + + + | Ethnic Group | Unknown | + + + Author + + + | Author | [facility] ([facility] | | | 11-24-18) | + + + | Organization | [facility] (Historical as of | | | 11-24-18) | + + + | Address | Unknown | + + + | Phone | Unavailable | + + + Support + + + + + | Name | Relationship | Address | Phone | + + + + + | Doug Finney | ARCHANA | [place] | | | | | [address] | | + + + + + | Doris Barclay | ECON | [address] | | | | | [place] | | | | | [address] | | + + + + + Care Team Providers + +------+ + | Care Equine Breeder Name | Role | Phone | + +------+ + | Ja Moody TRUCK CLEANER | PP | | + +------+ + [...] | [place] - PREMIERCARE | [place]-PRE | [id number] | Medica | | | | FAMILY | [place] | | re | | | | | RE | | | | | | | FAMILY | | | | | + +--------+ +--------+-------+ + | MEDICAID | [place] | [id number] | | | [address] | | | N | | | | [place] | | | [place] | | | | [address] | | | ED TECH | | | | | + +--------+ [...] | Self [birth year] | Home: | [address] [place] [address] | | | al/Fam | | 1966 | [phone] | [place] | | | ana | | | [phone] | [address] | + +--------+ +--------+ + +
--- OUTSIDE RECORDS SUMMARY | ~2019-04-16 | XMS | Encounter Summary ---
Demographics + + + | Address | [address] | | | [place] [address] | + + + | Home Phone | | + + + | Preferred Language | Unknown | + + + | Marital Status | Single | + + + | Rastafari Affiliation | 1013 | + + + | Race | Unknown | + + + | Ethnic Group | Unknown | + + + Author + + + | Author | [facility] | | | and Angelana | + + + | Organization | [facility] | | | and [...] Team Providers + +------+ + | Care Juice Bar Team Member Name | Role | Phone | + [...] MD | pneumonia) | | | | [place], | | | | | | [place] [address] | | | | | | [phone] | | | +--------+ + + + [...]
--- OUTSIDE RECORDS SUMMARY | ~2019-04-16 | XMS | Encounter Summary ---
Demographics + + + | Address | [address] | | | [place] [address] | + + + | Home Phone [...] | Located Within [facility] | | | and Angelana | + + + | Organization | Located Within [facility] | | | and [...] Team Providers + +------+ + | Care Plant Mechanic Name | Role | Phone | + [...] | | | | | ([facility]) | [address] | AVE | | | | | Procedures | [place], | [place], [place] | | | | | XR Chest PA | [place] [address] | [address] | | | | | and Lateral | | Phone: | | | | | | | [phone] | | | | | | | Fax: | | | | | | | [phone] | +--------+--------+ + + + + Diagnostic/Screening [...] | | | | | ([facility]) | [address] | AVE | | | | | Procedures | [place], | [place], [place] | | | | | [place] UGI | [place] [address] | [address] | | | | | | | Phone: | | | | | | | [phone] | | | | | | | Fax: | | | | | | | [phone] | +--------+--------+ + + + + Reason [...] | | POSSIBLE SETH | Corin Melgoza SCHEDULING ANALYST | [address] | | | | | Procedures | [address] | [address] | | | | | NEW PT | AVE [place] | [place], | | | | | CONSULT | [facility], | [place] [address] | | | | | | [place] [address] | | | | | | | Phone: | | | | | | | [phone] | | | | | | | Fax: | | | | | | | [phone] | | +--------+--------+ + + + + Encounter Details +--------+---------+ + + + | Date | Type | Department | Care Team | Description | +--------+---------+ + + + | 10/16/ | Office | [facility] | Kate, | Hypoxemia (Primary | | 2014 | Visit | PULMONARY [address] | Yareli Nava MD | Dx); Recurrent | | | | [place], | | aspiration pneumonia | | | | [place] [address] | | ([facility]); Excessive | | | | [phone] | | daytime sleepiness | +--------+---------+ + [...] chest x-ray, and walking oxygen test at [facility]. Do an overnight oxygen test through [facility]. Call to have a box delivered by the [facility]. Wear the finger probe through the night. Do the test on room air. Call t [employer] to have the box picked up the [...] he was sick. He was hospitalized at [facility] and in the ICU. He did undergo [...] Concern None Social History Narrative Lives: in [place] With: foster home Grew up: [place] Has [...] available for rev iew. Hospital records [facility] 07/2014were reviewed today. Pulmonary function tests were attempted prior to clinic today and were reviewed and interpr eted in clinic today. They did not get reliable results. Corin Cordero NP's notes were reviewed in clinic today. [place] sleepiness scale score 22. Immunization History Administered Date(s) Administered INFLUENZA, P6H9-32, ALL FORMULATIONS 01/16/2014 PNEUMOCOCCAL, UNSPECIFIED FORMULATION 01/16/2010 [...] made to ensure accuracy; however, inadvertent computerized pattern molder errors may be pre sent. documented in [...]
--- OUTSIDE RECORDS SUMMARY | ~2019-04-16 | XMS | Encounter Summary ---
Demographics + + + | Address | [address] | | | [place] [address] | + + + | Home Phone | | + + + | Preferred Language | Unknown | + + + | Marital Status | Single | + + + | Anabaptist Affiliation | Unknown | + + + [...] Team Providers + +------+ + | Care Assistant Clinical Director Name | Role | Phone | [...] | | | | [address] | [facility] | | | | | Mailcode: UHS13 | [place] [address] | | | | | Jennifer [place]on | | | | | | [address] [place], [place] | | | | | | [address] | | | | | | [phone] | | | +--------+ + + + [...] + + + | PULMONARY | Site: [facility] | | [facility] | | | INTERPRETAT | [facility] | | SPECIAL | | | ION | [facility] | | DIAGNOSTICS | | | | Rd,[place], [place], | | - | | | | [address]XU: [id number] | | PULMONARY | | | | Name: JULIANE FINNEY | | FUNCTION | | | | EVisit Date: 12/11/2018 | | | | | | Second ID: | | | | | | [id number]: | | | | | | Jerica Teixeira: 53 | | | | | | : 1965 Sex: | | | | | | Male Race: | | | | | | CaucasianHeight: 157.00 | | | | | | Cms Weight: 50.00 | | | | | | Kgs BSA: 1.48Order | | | | | | IDs: [id number] | | | | | | Test(s): [...] + + + + + + | [id number]% | 1.26 | 2.58 L/sec | [facility] | | | PRE | | | SPECIAL | | | | | | DIAGNOSTICS | | | | | | - | | | | | | PULMONARY | | | | | | FUNCTION | | + + + + + + | BKE11-54% | 48 | % | [facility] | [...] [facility] | [address] | [place], [place] | | | DIAGNOSTICS - | [address] | [address] | | | PULMONARY FUNCTION | | | | + + + + + documented in this encounter Visit Diagnoses + + | Diagnosis | + + | Pneumonitis due to inhalation of food and vomit (HCC) Pneumonitis due to inhalation | | of food or vomitus | + + documented in this encounter"
--- OUTSIDE RECORDS SUMMARY | ~2019-04-16 | XMS | Encounter Summary ---
Demographics + + + | Address | [address] | | | [place] [address] | + + + | Home Phone [...] + + + | Author | [facility] | | | and Angelana | + + + | Organization | [facility] | | | and [...] Team Providers + +------+ + | Care Gaming Worker Name | Role | Phone | + +------+ + | Corin Cordero SPOTLIGHT OPERATOR | PCP | | + +------+ + [...] + + | 04/28/ | Office | [facility] | [place], | Exercise hypoxemia | | 2015 | Visit | PULMONARY [address] | Yareli Nava MD | (Primary Dx); | | | | [place], | | Recurrent pneumonia; | | | | [place] [address] | | Oropharyngeal | | | | [phone] | | dysphagia | +--------+---------+ + + [...] stop it. Have walking oxygen test at [facility] to see if we can stop the [...] recurrent pneumonia. He recently was hospitalized at [facility], for pneumonia. I had prescribed a course [...] have another swallow study done while at [facility], and this did show he aspirat ed. [...] Concern None Social History Narrative Lives: in [place] With: foster home Grew up: [place] Has [...] Data: Immunization History Administered Date(s) Administered INFLUENZA, V6C1-89, ALL FORMULATIONS 01/16/2014 INFLUENZA, UNSPECIFIED FORMULATION 01/17/2015 PNEUMOCOCCAL, UNSPECIFIED FORMULATION 01/16/2010 Assessment ICD-10-CM ICD-9-CM 1. Exercise hypoxemia R09.02 799.02 Oxygen needs are steadily decreasing with correction of anemia and being further out from his pneumonia. We will recheck an ambulating oximetry at [facility] to see if we can discontinue the portable oxy gen. Ambulating oximetry- Ancillary 2. Recurrent pneumonia J18.9 486 On dysphagia diet and using chlorhexidine rinses. I am not certain that he has decreased the frequency of these episodes, but he is also not doing ter [facility] bed with good caregiving. This may also be due in part to leukopenia from dilantin, but I need more information so I will attempt to get records. XR Chest PA and Lateral 3. Oropharyngeal dysphagia R13.12 787.22 On dysphagia diet and followed closely by his ocular care aide. Plan 1.Recheck ambulating oximetry. 2.Continue dysphagia diet, and chlorhexidine rinses. 3.I will get records and imaging from [facility] and Dr. Meyers. 4. Recheck chest x-ray today. He was advised to call if new pulmonary symptoms were to develop. Return to clinic in 3 months, or sooner with concerns. CC: Corin Cordero NP Portions of this report were transcribed using voice recognition software. Every effort wa s made to ensure accuracy; however, inadvertent computerized critical care specialist errors may be pre sent. documented in [...] ST. | [address] | [place] | [phone] | | [facility] | | [address] | | | - IMAGING | | [...]
--- OUTSIDE RECORDS SUMMARY | ~2019-04-16 | XMS | Encounter Summary ---
Demographics + + + | Address | [address] | | | [place] [address] | + + + | Home Phone | | + + + | Preferred Language | Unknown | + + + | Marital Status | Single | + + + | Druze Affiliation | 1013 | + + + | Race | Unknown | + + + | Ethnic Group | Unknown | + + + Author + + + | Author | [facility] | | | and Angelana | + + + | Organization | [facility] [...] Providers + +------+ + | Care Director Enterprise Systems Name | Role | Phone | + +------+ + | Corin Cordero NP | PCP | | + +------+ + Encounter Details +--------+ + + + + | Date | Type | Department | Care Team | Description | +--------+ + + + + | 01/23/ | Hospital | [facility] | [place], | Recurrent pneumonia | | 2015 | Encounter | MED CTR XRAY [address] | Yareli Nava MD | | | | | [address] | | | | | | [place] [address] | | | | | | [phone] | | | +--------+ + + + [...] recurrent pneumonia with minimal presenting signs. | [facility] | | COMPARISON: Multiple priors. [...] ST. | [address] | [place] | [phone] | | [facility] | | [address] | | | - IMAGING | | | | + + + + + documented in this encounter Visit Diagnoses + + | Diagnosis | + + | Recurrent pneumonia Pneumonia, organism unspecified | + + documented in this encounter"
--- OUTSIDE RECORDS SUMMARY | ~2019-04-16 | XMS | Encounter Summary ---
Demographics + + + | Address | [address] | | | [place] [address] | + + + | Home Phone | | + + + | Preferred Language | Unknown | + + + | Marital Status | Single | + + + | Jainism Affiliation | 1013 | + + + | Race | Unknown | + + + | Ethnic Group | Unknown | + + + Author + + + | Author | [facility] | | | and Angelana | + + + | Organization | [facility] | | | and Angelana [...] Team Providers + +------+ + | Care Integration Consultant Name | Role | Phone | + [...] | and CXR) | | | | [place], | | | | | | [place] [address] | | | | | | [phone] | | | +--------+ + + + [...]
--- OUTSIDE RECORDS SUMMARY | ~2019-04-16 | XMS | Encounter Summary ---
Demographics + + + | Address | [address] | | | [place] [address] | + + + | Home Phone | | + + + | Preferred Language | Unknown | + + + | Marital Status | Single | + + + | Druze Affiliation | Unknown | + + + [...] Team Providers + +------+ + | Care Payroll And Benefits Assistant Name | Role | Phone | [...]
--- OUTSIDE RECORDS SUMMARY | ~2019-04-16 | XMS | Encounter Summary ---
Demographics + + + | Address | [address] | | | [place] [address] | + + + | Home Phone | | + + + | Preferred Language | Unknown | + + + | Marital Status | Single | + + + | Synagogue Affiliation | 1013 | + + + | Race | Unknown | + + + | Ethnic Group | Unknown | + + + Author + + + | Author | [facility] | | | and Angelana | + + + | Organization | [facility] [...] Team Providers + +------+ + | Care Mixing Operator Name | Role | Phone | [...] | | unspecified | | | | [place], | | aspiration pneumonia | | | | [place] [address] | | type (HCC) (Primary | | | | [phone] | | Dx) | +--------+ + + [...] Love MD | | | 10/19/2014 20:33 [facility] CC: | | | Corin Cordero NP | | + + + documented in this encounter Visit Diagnoses + + | Diagnosis | + + | Aspiration pneumonia, unspecified aspiration pneumonia type - Primary | + + documented in this encounter"
--- OUTSIDE RECORDS SUMMARY | ~2019-04-16 | XMS | Encounter Summary ---
Demographics + + + | Address | [address] | | | [place] [address] | + + + | Home Phone [...] + + + | Author | [facility] | + + + | Organization | [facility] | + + + | Address | Unknown | + + + | Phone | Unavailable | + + + Support + + +---------+ + | Name | Relationship | Address | Phone | + + +---------+ + | Kristy Medabalime | ECON | Unknown | | + + +---------+ + Care Team Providers + +------+ + | Care Hotel Front Desk Agent Name | Role | Phone | + +------+ + | Kvng Wheatley MD | PCP | | + +------+ + Encounter Details +--------+ + + + + | Date | Type | Department | Care Team | Description | +--------+ + + + + | 10/30/ | Him Coder | Cardiology General | Mannie Rosa | Screening for | | 2008 | | at [facility] [address] | Cardiovascular | | | | Sean Lenz Mailcode: | [place], [place] | Condition (Primary | | | | [facility] for | [address] | Dx) | | | | Health and Healing, | [phone] | | | | | [facility] | | | | | | Floor [place], [place] | | | | | | [address] | | | | | | [phone] | | | +--------+ + + + [...]
--- OUTSIDE RECORDS SUMMARY | ~2019-04-16 | XMS | Encounter Summary ---
Demographics + + + | Address | [address] | | | [place] [address] | + + + | Home Phone | | + + + | Preferred Language | Unknown | + + + | Marital Status | Single | + + + | Samaritan Affiliation | 1013 | + + + | Race | Unknown | + + + | Ethnic Group | Unknown | + + + Author + + + | Author | [facility] | | | and Angelana | + + + | Organization | [facility] | | | and [...] Team Providers + +------+ + | Care Art Display Maker Name | Role | Phone | + +------+ + | Corin Cordero NP | PCP | | + +------+ + Encounter Details +--------+ + + + + | Date | Type | Department | Care Team | Description | +--------+ + + + + | 09/30/ | Orders Only | [facility] | Jose Daniel Nicole | | | 2010 | | MEDICAL CENTER | Howie Cifuentes MD [address] | | | | | CLINICAL LABORATORY | [address] | | | | | [address] | [place] [address] | | | | | [place], [place] | [phone] | | | | | [address] | | | | | | [phone] | | | +--------+ + + + [...] | Testing performed | | | at [facility];[address] [place] [address];[place] [address] CULTURE | | | NO GROWTH IN 5 DAYS. | | | Testing performed at [facility];[address] [facility] | | | [place] [address] REPORT STATUS | | | 10/05/2010 FINAL [...]
--- OUTSIDE RECORDS SUMMARY | ~2019-04-16 | XMS | Encounter Summary ---
Demographics + + + | Address | [address] | | | [place] [address] | + + + | Home Phone | | + + + | Preferred Language | Unknown | + + + | Marital Status | Single | + + + | Sabianism Affiliation | 1013 | + + + | Race | Unknown | + + + | Ethnic Group | Unknown | + + + Author + + + | Author | [facility] | | | and Angelana | + + + | Organization | [facility] | | | and [...] Team Providers + +------+ + | Care Digital Controls Technical Officer Name | Role | Phone | + +------+ + | Corin Cordero NP | PCP | | + +------+ + Encounter Details +--------+ + + + + | Date | Type | Department | Care Team | Description | +--------+ + + + + | 09/30/ | Orders Only | [facility] | Jose Daniel Nicole | | | 2010 | | MEDICAL CENTER | Howie Cifuentes MD [address] | | | | | CLINICAL LABORATORY | [address] | | | | | [address] | [place] [address] | | | | | [place], [place] | [phone] | | | | | [address] | | | | | | [phone] | | | +--------+ + + + [...] Results for this | | | | 2:00 AM | | procedure are in the | | | | PDT | | results section. | + +--------+ + + + documented in this encounter Results Culture, Blood (09/30/2010 2:00 AM PDT) + + | Specimen | + + | | + + + + + | Narrative | Performed At | + + + | Specimen Description BLOOD, PERIPHERAL DRAW | EXTERNAL LAB | | Testing performed | | | at [facility];[address] [place] [address];[place] [address] CULTURE | | | NO GROWTH IN 5 DAYS. | | | Testing performed at [facility];[address] [facility] | | | [address];[place] [address] REPORT STATUS | | | 10/05/2010 FINAL [...]
--- OUTSIDE RECORDS SUMMARY | ~2019-04-16 | XMS | Encounter Summary ---
Demographics + + + | Address | [address] | | | [place] [address] | + + + | Home Phone [...] | Author | [facility] | | | and Angelana | + + + | Organization | [facility] | | | and Angelana [...] Team Providers + +------+ + | Care Labor Training Manager Name | Role | Phone | + +------+ + | Corin Cordero NP | PCP | | + +------+ + Encounter Details +--------+ + + + + | Date | Type | Department | Care Team | Description | +--------+ + + + + | 01/23/ | Orders Only | [facility] [place] | Sophie Vinson, | Exercise hypoxemia | | 2014 | | PULMONARY [address] | RN | | | | | [place], | | | | | | [place] [address] | | | | | | [phone] | | | +--------+ + + + [...]
--- OUTSIDE RECORDS SUMMARY | ~2019-04-16 | XMS | Encounter Summary ---
Demographics + + + | Address | [address] | | | [place] [address] | + + + | Home Phone | | + + + | Preferred Language | Unknown | + + + | Marital Status | Single | + + + | Worship Affiliation | Unknown | + + + | Race | White | + + + | Ethnic Group | Not or | + + + Author + + + | Author | [facility] | + + + | Organization | [facility] | + + + | Address | Unknown | + + + | Phone | Unavailable | + + + Support + + +---------+ + | Name | Relationship | Address | Phone | + + +---------+ + | Kristy Medabalime | ECON | Unknown | | + + +---------+ + Care Team Providers + +------+ + | Care Double Ending Machine Operator Name | Role | Phone | + +------+ + | Corin Cordero NP | PCP | | + +------+ + Encounter Details +--------+ + + + + | Date | Type | Department | Care Team | Description | +--------+ + + + + | 09/07/ | Bank Representative | Pulmonary & | Clinic, Pulmonary | Pneumonitis due to | | 2018 | | Critical Care | | inhalation of food | | | | Medicine at | | and vomit (HCC) | | | | [facility] | | (Primary Dx) | | | | [address] | | | | | | Loop Mailcode: | | | | | | [id number] | | | | | | [address] | | | | | | [place], [place] | | | | | | [address] | | | | | | [phone] | | | +--------+ + + + [...] + + + | PULMONARY | Site: [facility] and | | [facility] | | | INTERPRETAT | [facility], [address] | | SPECIAL | | | [address] | [address] [facility] [address] [facility] | | DIAGNOSTICS | | | | [address],[place], [place], | | - | | | | [address]HS: [id number] | | PULMONARY | | | | Name: JULIANE FINNEY | | FUNCTION | | | | EVisit Date: 12/11/2018 | | | | | | Second ID: | | | | | | [id number]: | | | | | | [place]elleAge: 53 | | | | | | : 1965 Sex: | | | | | | Male Race: | | | | | | CaucasianHeight: 157.00 | | | | | | Cms Weight: 50.00 | | | | | | Kgs BSA: 1.48Order | | | | | | IDs: [id number] | | | | | | Test(s): [...] + + + + + + | EWZ87-05% | 1.26 | 2.58 L/sec | [facility] | | | PRE | | | SPECIAL | | | | | | DIAGNOSTICS | | | | | | - | | | | | | PULMONARY | | | | | | FUNCTION | | + + + + + + | GPD24-61% | 48 | % | [facility] | [...] [facility] | [address] | [place], [place] | | | DIAGNOSTICS - | [address] | [address] | | | PULMONARY FUNCTION | | | | + + + + + documented in this encounter Visit Diagnoses + + | Diagnosis | + + | Pneumonitis due to inhalation of food and vomit (HCC) - Primary Pneumonitis due to | | inhalation of food or vomitus | + + documented in this encounter"
--- OUTSIDE RECORDS SUMMARY | ~2019-04-16 | XMS | Encounter Summary ---
Demographics + + + | Address | [address] | | | [place] [address] | + + + | Home Phone | | + + + | Preferred Language | Unknown | + + + | Marital Status | Single | + + + | Protestant Affiliation | 1013 | + + + | Race | Unknown | + + + | Ethnic Group | Unknown | + + + Author + + + | Author | [facility] | | | and Angelana | + + + | Organization | [facility] | | | and [...] Team Providers + +------+ + | Care Engineer Steam Name | Role | Phone | + +------+ + | Corin Cordero MARKETING PRODUCER | PCP | | + +------+ + [...] + + | 07/27/ | Office | [facility] | [place], | Recurrent pneumonia | | 2015 | Visit | PULMONARY [address] | Yareli Nava MD | (Primary Dx); | | | | [place], | | Exercise hypoxemia; | | | | [place] [address] | | Oropharyngeal | | | | [phone] | | dysphagia | +--------+---------+ + + [...] done a chest x-ray shortly thereafter at [facility] and this again raised concern of a [...] Concern None Social History Narrative Lives: in [place] With: foster home Grew up: [place] Has [...] chest. Immunization History Administered Date(s) Administered INFLUENZA, R1K6-33, ALL FORMULATIONS 01/16/2014 INFLUENZA, UNSPECIFIED FORMULATION 01/17/2015 [...] x-ray today. 2.Obtain recent chest x-rays from [facility] and notes from Eneida Heart NP. 3.Recheck [...] made to ensure accuracy; however, inadvertent computerized silver service waiter errors may be pre sent. documented in [...]
--- OUTSIDE RECORDS SUMMARY | ~2019-04-16 | XMS | Encounter Summary ---
Demographics + + + | Address | [address] | | | [place] [address] | + + + | Home Phone | | + + + | Preferred Language | Unknown | + + + | Marital Status | Single | + + + | Yazidi Affiliation | 1013 | + + + | Race | Unknown | + + + | Ethnic Group | Unknown | + + + Author + + + | Author | [facility] | | | and Angelana | + + + | Organization | [facility] | | | and [...] Team Providers + +------+ + | Care Issuing Operator Name | Role | Phone | + +------+ + | Corin Cordero NP | PCP | | + +------+ + Encounter Details +--------+ + + + + | Date | Type | Department | Care Team | Description | +--------+ + + + + | 01/23/ | Hospital | [facility] | [place], | Hypoxemia | | 2015 | Encounter | MED CTR PULMONARY | Yareli Nava MD | | | | | FUNCTION [address] | | | | | | [place], | | | | | | [place] [address] | | | | | | [phone] | | | +--------+ + + + [...] mouth | 900 mL | 11 | /12/28 | | | (PERIDEX) 0.12% | 2 [...] + | PFT PULMONARY | NURY | 01/23/2015 | Hypoxemia | | | FUNCTION TESTING | | 10:22 AM | | | | ORDERS | | PDT | | | + +--------+ + + + | DIAGNOSTIC REPORT - | | 01/23/2015 | | | | EXTERNAL SCAN | | 12:00 AM | | | | | | PDT | | | + +--------+ + + + | DIAGNOSTIC REPORT - | | 01/23/2015 | | | | EXTERNAL SCAN | | 12:00 AM | | | | | | PDT | | | + +--------+ + + + documented in this encounter Visit Diagnoses + + | Diagnosis | + + | Hypoxemia | + + documented in this encounter"
--- OUTSIDE RECORDS SUMMARY | ~2019-04-16 | XMS | Encounter Summary ---
Demographics + + + | Address | [address] | | | [place] [address] | + + + | Home Phone [...] Author + + + | Author | [facility] | + + + | Organization | [facility] | + + + | Address | Unknown | + + + | Phone | Unavailable | + + + Support + + +---------+ + | Name | Relationship | Address | Phone | + + +---------+ + | Kristy Medabalime | ECON | Unknown | | + + +---------+ + Care Team Providers + +------+ + | Care Senior Java Software Engineer Name | Role | Phone | + +------+ + | Corin Cordero NP | PCP | | + +------+ + Encounter Details +--------+ + + + + | Date | Type | Department | Care Team | Description | +--------+ + + + + | 09/02/ | 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
--- OUTSIDE RECORDS SUMMARY | ~2019-04-16 | XMS | Encounter Summary ---
Demographics + + + | Address | [address] | | | [place] [address] | + + + | Home Phone | | + + + | Preferred Language | Unknown | + + + | Marital Status | Single | + + + | [employer] Affiliation | [id number] | + + + | Race | Unknown | + + + | Ethnic Group | Unknown | + + + Author + + + | Author | [facility] | | | and Angelana | + + + | Organization | [facility] | | | and [...] Team Providers + +------+ + | Care Manager Nicu Name | Role | Phone | + +------+ + PCP | Unavailable | + +------+ + Encounter Details +--------+ + + + + | Date | Type | Department | Care Team | Description | +--------+ + + + + | 06/09/ | Hospital | [facility] | MonicaLucia DO | Down syndrome; | | 2013 - | Encounter | [facility] | [address] | Dysphagia, late | | | | CARE FLOOR [address] | [place] [address] | effect of | | 06/18/ | | [address] | [phone] | cerebrovascular | | 2012 | | [place], [place] | | disease; Pressure | | | | [phone] | | ulcer, stage 2; | | | | [phone] | | Acute renal failure | | | | | | (ARF) ([facility]); Acute | | | | | | respiratory failure | | | | | | (HCC); Aspiration | | | | | | pneumonia ([facility]); | | | | | | Hypoxemia; Recurrent | | | | | | aspiration | | | | | | pneumonia ([facility]); | | | | | | Septic shock ([facility]); | | | | | | Debility, | | | | | | unspecified; | | | | | | Bacterial pneumonia, | | | | | | unspecified | +--------+ + + + + Social [...] + + documented as of this encounter Discharge Summaries Harriett Rome MD - 06/18/2012 12:00 PM PDTFormatting of this note might be differe nt from the original. Discharge Summaries by Harriett Rome MD at 06/18/12 1200 Author: Harriett Rome MD Service: Hospitalist Author Type: Physician Filed: 06/18/12 1215 Date of Service: 06/18/12 1200 Status: Signed Sap Data Architect: Harriett Rome MD (Physician) [facility] Service: Hospitalist Discharge Summary Date of Admission: 06/09/2012 Date of Discharge: 06/18/2012, 12 Noon Discharge Provider: HARRIETT ROME MD Treatment Team: Admitting Provider: Lucia Anderson DO Discharge Diagnoses: Principal Problem: *Septic shock Active Problems: Down syndrome Recurrent aspiration pneumonia Acute respiratory failure Acute renal failure (ARF) Debility, unspecified Bacterial pneumonia, unspecified Dysphagia, late effect of cerebrovascular disease Pressure ulcer, stage 2 Resolved Problems: * No resolved hospital problems. * Procedures: * No surgery found * Significant Diagnostic Studies: CBC, CMP, CXR HISTORY OF PRESENTATION AND HOSPITAL COURSE: Juliane Marina Jr. is a 46 y.o. male with significant past medical history of Down's syndr ome, psychosis, hypothyroidism and h/o Right hip abscess (healing). The pt arrived here at [facility] ICU intubated and sedated and but his brother, Yandel, showed up here and gave some hx and also gave the name and # for caregiver, Kristy. She reports that pt has had exposure to [facility] people where he works earlier this week (people with coughs, colds, runny noses, etc). 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 He did not have any fevers/chills an d no other noted discomfort (pt is nonverbal). He went to bed a little early the night befor e presentation (which she said is not unusual). This am he initially seemed fine. She checke d on him later in the am and he appeared to be having labored breathing and was pale and not very alert. He had what appeared to be some emesis on his face and bedding. She reports he also was incontinent of urine and had an episode of diarrhea x1. She called EMS. He was initially taken to the ED at [facility] in [place], [place], where he was brought by EMS. Pt was hypoxemic when EMS arrived with sats were 60% that improved to low 90s with NRB mask O2. In the ED he was obtunded in the ED and was intubated. Kristy and Yandel both reported that pt has a h/o aspiration events and is on a 100% pureed, nectar thick diet with close monitoring because of this. He has had aspiration PNA in the [facility]. His brother also reports h/o JOSSELYN with what sounds like hydronephrosis and has had ureter al stents in the past. He has seen a urologist in [place] but his brother does not know of any visits or problems for the past couple years or more. ICU TIMELINE: 06/09/12 [facility]-TLC, RRA line 06/10/12 - Extubated. 06/11/12 - Weaned oxygen. Improved pulmonary toilet. Levophed weaned. After extubation in ICU he was monitored overnight. He was taken off the pressors and event ually transferred to the medical floor for further management. On the medical floor he alexandra nues to show improvement, however has severe hypoxia with oxygen saturation ranging from 86 to 92 % requiring high flow oxygen. He was kept on aggressive nebulization's along with pulm onary toilet and nasotracheal suctioning. The combination of both and antibiotics helped in improving his respiratory status. His oxygen requirements continued to decrease and on the d ay of discharge RT evaluated him and he did not need any oxygen for home. PT / OT and Speec h therapy were on board and he showed improvement in strengths and mobility while his swallo wing is improving slowly. He is now tolerating pureed and soft diet and speech will continue to follow him at the adult family home in [place], [place]. He has been on Unasyn for aspi ration / bacterial pneumonia which is now changed to oral Augmentin which he will take for a nother 5 days. Wound team were on board for chronic stage 2 pressure ulcers at the buttocks. They recommended dressings and frequent turning in order to lessen the pressure on the musc les. He has been doing fairly well in the past 24 to 48 hours and now discharged back to his [place] family home in a stable condition with recommednations to follow up with his PCP, juarez durham OT and Speech evaluation. OVERNIGHT EVENTS: Patient was seen and examined. Patient was seen sitting on the chair. He was awake and aler t and responded to some questions with short answers which is his baseline. Oxygen saturatio n was stable on room. Ambulates to the bathroom and hallways with a walker. Has less cough o ff and on with some phlegm production as reported by the staff. No behavioral issues and no episodes of abdominal pain, nausea and no vomiting. Remained afebrile. Past Medical History Diagnosis Date Down syndrome limited verbal Recurrent aspiration pneumonia Hypothyroidism History of macrocytic anemia Hypertension Depression Pressure ulcer of right hip Psychosis Acute renal failure (ARF) 06/09/2012 Hydronephrosis Past Surgical History Procedure Date Ureteral stent placement history of stents Allergies Allergen Reactions Carbamazepine Other (See Comments) Unknown- allergy listed in old chart notes DISCHARGE EXAM Vital Signs: BP 119/63 | Pulse 74 | Temp(Src) 98.4 F (36.9 C) (Oral) | Resp 16 | Ht 1.676 m (5' 6") | Wt 89.1 kg (196 lb 6.9 oz) | BMI 31.70 kg/m2 | SpO2 95% Physical Exam Vitals reviewed. Constitutional: He appears well-developed and well-nourished. No distress. HENT: Head: Normocephalic and atraumatic. Right Ear: External ear normal. Left Ear: External ear normal. Nose: Nose normal. Mouth/Throat: Oropharynx is clear and moist. Eyes: Conjunctivae are normal. Pupils are equal, round, and reactive to light. Right eye ex hibits no discharge. Left eye exhibits no discharge. No scleral icterus. Cardiovascular: Normal rate, regular rhythm, normal heart sounds and intact distal pulses. Exam reveals no gallop and no friction rub. No murmur heard. Pulmonary/Chest: Effort normal. No respiratory distress. He has no wheezes. He exhibits no tenderness. Few rales at the bases more on the right. Abdominal: Soft. Bowel sounds are normal. He exhibits no distension and no mass. There is n o tenderness. There is no guarding. Musculoskeletal: Normal range of motion. He exhibits edema. He exhibits no tenderness. Trace pedal edema. Neurological: He is alert. He displays normal reflexes. No cranial nerve deficit. He exhibi ts normal muscle tone. Coordination normal. Skin: Skin is warm and dry. No rash noted. He is not diaphoretic. There is erythema. No pal darin. + Skin pressure ulcers stage 2 at the buttocks. Psychiatric: His behavior is normal. Patient has Down's Syndrome and does not communicate well. DATA Recent Results (from the past 24 hour(s)) COMPREHENSIVE METABOLIC PANEL Collection Time 06/18/12 4:30 AM Component Value Range SODIUM 147 (*) 135 - 143 mmol/L POTASSIUM 3.5 3.5 - 4.9 mmol/L CHLORIDE 106 99 - 109 mmol/L CO2 32 23 - 32 mmol/L ANION GAP AGAP 12 5 - 20 mmol/L GLUCOSE 91 65 - 99 mg/dL BUN 7 (*) 8 - 25 mg/dL CREATININE 1.18 0.70 - 1.30 mg/dL BUN/CREAT 6 CALCIUM 8.9 8.5 - 10.2 mg/dL TOTAL PROTEIN 5.8 (*) 6.3 - 8.2 g/dL Albumin 2.1 (*) 3.6 - 5.0 g/dL GLOBULIN 3.6 1.3 - 4.9 g/dL A/G 0.6 (*) 1.0 - 2.4 TBIL 0.3 0.1 - 1.5 mg/dL ALK PHOS 66 35 - 115 U/L AST 26 10 - 45 U/L ALT 18 10 - 65 U/L EGFR >60 >60 mL/min/1.73m2 CBC W/AUTO DIFF (REFLEX TO MANUAL) Collection Time 06/18/12 4:30 AM Component Value Range WBC 7.0 3.8 - 11.0 K/uL RBC 2.64 (*) 4.20 - 5.70 M/uL HGB 9.1 (*) 13.2 - 17.0 g/dL HCT 28.1 (*) 39.0 - 50.0 % MCV 106.6 (*) 80.0 - 100.0 fl MCH 34.4 (*) 27.0 - 34.0 pg MCHC 32.2 32.0 - 35.5 g/dL RDW SD 75.7 (*) 37 - 53 fl PLT 244 150 - 400 K/uL MPV 10.3 DIFF TYPE AUTOMATED NEUTROPHILS 48.3 40 - 75 % LYMPHOCYTES 36.1 15 - 48 % MONOCYTES 12.5 (*) 0 - 12 % EOSINOPHILS 2.6 0 - 7 % BASOPHILS 0.5 0 - 2 % NEUTROPHILS ABS 3.4 1.9 - 7.4 K/uL LYMPHOCYTES ABS 2.5 1.0 - 3.9 K/uL MONOCYTES ABS 0.9 (*) 0 - 0.8 K/uL EOSINOPHILS ABS 0.2 0 - 0.5 K/uL BASOPHILS ABS 0.0 0 - 0.1 K/uL Platelet Estimate ADEQUATE MORPHOLOGY 2+ PLAN Follow up with your primary care physician in one week for a routine evaluation. Continue with the current list of medications as prescribed. Frequent turning every 2 hours to avoid worsening of the pressure sores. Dressing changes as recommended by the wound team and done previously. Use nebulizer machine every 6 hours for the first week and then as needed for shortness of breath like symptoms. Out patient PT / OT and Speech therapy. Disposition: Adult Family Home Condition: Stable Code Status: Full Code Discharge Instructions Diet general Order Comments: Soft mechanical diet now and then speech therapy needs to evaluate him matt enciso for further instructions. Activity as tolerated Change dressing (specify) Order Comments: Dressing changes at the hip area as recommended by the wound team. Follow up: Mcay Moody NP [address] [address] in 1 week Current Discharge Medication List START taking these medications Details Acetaminophen 650 MG TABS Take 650 mg by mouth every 6 (six) hours as needed (for pain sca le 1 - 3, or fever). Qty: 30 tablet amoxicillin-clavulanate (AUGMENTIN) 875-125 MG per tablet Take one tablet by mouth twice a day after meals for five more days. Qty: 10 tablet, Refills: 0 ipratropium-albuterol (DUO-NEB) 0.5-2.5 mg/3mL Take 3 ml nebulization every 6 hours for e next one week then 3 ml nebulization every 6 hours as needed for wheezing and shortness of breath. Qty: 360 mL, Refills: 1 lip moisturizer (CHAPSTICK) Apply 1 each topically as needed (to dry lips). midodrine (PROAMATINE) 10 MG tablet Take 1 tablet by mouth 3 (three) times daily. Qty: 90 tablet, Refills: 0 nebulizer Use as directed for shortness of breath and hypoxemia. Qty: 1 each, Refills: 0 nystatin (MYCOSTATIN) cream Apply at the skin folds three times a day for two weeks and th en as needed for skin rashes. Qty: 30 g, Refills: 1 CONTINUE these medications which have NOT CHANGED Details FLUDROCORTISONE ACETATE PO Take 0.1 mg by mouth daily. Levothyroxine Sodium 125 MCG CAPS Take 125 mg by mouth daily. Skip on saturdays QUEtiapine Fumarate (SEROQUEL PO) Take 400 mg by mouth nightly. sertraline (ZOLOFT) 100 MG tablet Take 100 mg by mouth daily. valproic acid (DEPAKENE) 250 MG capsule Take 250 mg by mouth 4 (four) times daily. ZIPRASIDONE HCL PO Take 120 mg by mouth nightly. STOP taking these medications Acetaminophen 500 MG coapsule Comments: Reason for Stopping: Discharge took more than 35 minutes, to include final examination, discussion of admission, and preparation of prescriptions, instructions for on-going care, follow-up and documentati on of discharge summary. HARRIETT ROME MD 06/18/2012 documented in this encounter Progress Notes Conversion Transaction, Provider Unknown - 06/18/2012 2:39 PM PDTFormatting of this note m ight be different from the original. Progress Notes by Clotilde Oglesby RN at 06/18/12 5607 Author: Clotilde Oglesby RN Service: (none) Author Type: Registered Nurse Filed: 06/18/12 1441 Date of Service: 06/18/12 1433 Status: Signed Sap Data Architect: Clotilde Oglesby RN (Registered Nurse) Spoke with Lennie, she will pick pt. Up about 4pm today and will bring him some clothing. Asked if she received our discharge instructions via fax and if she had any questions. All questions answered for her at this time. oAlma Delia hanson MSW - 06/18/2012 12:45 PM PDT Progress Notes by ODALIS Witt at 06/18/12 1245 Author: ODALIS Witt Service: (none) Author Type: Director Of Manufacturing Operations Filed: 06/18/12 1251 Date of Service: 06/18/12 1245 Status: Signed Sap Data Architect: ODALIS Witt (Director Of Manufacturing Operations) CM called Kristy, registered account administrator of [employer] to alert her to imminent discharge. Pt is discharging home with Kristy to arrange transportation per her report -- she will pick patient up if his brot her Bill cannot. Kristy's direct #[phone] and fx is [phone]. CM faxed dc orders , dc summary, AVS, copy of scripts (BIANKA Ryan called into [facility] [phone] pharmacy at Lisa grewal's request) PT/OT notes, H&P, labs, comp and faxed Nebulizer script to [facility] who report they will contact [place] office and deliver to [facility]. Kristy reporting they have be en transporting this patient to outpatient speech therapy and are agreeable to continue vasquez sportation for continuing therapies at Dr Rome's request. CM provided Sherry at [facility] Kristy's contact information. No other anticipated dc needs at this time. onversion Transact ion, Provider Unknown - 06/18/2012 12:06 PM PDTFormatting of this note might be different fr om the original. Progress Notes by Jethro Mercado CRT at 06/18/12 120 Author: Jethro Mercado CRT Service: (none) Author Type: Certified Respiratory Therapist Filed: 06/18/12 1206 Date of Service: 06/18/12 1206 Status: Signed Sap Data Architect: Jethro Mercado CRT (Certified Respiratory Therapist) [facility] Department of Respiratory Correction Oxygen Evaluation (Evaluation is valid for 48 hours once completed) Date: 06/18/2012 RT: JETHRO MERCADO Time: 12:06 PM Home O2 Eval at rest-Part 1 At rest & breathing room air is the patients SpO2 88% or lower? : No Lowest observed SpO2 at rest: 92 percent Home O2 Eval during exercise-Part 2 With exercise & breathing room air is the patients SpO2 88% or lower? : No Lowest observed SpO2 with exercise: 93 percent HOME OXYGEN PROVIDER PREFERENCE PHONE FAX *NOTE* Provider must include liter flow, route of oxygen administration, frequency of use w ith duration of need in months on the prescription AND document patient s diagnosis. OXYGEN PRN IS NOT A VALID ORDER Physician Signature: Date: Time: onver alan Transaction, Provider Unknown - 06/18/2012 9:13 AM PDT Progress Notes by Shruthi Ortiz RN at 06/18/12912 Author: Shruthi Ortiz RN Service: Wound/Ostomy Care Author Type: Registered Nurse Filed: 06/18/12920 Date of Service: 06/18/12912 Status: Signed Sap Data Architect: Shruthi Ortiz RN (Registered Nurse) [facility] Service: Wound Care Hospital Day: LOS: 9 days Post-Op Day: * No surgery found * SUBJECTIVE Patient Summary: Pt seen to follow up on a consult on bilateral hip pressure ulcers. Pt is now sitting up in bed and off of the ulcers. Both are covered with bordered foam. No c hanges to either ulcer found. OBJECTIVE Wound #1: Classification: Pressure Ulcer Stage 2 and healed Location:right hip Drainage Amount:None Drainage Type: n/a Wound Odor After Wound is Cleaned:None Periwound Skin:clean dry and intact Wound Size:0.1 (cm) Length and 0.1 (cm) Width Wound Bed:Dry Wound Exam:clean, dry, no drainage and healed. Pin point sized sinus tract left from once o pen ulceration. Wound Infection: none Wound # 2: Classification: Pressure Ulcer Stage: II Location:left hip Drainage Amount:None Drainage Type: n/a Wound Odor After Wound is Cleaned:None Periwound Skin:clean dry and intact Wound Size:1 (cm) Length, 1 (cm) Width and 0.1 (cm) Depth Wound Bed:Dry and Red Wound Exam:dry, no drainage, open and healing Wound Infection: none PROBLEM LIST Principal Problem: *Septic shock Active Problems: Down syndrome Recurrent aspiration pneumonia Acute respiratory failure Acute renal failure (ARF) Debility, unspecified Bacterial pneumonia, unspecified Dysphagia, late effect of cerebrovascular disease ASSESSMENT & PLAN Classification: Pressure Ulcer Pressure Ulcer Stage - Stage 2 Was Pressure Ulcer Present on Admission- Yes removal of existing dressing visual inspection Reapplied bordered foam Please continue to keep pt off of his hips whenever possible and leave bordered foam in merlin ce. Change PRN. Thank you for allowing me to participate in the care of this patient. Please call if there are any additional questions. Shruthi Ortiz RN 9:13 AM 06/18/2012 Mikey , Harriett Cifuentes MD - 06/17/2012 10:18 AM PDT Progress Notes by Harriett Rome MD at 06/17/12 1018 Author: Harriett Rome MD Service: (none) Author Type: Physician Filed: 06/17/12 1024 Date of Service: 06/17/12 1018 Status: Addendum Sap Data Architect: Harriett Rome MD (Physician) Related Notes: Original Note by Harriett Rome MD (Physician) filed at 06/17/12 10 23 [facility] Service: Hospitalist Progress Note Date of Admission: 06/09/2012 History Obtained From: chart review HISTORY OF PRESENT ILLNESS Patient is a 46 y.o. male with significant past medical history of Down's syndrome, psychos is, hypothyroidism and h/o Right hip abscess (healing). The pt arrived here at [facility] ICU intu bated and sedated and but his brother, Yandel, showed up here and gave some hx and also gave t he name and # for caregiver, Kristy. She reports that pt has had exposure to sick people whe re he works earlier this week (people with coughs, colds, runny noses, etc). 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 He did not have any fevers/chills and no other n oted discomfort (pt is nonverbal). He went to bed a little early the night before presentati on (which she said is not unusual). This am he initially seemed fine. She checked on him lat er in the am and he appeared to be having labored breathing and was pale and not very alert. He had what appeared to be some emesis on his face and bedding. She reports he also was inc ontinent of urine and had an episode of diarrhea x1. She called EMS. He was initially taken to the ED at [facility] in [place], [place], where he was brought by EMS. Pt was hypoxemic when EMS arrived with sats were 60% that improved to low 90s with NRB mask O2. In the ED he was obtunded in the ED and was intubated. Kristy and Yandel both reported that pt has a h/o aspiration events and is on a 100% pureed, nectar thick diet with close monitoring because of this. He has had aspiration PNA in the p ast. His brother also reports h/o JOSSELYN with what sounds like hydronephrosis and has had urete ral stents in the past. He has seen a urologist in [place] but his brother does not know o f any visits or problems for the past couple years or more. ICU TIMELINE: 06/09/12 [facility]J-TLC, RRA line 06/10/12 - Extubated. 06/11/12 - Weaned oxygen. Improved pulmonary toilet. Levophed weaned. OVERNIGHT EVENTS: Patient was seen and examined. Patient was seen sitting on the chair. He was awake and aler t and responded to some questions with short answers like yesterday which is his baseline. O xygen saturation was stable on 2 litre's. Ambulates to the bathroom and hallways with a walk er. Has cough off and on with some phlegm production as reported by the staff. No behaviora l issues and no episodes of abdominal pain, nausea and no vomiting. Remained afebrile. PHYSICAL EXAMINATION: Vital Signs: BP 106/63 | Pulse 79 | Temp(Src) 97.7 F (36.5 C) (Axillary) | Resp 18 | Ht 1.676 m (5' 6") | Wt 89.1 kg (196 lb 6.9 oz) | BMI 31.70 kg/m2 | SpO2 91% Temp: [97.4 F (36.3 C)-98.4 F (36.9 C)] 97.7 F (36.5 C) (06/17 829) BP: (106-137)/(56-89) 106/63 mmHg (06/17 829) Heart Rate: [69-89] 79 (06/17 829) Resp: [16-20] 18 (06/17 829) SpO2: [88 %-98 %] 91 % (06/17 829) Weight: [89.1 kg (196 lb 6.9 oz)] 89.1 kg (196 lb 6.9 oz) (06/16 2338) EXAM GEN: Down's facies, short stature, NAD NEURO: PERRLA, no abnormal gaze, no facial asymmetry noted, withdraws to pain HEENT: Sclerae mildly injected, nonicteric, oral mmm, pink, large tongue NECK: Supple, short and obese, trachea midline HEART: RRR, no murmur, rub or gallop LUNGS: + Bilateral rales and crackles at mid and lower lung santo which is slowly improvi ng. ABD: Soft, nondistended, no reaction to palpation, no masses EXTR: Trace nonpitting edema, no clubbing or cyanosis SKIN: Warm, dry, no rash or mottling; no e/o skin breakdown over the occiput, scapulae, el bows, sacrum or heels; has Bi chronic appearing round indurated wounds with mild erythema an d granulation tissue with umbilicated center, no drainage or fluctuance, no increased warmth (appears to be healing by 2ndary intent)-- present at admission (see photos in chart) DATA CBC: Lab Results Component Value Date WBC 7.6 06/17/2012 RBC 2.58* 06/17/2012 HGB 8.9* 06/17/2012 HCT 27.3* 06/17/2012 MCV 105.6* 06/17/2012 MCH 34.3* 06/17/2012 MCHC 32.5 06/17/2012 RDW 73.9* 06/17/2012 PLT 225 06/17/2012 MPV 9.9 06/17/2012 DIFFTYPE AUTOMATED 06/17/2012 CMP: Lab Results Component Value Date NA 144* 06/17/2012 K 3.5 06/17/2012 CL 104 06/17/2012 CO2 33* 06/17/2012 ANIONGAP 10 06/17/2012 GLUF 87 06/17/2012 BUN 8 06/17/2012 CREATININE 1.13 06/17/2012 BCR 7 06/17/2012 CA 8.5 06/17/2012 PROT 5.9* 06/17/2012 ALB 2.1* 06/17/2012 GLOB 3.8 06/17/2012 BILITOT 0.3 06/17/2012 ALP 61 06/17/2012 AST 23 06/17/2012 ALT 17 06/17/2012 EGFR >60 06/17/2012 Magnesium: Lab Results Component Value Date MG 1.8 06/15/2012 Phosphorus: Lab Results Component Value Date PHOS 4.2 06/15/2012 CXR IMPRESSION: 1. Changes to the tubes and lines, as above. No pneumothorax. 2. Increasing mild bilateral infiltrates or edema, right greater than left. IMPRESSION: 1. Left IJ remains in position. 2. Improved aeration of the right perihilar region with residual areas of atelectasis. 3. Newly developed opacity along the medial left lower lobe which may reflect worsening ate lectasis or aspiration. LEM LIST Principal Problem: *Septic shock Active Problems: Down syndrome Recurrent aspiration pneumonia Acute respiratory failure Acute renal failure (ARF) Debility, unspecified Bacterial pneumonia, unspecified ASSESSMENT & PLAN Acute Respiratory Failure: Improved, this was precipitated by aspiration pneumonia requiri ng intubation. Now extubated and remained stable on less oxygen requirements. Will continue to weaning oxygen but he would require at least 2 to 3 litres of oxygen at discharge for few weeks before he completely recovers. To continue nasotracheal suctioning PRN, pulmonary to ilet and OOB to chair TID. Septic Shock: Improved and stable. This was also possibly due to aspiration pneumonia. Con tinue Unasyn as scheduled. Bacterial Pneumonia NOS: Likely aspiration which has been a recurrent problem. Repeat CXR s howed improved aeration of the right perihilar region with residual areas of atelectasis and a newly developed opacity along the medial left lower lobe which may reflect worsening atel ectasis or aspiration. Will continue nebulization's and IV Unasyn. Monitor for aspiration an d follow closely. Dysphagia: Multifactorial, likely due to medications effects and drowsiness. Video swallow evaluation is done speech is following. Recommended dysphagia diet with necator thick liquid s. Monitor the progress. Acute Renal Failure: Stable and improved with hydration. Avoid NSAIDS and Nephrotoxins. Lauren ck BMP periodically. Down Syndrome: Chronic with behavioral problems. Although stable at this time but will hol d his Seroquel, Depakene and sedating psychotropic agents for now due to persistent hypoxia. Debility NOS: Multifactorial, PT to continue to follow and help ambulate. Will consider IPR consult if required. PROPHYLAXIS: Stress ulcer prophylaxis with Pepcid and DVT prophylaxis with SQ heparin. Discharge plans possibly tomorrow if remains stable and improved. Code Status: Full Code Primary Care Physician: MACY ROME MD 06/17/2012 Mikey, Harriett Cifuentes MD - 06/16/2012 10:34 AM PSTFormatting of this note might be different from the taurus giroby. Progress Notes by Harriett Rome MD at 06/16/12 1034 Author: Harriett Rome MD Service: Hospitalist Author Type: Physician Filed: 06/16/12 1107 Date of Service: 06/16/12 1034 Status: Signed Sap Data Architect: Harriett Rome MD (Physician) [facility] Service: Hospitalist Progress Note Date of Admission: 06/09/2012 History Obtained From: chart review HISTORY OF PRESENT ILLNESS Patient is a 46 y.o. male with significant past medical history of Down's syndrome, psychos is, hypothyroidism and h/o Right hip abscess (healing). The pt arrived here at [facility] ICU intu bated and sedated and but his brother, Yandel, showed up here and gave some hx and also gave t he name and # for caregiver, Kristy. She reports that pt has had exposure to sick people whe re he works earlier this week (people with coughs, colds, runny noses, etc). 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 He did not have any fevers/chills and no other n oted discomfort (pt is nonverbal). He went to bed a little early the night before presentati on (which she said is not unusual). This am he initially seemed fine. She checked on him lat er in the am and he appeared to be having labored breathing and was pale and not very alert. He had what appeared to be some emesis on his face and bedding. She reports he also was inc ontinent of urine and had an episode of diarrhea x1. She called EMS. He was initially taken to the ED at [facility] in [place], [place], where he was brought by EMS. Pt was hypoxemic when EMS arrived with sats were 60% that improved to low 90s with NRB mask O2. In the ED he was obtunded in the ED and was intubated. Kristy and Yandel both reported that pt has a h/o aspiration events and is on a 100% pureed, nectar thick diet with close monitoring because of this. He has had aspiration PNA in the p ast. His brother also reports h/o JOSSELYN with what sounds like hydronephrosis and has had urete ral stents in the past. He has seen a urologist in [place] but his brother does not know o f any visits or problems for the past couple years or more. ICU TIMELINE: 06/09/12 [facility]-TLC, RRA line 06/10/12 - Extubated. 06/11/12 - Weaned oxygen. Improved pulmonary toilet. Levophed weaned. OVERNIGHT EVENTS: Patient was seen and examined. Patient was seen sitting on the chair coloring the book. He was more awake and alert and responded to some questions with short answers as usual which i s his baseline. Oxygen saturation was stable on 6 litre's. Ambulating to the bathroom and sotelo llways with a walker. Has cough off and on with some phlegm production as reported by the st aff. No behavioral issues and no episodes of abdominal pain, nausea and no vomiting. Remain ed afebrile. PHYSICAL EXAMINATION: Vital Signs: BP 115/67 | Pulse 74 | Temp(Src) 97.5 F (36.4 C) (Axillary) | Resp 18 | Ht 1.676 m (5' 6") | Wt 89.6 kg (197 lb 8.5 oz) | BMI 31.88 kg/m2 | SpO2 100% Temp: [97.5 F (36.4 C)-98.2 F (36.8 C)] 97.5 F (36.4 C) (06/17 807) BP: (115-146)/(62-77) 115/67 mmHg (06/17 807) Heart Rate: [70-91] 74 (06/17 807) Resp: [16-24] 18 (06/17 807) SpO2: [90 %-100 %] 100 % (06/17 807) Weight: [89.6 kg (197 lb 8.5 oz)] 89.6 kg (197 lb 8.5 oz) (06/15 2325) EXAM GEN: Down's facies, short stature, NAD NEURO: PERRLA, no abnormal gaze, no facial asymmetry noted, withdraws to pain HEENT: Sclerae mildly injected, nonicteric, oral mmm, pink, large tongue NECK: Supple, short and obese, trachea midline HEART: RRR, no murmur, rub or gallop LUNGS: + Bilateral rales and crackles at mid and lower lung santo which is slowly improvi ng. ABD: Soft, nondistended, no reaction to palpation, no masses EXTR: Trace nonpitting edema, no clubbing or cyanosis SKIN: Warm, dry, no rash or mottling; no e/o skin breakdown over the occiput, scapulae, el bows, sacrum or heels; has Bi chronic appearing round indurated wounds with mild erythema an d granulation tissue with umbilicated center, no drainage or fluctuance, no increased warmth (appears to be healing by 2ndary intent)-- present at admission (see photos in chart) DATA CBC: Lab Results Component Value Date WBC 6.6 06/16/2012 RBC 2.70* 06/16/2012 HGB 9.4* 06/16/2012 HCT 28.7* 06/16/2012 MCV 106.0* 06/16/2012 MCH 34.8* 06/16/2012 MCHC 32.9 06/16/2012 RDW 73.9* 06/16/2012 PLT 220 06/16/2012 MPV 10.4 06/16/2012 DIFFTYPE AUTOMATED 06/16/2012 CMP: Lab Results Component Value Date NA 147* 06/16/2012 K 3.6 06/16/2012 CL 104 06/16/2012 CO2 35* 06/16/2012 ANIONGAP 12 06/16/2012 GLUF 87 06/16/2012 BUN 6* 06/16/2012 CREATININE 1.16 06/16/2012 BCR 5 06/16/2012 CA 8.9 06/16/2012 PROT 5.6* 06/16/2012 ALB 2.2* 06/16/2012 GLOB 3.4 06/16/2012 BILITOT 0.4 06/16/2012 ALP 62 06/16/2012 AST 31 06/16/2012 ALT 16 06/16/2012 EGFR >60 06/16/2012 Magnesium: Lab Results Component Value Date MG 1.8 06/15/2012 Phosphorus: Lab Results Component Value Date PHOS 4.2 06/15/2012 CXR IMPRESSION: 1. Changes to the tubes and lines, as above. No pneumothorax. 2. Increasing mild bilateral infiltrates or edema, right greater than left. IMPRESSION: 1. Left IJ remains in position. 2. Improved aeration of the right perihilar region with residual areas of atelectasis. 3. Newly developed opacity along the medial left lower lobe which may reflect worsening ate lectasis or aspiration. LEM LIST Principal Problem: *Septic shock Active Problems: Down syndrome Recurrent aspiration pneumonia Acute respiratory failure Acute renal failure (ARF) Debility, unspecified Bacterial pneumonia, unspecified ASSESSMENT & PLAN Acute Respiratory Failure: Precipitated by aspiration pneumonia requiring intubation. Now extubated and slowly improving but still requiring high flow oxygen at 6 litre's. Will start weaning oxygen as saturations have improved. Will keep BIPAP on stand by and continue nasot navarro suctioning PRN, pulmonary toilet and OOB to chair TID. Septic Shock: Possibly precipitated by aspiration pneumonia. Now Improved and off the pres sors. Continue Unasyn as scheduled. Bacterial Pneumonia NOS: Likely aspiration which has been a recurrent problem. Repeat CXR s howed improved aeration of the right perihilar region with residual areas of atelectasis and a newly developed opacity along the medial left lower lobe which may reflect worsening atel ectasis or aspiration. Will continue nebulization's and IV Unasyn. Monitor for aspiration an d follow closely. Dysphagia: Multifactorial, likely due to medications effects and drowsiness. Video swallow evaluation is done speech is following. Recommended dysphagia diet with necator thick liquid s. Monitor the progress. Acute Renal Failure: Stable and improved with hydration. This was possibly precipitated by septic shock and dehydration. Will continue with gentle IV fluids and avoid NSAIDS and Nephr otoxins. Check BMP periodically. Down Syndrome: Chronic with behavioral problems. Although stable at this time but will hol d his Seroquel, Depakene and sedating psychotropic agents for now due to persistent hypoxia. Debility NOS: Multifactorial, PT to continue to follow and help ambulate. Will consider IPR consult if required. PROPHYLAXIS: Stress ulcer prophylaxis with Pepcid and DVT prophylaxis with SQ heparin. Discharge plans when stable and improved in few days to [facility] especially if there is l ess oxygen requirement. Called his brother Mr. Doug Marina and left a message. Will try to reach him again for the updates and discharge plans. Spent more than 35 minutes in care for this patient. Code Status: Full Code Primary Care Physician: MACY ROME MD 06/16/2012 onversion Tra nsaction, Provider Unknown - 06/15/2012 4:04 PM PSTFormatting of this note might be differe nt from the original. Progress Notes by Krystal Merritt RN at 06/15/12 9879 Author: Krystal Merritt RN Service: (none) Author Type: Director Of Manufacturing Operations Filed: 06/15/12 1608 Date of Service: 06/15/12 1601 Status: Signed Sap Data Architect: Krystal Merritt RN (Director Of Manufacturing Operations) Patient will not be needing IV abx when discharged so can return to [facility] in [place]. CM s poke with Kristy, registered account administrator of home and she can provide transportation if patient's brother juliet ot transport. Message left for brother Yandel [phone] to inform him of patient's possibl e discharge on Monday. PT in home or as outpatient will be needed. Harriett Jensen MD - 06/15/2012 11:35 AM PST Progress Notes by Harriett Rome MD at 06/15/12 4562 Author: Harriett Rome MD Service: Hospitalist Author Type: Physician Filed: 06/15/12 8120 Date of Service: 06/15/12 0147 Status: Signed Sap Data Architect: Harriett Rome MD (Physician) [facility] Service: Hospitalist Progress Note Date of Admission: 06/09/2012 History Obtained From: chart review HISTORY OF PRESENT ILLNESS Patient is a 46 y.o. male with significant past medical history of Down's syndrome, psychos is, hypothyroidism and h/o Right hip abscess (healing). The pt arrived here at [facility] ICU intu bated and sedated and but his brother, Yandel, showed up here and gave some hx and also gave t he name and # for caregiver, Kristy. She reports that pt has had exposure to sick people whe re he works earlier this week (people with coughs, colds, runny noses, etc). 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 He did not have any fevers/chills and no other n oted discomfort (pt is nonverbal). He went to bed a little early the night before presentati on (which she said is not unusual). This am he initially seemed fine. She checked on him lat er in the am and he appeared to be having labored breathing and was pale and not very alert. He had what appeared to be some emesis on his face and bedding. She reports he also was inc ontinent of urine and had an episode of diarrhea x1. She called EMS. He was initially taken to the ED at [facility] in [place], [place], where he was brought by EMS. Pt was hypoxemic when EMS arrived with sats were 60% that improved to low 90s with NRB mask O2. In the ED he was obtunded in the ED and was intubated. Kristy and Yandel both reported that pt has a h/o aspiration events and is on a 100% pureed, nectar thick diet with close monitoring because of this. He has had aspiration PNA in the p ast. His brother also reports h/o JOSSELYN with what sounds like hydronephrosis and has had urete ral stents in the past. He has seen a urologist in [place] but his brother does not know o f any visits or problems for the past couple years or more. ICU TIMELINE: 06/09/12 [facility]-TLC, RRA line 06/10/12 - Extubated. 06/11/12 - Weaned oxygen. Improved pulmonary toilet. Levophed weaned. OVERNIGHT EVENTS: Patient was seen and examined. Patient was seen more awake and alert this am. Responded to some questions with short answers. Oxygen saturation was stable on 3 litre's. Ambulated this am and did fair. Has cough with phlegm production. No behavioral issues and no episodes of abdominal pain, nausea and no vomiting. Remained afebrile. PHYSICAL EXAMINATION: Vital Signs: BP 119/61 | Pulse 77 | Temp(Src) 98.6 F (37 C) (Axillary) | Resp 20 | Ht 1.676 m (5' 6" ) | Wt 92.6 kg (204 lb 2.3 oz) | BMI 32.95 kg/m2 | SpO2 91% Temp: [98 F (36.7 C)-98.6 F (37 C)] 98.6 F (37 C) (06/16 719) BP: (107-129)/(59-73) 119/61 mmHg (06/16 719) Heart Rate: [71-85] 77 (06/15 1102) Resp: [18-24] 20 (06/15 1102) SpO2: [81 %-98 %] 91 % (06/15 1102) Weight: [92.6 kg (204 lb 2.3 oz)] 92.6 kg (204 lb 2.3 oz) (06/15 0014) EXAM GEN: Down's facies, short stature, NAD NEURO: PERRLA, no abnormal gaze, no facial asymmetry noted, withdraws to pain HEENT: Sclerae mildly injected, nonicteric, oral mmm, pink, large tongue NECK: Supple, short and obese, trachea midline HEART: RRR, no murmur, rub or gallop LUNGS: + Bilateral rales and crackles at mid and lower lung santo. ABD: Soft, nondistended, no reaction to palpation, no masses EXTR: Trace nonpitting edema, no clubbing or cyanosis SKIN: Warm, dry, no rash or mottling; no e/o skin breakdown over the occiput, scapulae, el bows, sacrum or heels; has Bi chronic appearing round indurated wounds with mild erythema an d granulation tissue with umbilicated center, no drainage or fluctuance, no increased warmth (appears to be healing by 2ndary intent)-- present at admission (see photos in chart) DATA CBC: Lab Results Component Value Date WBC 7.0 06/15/2012 RBC 2.66* 06/15/2012 HGB 9.1* 06/15/2012 HCT 28.3* 06/15/2012 MCV 106.5* 06/15/2012 MCH 34.4* 06/15/2012 MCHC 32.3 06/15/2012 RDW 76.1* 06/15/2012 PLT 195 06/15/2012 MPV 10.2 06/15/2012 DIFFTYPE AUTOMATED 06/15/2012 CMP: Lab Results Component Value Date NA 147* 06/15/2012 K 3.5 06/15/2012 CL 103 06/15/2012 CO2 37* 06/15/2012 ANIONGAP 10 06/15/2012 GLUF 94 06/15/2012 BUN 7* 06/15/2012 CREATININE 1.11 06/15/2012 BCR 7 06/15/2012 CA 8.8 06/15/2012 PROT 5.3* 06/15/2012 ALB 2.0* 06/15/2012 GLOB 3.3 06/15/2012 BILITOT 0.3 06/15/2012 ALP 49 06/15/2012 AST 24 06/15/2012 ALT 15 06/15/2012 EGFR >60 06/15/2012 Magnesium: Lab Results Component Value Date MG 1.8 06/15/2012 Phosphorus: Lab Results Component Value Date PHOS 4.2 06/15/2012 CXR IMPRESSION: 1. Changes to the tubes and lines, as above. No pneumothorax. 2. Increasing mild bilateral infiltrates or edema, right greater than left. LEM LIST Principal Problem: *Septic shock Active Problems: Down syndrome Recurrent aspiration pneumonia Acute respiratory failure Acute renal failure (ARF) Debility, unspecified Bacterial pneumonia, unspecified ASSESSMENT & PLAN Acute Respiratory Failure: Likely precipitated by aspiration pneumonia requiring intubatio n. Now extubated and slowly improving. Episodes of hypoxia requiring high flow oxygen on the medical floor was also noted, however he is making progress. If his condition deteriorates on the medical floor then he may need close monitoring in ICU with possibly intubation and mechanical ventilation. Will keep BIPAP on stand by as needed. Will continue nasotracheal suctioning, pulmonary toilet and OOB to chair PRN. Septic Shock: Possibly precipitated by aspiration pneumonia. Now Improved and off the pres sors. Continue Unasyn as scheduled. Bacterial Pneumonia NOS: Likely aspiration which has been a recurrent problem. CXR showed i ncreasing mild bilateral infiltrates or edema, right greater than left. Continue Unasyn and repeat CXR in am. Dysphagia: Multifactorial, likely due to medications effects and drowsiness. A video swallo w evaluation is done and results are pending at this time. To continue with dysphagia diet a s per speech therapy recommendations. Acute Renal Failure: Stable and improved with hydration. This was possibly precipitated by septic shock and dehydration. Will continue with gentle IV fluids and avoid NSAIDS and Nephr otoxins. Check BMP periodically. Down Syndrome: Chronic with behavioral problems. Although stable at this time but will hol d his Seroquel, Depakene and sedating psychotropic agents for now due to persistent hypoxia. Debility NOS: Multifactorial, PT to continue to follow and evaluate if patient is stable an d able to ambulate. Will consider IPR consult if required. PROPHYLAXIS: Stress ulcer prophylaxis with Pepcid and DVT prophylaxis with SQ heparin. Discharge plans when stable and improved in few days. Code Status: Full Code Primary Care Physician: MACY ROME MD 06/15/2012 Harriett Rogers MD - 06/14/2012 8:13 AM PSTFormatting of this note might be different from the taurus wade. Progress Notes by Harriett Rome MD at 06/14/12 3494 Author: Harriett Rome MD Service: Hospitalist Author Type: Physician Filed: 06/14/12 1816 Date of Service: 06/14/12 0813 Status: Signed Sap Data Architect: Harriett Rome MD (Physician) [facility] Service: Hospitalist Progress Note Date of Admission: 06/09/2012 History Obtained From: chart review HISTORY OF PRESENT ILLNESS Patient is a 46 y.o. male with significant past medical history of Down's syndrome, psychos is, hypothyroidism and h/o Right hip abscess (healing). The pt arrived here at [facility] ICU intu bated and sedated and but his brother, Yandel, showed up here and gave some hx and also gave t he name and # for caregiver, Kristy. She reports that pt has had exposure to sick people whe re he works earlier this week (people with coughs, colds, runny noses, etc). 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 He did not have any fevers/chills and no other n oted discomfort (pt is nonverbal). He went to bed a little early the night before presentati on (which she said is not unusual). This am he initially seemed fine. She checked on him lat er in the am and he appeared to be having labored breathing and was pale and not very alert. He had what appeared to be some emesis on his face and bedding. She reports he also was inc ontinent of urine and had an episode of diarrhea x1. She called EMS. He was initially taken to the ED at [facility] in [place], [place], where he was brought by EMS. Pt was hypoxemic when EMS arrived with sats were 60% that improved to low 90s with NRB mask O2. In the ED he was obtunded in the ED and was intubated. Kristy and Yandel both reported that pt has a h/o aspiration events and is on a 100% pureed, nectar thick diet with close monitoring because of this. He has had aspiration PNA in the p ast. His brother also reports h/o JOSSELYN with what sounds like hydronephrosis and has had urete ral stents in the past. He has seen a urologist in [place] but his brother does not know o f any visits or problems for the past couple years or more. ICU TIMELINE: 06/09/12 [facility]-TLC, RRA line 06/10/12 - Extubated. 06/11/12 - Weaned oxygen. Improved pulmonary toilet. Levophed weaned. OVERNIGHT EVENTS: Patient was seen and examined. He was drowsy and tired but open eyes to verbal commands and responded to minimal questions. Oxygen saturation remains low on high flow oxygen. Unable t o respond to pain questions. As per sitter he has been sleeping most of the time. Has cough with phlegm production. No behavioral issues and no episodes of abdominal pain, nausea and n o vomiting. Remained afebrile. PHYSICAL EXAMINATION: Vital Signs: BP 107/61 | Pulse 74 | Temp(Src) 98 F (36.7 C) (Oral) | Resp 18 | Ht 1.676 m (5' 6") | Wt 94 kg (207 lb 3.7 oz) | BMI 33.45 kg/m2 | SpO2 92% Temp: [97.5 F (36.4 C)-98.3 F (36.8 C)] 98 F (36.7 C) (06/14 154) BP: (102-132)/(57-73) 107/61 mmHg (06/14 154) Heart Rate: [71-96] 74 (06/14 1616) Resp: [14-20] 18 (06/14 1616) SpO2: [92 %-100 %] 92 % (06/14 1616) Weight: [94 kg (207 lb 3.7 oz)] 94 kg (207 lb 3.7 oz) (06/14 436) EXAM GEN: Down's facies, short stature, NAD NEURO: PERRLA, no abnormal gaze, no facial asymmetry noted, withdraws to pain HEENT: Sclerae mildly injected, nonicteric, oral mmm, pink, large tongue NECK: Supple, short and obese, trachea midline HEART: RRR, no murmur, rub or gallop LUNGS: + Bilateral rales and crackles at mid and lower lung santo. ABD: Soft, nondistended, no reaction to palpation, no masses EXTR: Trace nonpitting edema, no clubbing or cyanosis SKIN: Warm, dry, no rash or mottling; no e/o skin breakdown over the occiput, scapulae, el bows, sacrum or heels; has Bi chronic appearing round indurated wounds with mild erythema an d granulation tissue with umbilicated center, no drainage or fluctuance, no increased warmth (appears to be healing by 2ndary intent)-- present at admission (see photos in chart) DATA CBC: Lab Results Component Value Date WBC 6.2 06/14/2012 RBC 2.70* 06/14/2012 HGB 9.3* 06/14/2012 HCT 29.1* 06/14/2012 MCV 107.7* 06/14/2012 MCH 34.3* 06/14/2012 MCHC 31.9* 06/14/2012 RDW 76.6* 06/14/2012 PLT 166 06/14/2012 MPV 10.7 06/14/2012 DIFFTYPE AUTOMATED 06/14/2012 CMP: Lab Results Component Value Date NA 147* 06/14/2012 K 4.0 06/14/2012 CL 104 06/14/2012 CO2 36* 06/14/2012 ANIONGAP 10 06/14/2012 GLUF 95 06/14/2012 BUN 10 06/14/2012 CREATININE 1.07 06/14/2012 BCR 10 06/14/2012 CA 8.6 06/14/2012 PROT 4.6* 10/06/2010 ALB 2.0* 06/09/2012 GLOB 3.3 10/06/2010 BILITOT 0.2 10/06/2010 ALP 48 10/06/2010 AST 12 10/06/2010 ALT 12 10/06/2010 EGFR >60 06/14/2012 Magnesium: Lab Results Component Value Date MG 2.1 06/14/2012 Phosphorus: Lab Results Component Value Date PHOS 3.8 06/14/2012 CXR IMPRESSION: 1. Changes to the tubes and lines, as above. No pneumothorax. 2. Increasing mild bilateral infiltrates or edema, right greater than left. LEM LIST Principal Problem: *Septic shock Active Problems: Down syndrome Recurrent aspiration pneumonia Acute respiratory failure Acute renal failure (ARF) Debility, unspecified Bacterial pneumonia, unspecified ASSESSMENT & PLAN Acute Respiratory Failure: Likely precipitated by aspiration pneumonia requiring intubatio n. Now extubated and transferred from ICU but remains hypoxemic needing high flow oxygen on the medical floor. ABG's reveals hypercapnic hypoxemic respiratory failure likely due to asp iration pneumonia. He may need close monitoring at ICU and possibly intubation and mechanica l ventilation if condition deteriorates. Will keep BIPAP on stand by and if no improvement t night hospitalist may need to transfer him to ICU for further care. Continue nasotrachea l suctioning, pulmonary toilet and OOB to chair today. Septic Shock: Possibly precipitated by aspiration pneumonia. Now Improved and off the pres sors. Continue Unasyn as scheduled. Bacterial Pneumonia NOS: Likely aspiration which has been a recurrent problem. CXR showed i ncreasing mild bilateral infiltrates or edema, right greater than left. Continue Unasyn Dysphagia: Multifactorial, likely due to medications effects and drowsiness. A video swallo w evaluation is pending at this time. To continue with dysphagia diet as per speech therapy recommendations. Acute Renal Failure: Stable and improved with hydration. This was possibly precipitated by septic shock and dehydration. Will continue with gentle IV fluids and avoid NSAIDS and Nephr otoxins. Check BMP periodically. Down Syndrome: Chronic with behavioral problems. Although stable at this time but will hol d his Seroquel, Depakene and sedating psychotropic agents for now due to persistent hypoxia. Debility NOS: Multifactorial, PT to continue to follow and evaluate if patient is stable an d able to ambulate. PROPHYLAXIS: Stress ulcer prophylaxis with Pepcid and DVT prophylaxis with SQ heparin. Discharge plans when stable and improved in few days. Discussed in detail with the patient' s family and spent more than 35 minutes with the patient and explaining the details to the p atient's family and answered their questions. Code Status: Full Code Primary Care Physician: MACY ROME MD 06/14/2012 onversion Tra nsaction, Provider Unknown - 06/13/2012 9:47 AM PSTFormatting of this note might be differe nt from the original. Progress Notes by Earnestine Strauss at 06/13/12946 Author: Earnestine Strauss Service: (none) Author Type: Registered Nurse Filed: 06/13/12 0948 Date of Service: 06/13/12946 Status: Signed Sap Data Architect: Earnestine Strauss Pt transferred to [facility]. Report given to BIANKA Carmen. Pt arousable upon transfer. Left msg w ith pts brother re transfer. astle Doug bar ARNP - 06/13/2012 6:34 AM PSTFormatting of this note might be different f rom the original. Progress Notes by CHELSY Epstein at 06/13/12633 Author: CHELSY Epstein Service: Supervisor [employer] Author Type: Supervisor [employer] Filed: 06/13/1248 Date of Service: 06/13/12633 Status: Signed Sap Data Architect: CHELSY Epstein (Supervisor [employer]) [facility] Service: Supervisor [employer] Progress Note Date of Admission: 06/09/2012 Requesting Physician: Dr. Aguilar, Emergency Department at [facility] ED Indication for ICU Admission: hypoxic respiratory failure and h/o vomiting and diarrhea wi th suspected aspiration History Obtained From: chart review CHIEF COMPLAINT: Hypoxemic respiratory failure HISTORY OF PRESENT ILLNESS The patient is a 46 y.o. male with significant past medical history of Down's syndrome, psy chosis, hypothyroidism and h/o Right hip abscess (healing). The pt arrived here at [facility] ICU intubated and sedated and but his brother, Yandel, showed up here and gave some hx and also ga ve the name and # for caregiver, Kristy. She reports that pt has had exposure to sick people where he works earlier this week (people with coughs, colds, runny noses, etc). 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 He did not have any fevers/chills and no oth er noted discomfort (pt is nonverbal). He went to bed a little early the night before presen tation (which she said is not unusual). This am he initially seemed fine. She checked on him later in the am and he appeared to be having labored breathing and was pale and not very al ert. He had what appeared to be some emesis on his face and bedding. She reports he also was incontinent of urine and had an episode of diarrhea x1. She called EMS. He was initially taken to the ED at [facility] in [place], [place], where he was brought by EMS. Pt was hypoxemic when EMS arrived with sats were 60% that improved to low 90s with NRB mask O2. In the ED he was obtunded in the ED and was intubated. Kristy and Yandel both report that pt has a h/o aspiration events and is on a 100% pureed, ne ctar thick diet with close monitoring because of this. He has had aspiration PNA in the past . His brother also reports h/o JOSSELYN with what sounds like hydronephrosis and has had ureteral stents in the past. He has seen a urologist in [place] but his brother does not know of a ny visits or problems for the past couple years or more. ICU TIMELINE: 06/09/12 [facility]-TLC, RRA line 06/10/12 - Extubated. 06/11/12 - Weaned oxygen. Improved pulmonary toilet. Levophed weaned. OVERNIGHT EVENTS: Pt doing well at present on 4.5 L NC with sat in the 90's. Pt needs to si t upright while eating. Otherwise no issues overnight. PHYSICAL EXAM Vital Signs: BP 98/52 | Pulse 66 | Temp(Src) 98.5 F (36.9 C) (Oral) | Resp 20 | Ht 1.676 m (5' 6") | Wt 96.7 kg (213 lb 3 oz) | BMI 34.41 kg/m2 | SpO2 92% Temp: [97.3 F (36.3 C)-98.9 F (37.2 C)] 98.5 F (36.9 C) (06/14 399) BP: (94-159)/(50-89) 98/52 mmHg (06/13 599) Heart Rate: [66-95] 66 (06/13 614) Resp: [16-22] 20 (06/13 599) SpO2: [75 %-100 %] 92 % (06/13 614) EXAM GEN: Down's facies, short stature, NAD NEURO: PERRLA, no abnormal gaze, no facial asymmetry noted, withdraws to pain HEENT: sclerae mildly injected, nonicteric, oral mmm, pink, large tongue NECK: supple, short and obese, trachea midline HEART: RRR, no murmur, rub or gallop LUNGS: BBS clear at present, no wheezing, crackles ABD: soft, nondistended, no reaction to palpation, no masses EXTR: trace nonpitting edema, no clubbing or cyanosis SKIN: warm, dry, no rash or mottling; no e/o skin breakdown over the occiput, scapulae, elb ows, sacrum or heels; has Bi chronic appearing round indurated wounds with mild erythema and granulation tissue with umbilicated center, no drainage or fluctuance, no increased warmth (appears to be healing by 2ndary intent)-- present at admission (see photos in chart) DATA CBC: Lab Results Component Value Date WBC 4.4 06/13/2012 RBC 2.53* 06/13/2012 HGB 8.6* 06/13/2012 HCT 27.4* 06/13/2012 MCV 108.0* 06/13/2012 MCH 33.9 06/13/2012 MCHC 31.4* 06/13/2012 RDW 76.6* 06/13/2012 PLT 117* 06/13/2012 MPV 10.7 06/13/2012 DIFFTYPE AUTOMATED 06/13/2012 CMP: Lab Results Component Value Date NA 149* 06/13/2012 K 3.8 06/13/2012 CL 107 06/13/2012 CO2 38* 06/13/2012 ANIONGAP 8 06/13/2012 GLUF 81 06/13/2012 BUN 11 06/13/2012 CREATININE 1.04 06/13/2012 BCR 10 06/13/2012 CA 8.1* 06/13/2012 PROT 4.6* 10/06/2010 ALB 2.0* 06/09/2012 GLOB 3.3 10/06/2010 BILITOT 0.2 10/06/2010 ALP 48 10/06/2010 AST 12 10/06/2010 ALT 12 10/06/2010 EGFR >60 06/13/2012 Magnesium: Lab Results Component Value Date MG 2.0 06/13/2012 Phosphorus: Lab Results Component Value Date PHOS 3.0 06/13/2012 PROBLEM LIST Active Problems: Down syndrome Recurrent aspiration pneumonia Aspiration pneumonia Acute respiratory failure Hypoxemia Acute renal failure (ARF) Septic shock ASSESSMENT & PLAN NEURO: Down syndrome: nonverbal at baseline. H/o severe psychosis: holding most psych meds and will add back once weaning sedation. C ont Zoloft and restarted Seroquel, Geodon and Depakene. CARDIOVASCULAR: Septic shock: Improved. All pressors off. PULMONARY: Acute resp failure:Improved. Remains extubated. Pulmonary toilet, ISS. OOB to chair t blessing. GI: Advance diet as tolerated as per speech. 100% pureed nectar thickened while sitting upri ght. RENAL: JOSSELYN - resolving. Continue to keep euvolemic. INFECTIOUS DISEASE: Awaiting cultures. Continue zosyn for now. De-escalate when able. HEME: Macrocytic anemia: check B12, folate. No e/o bleeding ENDOCRINE: No know DM but has been on Seroquel, Geodon which increase diabetes risk. MUSCULOSKELETAL: No active issues PROPHYLAXIS: Stress ulcer prophylaxis: Pepcid DVT prophylaxis: SQ heparin VAP bundle: chlorhexadine oral care, HOB >30 degrees. Disposition: Will move to the floor to the hospitalists service. Code Status: Full Code Primary Care Physician: MACY MOODY *Please bill 30 minutes of critical care time spent evaluating the patient, reviewing the d katharine and formulating a plan exclusive of all other procedures. HCELSY EPSTEIN 06/13/2012 OConmelvin enciso Transaction, Provider Unknown - 06/12/2012 12:05 PM PSTFormatting of this note might be di fferent from the original. Progress Notes by ODALIS Hansen at 06/12/12 8925 Author: ODALIS Hansen Service: (none) Author Type: Director Of Manufacturing Operations Filed: 06/12/12 7676 Date of Service: 06/12/121204 Status: Signed Sap Data Architect: ODALIS Hansen (Director Of Manufacturing Operations) Received return call from Ricarda at [facility]. Pt has been accepted for adm it if he needs SNF prior to going back to [facility]. CM to follow. Shakeel Moreno MD - 06/12/2012 5:15 AM PSTFormatting of this note might be different from the or iginal. Progress Notes by Shakeel Howard MD at 06/12/12 4161 Author: Shakeel Howard MD Service: (none) Author Type: Physician Filed: 06/12/1219 Date of Service: 06/12/12514 Status: Signed Sap Data Architect: Shakeel Howard MD (Physician) [facility] Service: Supervisor [employer] Progress Note Date of Admission: 06/09/2012 Requesting Physician: Dr. Aguilar, Emergency Department at [facility] ED Indication for ICU Admission: hypoxic respiratory failure and h/o vomiting and diarrhea wi th suspected aspiration History Obtained From: chart review CHIEF COMPLAINT: Hypoxemic respiratory failure HISTORY OF PRESENT ILLNESS The patient is a 46 y.o. male with significant past medical history of Down's syndrome, psy chosis, hypothyroidism and h/o Right hip abscess (healing). The pt arrived here at [facility] ICU intubated and sedated and but his brother, Yandel, showed up here and gave some hx and also ga ve the name and # for caregiver, Kristy. She reports that pt has had exposure to sick people where he works earlier this week (people with coughs, colds, runny noses, etc). 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 He did not have any fevers/chills and no oth er noted discomfort (pt is nonverbal). He went to bed a little early the night before presen tation (which she said is not unusual). This am he initially seemed fine. She checked on him later in the am and he appeared to be having labored breathing and was pale and not very al ert. He had what appeared to be some emesis on his face and bedding. She reports he also was incontinent of urine and had an episode of diarrhea x1. She called EMS. He was initially taken to the ED at [facility] in [place], [place], where he was brought by EMS. Pt was hypoxemic when EMS arrived with sats were 60% that improved to low 90s with NRB mask O2. In the ED he was obtunded in the ED and was intubated. Kristy and Yandel both report that pt has a h/o aspiration events and is on a 100% pureed, ne ctar thick diet with close monitoring because of this. He has had aspiration PNA in the past . His brother also reports h/o JOSSELYN with what sounds like hydronephrosis and has had ureteral stents in the past. He has seen a urologist in [place] but his brother does not know of a ny visits or problems for the past couple years or more. ICU TIMELINE: 06/09/12 [facility]-TLC, RRA line 06/10/12 - Extubated. 06/11/12 - Weaned oxygen. Improved pulmonary toilet. Levophed weaned. PHYSICAL EXAM Vital Signs: BP 113/63 | Pulse 74 | Temp(Src) 98.9 F (37.2 C) (Oral) | Resp 18 | Ht 1.676 m (5' 6") | Wt 96.7 kg (213 lb 3 oz) | BMI 34.41 kg/m2 | SpO2 98% Temp: [97.5 F (36.4 C)-98.9 F (37.2 C)] 98.9 F (37.2 C) (06/13 399) BP: (79-194)/(42-114) 113/63 mmHg (06/12 499) Heart Rate: [68-92] 74 (06/12 499) Resp: [16-28] 18 (06/13 399) SpO2: [88 %-100 %] 98 % (06/12 499) EXAM GEN: Down's facies, short stature, on face tent. NAD NEURO: PERRLA, no abnormal gaze, no facial asymmetry noted, withdraws to pain HEENT: sclerae mildly injected, nonicteric, oral mmm, pink, large tongue, oral ETT and OGT in place NECK: supple, short and obese, trachea midline HEART: RRR, no murmur, rub or gallop LUNGS: mildly coarse BS b/l, no wheezing, crackles ABD: soft, nondistended, no reaction to palpation, no masses EXTR: trace nonpitting edema, no clubbing or cyanosis SKIN: warm, dry, no rash or mottling; no e/o skin breakdown over the occiput, scapulae, elb ows, sacrum or heels; has Bi chronic appearing round indurated wounds with mild erythema and granulation tissue with umbilicated center, no drainage or fluctuance, no increased warmth (appears to be healing by 2ndary intent)-- present at admission (see photos in chart) DATA CBC: Lab Results Component Value Date WBC 6.1 06/12/2012 RBC 2.79* 06/12/2012 HGB 9.6* 06/12/2012 HCT 29.8* 06/12/2012 MCV 106.8* 06/12/2012 MCH 34.4* 06/12/2012 MCHC 32.2 06/12/2012 RDW 72.6* 06/12/2012 PLT 119* 06/12/2012 MPV 10.5 06/12/2012 DIFFTYPE AUTOMATED 06/12/2012 CMP: Lab Results Component Value Date NA 148* 06/12/2012 K 4.3 06/12/2012 CL 107 06/12/2012 CO2 36* 06/12/2012 ANIONGAP 10 06/12/2012 GLUF 80 06/12/2012 BUN 12 06/12/2012 CREATININE 1.09 06/12/2012 BCR 11 06/12/2012 CA 7.9* 06/12/2012 PROT 4.6* 10/06/2010 ALB 2.0* 06/09/2012 GLOB 3.3 10/06/2010 BILITOT 0.2 10/06/2010 ALP 48 10/06/2010 AST 12 10/06/2010 ALT 12 10/06/2010 EGFR >60 06/12/2012 Magnesium: Lab Results Component Value Date MG 2.3 06/12/2012 Phosphorus: Lab Results Component Value Date PHOS 2.8 06/12/2012 PROBLEM LIST Active Problems: Down syndrome Recurrent aspiration pneumonia Aspiration pneumonia Acute respiratory failure Hypoxemia Acute renal failure (ARF) Septic shock ASSESSMENT & PLAN NEURO: Down syndrome: nonverbal at baseline. H/o severe psychosis: holding most psych meds and will add back once weaning sedation. C ont Zoloft but hold Seroquel, Geodon and Depakene for now CARDIOVASCULAR: Septic shock: Improved. Attempt to wean pressors off today. PULMONARY: Acute resp failure:Improved. Remains extubated. Pulmonary toilet, ISS. OOB to chair devin funk. GI: Advance diet as tolerated. RENAL: JOSSELYN - resolving. Continue to keep euvolemic. INFECTIOUS DISEASE: Awaiting cultures. Continue vanc and zosyn for now. De-escalate when able. HEME: Macrocytic anemia: check B12, folate. No e/o bleeding ENDOCRINE: No know DM but has been on Seroquel, Geodon which increase diabetes risk. Follow glucose and Endo tool ordered if needed, HbA1c ordered MUSCULOSKELETAL: No active issues PROPHYLAXIS: Stress ulcer prophylaxis: Pepcid DVT prophylaxis: SQ heparin VAP bundle: chlorhexadine oral care, HOB >30 degrees. Disposition: Continue ICU observation. May be able to transfer to acute care chaudhari later t blessing. Code Status: Full Code Primary Care Physician: MACY MOODY *Please bill 30 minutes of critical care time spent evaluating the patient, reviewing the d katharine and formulating a plan exclusive of all other procedures. SHAKEEL HOWARD MD 06/12/2012 onversion Transactio n, Provider Unknown - 06/11/2012 9:34 PM PST Progress Notes by Jose Pena RN at 06/11/122133 Author: Jose Pena RN Service: (none) Author Type: Registered Nurse Filed: 06/11/122134 Date of Service: 06/11/122133 Status: Signed Sap Data Architect: Jose Pena RN (Registered Nurse) Dr Pepper Howard wanted to try a HIGH FLOW NC to increase oxygenation however, Pt refuses treatm ent and becomes very emotional. Tried multiple times to place HIGH FLOW NC however Pt pushe d treatment away and refuses to wear it. onver alan Transaction, Provider Unknown - 06/11/2012 6:37 PM PST Progress Notes by Helena Lambert RPH at 06/11/121836 Author: Helena Lambert RPH Service: (none) Author Type: Pharmacist Filed: 06/11/121836 Date of Service: 06/11/121836 Status: Signed Sap Data Architect: Helena Lambert RPH (Pharmacist) Clinical Pharmacy Note: Vancomycin Monitoring - Day 3 Clinician Dosing: Pharmacy Dosing Recent Trough level: 19.97 mcg/mL Drawn: 06/11 @ 1747 Plan per protocol: Continue with current regimen of: Vancomycin 1500 mg Q12H. Order trough levels:06/12 @ 2330 06/11/2012 6:32 PM Pharmacist: Helena Lambert onver alan Transaction, Provider Unknown - 06/11/2012 3:49 PM PST Progress Notes by ODALIS Hansen at 06/11/12 9079 Author: ODALIS Hansen Service: (none) Author Type: Director Of Manufacturing Operations Filed: 06/12/12 0843 Date of Service: 06/11/12 1545 Status: Addendum Sap Data Architect: ODALIS Hansen (Director Of Manufacturing Operations) Related Notes: Original Note by ODALIS Hansen (Director Of Manufacturing Operations) filed at 06/11/12 9658 Pt is a 46yo SWM admitted with pneumonia. Pt has Down's Syndrome. He lives in an [facility] in [facility]. Cylinder Press Operator Helper/caregiver is Kristy ([phone]). I spoke with Kristy who states th at pt mostly independent with adl's. He does need help with showering. He is on a pureed di et with nectar thick liquids. Kristy states that she can take pt back if he does not need IV abx. In the past, pt has needed IV abx and had to go to [facility] for the IV abx. [facility] is reportedly the only facility that will take a Down's Syndrome pt. Per Kristy, if pt is not on his meds, he can have behavior problems such as hitting his head or scratch ing himself. I spoke with pt's brother, Yandel who confirmed all of the above info and states that he is agreeable to transfer to [facility] if pt needs IV abx. Per Kristy, if pt is able to go straight home, either she can pick him up or pt's brother may be able to. CM to follow. Addendum: 06/12/12 0845: Faxed clinical referral to [facility] ph: , fax" [phone]. onver alan Transaction, Provider Unknown - 06/11/2012 10:40 AM PST Progress Notes by Gab Cardona RPH at 06/11/121039 Author: Gab Cardona RPH Service: (none) Author Type: Pharmacist Filed: 06/11/121039 Date of Service: 06/11/121039 Status: Signed Sap Data Architect: Gab Cardona RPH (Pharmacist) Vancomycin day 3, est crcl 92.2ml/min, will check random level at 1730 today, renal functio n has improved significantly. Shakeel Moreno MD - 06/11/2012 12:54 AM PSTFormatting of this note might be different from the or iginal. Progress Notes by Shakeel Howard MD at 06/11/1253 Author: Shakeel Howard MD Service: (none) Author Type: Physician Filed: 06/11/12 0516 Date of Service: 06/11/1253 Status: Signed Sap Data Architect: Shakeel Howard MD (Physician) [facility] Service: Supervisor [employer] Progress Note Date of Admission: 06/09/2012 Requesting Physician: Dr. Aguilar, Emergency Department at [facility] ED Indication for ICU Admission: hypoxic respiratory failure and h/o vomiting and diarrhea wi th suspected aspiration History Obtained From: chart review CHIEF COMPLAINT: Hypoxemic respiratory failure HISTORY OF PRESENT ILLNESS The patient is a 46 y.o. male with significant past medical history of Down's syndrome, psy chosis, hypothyroidism and h/o Right hip abscess (healing). The pt arrived here at [facility] ICU intubated and sedated and but his brother, Yandel, showed up here and gave some hx and also ga ve the name and # for caregiver, Kristy. She reports that pt has had exposure to sick people where he works earlier this week (people with coughs, colds, runny noses, etc). 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 He did not have any fevers/chills and no oth er noted discomfort (pt is nonverbal). He went to bed a little early the night before presen tation (which she said is not unusual). This am he initially seemed fine. She checked on him later in the am and he appeared to be having labored breathing and was pale and not very al ert. He had what appeared to be some emesis on his face and bedding. She reports he also was incontinent of urine and had an episode of diarrhea x1. She called EMS. He was initially taken to the ED at [facility] in [place], [place], where he was brought by EMS. Pt was hypoxemic when EMS arrived with sats were 60% that improved to low 90s with NRB mask O2. In the ED he was obtunded in the ED and was intubated. Kristy and Yandel both report that pt has a h/o aspiration events and is on a 100% pureed, ne ctar thick diet with close monitoring because of this. He has had aspiration PNA in the past . His brother also reports h/o JOSSELYN with what sounds like hydronephrosis and has had ureteral stents in the past. He has seen a urologist in [place] but his brother does not know of a hi visits or problems for the past couple years or more. ICU TIMELINE: 06/09/12 [facility]-TLC, RRA line 06/10/12 - Extubated. PHYSICAL EXAM Vital Signs: BP 97/59 | Pulse 70 | Temp(Src) 97.7 F (36.5 C) (Axillary) | Resp 16 | Ht 1.676 m (5' 6 ") | Wt 96.7 kg (213 lb 3 oz) | BMI 34.41 kg/m2 | SpO2 99% Temp: [97.7 F (36.5 C)-98.9 F (37.2 C)] 97.7 F (36.5 C) (06/12 399) BP: (76-134)/(44-78) 97/59 mmHg (06/11 444) Heart Rate: [35-94] 70 (06/11 444) Resp: [12-24] 16 (06/12 399) SpO2: [85 %-100 %] 99 % (06/11 444) Weight: [96.7 kg (213 lb 3 oz)] 96.7 kg (213 lb 3 oz) (06/11 547) FiO2 : [40 %-42 %] 40 % (06/10 2014) EXAM GEN: Down's facies, short stature, on face tent. NAD NEURO: PERRLA, no abnormal gaze, no facial asymmetry noted, withdraws to pain HEENT: sclerae mildly injected, nonicteric, oral mmm, pink, large tongue, oral ETT and OGT in place NECK: supple, short and obese, trachea midline HEART: RRR, no murmur, rub or gallop LUNGS: mildly coarse BS b/l, no wheezing, crackles ABD: soft, nondistended, no reaction to palpation, no masses EXTR: trace nonpitting edema, no clubbing or cyanosis SKIN: warm, dry, no rash or mottling; no e/o skin breakdown over the occiput, scapulae, elb ows, sacrum or heels; has Bi chronic appearing round indurated wounds with mild erythema and granulation tissue with umbilicated center, no drainage or fluctuance, no increased warmth (appears to be healing by 2ndary intent)-- present at admission (see photos in chart) DATA CBC: Lab Results Component Value Date WBC 6.3 06/11/2012 RBC 2.99* 06/11/2012 HGB 10.3* 06/11/2012 HCT 32.2* 06/11/2012 MCV 107.6* 06/11/2012 MCH 34.3* 06/11/2012 MCHC 31.9* 06/11/2012 RDW 76.6* 06/11/2012 PLT 92* 06/11/2012 MPV 10.3 06/11/2012 DIFFTYPE AUTOMATED 06/11/2012 CMP: Lab Results Component Value Date NA 146* 06/11/2012 K 4.0 06/11/2012 CL 109 06/11/2012 CO2 30 06/11/2012 ANIONGAP 11 06/11/2012 GLUF 94 06/11/2012 BUN 20 06/11/2012 CREATININE 1.09 06/11/2012 BCR 19 06/11/2012 CA 7.6* 06/11/2012 PROT 4.6* 10/06/2010 ALB 2.0* 06/09/2012 GLOB 3.3 10/06/2010 BILITOT 0.2 10/06/2010 ALP 48 10/06/2010 AST 12 10/06/2010 ALT 12 10/06/2010 EGFR >60 06/11/2012 Magnesium: Lab Results Component Value Date MG 2.3 06/11/2012 Phosphorus: Lab Results Component Value Date PHOS 2.7 06/11/2012 PROBLEM LIST Active Problems: Down syndrome Recurrent aspiration pneumonia Aspiration pneumonia Acute respiratory failure Hypoxemia Acute renal failure (ARF) Septic shock ASSESSMENT & PLAN NEURO: Down syndrome: nonverbal at baseline. H/o severe psychosis: holding most psych meds and will add back once weaning sedation. C ont Zoloft but hold Seroquel, Geodon and Depakene for now CARDIOVASCULAR: Septic shock: Improved. Wean pressors. Trial of hydrocortisone if not able to wean off pressors. PULMONARY: Acute resp failure:Improved. Currently extubated. Pulmonary toilet, ISS. OOB to chair today. BIPAP as needed. GI: Advance diet as tolerated. RENAL: JOSSELYN - resolving. Continue to keep euvolemic. INFECTIOUS DISEASE: Awaiting cultures. Continue vanc and zosyn for now. De-escalate when able. HEME: Macrocytic anemia: check B12, folate. No e/o bleeding ENDOCRINE: No know DM but has been on Seroquel, Geodon which increase diabetes risk. Follow glucose and Endo tool ordered if needed, HbA1c ordered MUSCULOSKELETAL: No active issues PROPHYLAXIS: Stress ulcer prophylaxis: Pepcid DVT prophylaxis: SQ heparin VAP bundle: chlorhexadine oral care, HOB >30 degrees. Disposition: Continue ICU observation. May be able to transfer to acute care chaudhari later t blessing. Code Status: Full Code Primary Care Physician: MACY MOODY NP *Please bill 30 minutes of critical care time spent evaluating the patient, reviewing the d katharine and formulating a plan exclusive of all other procedures. SHAKEEL HOWARD MD 06/11/2012 onversion Transactio n, Provider Unknown - 06/10/2012 1:22 PM PST Progress Notes by Russell Weeks RN at 06/10/12 1322 Author: Russell Weeks RN Service: (none) Author Type: Director Of Manufacturing Operations Filed: 06/10/12 0518 Date of Service: 06/10/121321 Status: Signed Sap Data Architect: Russell Weeks RN (Director Of Manufacturing Operations) Case Management: Spoke with patient's POA Brother Bill (p) [phone] to start the discha rge planning process. This patient in a Correction setting governed by the state. Patient sotelo s lived there for 3-4 yrs. Yandel did not know the owners contact #, but her name is Kristy. Liz oconnor has been admitted to [facility] in the past. onkami loon Transaction, Provider Unknown - 06/10/2012 12:47 PM PST Progress Notes by [place] Weeks RN at 06/10/12 1247 Author: [place] Weeks RN Service: (none) Author Type: Director Of Manufacturing Operations Filed: 06/10/12 1249 Date of Service: 06/10/12 1247 Status: Signed Sap Data Architect: [place] Weeks RN (Director Of Manufacturing Operations) Case Management: Contact for patient's brother Yandel is [phone]. A VM was left requesti ng a call back to discuss discharge plans. Doug Pickett ARNP - 06/10/2012 10:27 AM PSTFormatting of this note might be different f rom the original. Progress Notes by CHELSY Epstein at 06/10/12 1027 Author: CHELSY Epstein Service: Supervisor [employer] Author Type: Supervisor [employer] Filed: 06/10/12 1107 Date of Service: 06/10/12 1027 Status: Addendum Sap Data Architect: CHELSY Epstein (Supervisor [employer]) Related Notes: Original Note by CHELSY Epstein (Supervisor [employer]) filed at [address] [facility] Service: Supervisor [employer] Progress Note Date of Admission: 06/09/2012 Requesting Physician: Dr. Aguilar, Emergency Department at [facility] ED Indication for ICU Admission: hypoxic respiratory failure and h/o vomiting and diarrhea wi th suspected aspiration History Obtained From: chart review CHIEF COMPLAINT: Hypoxemic respiratory failure HISTORY OF PRESENT ILLNESS The patient is a 46 y.o. male with significant past medical history of Down's syndrome, psy chosis, hypothyroidism and h/o Right hip abscess (healing). The pt arrived here at [facility] ICU intubated and sedated and but his brother, Yandel, showed up here and gave some hx and also ga ve the name and # for caregiver, Kristy. She reports that pt has had exposure to sick people where he works earlier this week (people with coughs, colds, runny noses, etc). 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 He did not have any fevers/chills and no oth er noted discomfort (pt is nonverbal). He went to bed a little early the night before presen tation (which she said is not unusual). This am he initially seemed fine. She checked on him later in the am and he appeared to be having labored breathing and was pale and not very al ert. He had what appeared to be some emesis on his face and bedding. She reports he also was incontinent of urine and had an episode of diarrhea x1. She called EMS. He was initially taken to the ED at [facility] in [place], [place], where he was brought by EMS. Pt was hypoxemic when EMS arrived with sats were 60% that improved to low 90s with NRB mask O2. In the ED he was obtunded in the ED and was intubated. Kristy and Yandel both report that pt has a h/o aspiration events and is on a 100% pureed, ne ctar thick diet with close monitoring because of this. He has had aspiration PNA in the past . His brother also reports h/o JOSSELYN with what sounds like hydronephrosis and has had ureteral stents in the past. He has seen a urologist in [place] but his brother does not know of a [place] visits or problems for the past couple years or more. ICU TIMELINE: 06/09/12 [facility], RRA line OVERNIGHT EVENTS: Pt resting quietly. HR in the 40's with Propofol. BP adequate. U/O has be en scant but Cr is decreasing. CVP is 19, so pt should be fluid resuscitated. Will check IVC later today if pt rolls supine to confirm fluid status. Spoke with pts brother about plan o f care. Sedation holiday reveals no abnormal neuro deficits for this pt per RN. REVIEW OF SYSTEMS Unable to obtain. Past Medical History Diagnosis Date Down syndrome Recurrent aspiration pneumonia Hypothyroidism History of macrocytic anemia Hypertension Depression Pressure ulcer of right hip Psychosis Acute renal failure (ARF) 06/09/2012 Hydronephrosis Past Surgical History Procedure Date Ureteral stent placement history of stents Immunizations: Influenza: Up-to-date Pneumoccocal: Up-to-date; approximate date: 2010 Allergies Allergen Reactions Carbamazepine Other (See Comments) Unknown- allergy listed in old chart notes Prescriptions prior to admission Medication Sig Dispense Refill FLUDROCORTISONE ACETATE PO Take 0.1 mg by mouth daily. Levothyroxine Sodium 125 MCG CAPS Take 125 mg by mouth daily. Skip on saturdays QUEtiapine Fumarate (SEROQUEL PO) Take 400 mg by mouth nightly. sertraline (ZOLOFT) 100 MG tablet Take 100 mg by mouth daily. valproic acid (DEPAKENE) 250 MG capsule Take 250 mg by mouth 4 (four) times daily. ZIPRASIDONE HCL PO Take 120 mg by mouth nightly. DISCONTD: Acetaminophen 500 MG coapsule Take by mouth. DISCONTD: quetiapine (SEROQUEL) 400 MG tablet Take 400 mg by mouth 2 (two) times daily. Family History Problem Relation Age of Onset Other (see comments) Father COPD History Social History Marital Status: Single Spouse Name: N/A Number of Children: N/A Years of Education: N/A Occupational History Not on file. Social History Main Topics Smoking status: Never Smoker Smokeless tobacco: Never Used Alcohol Use: No Drug Use: No Sexually Active: No Other Topics Concern Not on file Social History Narrative 11-29-10 The patient resides in [facility]. PHYSICAL EXAM Vital Signs: BP 102/56 | Pulse 45 | Temp(Src) 97.8 F (36.6 C) (Oral) | Resp 15 | Ht 1.676 m (5' 6") | Wt 96.7 kg (213 lb 3 oz) | BMI 34.41 kg/m2 | SpO2 99% Temp: [97.8 F (36.6 C)-99.9 F (37.7 C)] 97.8 F (36.6 C) (06/10 0700) BP: (73-127)/(42-69) 102/56 mmHg (03/03 0930) Heart Rate: [45-84] 45 (06/10 929) Resp: [14-15] 15 (06/10 929) SpO2: [66 %-100 %] 99 % (06/10 929) Height: [167.6 cm (5' 6")] 167.6 cm (5' 6") (06/09 1699) Weight: [91 kg (200 lb 9.9 oz)-96.7 kg (213 lb 3 oz)] 96.7 kg (213 lb 3 oz) (06/11 547) BMI (Calculated): [32.4] 32.4 (06/09 1699) FiO2 : [40 %-74 %] 41 % (06/10 929) EXAM GEN: Down's facies, short stature, intubated, sedated, NAD NEURO: PERRLA, no abnormal gaze, no facial asymmetry noted, withdraws to pain HEENT: sclerae mildly injected, nonicteric, oral mmm, pink, large tongue, oral ETT and OGT in place NECK: supple, short and obese, trachea midline HEART: RRR, no murmur, rub or gallop LUNGS: mildly coarse BS b/l, no wheezing, crackles ABD: soft, nondistended, no reaction to palpation, no masses EXTR: trace nonpitting edema, no clubbing or cyanosis SKIN: warm, dry, no rash or mottling; no e/o skin breakdown over the occiput, scapulae, elb ows, sacrum or heels; has Bi chronic appearing round indurated wounds with mild erythema and granulation tissue with umbilicated center, no drainage or fluctuance, no increased warmth (appears to be healing by 2ndary intent)-- present at admission (see photos in chart) DATA CBC: Lab Results Component Value Date WBC 12.2* 06/10/2012 RBC 2.87* 06/10/2012 HGB 9.8* 06/10/2012 HCT 30.7* 06/10/2012 MCV 107.0* 06/10/2012 MCH 34.2* 06/10/2012 MCHC 31.9* 06/10/2012 RDW 74.4* 06/10/2012 PLT 102* 06/10/2012 MPV 10.7 06/10/2012 DIFFTYPE AUTOMATED 06/10/2012 CMP: Lab Results Component Value Date NA 142 06/10/2012 K 4.6 06/10/2012 CL 108 06/10/2012 CO2 26 06/10/2012 ANIONGAP 12 06/10/2012 GLUF 101* 06/10/2012 BUN 27* 06/10/2012 CREATININE 1.50* 06/10/2012 BCR 18 06/10/2012 CA 7.0* 06/10/2012 PROT 4.6* 10/06/2010 ALB 2.0* 06/09/2012 GLOB 3.3 10/06/2010 BILITOT 0.2 10/06/2010 ALP 48 10/06/2010 AST 12 10/06/2010 ALT 12 10/06/2010 EGFR 54* 06/10/2012 Magnesium: Lab Results Component Value Date MG 1.7 06/10/2012 Phosphorus: Lab Results Component Value Date PHOS 3.4 06/10/2012 CXR slightly more hazy overall today. PROBLEM LIST Active Problems: Down syndrome Recurrent aspiration pneumonia Aspiration pneumonia Acute respiratory failure Hypoxemia Acute renal failure (ARF) Septic shock ASSESSMENT & PLAN NEURO: Down syndrome: nonverbal at baseline. H/o severe psychosis: holding most psych meds and will add back once weaning sedation. C ont Zoloft but hold Seroquel, Geodon and Depakene for now Sedation with Propofol and fentanyl. These meds causing some bradycardia, but without as sociated hypotension. CARDIOVASCULAR: Septic shock: hypotension also somewhat related to versed and Propofol bolus doses he re ceived prior to arrival in ICU; BP improved. Will bolus NS and follow. Central line placed . No known cardiac ds but given Down syndrome has higher risk of CM. Consider ECHO if shoc k not resolved by am Suspected chronic hypotension: has been on fludrocortisone (at least 2 years as was on m ed list in 09/2010 admission), cont outpt dose. Add stress-dose hydrocortisone if shock not i mproving PULMONARY: Acute resp failure: hypoxic. High suspicion for aspiration pneumonitis vs PNA, although he did have reported dry cough for several days. Will ccheck rapid flu and Legionella and St rep Ags. Cont Zosyn, Vanc. Sputum gram stain without organisms seen. GI: One episode loose stool per caregiver. If recurs would send for C diff. abd exam benign. C-diff negative. NPO and start TFs in am RENAL: Acute renal failure: h/o same. No known CKD. Likely pre-renal from diarrhea, septic shoc k with volume depletion and capillary leak. Cont IVF boluses until euvolemic and follow TiffanieOaztes closely. Pt's brother reports h/o hydronephrosis with prior JOSSELYN. If renal function not improving will get renal US. UA benign. U/O is scant, approx 20 ml/hr. Cr is dropping overnight. Will scan IVC to confirm CVP of 18-19 for adaquate fluid resuscitation. Hold on diuresis at present and see if pt will auto diurese if pt is adequate intravascularly hydrated. INFECTIOUS DISEASE: Septic source is suspected aspiration pneumonitis/PNA. Has signif bandemia. Plan as abov e. F/u blood, urine and sputum cxs. HEME: Macrocytic anemia: check B12, folate. No e/o bleeding ENDOCRINE: Hypothyroidism: Check TSH No know DM but has been on Seroquel, Geodon which increase diabetes risk. Follow glucose and Endo tool ordered if needed, HbA1c ordered MUSCULOSKELETAL: No active issues PROPHYLAXIS: Stress ulcer prophylaxis: Pepcid DVT prophylaxis: SQ heparin VAP bundle: chlorhexadine oral care, HOB >30 degrees. Disposition: Pt's brother, Yandel, and caregiver, Kristy, updated. Pt's prognosis guarded bu t anticipate he will improved. Discussed code status with pt's brother. He and their father (83 years old) state that they would not want pt to have prolonged life support without sign ificant hope for recovery but at this time he should remain full code. Pt has no MPOA but br other is surrogate decision maker. Code Status: Full Code Primary Care Physician: MACY MOODY NP *Please bill 40 minutes of critical care time spent evaluating the patient, reviewing the d katharine and formulating a plan exclusive of all other procedures. CHELSY EPSTEIN 06/10/2012 onversio n Transaction, Provider Unknown - 06/10/2012 9:13 AM PSTFormatting of this note might be di fferent from the original. Progress Notes by Cielo Peraza RPH at 06/10/12 0913 Author: Cielo Peraza RPH Service: (none) Author Type: Pharmacist Filed: 06/10/12912 Date of Service: 06/10/12912 Status: Signed Sap Data Architect: Cielo Peraza RPH (Pharmacist) Scr 1.5 CrCl 67 ml/min WBC 12.2 Continue 1500mg q24h Vancomycin Trough Due: 0500 on 06/12 If level >20 hold dose Cielo Peraza RP > onver alan Transaction, Provider Unknown - 06/09/2012 8:00 PM PST Progress Notes by Abbie Bustos RPH at 06/09/121999 Author: Abbie Bustos RPH Service: (none) Author Type: Pharmacist Filed: 06/09/122000 Date of Service: 06/09/121999 Status: Signed Sap Data Architect: Abbie Bustos RPH (Pharmacist) Based on Crcl~49.8ml/min no medications need adjustments at this time. Will continue to fol low. onver alan Transaction, Provider Unknown - 06/09/2012 7:19 PM PST Progress Notes by Abbie Bustos RPH at 06/09/121918 Author: Abbie Bustos RPH Service: (none) Author Type: Pharmacist Filed: 06/09/121918 Date of Service: 06/09/121918 Status: Signed Sap Data Architect: Abbie Bustos RPH (Pharmacist) Initiation of Vancomycin Pharmacy Dosing Juliane Marina Jr. 46 y.o. male 1.676 m (5' 6") 91 kg (200 lb 9.9 oz) Body mass index is 32.38 kg/(m^2). CREATININE Date Value Range Status 06/09/2012 1.96* 0.70 - 1.30 mg/dL Final Testing performed at [facility];[address] [place] [address];[place] [address] Estimated CrCl : CREATININE: 1.96 mg/dL ABNORMAL (06/09/12 1717) Estimated creatinine clearance - Cockcroft-Gault CrCl: 49.8 mL/min Indications: Cellulitis, Hospital Acquired Pneumonia Dose per Protocol: Loading Dose: Vancomycin 1500 mg (17mg/kg TBW) IV Q24 Hours. First Dose to be Given: 1730 today next dose at 0600 tomorrow Vancomycin Trough Due: 0500 on 06/12 Goal Trough for Vancomycin: 15-20 mcg/mL Pharmacist: Abbie Bustos 06/09/2012 7:17 PM docume nted in this encounter Plan of Treatment Not on filedocumented as of this encounter Procedures + +--------+ + + + | Procedure Name | Priori | Date/Time | Associated Diagnosis | Comments | | | ty | | | | + +--------+ + + + | XR CHEST 1 VIEW | Routin | 06/16/2012 | | Results for this | | | e | 6:06 AM | | procedure are in the | | | | PST | | results section. | + +--------+ + + + | FL VIDEO SWALLOW W | Routin | 06/15/2012 | | Results for this | | SPEECH | e | 3:05 PM | | procedure are in the | | | | PST | | results section. | + +--------+ + + + | XR CHEST 1 VIEW | Routin | 06/12/2012 | | Results for this | | | e | 5:49 AM | | procedure are in the | | | | PST | | results section. | + +--------+ + + + | ECHO COMPLETE | Routin | 06/10/2012 | | Results for this | | | e | 2:45 PM | | procedure are in the | | | | PST | | results section. | + +--------+ + + + | XR CHEST 1 VIEW | Routin | 06/10/2012 | | Results for this | | | e | 5:35 AM | | procedure are in the | | | | PST | | results section. | + +--------+ + + + | XR CHEST 1 VIEW | Routin | 06/09/2012 | | Results for this | | | e | 10:47 PM | | procedure are in the | | | | PST | | results section. | + +--------+ + + + | STREPTOCOCCUS | STAT | 06/09/2012 | | Results for this | | PNEUMONIAE AG, URINE | | 6:09 PM | | procedure are in the | | | | PST | | results section. | + +--------+ + + + | CULTURE, URINE | Timed | 06/09/2012 | | Results for this | | | | 6:09 PM | | procedure are in the | | | | PST | | results section. | + +--------+ + + + | CULTURE, BLOOD, 2ND | Timed | 06/09/2012 | | Results for this | | SPECIMEN (NON-ORD) | | 5:17 PM | | procedure are in the | | | | PST | | results section. | + +--------+ + + + | GRAM STAIN, REFLEX | Timed | 06/09/2012 | | Results for this | | SPUTUM CULTURE | | 5:04 PM | | procedure are in the | | | | PST | | results section. | + +--------+ + + + | MRSA NAAT | Timed | 06/09/2012 | | Results for this | | | | 5:01 PM | | procedure are in the | | | | PST | | results section. | + +--------+ + + + | CULTURE, BLOOD | Timed | 06/09/2012 | | Results for this | | | | 5:01 PM | | procedure are in the | | | | PST | | results section. | + +--------+ + + + | XR CHEST 1 VIEW | Routin | 06/09/2012 | | Results for this | | | e | 4:42 PM | | procedure are in the | | | | PST | | results section. | + +--------+ + + + | XR CHEST 1 VIEW | Routin | 06/09/2012 | | Results for this | | | e | 10:42 AM | | procedure are in the | | | | PST | | results section. | + +--------+ + + + | XR CHEST 1 VIEW | Routin | 06/09/2012 | | Results for this | | | e | 10:42 AM | | procedure are in the | | | | PST | | results section. | + +--------+ + + + documented in this encounter Results XR Chest 1 Vw (06/16/2012 6:06 AM PST) + + | Specimen | + + | | + + + + + | Narrative | Performed At | + + + | [facility]UL[facility] . 1965 46 years XR CHEST 1 VIEW 06/16/2012 | | | 5:46 AM INDICATION: Respiratory failure COMPARISON: 06/12/2012 | | | TECHNIQUE: Chest 1 view, AP view of the chest FINDINGS: Left | | | IJ central catheter terminates in SVC. The cardiac silhouette is | | | normal in size without mediastinal widening. There is no | | | pneumothorax. Bilateral pleural effusions are noted. Scattered | | | opacities along the right hilar region are improved in appearance | | | from previous exam. Some residual atelectasis remains. | | | Opacification of the medial left lower lobe is increased from prior | | | examination and is a new finding. IMPRESSION: 1. Left IJ | | | remains in position. 2. Improved aeration of the right perihilar | | | region with residual areas of atelectasis. 3. Newly developed | | | opacity along the medial left lower lobe which may reflect worsening | | | atelectasis or aspiration. | | + + + + + | Procedure Note | + + | Enrike, Rad Conversion - 11/30/2018 9:54 PM PDT JULIANE E LAINA SAMANIEGO. yearsXR | | CHEST 1 VIEW06/16/2012 5:46 AM INDICATION: Respiratory failure COMPARISON: 06/12/2012 | | TECHNIQUE: Chest 1 view, AP view of the chest FINDINGS: Left IJ central catheter | | terminates in SVC. The cardiac silhouette is normal in size without mediastinal | | widening. There is no pneumothorax. Bilateral pleural effusions are noted. Scattered | | opacities along the right hilar region are improved in appearance from previous exam. | | Some residual atelectasis remains. Opacification of the medial left lower lobe is | | increased from prior examination and is a new finding. IMPRESSION:1. Left IJ remains in | | position.2. Improved aeration of the right perihilar region with residual areas of | | atelectasis.3. Newly developed opacity along the medial left lower lobe which may | | reflect worsening atelectasis or aspiration. | |FINDINGS: Left IJ central catheter terminates in SVC. The cardiac silhouette is normal in size without mediastinal widening. There is no pneumothorax. Bilateral pleural effusions are noted. Scattered opacities along the right hilar region are | |improved in appearance from previous exam. Some residual atelectasis remains. Opacificati on of the medial left lower lobe is increased from prior examination and is a new finding. | | | |IMPRESSION: | |1. Left IJ remains in position. | |2. Improved aeration of the right perihilar region with residual areas of atelectasis. | |3. Newly developed opacity along the medial left lower lobe which may reflect worsening at electasis or aspiration. | | | | | + + FL Video Swallow w Speech (06/15/2012 3:05 PM PST) + + | Specimen | + + | | + + + + + | Narrative | Performed At | + + + | This is a non-reportable procedure without a radiologist report and | | | is used for image storage only | | + + + + + | Procedure Note | + + | Alen Calvert Reza - 11/30/2018 9:54 PM PDT This is a non-reportable procedure | | without a radiologist report and isused for image storage only | + + XR Chest 1 Vw (06/12/2012 5:49 AM PST) + + | Specimen | + + | | + + + + + | Narrative | Performed At | + + + | JULIANE MARINA JR. XR CHEST 1 VIEW 06/12/2012 5:37 AM HISTORY: | | | Respiratory failure. TECHNIQUE: One view of the chest. | | | FINDINGS: Compared with June 10, 2012. Endotracheal and nasogastric | | | tubes have been removed. The central line tip remains in the SVC. | | | No pneumothorax. There are persistent mild bilateral perihilar | | | infiltrates or edema, mildly progressive. Heart size is probably | | | normal, counting for portable technique. No pleural effusion is | | | seen. There slight thickening of the minor fissure. IMPRESSION: | | | 1. Changes to the tubes and lines, as above. No pneumothorax. 2. | | | Increasing mild bilateral infiltrates or edema, right greater than | | | left. | | | 7:50 AM | | + + + + + | Procedure Note | + + | Enrike, Rad Conversion - 11/30/2018 9:54 PM PDT JULIANE MARINA JR.XR CHEST 1 | | VIEW06/12/2012 5:37 AM HISTORY:Respiratory failure. TECHNIQUE:One view of the chest. | | FINDINGS:Compared with June 10, 2012. Endotracheal and nasogastric tubes have been | | removed. The central line tip remains in the SVC. No pneumothorax. There are | | persistent mild bilateral perihilar infiltrates or edema, mildly progressive. Heart | | size is probably normal, counting for portable technique. No pleural effusion is seen. | | There slight thickening of the minor fissure. IMPRESSION:1. Changes to the tubes and | | lines, as above. No pneumothorax.2. Increasing mild bilateral infiltrates or edema, | | right greater than left. | | 7:50 AM | |FINDINGS: | |Compared with June 10, 2012. Endotracheal and nasogastric tubes have been removed. The ce ntral line tip remains in the SVC. No pneumothorax. There are persistent mild bilateral pe rihilar infiltrates or edema, mildly progressive. Heart size is | |probably normal, counting for portable technique. No pleural effusion is seen. There slig ht thickening of the minor fissure. | | | |IMPRESSION: | |1. Changes to the tubes and lines, as above. No pneumothorax. | |2. Increasing mild bilateral infiltrates or edema, right greater than left. | | | | | + + ECHO Complete (06/10/2012 2:45 PM PST) + + | Specimen | + + | | + + + + + | Narrative | Performed At | + + + | Patient Name: JULIANE MARINA Date of : 1965 | | | Performing Physician: Jose Alfredo Chester | | | MD | | | INDICATIONS SEPSIS CONCLUSIONS 1. | | | Essentially normal study. FINDINGS -------- ECG rhythm: Sinus | | | rhythm. ECG rhythm: Resting bradycardia (HR<60bpm). Study: A | | | 2-dimensional transthoracic echocardiogram with m-mode, spectral and | | | color flow Doppler was perfomed. Study: This was a technically | | | adequate study. Left Ventricle: Overall left ventricular systolic | | | function is normal with, an EF between 60 - 65 %. Left Ventricle: The | | | left ventricle cavity size is normal. Left Ventricle: Left | | | ventricular wall thickness is normal. Left Ventricle: The diastolic | | | filling pattern indicates impaired relaxation consistent with mild | | | dysfunction (Grade I), which is normal for the patient's age. Right | | | Ventricle: The right ventricle is normal in size and function. Left | | | Atrium: The left atrium is normal in size. Right Atrium: The right | | | atrium is normal in size. Aortic Valve: The aortic valve is | | | trileaflet, and appears anatomically normal. No aortic stenosis or | | | regurgitation. Mitral Valve: The mitral valve is normal. Mitral | | | Valve: No mitral regurgitation. Tricuspid Valve: The tricuspid valve | | | appears structurally normal. Tricuspid Valve: Mild tricuspid | | | regurgitation present. Tricuspid Valve: There is mild pulmonary | | | hypertension. Tricuspid Valve: The right ventricular systolic | | | pressure (pulmonary artery systolic pressure), as measured by Doppler, | | | is 42.26mmHg. Pulmonic Valve: Pulmonic valve appears structurally | | | normal. Pericardium: There is a small, generalized pericardial | | | effusion present. Pericardium: Loculated effusion noted in subcostal | | | views. IVC/Hepatic Veins: The IVC is normal size (1.5-2.5cm) and | | | collapses <50% with sniff, consistent with central venous pressures of | | | 10-15mmHg. Thrombus: No clot visualized MEASUREMENTS | | | LA Major: 3.45 cm EDV(Teich): 59.25 ml IVSd: | | | 0.70 cm LVIDd: 3.72 cm LVPWd: 0.98 cm LVOT Diam: 2.08 cm | | | %FS: 33.54 % EF(Teich): 63.12 % ESV(Teich): 21.85 ml | | | IVSs: 0.82 cm LVIDs: 2.47 cm LVPWs: 1.45 cm SV(Teich): | | | 37.40 ml RA Major: 3.84 cm RVIDd: 2.98 cm LAESV(A-L): | | | 32.31 ml LAESV Index (A-L): 15.68 ml/m2 LAAs A2C: 12.36 cm2 | | | LAESV A-L A2C: 34.10 ml LALs A2C: 3.80 cm LAAs A4C: 11.72 | | | cm2 LAESV A-L A4C: 30.27 ml LALs A4C: 3.85 cm Ao Diam: | | | 3.31 cm AV Cusp: 2.17 cm LA Diam: 3.01 cm LA/Ao: 0.90 | | | %FS: 40.74 % EDV(Teich): 70.88 ml EF(Teich): 72.06 % | | | ESV(Teich): 19.80 ml IVSd: 0.64 cm IVSs: 0.94 cm LVIDd: | | | 4.02 cm LVIDs: 2.38 cm LVPWd: 0.79 cm LVPWs: 1.24 cm | | | SV(Teich): 51.08 ml D-E Excursion: 1.88 cm E-F Garden: 0.08 | | | m/s EPSS: 0.39 cm IVC diameter: 1.84 cm IVC collapse: 1.77 | | | cm IVC % collapse: 2.00 % HR: 47.14 BPM AV maxP.54 | | | mmHg AV meanP.17 mmHg AV Vmax: 0.94 m/s AV Vmean: 0.70 | | | m/s AV VTI: 24.93 cm SHAISTA Vmax: 2.59 cm2 SHAISTA (VTI): 2.17 | | | cm2 LVCI Dopp: 1.54 l/minm2 LVCO Dopp: 3.17 l/min HR: | | | 58.59 BPM LVOT maxP.06 mmHg LVOT meanP.91 mmHg LVSI | | | Dopp: 26.33 ml/m2 LVSV Dopp: 54.24 ml LVOT Vmax: 0.71 m/s | | | LVOT Vmean: 0.43 m/s LVOT VTI: 15.91 cm MCO: 495.37 ms MV | | | A Jose: 0.48 m/s MV DecT: 171.54 ms MV E Jose: 1.07 m/s MV | | | E/A Ratio: 2.22 MV PHT: 54.78 ms MVA By PHT: 4.01 cm2 MV A | | | Dur: 85.02 ms HR: 47.04 BPM PV maxP.84 mmHg PV | | | meanP.98 mmHg PV Vmax: 0.67 m/s PV Vmean: 0.47 m/s PV | | | VTI: 17.19 cm RAP: 10 mmHg RVSP: 42.26 mmHg TR maxPG: | | | 32.26 mmHg TR Vmax: 2.83 m/s TV A Jose: 0.20 m/s TV Dec Garden: | | | 2.76 m/s2 TV Dec Time: 231.69 ms TV E Jose: 0.64 m/s TV | | | E/A Ratio: 3.14 Hair Weaver: SHEA Authenticated by: Jose Alfredo | | | Nemo JONES Report Date/Time: 06-10-2012 19:33:34 | | + + + + + | Procedure Note | + + | Enrike, Rad Conversion - 11/30/2018 9:54 PM PDT Patient Name: Manpreet MARINA of | | : 1965 Performing Physician: Jose Alfredo Chester | | INDICATIONS S | | EPSIS CONCLUSIONS 1. Essentially normal study. FINDINGS--------ECG rhythm: | | Sinus rhythm.ECG rhythm: Resting bradycardia (HR<60bpm).Study: A 2-dimensional | | transthoracic echocardiogram with m-mode, spectral and color flow Doppler was | | perfomed.Study: This was a technically adequate study.Left Ventricle: Overall left | | ventricular systolic function is normal with, an EF between 60 - 65 %.Left Ventricle: | | The left ventricle cavity size is normal.Left Ventricle: Left ventricular wall thickness | | is normal.Left Ventricle: The diastolic filling pattern indicates impaired relaxation | | consistent with mild dysfunction (Grade I), which is normal for the patient's age.Right | | Ventricle: The right ventricle is normal in size and function.Left Atrium: The left | | atrium is normal in size.Right Atrium: The right atrium is normal in size.Aortic Valve: | | The aortic valve is trileaflet, and appears anatomically normal. No aortic stenosis or | | regurgitation.Mitral Valve: The mitral valve is normal.Mitral Valve: No mitral | | regurgitation.Tricuspid Valve: The tricuspid valve appears structurally normal.Tricuspid | | Valve: Mild tricuspid regurgitation present.Tricuspid Valve: There is mild pulmonary | | hypertension.Tricuspid Valve: The right ventricular systolic pressure (pulmonary artery | | systolic pressure), as measured by Doppler, is 42.26mmHg.Pulmonic Valve: Pulmonic valve | | appears structurally normal.Pericardium: There is a small, generalized pericardial | | effusion present.Pericardium: Loculated effusion noted in subcostal views.IVC/Hepatic | | Veins: The IVC is normal size (1.5-2.5cm) and collapses <50% with sniff, consistent with | | central venous pressures of 10-15mmHg.Thrombus: No clot visualized | | MEASUREMENTS LA Major: 3.45 cmEDV(Teich): 59.25 mlIVSd: 0.70 cmLVIDd: | | 3.72 cmLVPWd: 0.98 cmLVOT Diam: 2.08 cm%FS: 33.54 %EF(Teich): 63.12 | | %ESV(Teich): 21.85 mlIVSs: 0.82 cmLVIDs: 2.47 cmLVPWs: 1.45 cmSV(Teich): 37.40 | | mlRA Major: 3.84 cmRVIDd: 2.98 cmLAESV(A-L): 32.31 mlLAESV Index (A-L): 15.68 | | ml/m2LAAs A2C: 12.36 [id number] A-L A2C: 34.10 mlLALs A2C: 3.80 cmLAAs A4C: 11.72 | | [id number] A-L A4C: 30.27 mlLALs A4C: 3.85 cmAo Diam: 3.31 cmAV Cusp: 2.17 cmLA | | Diam: 3.01 cmLA/Ao: 0.90%FS: 40.74 %EDV(Teich): 70.88 mlEF(Teich): 72.06 | | %ESV(Teich): 19.80 mlIVSd: 0.64 cmIVSs: 0.94 cmLVIDd: 4.02 cmLVIDs: 2.38 | | cmLVPWd: 0.79 cmLVPWs: 1.24 cmSV(Teich): 51.08 mlD-E Excursion: 1.88 cmE-F | | Garden: 0.08 m/sEPSS: 0.39 cmIVC diameter: 1.84 cmIVC collapse: 1.77 cmIVC % | | collapse: 2.00 %HR: 47.14 BPMAV maxP.54 mmHgAV meanP.17 mmHgAV Vmax: | | 0.94 m/Silvia Vmean: 0.70 m/Silvia VTI: 24.93 cmAVA Vmax: 2.59 cm2AVA (VTI): 2.17 | | [id number] Dopp: 1.54 l/[id number] Dopp: 3.17 l/minHR: 58.59 BPMLVOT maxP.06 | | mmHgLVOT meanP.91 mmHgLVSI Dopp: 26.33 ml/m2LVSV Dopp: 54.24 mlLVOT Vmax: | | 0.71 m/sLVOT Vmean: 0.43 m/sLVOT VTI: 15.91 cmMCO: 495.37 msMV A Jose: 0.48 m/sMV | | DecT: 171.54 msMV E Jose: 1.07 m/sMV E/A Ratio: 2.22MV PHT: 54.78 msMVA By PHT: | | 4.01 cm2MV A Dur: 85.02 msHR: 47.04 BPMPV maxP.84 mmHgPV meanP.98 | | mmHgPV Vmax: 0.67 m/sPV Vmean: 0.47 m/sPV VTI: 17.19 cmRAP: 10 mmHgRVSP: 42.26 | | mmHgTR maxP.26 mmHgTR Vmax: 2.83 m/sTV A Jose: 0.20 m/sTV Dec Garden: 2.76 | | m/s2TV Dec Time: 231.69 msTV E Jose: 0.64 m/sTV E/A Ratio: 3.14 Hair Weaver: | | KVWAuthenticated by: Jose Alfredo Chester MDReport Date/Time: 06-10-2012 19:33:34 | |LA Major: 3.45 cm | |EDV(Teich): 59.25 ml | |IVSd: 0.70 cm | |LVIDd: 3.72 cm | |LVPWd: 0.98 cm | |LVOT Diam: 2.08 cm | |%FS: 33.54 % | |EF(Teich): 63.12 % | |ESV(Teich): 21.85 ml | |IVSs: 0.82 cm | |LVIDs: 2.47 cm | |LVPWs: 1.45 cm | |SV(Teich): 37.40 ml | |RA Major: 3.84 cm | |RVIDd: 2.98 cm | |LAESV(A-L): 32.31 ml | |LAESV Index (A-L): 15.68 ml/m2 | |LAAs A2C: 12.36 cm2 | |LAESV A-L A2C: 34.10 ml | |LALs A2C: 3.80 cm | |LAAs A4C: 11.72 cm2 | |LAESV A-L A4C: 30.27 ml | |LALs A4C: 3.85 cm | |Ao Diam: 3.31 cm | |AV Cusp: 2.17 cm | |LA Diam: 3.01 cm | |LA/Ao: 0.90 | |%FS: 40.74 % | |EDV(Teich): 70.88 ml | |EF(Teich): 72.06 % | |ESV(Teich): 19.80 ml | |IVSd: 0.64 cm | |IVSs: 0.94 cm | |LVIDd: 4.02 cm | |LVIDs: 2.38 cm | |LVPWd: 0.79 cm | |LVPWs: 1.24 cm | |SV(Teich): 51.08 ml | |D-E Excursion: 1.88 cm | |E-F Garden: 0.08 m/s | |EPSS: 0.39 cm | |IVC diameter: 1.84 cm | |IVC collapse: 1.77 cm | |IVC % collapse: 2.00 % | |HR: 47.14 BPM | |AV maxP.54 mmHg | |AV meanP.17 mmHg | |AV Vmax: 0.94 m/s | |AV Vmean: 0.70 m/s | |AV VTI: 24.93 cm | |SHAISTA Vmax: 2.59 cm2 | |SHAISTA (VTI): 2.17 cm2 | |LVCI Dopp: 1.54 l/minm2 | |LVCO Dopp: 3.17 l/min | |HR: 58.59 BPM | |LVOT maxP.06 mmHg | |LVOT meanP.91 mmHg | |LVSI Dopp: 26.33 ml/m2 | |LVSV Dopp: 54.24 ml | |LVOT Vmax: 0.71 m/s | |LVOT Vmean: 0.43 m/s | |LVOT VTI: 15.91 cm | |MCO: 495.37 ms | |MV A Jose: 0.48 m/s | |MV DecT: 171.54 ms | |MV E Jose: 1.07 m/s | |MV E/A Ratio: 2.22 | |MV PHT: 54.78 ms | |MVA By PHT: 4.01 cm2 | |MV A Dur: 85.02 ms | |HR: 47.04 BPM | |PV maxP.84 mmHg | |PV meanP.98 mmHg | |PV Vmax: 0.67 m/s | |PV Vmean: 0.47 m/s | |PV VTI: 17.19 cm | |RAP: 10 mmHg | |RVSP: 42.26 mmHg | |TR maxP.26 mmHg | |TR Vmax: 2.83 m/s | |TV A Jose: 0.20 m/s | |TV Dec Garden: 2.76 m/s2 | |TV Dec Time: 231.69 ms | |TV E Jose: 0.64 m/s | |TV E/A Ratio: 3.14 | | | |Hair Weaver: SHEA | |Authenticated by: Jose Alfredo Chester MD | |Report Date/Time: 06-10-2012 19:33:34 | + + XR Chest 1 Vw (06/10/2012 5:35 AM PST) + + | Specimen | + + | | + + + + + | Narrative | Performed At | + + + | HISTORY: Respiratory failure. A single frontal view of the | | | chest. COMPARISON: 06/09/12. FINDINGS: Portable AP upright | | | film the chest at 0444 hrs demonstrates persistent hyperinflation. | | | Strandy density along the minor fissure probably due to atelectasis. | | | Persistent mixed interstitial and airspace edema greater centrally. | | | No effusions. Heart size remains normal. ET tube, NG tube, | | | left IJ central line unchanged. IMPRESSION: 1. Persistent | | | hyperinflation with central pulmonary edema. 2. New focal mild | | | atelectasis along the minor fissure. 3. Stable tubes and lines. | | | | | + + + + + | Procedure Note | + + | Enrike, Rad Conversion - 11/30/2018 9:54 PM PDT HISTORY:Respiratory failure. A single | | frontal view of the chest. COMPARISON:06/09/12. FINDINGS:Portable AP upright film the | | chest at 0444 hrs demonstrates persistent hyperinflation. Strandy density along the | | minor fissure probably due to atelectasis. Persistent mixed interstitial and airspace | | edema greater centrally. No effusions. Heart size remains normal. ET tube, NG tube, | | left IJ central line unchanged. IMPRESSION:1. Persistent hyperinflation with central | | pulmonary edema.2. New focal mild atelectasis along the minor fissure.3. Stable tubes | | and lines. | |FINDINGS: | |Portable AP upright film the chest at 0444 hrs demonstrates persistent hyperinflation. Str marin density along the minor fissure probably due to atelectasis. Persistent mixed intersti tial and airspace edema greater | |centrally. No effusions. Heart size | |remains normal. ET tube, NG tube, left IJ central line unchanged. | | | |IMPRESSION: | |1. Persistent hyperinflation with central pulmonary edema. | |2. New focal mild atelectasis along the minor fissure. | |3. Stable tubes and lines. | | | | | + + XR Chest 1 Vw (06/09/2012 10:47 PM PST) + + | Specimen | + + | | + + + + + | Narrative | Performed At | + + + | HISTORY: Line placement. A single frontal view of the chest. | | | COMPARISON: 06/09/12 at 1635 hrs. FINDINGS: AP portable | | | upright film the chest at 2233 hrs demonstrates slight improvement in | | | the pulmonary venous congestion and central interstitial and airspace | | | edema, with persistent hyperinflation. Minimal blunting of both | | | lateral costophrenic sulci. ET tube mid intrathoracic trachea. | | | Left IJ central is catheter tip in the proximal SVC. NG tube | | | extends into the stomach and the tip is not seen. Heart size is | | | normal. IMPRESSION: 1. Tubes and lines in appropriate position. | | | 2. No pneumothorax. 3. Minimal improvement in CHF and pulmonary | | | edema, with hyperinflation and minimal effusions. Electronically | | | signed by Kalia Quesada MD on 06/10/2012 11:09 AM | | + + + + + | Procedure Note | + + | Enrike, Rad Conversion - 11/30/2018 9:54 PM PDT HISTORY:Line placement. A single | | frontal view of the chest. COMPARISON:06/09/12 at 1635 hrs. FINDINGS:AP portable upright | | film the chest at 2233 hrs demonstrates slight improvement in the pulmonary venous | | congestion and central interstitial and airspace edema, with persistent hyperinflation. | | Minimal blunting of both lateral costophrenic sulci. ET tube mid intrathoracic | | trachea. Left IJ central is catheter tip in the proximal SVC. NG tube extends into the | | stomach and the tip is not seen. Heart size is normal. IMPRESSION:1. Tubes and lines | | in appropriate position.2. No pneumothorax.3. Minimal improvement in CHF and pulmonary | | edema, with hyperinflation and minimal effusions. | |both lateral costophrenic sulci. ET tube | |mid intrathoracic trachea. Left IJ central is catheter tip in the proximal SVC. NG tube e xtends into the stomach and the tip is not seen. Heart size is normal. | | | |IMPRESSION: | |1. Tubes and lines in appropriate position. | |2. No pneumothorax. | |3. Minimal improvement in CHF and pulmonary edema, with hyperinflation and minimal effusio ns. | | | | | + + Streptococcus Pneumoniae Ag, Urine (06/09/2012 6:09 PM PST) + + | Specimen | [...] RECOMMENDED. Testing | | | performed at [address] [address] | | + + + + +---------+ + + | Performing | Address | City/State/Zipcode | Phone Number | | Organization | | | | + +---------+ + + | EXTERNAL LAB | | | | + +---------+ + + Culture, Urine (06/09/2012 6:09 PM PST) + + | Specimen | + + | Urine specimen | | (specimen) | + + + + + | Narrative | Performed At | + + + | Specimen Description CATHETERIZED URINE | EXTERNAL LAB | | Testing performed at | | | [facility];[address];[place] [address] CULTURE | | | NO GROWTH 2 DAYS | | | Testing performed at [facility], [address], | | | [place] [address] REPORT STATUS | | | 06/11/2012 FINAL | | + + + + +---------+ + + | Performing | Address | City/State/Zipcode | Phone Number | | Organization | | | | + +---------+ + + | EXTERNAL LAB | | | | + +---------+ + + Culture, Blood, 2nd Specimen (06/09/2012 5:17 PM PST) + + | Specimen | + + | Blood specimen | | (specimen) | + + + + + | Narrative | Performed At | + + + | Specimen Description BLOOD, PERIPHERAL DRAW | EXTERNAL LAB | | Testing performed | | | at [facility];[address] [place] [address];[place] [address] SPECIAL REQUESTS | | | LAC | | | Testing performed at [facility];[address] [place] [address];[place] [address] | | | CULTURE NO GROWTH IN 5 DAYS. | | | Testing | | | performed at [facility];[address] [place] [address];[place] [address] REPORT STATUS | | | 06/15/2012 FINAL | | + + + + +---------+ + + | Performing | Address | City/State/Zipcode | Phone Number | | Organization | | | | + +---------+ + + | EXTERNAL LAB | | | | + +---------+ + + Gram Stain, reflex Sputum Culture (06/09/2012 5:04 PM PST) + + | Specimen | + + | Body fluid sample | | (specimen) | + + + + + | Narrative | Performed At | + + + | Specimen Description TRACHEAL ASPIRATE | EXTERNAL LAB | | Testing performed at | | | [facility];[address] [place] [address];[place] [address] GRAM STAIN | | | GREATER THAN 10 WBCS/LPF | | | LESS THAN 10 SEC/LPF | | | NO ORGANISMS SEEN | | | REVIEW OF SMEAR BY MICROBIOLOGY SHOWS | | | THE FOLLOWIN+ | | | SAME ABOVE EXCEPT GRAM POSITIVE COCCI | | | Testing performed at [facility], [address] [place] [address] | | | [facility] [place] [address] CULTURE | | | NO GROWTH 2 DAYS | | | Testing performed at [facility], [facility] [address] [facility] [place], | | | [place] [address] REPORT STATUS 06/11/2012 | | | FINAL | | + + + + +---------+ + + | Performing | Address | City/State/Zipcode | Phone Number | | Organization | | | | + +---------+ + + | EXTERNAL LAB | | | | + +---------+ + + MRSA NAAT (06/09/2012 5:01 PM PST) + + | Specimen | + + | Body fluid sample | | (specimen) | + + + + + | Narrative | Performed At | + + + | SOURCE NARES(NOSE) | EXTERNAL LAB | | Testing performed at [facility];[address] [place] [address];[place] [address] MRSA PCR | | | NEGATIVE Testing performed at | | | [address];[place] [address] | | + + + + +---------+ + + | Performing | Address | City/State/Zipcode | Phone Number | | Organization | | | | + +---------+ + + | EXTERNAL LAB | | | | + +---------+ + + Culture, Blood (06/09/2012 5:01 PM PST) + + | Specimen | + + | Blood specimen | | (specimen) | + + + + + | Narrative | Performed At | + + + | Specimen Description BLOOD, PERIPHERAL DRAW | EXTERNAL LAB | | Testing performed | | | at [facility];[address] [place], [place] [address]ft [facility];[place] [address] SPECIAL REQUESTS | | | RAC | | | Testing performed at [facility];[address] [place], [place] [address] [place] [address] | | | CULTURE NO GROWTH IN 5 DAYS. | | | Testing | | | performed at [facility];[address] [place] [address];[place] [address] REPORT STATUS | | | 06/15/2012 FINAL | | + + + + +---------+ + + | Performing | Address | City/State/Zipcode | Phone Number | | Organization | | | | + +---------+ + + | EXTERNAL LAB | | | | + +---------+ + + XR Chest 1 Vw (06/09/2012 4:42 PM PST) + + | Specimen | + + | | + + + + + | Narrative | Performed At | + + + | HISTORY: Respiratory failure. A single frontal view of the | | | chest. COMPARISON: 10/08/10. FINDINGS: Portable AP semierect | | | film the chest at 1635 hrs demonstrates pulmonary venous congestion | | | with central interstitial and airspace edema. Minimal blunting right | | | lateral costophrenic sulcus. Heart size normal. ET tube mid | | | intrathoracic trachea. Previous left PICC line has been removed. | | | IMPRESSION: 1. CHF with pulmonary edema and hyperinflation. 2. | | | Minimal right effusion. 3. ET tube mid intrathoracic trachea. 4. | | | No cardiac enlargement. | | + + + + + | Procedure Note | + + | Enrike, Rad Conversion - 11/30/2018 9:54 PM PDT HISTORY:Respiratory failure. A single | | frontal view of the chest. COMPARISON:10/08/10. FINDINGS:Portable AP semierect film the | | chest at 1635 hrs demonstrates pulmonary venous congestion with central interstitial and | | airspace edema. Minimal blunting right lateral costophrenic sulcus. Heart size | | normal. ET tube mid intrathoracic trachea. Previous left PICC line has been removed. | | IMPRESSION:1. CHF with pulmonary edema and hyperinflation.2. Minimal right effusion.3. | | ET tube mid intrathoracic trachea.4. No cardiac enlargement. | |FINDINGS: | |Portable AP semierect film the chest at 1635 hrs demonstrates pulmonary venous congestion w ith central interstitial and airspace edema. Minimal blunting right lateral costophrenic nichols lcus. Heart size normal. ET tube | |mid intrathoracic trachea. Previous | | left PICC line has been removed. | | | |IMPRESSION: | |1. CHF with pulmonary edema and hyperinflation. | |2. Minimal right effusion. | |3. ET tube mid intrathoracic trachea. | |4. No cardiac enlargement. | | | | | + + XR Chest 1 Vw (06/09/2012 10:42 AM PST) + + | Specimen | + + | | + + + + + | Narrative | Performed At | + + + | This is a non-reportable procedure without a radiologist report and | | | is used for image storage only | | + + + + + | Procedure Note | + + | Enrike Rad Conversion - 11/30/2018 9:54 PM PDT This is a non-reportable procedure | | without a radiologist report and isused for image storage only | + + XR Chest 1 Vw (06/09/2012 10:42 AM PST) + + | Specimen | + + | | + + + + + | Narrative | Performed At | + + + | This is a non-reportable procedure without a radiologist report and | | | is used for image storage only | | + + + + + | Procedure Note | + + | Alen Calvert - 11/30/2018 9:54 PM PDT This is a non-reportable procedure | | without a radiologist report and isused for image storage only | + + documented in this encounter Visit Diagnoses + + | Diagnosis | + + | Down syndrome Down's syndrome | + + | Dysphagia, late effect of cerebrovascular disease | + + | Pressure ulcer, stage 2 (HCC) Pressure ulcer, unspecified site | + + | Acute renal failure (ARF) (HCC) Acute kidney failure, unspecified | + + | Acute respiratory failure (HCC) Acute respiratory failure | + + | Aspiration pneumonia (HCC) Pneumonitis due to inhalation of food or vomitus | + + | Hypoxemia | + + | Recurrent aspiration pneumonia (HCC) Pneumonitis due to inhalation of food or vomitus | + + | Septic shock(785.52) Septic shock | + + | Debility, unspecified | + + | Bacterial pneumonia, unspecified | + + documented in this encounter
--- OUTSIDE RECORDS SUMMARY | ~2019-04-16 | XMS | Encounter Summary ---
Demographics + + + | Address | [address] | | | [place] [address] | + + + | Home Phone | | + + + | Preferred Language | Unknown | + + + | Marital Status | Single | + + + | Bahai Affiliation | 1013 | + + + | Race | Unknown | + + + | Ethnic Group | Unknown | + + + Author + + + | Author | [facility] | | | and Angelana | + + + | Organization | [facility] | | | and Angelana [...] Team Providers + +------+ + | Care Arborist Representative Name | Role | Phone | + +------+ + | Corin Cordero NP | PCP | | + +------+ + Encounter Details +--------+ + + + + | Date | Type | Department | Care Team | Description | +--------+ + + + + | 07/27/ | Hospital | [facility] | [place], | Recurrent pneumonia | | 2016 | Encounter | MED CTR XRAY [address] | Yareli Nava MD | | | | | [address] | | | | | | [place] [address] | | | | | | [phone] | | | +--------+ + + + [...] ST. | [address] | [place] | [phone] | | [facility] | | [address] | | | - IMAGING | | | | + + + + + documented in this encounter Visit Diagnoses + + | Diagnosis | + + | Recurrent pneumonia Pneumonia, organism unspecified | + + documented in this encounter"
--- OUTSIDE RECORDS SUMMARY | ~2019-04-16 | XMS | Encounter Summary ---
Demographics + + + | Address | [address] | | | [place] [address] | + + + | Home Phone | | + + + | Preferred Language | Unknown | + + + | Marital Status | Single | + + + | Jain Affiliation | 1013 | + + + | Race | Unknown | + + + | Ethnic Group | Unknown | + + + Author + + + | Author | [facility] | | | and Angelana | + + + | Organization | [facility] | | [...] Team Providers + +------+ + | Care Database Engineer Name | Role | Phone | + +------+ + PCP | Unavailable | + +------+ + Encounter Details +--------+ + + + + | Date | Type | Department | Care Team | Description | +--------+ + + + + | 02/06/ | Hospital | [facility] | Anderson Quesada MD | Dysphagia | | 2005 - | Encounter | [facility]ICAL [facility]ENTER | [address] | | | | | OUTPATIENT | [place] [address] | | | 02/07/ | | PROCEDURES [address] | [phone] | | | 2005 | | NERY CHAVEZ | | | | | | [facility] [place] | | | | | | [address] | | | | | | [phone] | | | +--------+ + + + [...]
--- OUTSIDE RECORDS SUMMARY | ~2019-04-16 | XMS | Encounter Summary ---
Demographics + + + | Address | [address] | | | [place] [address] | + + + | Home Phone | | + + + | Preferred Language | Unknown | + + + | Marital Status | Single | + + + | Quaker Affiliation | 1013 | + + + | Race | Unknown | + + + | Ethnic Group | Unknown | + + + Author + + + | Author | [facility] | | | and Angelana | + + + | Organization | [facility] | | | and Angelana [...] Team Providers + +------+ + | Care Combination Window Installer Name | Role | Phone | + +------+ + | Corin Cordero NP | PCP | | + +------+ + Encounter Details +--------+ + + + + | Date | Type | Department | Care Team | Description | +--------+ + + + + | 01/23/ | Hospital | [facility] | [place], | Hypoxemia | | 2015 | Encounter | MED CTR PULMONARY | Yareli Nava MD | | | | | FUNCTION [address] | | | | | | [place], | | | | | | [place] [address] | | | | | | [phone] | | | +--------+ + + + [...]
--- OUTSIDE RECORDS SUMMARY | ~2019-04-16 | XMS | Encounter Summary ---
Demographics + + + | Address | [address] | | | [place] [address] | + + + | Home Phone | | + + + | Preferred Language | Unknown | + + + | Marital Status | Single | + + + | Sabianist Affiliation | Unknown | + + + | Race | White | + + + | Ethnic Group | Not or | + + + Author + + + | Author | [facility] | + + + | Organization | [facility] | + + + | Address | Unknown | + + + | Phone | Unavailable | + + + Support + + +---------+ + | Name | Relationship | Address | Phone | + + +---------+ + | Kristy Medabalime | ECON | Unknown | | + + +---------+ + Care Team Providers + +------+ + | Care Renewable Energy Project Manager Name | Role | Phone [...] [facility] | | | | | [address] | [place], | | | | | Loop Mailcode: | [place] [address] | | | | | [id number] | [phone] | | | | | [place], | | | | | | [place] [address] | | | | | | [phone] | | | +--------+ + + + [...]
--- OUTSIDE RECORDS SUMMARY | ~2019-04-16 | XMS | Encounter Summary ---
Demographics + + + | Address | [address] | | | [place] [address] | + + + | Home Phone [...] | Author | [facility] | | | and Angelana | + + + | Organization | [facility] | | | and [...] Providers + +------+ + | Care Power House Engineer Name | Role | Phone | [...] | | | | | | [place] [address] | | | | | | [phone] | | | +--------+ + + + [...]
--- OUTSIDE RECORDS SUMMARY | ~2019-04-16 | XMS | Encounter Summary ---
Demographics + + + | Address | [address] | | | [place] [address] | + + + | Home Phone | | + + + | Preferred Language | Unknown | + + + | Marital Status | Single | + + + | Oriental Orthodox Affiliation | 1013 | + + + | Race | Unknown | + + + | Ethnic Group | Unknown | + + + Author + + + | Author | [facility] | | | and Angelana | + + + | Organization | [facility] | | | and [...] Team Providers + +------+ + | Care Help Desk Coordinator Name | Role | Phone | + [...] Nava MD | | | | | [place], | | | | | | [place] [address] | | | | | | [phone] | | | +--------+ + + + [...]
--- OUTSIDE RECORDS SUMMARY | ~2019-04-16 | XMS | Encounter Summary ---
Demographics + + + | Address | [address] | | | [place] [address] | + + + | Home Phone | | + + + | Preferred Language | Unknown | + + + | Marital Status | Single | + + + | Yarsani Affiliation | Unknown | + + + | Race | White | + + + | Ethnic Group | Not or | + + + Author + + + | Author | [facility] | + + + | Organization | [facility] | + + + | Address | Unknown | + + + | Phone | Unavailable | + + + Support + + +---------+ + | Name | Relationship | Address | Phone | + + +---------+ + | Kristy Medabalime | ECON | Unknown | | + + +---------+ + Care Team Providers + +------+ + | Care Rawhide Trimmer Name | Role | Phone | + +------+ + | Corin Cordero NP | PCP | | + +------+ + Encounter Details +--------+ + + + + | Date | Type | Department | Care Team | Description | +--------+ + + + + | 12/11/ | Results/Int | Pulmonary Function | | Dyspnea on exertion | | 2019 | erpretation | Lab at [facility] [address] | | (Primary Dx) | | | | [address] | | | | | | Mailcode: [id number] | | | | | | [place]enee | | | | | | [place], [place] | | | | | | [address] | | | | | | [phone] | | | +--------+ + + + [...] documented as of this encounter Progress Notes Isaac Hardin MD - 12/11/2018 11:20 AM PDT Refer to PFT report. P M PDTdocumented in this encounter Plan of Treatment Not on filedocumented as of this encounter Procedures + +--------+ + + + | Procedure Name | Priori | Date/Time | Associated Diagnosis | Comments | | | ty | | | | + +--------+ + + + | GA SPIROMETRY TEST | Routin | 12/22/2018 | Dyspnea on | | | | e | 4:15 PM | exertion | | | | | PDT | | | + +--------+ + + + documented in this encounter Visit Diagnoses + + | Diagnosis | + + | Dyspnea on exertion - Primary Other dyspnea and respiratory abnormality | + + documented in this encounter"
--- OUTSIDE RECORDS SUMMARY | ~2019-04-16 | XMS | Encounter Summary ---
Demographics + + + | Address | [address] | | | [place] [address] | + + + | Home Phone [...] | Author | [facility] | | | and Angelana | + + + | Organization | [facility] | | | and Angelana [...] Team Providers + +------+ + | Care Audio Visual Production Specialist Name | Role | Phone | [...] | RN | | | | | [place], | | | | | | [place] [address] | | | | | | [phone] | | | +--------+ + + + [...]
--- OUTSIDE RECORDS SUMMARY | ~2019-04-16 | XMS | Encounter Summary ---
Demographics + + + | Address | [address] | | | [place] [address] | + + + | Home Phone | | + + + | Preferred Language | Unknown | + + + | Marital Status | Single | + + + | Episcopal Affiliation | 1013 | + + + | Race | Unknown | + + + | Ethnic Group | Unknown | + + + Author + + + | Author | [facility] | | | and Angelana | + + + | Organization | [facility] | | | and Angelana [...] Team Providers + +------+ + | Care Knit Tubing Dyer Name | Role | Phone | + [...] | RN | | | | | [place], | | | | | | [place] [address] | | | | | | [phone] | | | +--------+ + + + [...]
--- OUTSIDE RECORDS SUMMARY | ~2019-04-16 | XMS | Encounter Summary ---
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 [...] cells. He s aw Dr. Meyers in [place] on Monday. There was no additional lab [...] Concern None Social History Narrative Lives: in [place] With: foster home Grew up: [place] Has [...] breath sounds are diminished bilaterally, no wheezes, aircraft assembler ckles or rhonchi Chest Wall: No deformity [...] only. Immunization History Administered Date(s) Administered INFLUENZA, [id number], ALL FORMULATIONS 01/16/2014 INFLUENZA, UNSPECIFIED FORMULATION 01/17/2015 [...] made to ensure accuracy; however, inadvertent computerized computer hardware developer errors may be pre sent. documented in [...] ST. | [address] | [place], [place] | [phone] | | [facility] | | [address] | | | - IMAGING | | [...]
--- OUTSIDE RECORDS SUMMARY | ~2019-04-16 | XMS | Encounter Summary ---
Demographics + + + | Address | [address] | | | [place] [address] | + + + | Home Phone | | + + + | Preferred Language | Unknown | + + + | Marital Status | Single | + + + | Sikhism Affiliation | 1013 | + + + | Race | Unknown | + + + | Ethnic Group | Unknown | + + + Author + + + | Author | [facility] | | | and Angelana | + + + | Organization | [facility] | | | and [...] Providers + +------+ + | Care Customer Pricing Manager Name | Role | Phone | + +------+ + | Corin Cordero NP | PCP | | + +------+ + Encounter Details +--------+ + + + + | Date | Type | Department | Care Team | Description | +--------+ + + + + | 04/28/ | Hospital | [facility] | [place], | Recurrent pneumonia | | 2016 | Encounter | MED [facility] XRAY [address] | Yareli Nava MD | | | | | [address] | | | | | | [place] [address] | | | | | | [phone] | | | +--------+ + + + [...] + | [facility] | [address] | [place], [place] | [phone] | | [facility] | | [address] | | | - IMAGING | | | | + + + + + documented in this encounter Visit Diagnoses + + | Diagnosis | + + | Recurrent pneumonia Pneumonia, organism unspecified | + + documented in this encounter"
--- OUTSIDE RECORDS SUMMARY | ~2019-04-16 | XMS | Encounter Summary ---
Demographics + + + | Address | [address] | | | [place] [address] | + + + | Home Phone [...] Author + + + | Author | [facility] | + + + | Organization | [facility] | + + + | Address | Unknown | + + + | Phone | Unavailable | + + + Support + + +---------+ + | Name | Relationship | Address | Phone | + + +---------+ + | Kristy Medabalime | ECON | Unknown | | + + +---------+ + Care Team Providers + +------+ + | Care Tanbark Laborer Name | Role | Phone | + [...] 2019 | erpretation | Lab at [facility] [address] | | (Primary Dx) | | | | [address] | | | | | | Mailcode: [id number] | | | | | | [place] | | | | | | [place], [place] | | | | | | [address] | | | | | | [phone] | | | +--------+ + + + [...] | + +--------+ + + + | NM SPIROMETRY TEST | Routin | 12/22/2018 | [...]
--- OUTSIDE RECORDS SUMMARY | ~2019-04-16 | XMS | Encounter Summary ---
Demographics + + + | Address | [address] | | | [place] [address] | + + + | Home Phone [...] | Author | [facility] | | | and Angelana | + + + | Organization | [facility] | [...] Team Providers + +------+ + | Care Internet Marketing Intern Name | Role | Phone | + +------+ + PCP | Unavailable | + +------+ + Encounter Details +--------+ + + + + | Date | Type | Department | Care Team | Description | +--------+ + + + + | 06/09/ | Hospital | [facility] | MonicaLucia DO | Down syndrome; | | 2013 - | Encounter | [facility] | [address] | Dysphagia, late | | | | CARE FLOOR [address] | [place] [address] | effect of | | 06/18/ | | [address] | [phone] | cerebrovascular | | 2012 | | [place], [place] | | disease; Pressure | | | | [address] | | ulcer, stage 2; | | | | [phone] | | Acute renal failure | | | | | | (ARF) ([facility]); Acute | | | | | | respiratory failure | | | | | | (HCC); Aspiration | | | | | | pneumonia ([facility]); | | | | | | Hypoxemia; Recurrent | | | | | | aspiration | | | | | | pneumonia ([facility]); | | | | | | Septic shock ([facility]); | | | | | | Debility, [...] Date of Service: 06/18/12 1200 Status: Signed Cake Maker: Harriett Rome MD (Physician) [facility]: Hospitalist Discharge Summary Date of Admission: [...] abscess (healing). The pt arrived here at [facility] ICU intubated and sedated and but his brother, Yandel, showed up here and gave some hx and also gave the name and # for caregiver, Kristy. She reports that pt has had exposure to [facility] people where he works earlier this week (people with coughs, colds, runny noses, etc). He began having a dry cough, sinus congestion and rhinorrhea 4 days [employer] and she kept him home f rom [...] was initially taken to the ED at [facility] in [place], [place], where he was brought by EMS. [...] He has had aspiration PNA in the [facility]. His brother also reports h/o JOSSELYN with what sounds like hydronephrosis and has had ureter al stents in the past. He has seen a urologist in [place] but his brother does not know of [...] him at the adult family home in [place], [place]. He has been on Unasyn for [...] recommended by the wound team. Follow up: Macy Moody NP [address] [address] in 1 week Current Discharge Medication List [...] Notes by Clotilde Oglesby RN at 06/18/12 3369 Author: Clotilde Oglesby RN Service: (none) Author Type: Registered Nurse Filed: 06/18/12 1448 Date of Service: 06/18/12 1436 Status: Signed Cake Maker: Clotilde Oglesby RN (Registered Nurse) Spoke with [...] Author: ODALIS Witt Service: (none) Author Type: Race Car Mechanic Filed: 06/18/12 1251 Date of Service: 06/18/12 1245 Status: Signed Cake Maker: ODALIS Witt (Race Car Mechanic) CM called Kristy, aerographer of ADF to alert her to imminent discharge. Pt is discharging home with Kristy to arrange transportation per her report -- she will pick patient up if his brot her Bill cannot. Kristy's direct #[phone] and fx is [phone]. CM faxed dc orders , dc summary, AVS, copy of scripts (BIANKA Ryan called into [facility] [phone] pharmacy at Lisa grewal's request) PT/OT notes, H&P, labs, comp and faxed Nebulizer script to [facility] who report they will contact [place] office and deliver to [facility]. Kristy reporting they have be en transporting this patient to outpatient speech therapy and are agreeable to continue vasquez sportation for continuing therapies at Dr Rome's request. CM provided Sherry at [facility] Kristy's contact information. No other anticipated dc needs at this time. onversion Transact ion, Provider Unknown - 06/18/2012 12:06 PM PDTFormatting of this note might be different fr om the original. Progress Notes by Jethro Mercado CRT at 06/18/12 120 Author: Jethro Mercado CRT Service: (none) Author Type: Certified Respiratory Therapist Filed: 06/18/12 1206 Date of Service: 06/18/12 1206 Status: Signed Cake Maker: Jethro Mercado CRT (Certified Respiratory Therapist) [facility] of Respiratory Jail Oxygen Evaluation (Evaluation is valid for 48 [...] 06/18/12920 Date of Service: 06/18/12912 Status: Signed Cake Maker: Shruthi Ortiz RN (Registered Nurse) [facility]: Wound Care Hospital Day: LOS: 9 [...] Date of Service: 06/17/12 1018 Status: Addendum Cake Maker: Harriett Rome MD (Physician) Related Notes: Original Note by Harriett Rome MD (Physician) filed at 06/17/12 10 23 [facility]: Hospitalist Progress Note Date of Admission: 06/09/2012 History Obtained From: chart review HISTORY OF PRESENT ILLNESS Patient is a 46 y.o. male with significant past medical history of Down's syndrome, psychos is, hypothyroidism and h/o Right hip abscess (healing). The pt arrived here at [facility] ICU intu bated and sedated and [...] cough, sinus congestion and rhinorrhea 4 days [employer] and she kept him home from his [...] was initially taken to the ED at [facility] in [place], [place], where he was brought by EMS. [...] past. He has seen a urologist in [place] but his brother does not know o [...] Code Status: Full Code Primary Care Physician: MAYC ROME MD 06/17/2012 Mikey, Harriett Cifuentes MD - 06/16/2012 10:34 AM PSTFormatting of this note might be different from the taurus giroby. Progress Notes by Harriett Rome MD at 06/16/12 1034 Author: Harriett Rome MD Service: Hospitalist Author Type: Physician Filed: 06/16/12 1107 Date of Service: 06/16/12 1034 Status: Signed Cake Maker: Harriett Rome MD (Physician) [facility]: Hospitalist Progress Note Date of Admission: 06/09/2012 History Obtained From: chart review HISTORY OF PRESENT ILLNESS Patient is a 46 y.o. male with significant past medical history of Down's syndrome, psychos is, hypothyroidism and h/o Right hip abscess (healing). The pt arrived here at [facility] ICU intu bated and sedated and [...] cough, sinus congestion and rhinorrhea 4 days [employer] and she kept him home from his [...] was initially taken to the ED at [facility] in [place], [place], where he was brought by EMS. [...] past. He has seen a urologist in [place] but his brother does not know o [...] stable and improved in few days to prison especially if there is l ess oxygen [...] Notes by Krystal Merritt RN at 06/15/12 3213 Author: Krystal Merritt RN Service: (none) Author Type: Race Car Mechanic Filed: 06/15/12 1608 Date of Service: 06/15/12 1608 Status: Signed Cake Maker: Krystal Merritt RN (Race Car Mechanic) Patient will not be needing IV abx when discharged so can return to [facility] in [place]. CM s poke with Kristy, aerographer of home and she can provide transportation if patient's brother juliet ot transport. Message left for brother Yandel [phone] to inform him of patient's possibl e discharge on Monday. PT in home or as outpatient will be needed. Harriett Jensen MD - 06/15/2012 11:35 AM PST Progress Notes by Harriett Rome MD at 06/15/12 3513 Author: Harriett Rome MD Service: Hospitalist Author Type: Physician Filed: 06/15/12 4088 Date of Service: 06/15/12 1328 Status: Signed Cake Maker: Harriett Rome MD (Physician) [facility]: Hospitalist Progress Note Date of Admission: 06/09/2012 History Obtained From: chart review HISTORY OF PRESENT ILLNESS Patient is a 46 y.o. male with significant past medical history of Down's syndrome, psychos is, hypothyroidism and h/o Right hip abscess (healing). The pt arrived here at [facility] ICU intu bated and sedated and [...] cough, sinus congestion and rhinorrhea 4 days [employer] and she kept him home from his [...] was initially taken to the ED at [facility] in [place], [place], where he was brought by EMS. [...] past. He has seen a urologist in [place] but his brother does not know o [...] Notes by Harriett Rome MD at 06/14/12 4375 Author: Harriett Rome MD Service: Hospitalist Author Type: Physician Filed: 06/14/12 1816 Date of Service: 06/14/12 0813 Status: Signed Cake Maker: Harriett Rome MD (Physician) [facility]: Hospitalist Progress Note Date of Admission: 06/09/2012 History Obtained From: chart review HISTORY OF PRESENT ILLNESS Patient is a 46 y.o. male with significant past medical history of Down's syndrome, psychos is, hypothyroidism and h/o Right hip abscess (healing). The pt arrived here at [facility] ICU intu bated and sedated and [...] cough, sinus congestion and rhinorrhea 4 days [employer] and she kept him home from his [...] was initially taken to the ED at [facility] in [place], [place], where he was brought by EMS. [...] past. He has seen a urologist in [place] but his brother does not know o [...] 0948 Date of Service: 06/13/12946 Status: Signed Cake Maker: Earnestine Strauss Pt transferred to [facility]. Report given to BIANKA Carmen. Pt arousable upon transfer. Left msg w ith pts brother re transfer. astle Doug bar ARNP - 06/13/2012 6:34 AM PSTFormatting of this note might be different f rom the original. Progress Notes by CHELSY Epstein at 06/13/12633 Author: CHELSY Epstein Service: Fha Underwriter Author Type: Fha Underwriter Filed: 06/13/1248 Date of Service: 06/13/12633 Status: Signed Cake Maker: CHELSY Epstein (Fha Underwriter) [facility]: Fha Underwriter Progress Note Date of Admission: 06/09/2012 Requesting Physician: Dr. Aguilar, Emergency Department at [facility] ED Indication for ICU Admission: hypoxic respiratory failure and h/o vomiting and diarrhea wi th suspected aspiration History Obtained From: chart review CHIEF COMPLAINT: Hypoxemic respiratory failure HISTORY OF PRESENT ILLNESS The patient is a 46 y.o. male with significant past medical history of Down's syndrome, psy chosis, hypothyroidism and h/o Right hip abscess (healing). The pt arrived here at [facility] ICU intubated and sedated and but [...] cough, sinus congestion and rhinorrhea 4 days [employer] and she kept him home from his [...] was initially taken to the ED at [facility] in [place], [place], where he was brought by EMS. [...] past. He has seen a urologist in [place] but his brother does not know of [...] exclusive of all other procedures. CHELSY EPSTEIN 06/13/2012 OConmelvin enciso Transaction, Provider Unknown - 06/12/2012 12:05 PM PSTFormatting of this note might be di fferent from the original. Progress Notes by ODALIS Hansen at 06/12/12 7236 Author: ODALIS Hansen Service: (none) Author Type: Race Car Mechanic Filed: 06/12/12 1190 Date of Service: 06/12/121204 Status: Signed Cake Maker: ODALIS Hansen (Race Car Mechanic) Received return call from Ricarda at [facility]. Pt has been accepted for adm it if he needs SNF prior to going back to [facility]. CM to follow. Shakeel Moreno MD - 06/12/2012 5:15 AM PSTFormatting of this note might be different from the or iginal. Progress Notes by Shakeel Howard MD at 06/12/12 8059 Author: Shakeel Howard MD Service: (none) Author Type: Physician Filed: 06/12/1219 Date of Service: 06/12/12514 Status: Signed Cake Maker: Shakeel Howard MD (Physician) [facility]: Fha Underwriter Progress Note Date of Admission: 06/09/2012 Requesting Physician: Dr. Aguilar, Emergency Department at [facility] ED Indication for ICU Admission: hypoxic respiratory failure and h/o vomiting and diarrhea wi th suspected aspiration History Obtained From: chart review CHIEF COMPLAINT: Hypoxemic respiratory failure HISTORY OF PRESENT ILLNESS The patient is a 46 y.o. male with significant past medical history of Down's syndrome, psy chosis, hypothyroidism and h/o Right hip abscess (healing). The pt arrived here at [facility] ICU intubated and sedated and but [...] cough, sinus congestion and rhinorrhea 4 days [employer] and she kept him home from his [...] was initially taken to the ED at [facility] in [place], [place], where he was brought by EMS. [...] past. He has seen a urologist in [place] but his brother does not know of [...] 06/11/122134 Date of Service: 06/11/122133 Status: Signed Cake Maker: Jose Pena RN (Registered Nurse) Dr Pepper [...] 06/11/121836 Date of Service: 06/11/121836 Status: Signed Cake Maker: Helena Lambert RPH (Pharmacist) Clinical Pharmacy Note: [...] Progress Notes by ODALIS Hansen at 06/11/12 1093 Author: ODALIS Hansen Service: (none) Author Type: Race Car Mechanic Filed: 06/12/12 0843 Date of Service: 06/11/12 1541 Status: Addendum Cake Maker: ODALIS Hansen (Race Car Mechanic) Related Notes: Original Note by ODALIS Hansen (Race Car Mechanic) filed at 06/11/12 2504 Pt is a 46yo SWM admitted with pneumonia. Pt has Down's Syndrome. He lives in an [facility] in [facility]. Taker Away/caregiver is Kristy ([phone]). I spoke with Kristy who states th at pt mostly independent with adl's. He does need help with showering. He is on a pureed di et with nectar thick liquids. Kristy states that she can take pt back if he does not need IV abx. In the past, pt has needed IV abx and had to go to [facility] for the IV abx. [facility] is reportedly the only facility that will take a Down's Syndrome pt. Per Kristy, if pt is not on his meds, he can have behavior problems such as hitting his head or scratch ing himself. I spoke with pt's brother, Yandel who confirmed all of the above info and states that he is agreeable to transfer to [facility] if pt needs IV abx. Per Kristy, if pt is able to go straight home, either she can pick him up or pt's brother may be able to. CM to follow. Addendum: 06/12/12 0845: Faxed clinical referral to [facility] ph: , fax" [phone]. onver alan Transaction, Provider Unknown - 06/11/2012 10:40 AM PST Progress Notes by Gab Cardona RPH at 06/11/121039 Author: Gab Cardona RPH Service: (none) Author Type: Pharmacist Filed: 06/11/121039 Date of Service: 06/11/121039 Status: Signed Cake Maker: Gab Cardona RPH (Pharmacist) Vancomycin day 3, [...] 0516 Date of Service: 06/11/1253 Status: Signed Cake Maker: Shakeel Howard MD (Physician) [facility]: Fha Underwriter Progress Note Date of Admission: 06/09/2012 Requesting Physician: Dr. Aguilar, Emergency Department at [facility] ED Indication for ICU Admission: hypoxic respiratory failure and h/o vomiting and diarrhea wi th suspected aspiration History Obtained From: chart review CHIEF COMPLAINT: Hypoxemic respiratory failure HISTORY OF PRESENT ILLNESS The patient is a 46 y.o. male with significant past medical history of Down's syndrome, psy chosis, hypothyroidism and h/o Right hip abscess (healing). The pt arrived here at [facility] ICU intubated and sedated and but [...] cough, sinus congestion and rhinorrhea 4 days [employer] and she kept him home from his [...] was initially taken to the ED at [facility] in [place], [place], where he was brought by EMS. [...] past. He has seen a urologist in [place] but his brother does not know of a mi visits or problems for the past couple [...] Russell Weeks RN Service: (none) Author Type: Race Car Mechanic Filed: 06/10/12 8129 Date of Service: 06/10/121321 Status: Signed Cake Maker: Russell Weeks RN (Race Car Mechanic) Case Management: Spoke with patient's POA Brother Bill (p) [phone] to start the discha rge planning process. This patient in a Shelter setting governed by the state. Patient sotelo s lived there for 3-4 yrs. Yandel did not know the owners contact #, but her name is Kristy. Liz oconnor has been admitted to [facility] in the past. onkami loon Transaction, Provider Unknown - 06/10/2012 12:47 PM PST Progress Notes by Russell Weeks RN at 06/10/12 1247 Author: Russell Weeks RN Service: (none) Author Type: Race Car Mechanic Filed: 06/10/12 1249 Date of Service: 06/10/12 1247 Status: Signed Cake Maker: Russell Weeks RN (Race Car Mechanic) Case Management: Contact for patient's brother Yandel is [phone]. A VM was left requesti ng a call back to discuss discharge plans. Doug Pickett ARNP - 06/10/2012 10:27 AM PSTFormatting of this note might be different f rom the original. Progress Notes by CHELSY Epstein at 06/10/12 1027 Author: CHELSY Epstein Service: Fha Underwriter Author Type: Fha Underwriter Filed: 06/10/12 1107 Date of Service: 06/10/12 1027 Status: Addendum Cake Maker: CHELSY Epstein (Fha Underwriter) Related Notes: Original Note by CHELSY Epstein (Fha Underwriter) filed at 1106 [facility]: Fha Underwriter Progress Note Date of Admission: 06/09/2012 Requesting Physician: Dr. Aguilar, Emergency Department at [facility] ED Indication for ICU Admission: hypoxic respiratory failure and h/o vomiting and diarrhea wi th suspected aspiration History Obtained From: chart review CHIEF COMPLAINT: Hypoxemic respiratory failure HISTORY OF PRESENT ILLNESS The patient is a 46 y.o. male with significant past medical history of Down's syndrome, psy chosis, hypothyroidism and h/o Right hip abscess (healing). The pt arrived here at [facility] ICU intubated and sedated and but [...] cough, sinus congestion and rhinorrhea 4 days [employer]ER and she kept him home from his [...] was initially taken to the ED at [facility] in [place], [place], where he was brought by EMS. [...] past. He has seen a urologist in [place] but his brother does not know of [...] History Narrative 11-29-10 The patient resides in [facility]. PHYSICAL EXAM Vital Signs: BP 102/56 | [...] 06/10/12912 Date of Service: 06/10/12912 Status: Signed Cake Maker: Cielo Peraza RPH (Pharmacist) Scr 1.5 CrCl [...] 06/09/122000 Date of Service: 06/09/121999 Status: Signed Cake Maker: Abbie Bustos RPH (Pharmacist) Based on Crcl~49.8ml/min no medications need adjustments at this time. Will continue to fol low. onver alan Transaction, Provider Unknown - 06/09/2012 7:19 PM PST Progress Notes by Abbie Bustos RPH at 06/09/121918 Author: Abbie Bustos RPH Service: (none) Author Type: Pharmacist Filed: 06/09/121918 Date of Service: 06/09/121918 Status: Signed Cake Maker: Abbie Bustos RPH (Pharmacist) Initiation of Vancomycin Pharmacy Dosing Juliane Marina Jr. 46 y.o. male 1.676 m (5' 6") 91 kg (200 lb 9.9 oz) Body mass index is 32.38 kg/(m^2). CREATININE Date Value Range Status 06/09/2012 1.96* 0.70 - 1.30 mg/dL Final Testing performed at [facility];[address] [place] [address];[place] [address] Estimated CrCl : CREATININE: 1.96 mg/dL ABNORMAL [...] + + + | Patient Name: JULIANE MARIAN Date of : 1965 | | | [...] 51.08 ml D-E Excursion: 1.88 cm E-F [place]: 0.08 | | | m/s EPSS: 0.39 [...] TV A Jose: 0.20 m/s TV Dec [place]: | | | 2.76 m/s2 TV Dec Time: 231.69 ms TV E Jose: 0.64 m/s TV | | | E/A Ratio: 3.14 Butadiene Compressor Operator: SHEA Authenticated by: Jose Alfredo | | [...] (A-L): 15.68 | | ml/m2LAAs A2C: 12.36 kg9VUGMY A-L A2C: 34.10 mlLALs A2C: 3.80 cmLAAs A4C: 11.72 | | dc4CJBAB A-L A4C: 30.27 mlLALs A4C: 3.85 cmAo Diam: 3.31 cmAV Cusp: 2.17 cmLA | | Diam: 3.01 cmLA/Ao: 0.90%FS: 40.74 %EDV(Teich): 70.88 mlEF(Teich): 72.06 | | %ESV(Teich): 19.80 mlIVSd: 0.64 cmIVSs: 0.94 cmLVIDd: 4.02 cmLVIDs: 2.38 | | cmLVPWd: 0.79 cmLVPWs: 1.24 cmSV(Teich): 51.08 mlD-E Excursion: 1.88 cmE-F | | [place]: 0.08 m/sEPSS: 0.39 cmIVC diameter: 1.84 cmIVC collapse: 1.77 cmIVC % | | collapse: 2.00 %HR: 47.14 BPMAV maxP.54 mmHgAV meanP.17 mmHgAV Vmax: | | 0.94 m/Silvia Vmean: 0.70 m/Silvia VTI: 24.93 cmAVA Vmax: 2.59 cm2AVA (VTI): 2.17 | | qo6NFSN Dopp: 1.54 l/jcwi6XKVU Dopp: 3.17 l/minHR: 58.59 BPMLVOT maxP.06 | [...] 2.83 m/sTV A Jose: 0.20 m/sTV Dec [place]: 2.76 | | m/s2TV Dec Time: 231.69 msTV E Jose: 0.64 m/sTV E/A Ratio: 3.14 Butadiene Compressor Operator: | | KVWAuthenticated by: Jose Alfredo Chester [...] | |D-E Excursion: 1.88 cm | |E-F [place]: 0.08 m/s | |EPSS: 0.39 cm | [...] A Jose: 0.20 m/s | |TV Dec [place]: 2.76 m/s2 | |TV Dec Time: 231.69 ms | |TV E Jose: 0.64 m/s | |TV E/A Ratio: 3.14 | | | |Butadiene Compressor Operator: SHEA | |Authenticated by: Jose Alfredo Chester [...] RECOMMENDED. Testing | | | performed at [address] [address] | | + + + + +---------+ [...] | Testing performed at | | | [facility];[address];[place] [address] CULTURE | | | NO GROWTH 2 DAYS | | | Testing performed at [facility], [address] [facility], | | | [place] [address] REPORT STATUS | | | 06/11/2012 FINAL [...] | Testing performed | | | at [facility];[address] [place] [address];[place] [address] SPECIAL REQUESTS | | | LAC | | | Testing performed at [facility];[address] [place] [address];[place] [address] | | | CULTURE NO GROWTH IN 5 DAYS. | | | Testing | | | performed at [facility];[address] [place] [address];[place] [address] REPORT STATUS | | | 06/15/2012 FINAL [...] | Testing performed at | | | [facility];[address] [place] [address];[place] [address] GRAM STAIN | | | GREATER THAN 10 WBCS/LPF | | | LESS THAN 10 SEC/LPF | | | NO ORGANISMS SEEN | | | REVIEW OF SMEAR BY MICROBIOLOGY SHOWS | | | THE FOLLOWIN+ | | | SAME ABOVE EXCEPT GRAM POSITIVE COCCI | | | Testing performed at [facility], [address] [place] [address] | | | [facility] [place] [address] CULTURE | | | NO GROWTH 2 DAYS | | | Testing performed at [facility], [facility] [address] [facility] [place], | | | [place] [address] REPORT STATUS 06/11/2012 | | | FINAL [...] EXTERNAL LAB | | Testing performed at [facility];[address] [place] [address];[place] [address] MRSA PCR | | | NEGATIVE Testing performed at | | | [address];[place] [address] | | + + + + +---------+ [...] | Testing performed | | | at [facility];[address] [place], [place] [address]ft [facility];[place] [address] SPECIAL REQUESTS | | | RAC | | | Testing performed at [facility];[address] [place], [place] [address] [address] | | | CULTURE NO GROWTH IN 5 DAYS. | | | Testing | | | performed at [facility];[address] [place] [address];[place] [address] REPORT STATUS | | | 06/15/2012 FINAL [...] | Procedure Note | + + | Enriek Rad Conversion - 11/30/2018 9:54 PM PDT [...]
--- OUTSIDE RECORDS SUMMARY | ~2019-04-16 | XMS | Encounter Summary ---
Demographics + + + | Address | [address] | | | [place] [address] | + + + | Home Phone | | + + + | Preferred Language | Unknown | + + + | Marital Status | Single | + + + | Moravian Affiliation | 1013 | + + + | Race | Unknown | + + + | Ethnic Group | Unknown | + + + Author + + + | Author | [facility] | | | and Angelana | + + + | Organization | [facility] | | | and Angelana [...] Team Providers + +------+ + | Care Contract Technical Writer Name | Role | Phone | + +------+ + | Corin Cordero NP | PCP | | + +------+ + Encounter Details +--------+ + + + + | Date | Type | Department | Care Team | Description | +--------+ + + + + | 09/30/ | Orders Only | [facility] | Jose Daniel Nicole | | | 2010 | | [facility] | Howie Cifuentes MD [address] | | | | | CLINICAL LABORATORY | [address] | | | | | [address] | [place] [address] | | | | | [place], [place] | [phone] | | | | | [address] | | | | | | [phone] | | | +--------+ + + + [...] | Testing performed | | | at [facility];[address] [place] [address];[place] [address] CULTURE | | | NO GROWTH IN 5 DAYS. | | | Testing performed at [facility];[address] | | | [place] [address] REPORT STATUS | | | 10/05/2010 FINAL [...]
--- OUTSIDE RECORDS SUMMARY | ~2019-04-16 | XMS | Encounter Summary ---
Demographics + + + | Address | [address] | | | [place] [address] | + + + | Home Phone [...] Providers + +------+ + | Care Inspector Hot Forgings Name | Role | Phone | + [...] | | | Medicine at | [facility] | | | | | [facility] | [place], [place] | | | | | [address] | [address] | | | | | Loop Mailcode: | [phone] | | | | | [id number] | | | | | | [address] | | | | | | [place], [place] | | | | | | [address] | | | | | | [phone] | | | +--------+ + + + [...]
--- OUTSIDE RECORDS SUMMARY | ~2019-04-16 | XMS | Encounter Summary ---
Demographics + + + | Address | [address] | | | [place] [address] | + + + | Home Phone | | + + + | Preferred Language | Unknown | + + + | Marital Status | Single | + + + | Religion Affiliation | 1013 | + + + | Race | Unknown | + + + | Ethnic Group | Unknown | + + + Author + + + | Author | [facility] | | | and Angelana | + + + | Organization | [facility] | | | and Angelana [...] Team Providers + +------+ + | Care Air Conditioning Mechanic Name | Role | Phone | + +------+ + | Corin Cordero NP | PCP | | + +------+ + Encounter Details +--------+ + + + + | Date | Type | Department | Care Team | Description | +--------+ + + + + | 10/16/ | Hospital | [facility] | [place], | Aspiration | | 2015 | Encounter | [facility] | Yareli Nava MD | pneumonia, | | | | FUNCTION [address] | | unspecified | | | | [place], | | aspiration pneumonia | | | | [place] [address] | | type ([facility]) (Primary | | | | [phone] | | Dx) | +--------+ + + [...]
[~2019-04-16 18:38] MED LIST changes: +BACTRIM DS TAB1 EACH PO
[2019-04-16] MEDS ORDERED: MAPAP500 M1 PO (20:18)
[2019-04-16] MEDS ORDERED: NAPROXEN SODIU220 MG PO (20:19)
== END 2019-04-16 22:06 | disposition home or self-care (01) ==
LOC: ED 18:38
DX: R60.0 Localized edema (principal); Z88.8 Allergy status to other drugs, medicaments and biological substances; Z79.899 Other long term (current) drug therapy
CPT/HCPCS: 93971; 99285-25

== ENCOUNTER 2019-07-05 11:06 | Inpatient (IN) | payer MEDICARE, OTHER ==
[~2019-07-05] VITALS: Ht 160 cm; Wt 52.2 kg
[~2019-07-05 11:06] MED LIST changes: +MAPAP500 M1 PO; +NAPROXEN SODIU220 MG PO
--- OUTSIDE RECORDS SUMMARY | 2019-07-05 11:08 | XMS ---
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 Kim VISIT COUNT (12 MO.) Yahaira Jose TOTAL 7 NOTE: Visits indicate total known visits. 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 03/03/2019 13:35 [facility] [place] TYPE: Emergency COMPLAINT: - CLOGGED CATHETER DIAGNOSES: - Urinary tract infection, site not specified - Other custodial (current) drug therapy - Anemia, unspecified - Allergy status to other drugs, medicaments and biological sub - Other mechanical complication of indwelling urethral catheter 01/14/2019 18:37 [facility] [place] TYPE: Emergency COMPLAINT: - POSS CATH ISSUES DIAGNOSES: - Urinary tract infection, site not specified - Other mechanical complication of other urinary catheter, init - Other custodial (current) drug therapy - Other mechanical complication of indwelling urethral catheter - Allergy status to other drugs, medicaments and biological sub 09/01/2018 20:50 [facility] [place] TYPE: Emergency COMPLAINT: - FEVER 08/18/2018 22:15 [facility] [place] TYPE: Emergency COMPLAINT: - PNEUMONIA DIAGNOSES: - Aphasia - 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 - Other hypotension - Allergy status to other drugs, medicaments and biological sub - Dysphagia, unspecified - Pneumonia, unspecified organism - Down syndrome, unspecified - Retention of urine, unspecified 08/09/2018 20:29 [facility] [place] TYPE: Emergency COMPLAINT: - PNEUMONIA, NON SEVERE SEPSIS INPATIENT VISIT TRACKING (12 MO.) 09/01/2018 20:51 [facility] [place] TYPE: Observation COMPLAINT: - FEVER DIAGNOSES: - Hypothyroidism, unspecified - Presence of urogenital implants - Allergy status to other drugs, medicaments and biological sub - Volume depletion, unspecified - Dysphagia, unspecified - Other hypotension - Fever, unspecified - Down syndrome, unspecified - Other custodial (current) drug therapy - Anemia, unspecified 08/18/2018 22:16 [facility] [place] TYPE: Observation COMPLAINT: - PNEUMONIA DIAGNOSES: - Other hypotension - Down syndrome, unspecified - Other custodial (current) drug therapy - Retention of urine, unspecified - Pneumonia, unspecified organism - Allergy status to other drugs, medicaments and biological sub - Dysphagia, unspecified - Aphasia 08/09/2018 20:30 [facility] [place] TYPE: Observation COMPLAINT: - PNEUMONIA, NON SEVERE SEPSIS DIAGNOSES: - Volume depletion, unspecified - nursing home (current) use of systemic steroids - Hypothyroidism, unspecified - 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
--- NOTE | 2019-07-05 15:34 | NUR ---
PT TO ICU ROOM 128 AT APPROXIMATLY 1507. PT MOVED FROM BED TO RNEY WITH THREE PERSON ASSIST, PT NOT ABLE TO HELP. PT IS NON-VERBAL, HOWEVER APPEARS CHEERFUL. CAREGIVER IVETTE IS AT THE BEDSIDE. PT IV SITES ARE INTACT, NO REDNESS OR SWELLING NOTED, BOTH SITES FLUSH EASILY. IV FLUIDS STARTED PER MD ORDER. PT INCONTINENT OF STOOL IN ATTEND, ABILIO CARE DONE, BARRIER CREAM APPLIED TO SMALL RED AREA ON COCCIX AND SCATTERED SORE SPOTS ON SCROTUM. NEW FERRER BAG APPLIED TO FERRER. PT BETO WELL, FALLS ASLEEP QUICKLY.
--- NOTE | 2019-07-05 16:40 | NUR ---
PT ABLE TO EAT A PUDDING CUP AND TAKE PILL, ALSO DRANK 1 ENSURE.
--- NOTE | 2019-07-05 17:14 | NUR ---
Spoke with Lennie who is [facility] cg at [facility]. He resides and is dependent on cg. Stopped walking in January and uses a wc. They also use a commode, shower chair, hospital bed, and catheter supplies. His brother lives in [facility] and is his medical rep. Lennie request we call her for any questions. Lennie [phone]. Pt is sleeping and does not open eys when I enter the room.
--- NOTE | 2019-07-05 20:06 | NUR ---
PATIENT HAS VERY SMALL SOFT FORMED STOOL. ABILIO CARE DONE. BARRIER CREAM APPLIED. ALLYVEN IN PLACE OVER WOUND ON COCCYX. SCABS PRESENT ON ABILIO AREA, APPARENTLY FROM SCRATCHING BY THE PATIENT. OINTMENT APPLIED HERE. FERRER DRAINING CLEAR YELLOW URINE. POSITIONED PATIENT ON RIGHT SIDE WITH PILLOW PADDING DAVIS AREAS. HOB >30 DEGREES. LUNGS ARE CLEAR. VS STABLE. AXILLARY TEMP 99.4 F. PATIENT APPEARS COMFORTABLE. IV FLUSHED X2, IV FLUIDS WNL. PATIENT IN DIRECT LINE OF SIGHT FOR SAFETY.
--- NOTE | 2019-07-05 21:15 | NUR ---
ASSUMED CARE FOR PT FROM BIANKA REED. PT'S MEDS GIVEN AT THIS TIME IN PUDDING. HOB ELEVATED, PT SWALLOWED WITHOUT DIFFICULY, NO COUGHING OBSERVED. WILL LEAVE HOB AT 45 DEGREES FOR NOW. PT APPEARS COMFORTABLE. IVF INFUSING WNL. FERRER PATENT AND DRAINING FREELY. PT REMAINS WITHIN LINE OF SIGHT FOR SAFETY.
--- NOTE | 2019-07-06 00:15 | NUR ---
ASSESSMENT COMPLETED. PT APPEARS COMFORTABLE. VITAL SIGNS STABLE. PT INCONTINENT OF SMALL FORMED STOOL, PERICARE PROVIDED, NEW ATTENDS/CHUX/DRAW SHEET IN PLACE. PT REPOSITIONED ONTO LEFT SIDE, HOB >30 DEGREES. PT WITHIN LINE OF SIGHT, WILL CONTINUE TO MONITOR.
--- NOTE | 2019-07-06 02:00 | NUR ---
PT SLEEPING SOUNDLY AT THIS TIME, APPEARS COMFORTABLE. PT HAS SHIFTED HIMSELF OFF HIS SIDE AND ONTO HIS BACK, SO WILL WAIT TO REPOSITION UNTIL 0400 TO ALLOW FOR REST. IV REMAINS PATENT, INFUSING WNL. FERRER CONTINUES TO DRAIN FREELY. VITAL SIGNS STABLE.
--- NOTE | 2019-07-06 04:15 | NUR ---
ASSESSMENT COMPLETED. PT AWOKE SMILING, APPEARS COMFORTABLE. LUNGS REMAIN CLEAR/DIM, RA. HR REGULAR. BOWEL TONES ACTIVE. CHECKED ATTENDS, CLEAN AND DRY AND THIS TIME. REPOSITIONED ONTO RIGHT SIDE WITH PILLOW SUPPORT. IV REMAINS PATENT, INFUSING WNL. FERRER DRAINING FREELY. WARM BLANKET PROVIDED. VITAL SIGNS STABLE, AFEBRILE. PT REMAINS WITHIN LINE OF SIGHT FOR SAFETY.
--- NOTE | 2019-07-06 06:00 | NUR ---
REPOSITIONED ONTO LEFT SIDE WITH PILLOW SUPPORT. NEW ATTENDS PLACED ON PT SINCE HE HAS BEEN PULLING ON THE OTHER PAIR AND THEY HAD BECOME LOOSE.
--- NOTE | 2019-07-06 08:14 | NUR ---
PATIENT SHIFT REPORT RECIVED FROM HAND LAMINATOR RN. PATIENT RESTING WELL AT THIS TIME. PATIENT HAS FERRER CATHETER PRESENT WITH CLEAR YELLOW URINE. WILL CONTINUE TO CLOSELY MONITOR.
--- NOTE | 2019-07-06 08:14 | NUR ---
PATIENT SHIFT ASSESSMENT COMPLETED. PATIENT BREATH SOUNDS CLEAR AND SPO12 97%. PATIENT BOWEL TONES ACTIVE. PATIENT CONTINUES TO REST AT THIS TIME. WILL CONTINUE TO CLOSELY MONITOR.
--- NOTE | 2019-07-06 09:15 | NUR ---
ASSISTED PATIENT UP TO THE CHAIR. GAVE MORNING MEDICATIONS WITH APPLESAUCE, PATIENT TOLERATED WELL WITH NO COUGHING. PATIENT SAYS "YAY AND NICE" TO QUESTIONS. pATIENT CAN SHAKE HIS HEAD NO WELL. FERRER CATHETER IN PLACE. BEDDING CHANGES. CHAIR ALARM IN PLACE. WILL CONTINUE TO CLOSELY MONITOR.
--- NOTE | 2019-07-06 11:25 | NUR ---
PATIENT RESTING IN THE CHAIR AT THIS TIME. REMOVED TELE PER MD ORDERS. BLOOD PRESSURE CUFF REMOVED AFTER DOING VITALS. FERRER CATHETER EMPTIED. NO OTHER NEEDS AT THIS TIME. WILL CONTINUE TO CLOSELY MONITOR.
--- NOTE | 2019-07-06 13:00 | NUR ---
FED PATIENT 100% OF LUNCH.
--- NOTE | 2019-07-06 14:20 | NUR ---
BACK TO BED WITH ASSIST. INC OFF SMALL FORMED STOOL. BARRIER CREAM APPLIED. ATTENDS UNDER PATIENT. IS RESTLESS AT TIMES.
--- NOTE | 2019-07-06 16:30 | NUR ---
REPORT TO MED-SURG. INC OF STOOL. ATTENDS CHANGED. UP TO CHAIR WITH TOTAL ASSIST.
--- NOTE | 2019-07-06 16:50 | NUR ---
TO MED-SURG VIA CHAIR.
--- NOTE | 2019-07-06 17:00 | NUR ---
Patient arrives to unit via chair on RA. Chair alarm in place. No needs at this time. BIANKA Hernandez in room to assist with meal.
--- NOTE | 2019-07-06 17:30 | NUR ---
FED PATIENT 100% OF DINNER. REMAINS RESTLESS.
--- NOTE | 2019-07-06 18:06 | NUR ---
Patient sitting up in chair, chair alarm in place. Patient fidgeting with blankets and gown, continuously adjusting and bobbing head. Patient ate dinner with assistance from nursing staff. Thickened water at chairside. Call light within reach.
--- NOTE | 2019-07-06 19:22 | NUR ---
SHIFT REPORT RECEIVED FROM AWILDAMIDESHAUN SALMON AT BEDSIDE. PT AWAKE AND RESTING IN BED, RESPONDS WITH ONE WORD RESPONSES. APPEARS COMFORTABLE AT THIS TIME, NO DISTRESS NOTED. CALL LIGHT IN REACH. ALARM ON FOR SAFETY.
--- NOTE | 2019-07-06 20:38 | NUR ---
SALESPERSON CHILDREN'S SHOES ROUNDING NOTE. PT SITTING UP IN CHAIR, APPEARS SLIGHTLY RESTLESS, CALLS OUT OCCASIONALLY. WHITE BOARD UPDATED. ROOM IN VIEW OF RN STATION WITH CURTAIN OPEN.
--- NOTE | 2019-07-06 20:50 | NUR ---
ASSESSMENT COMPLETE, SCHEDULED MEDS GIVEN (SEE EMAR) IN APPLESAUCE. PT TALKS TO SELF, HX DOWNS SYNDROME. VSS, PT ON RA. SALINE LOCKED, IV SITES X2 WNL. FLUSHES EASILY. PT MAKES SMALL CHANGES IN POSITION IN CHAIR INDEPENDENTLY. FERRER CATHETER IN PLACE, VOIDING QS. CHAIR ALARM ON, PT IN VIEW OF NURSE'S STATION. CALL LIGHT IN REACH.
--- NOTE | 2019-07-06 21:00 | EKG ---
[facility] [address] [place] [address] Signed Normal sinus rhythm Right bundle branch block Normal ECG When compared with ECG of 01-SEP-2018 21:29, No significant change was found Confirmed by CHANDA VILLALPANDO MD ([id number]) on 07/06/2019 9:00:49 PM Electronically Signed By: CHANDA VILLALPANDO MD 07/06/19 2100 PATIENT NAME: JULIANE MARINA Abad Electrocardiogram DATE OF : 65 PHYSICIAN: CHANDA VILLALPANDO MD REPORT #: [id number] REPORT IS CONFIDENTIAL AND NOT TO BE RELEASED WITHOUT AUTHORIZATION
--- NOTE | 2019-07-06 22:50 | NUR ---
PT TRANSFERRED VIA CHRISSY LIFT FROM CHAIR TO BED WITH HELP FROM GRAY HUFFMAN. PT NOW RESTING IN BED, INCONTINENT OF STOOL. ABILIO CARE GIVEN, EXCORIATIONS NOTED TO SCROTUM, PRESSURE ULCER TO BUTTOCKS MALDONADO, COVERED BY TOP PRINTING PRESS OPERATOR ELISE Juarez/ FANTA. PT BOOSTED IN BED, HIPS FLOATED. NO FURTHER NEEDS, BED ALARM ON FOR SAFETY, CALL LIGHT IN REACH.
--- NOTE | 2019-07-06 23:31 | NUR ---
2PA PUT PATIENT TO BED FROM CHAIR USING CHRISSY. PATIENT HAD BOWEL MOVEMENT. WIPED/CLEANED AND APPLIED BARRIER CREAM. ATTENDS ON. PRIMARY RN WAS WITH PATIENT.
--- NOTE | 2019-07-07 01:43 | NUR ---
PT BOOSTED AND REPOSITIONED IN BED WITH HELP FROM BIANKA POTTS. PT AWAKE AND APPEARS COMFORTABLE, NO DISTRESS NOTED. CALL LIGHT IN REACH.
--- NOTE | 2019-07-07 06:08 | NUR ---
PT AWAKE AND RESTING IN BED, FIDGETS IN BED AND RESTLESS AT TIMES. VSS, PT ON RA. LUNG SOUNDS DIMINISHED, NO DISTRESS NOTED. PT TALKS TO SELF, APPEARS COMFORTABLE. IV SITES SALINE LOCKED, BED ALARM ON FOR SAFETY. CALL LIGHT IN REACH.
--- NOTE | 2019-07-07 06:20 | NUR ---
scheduled thyroid medication given (see emar), bed alarm on. pt in view of nurse's station.
--- NOTE | 2019-07-07 07:41 | NUR ---
0720: Pt resting in his bed and appears comfortable at this time. Bed alarm is on. Report recieved for Corry CARLTON.
--- NOTE | 2019-07-07 09:31 | NUR ---
PT APPEARS IN NO DISTRESS AT THIS TIME. HIS HOB IS ELEVATED AND THE ADMINISTRATIVE AIDE IS FEEDING HIM BREAKFAST. SEE ASSESSMENT. THE COCCYX DRESSING REMAINS INTACT. ATTENDS ARE CLEAN AND DRY, PT REPOSITIONED. SEE ASSESSMENT.
[2019-07-07] MEDS ORDERED: CEPHALEXIN500 MG PO (11:35)
--- NOTE | 2019-07-07 15:23 | NUR ---
HELPED FEED PATIENT HIS BREAKFAST AND LUNCH. ALSO HELPED HIM GET DRESSED AND HELPED TRANSFER HIM TO HIS WHEELCHAIR.
== END 2019-07-07 13:00 | disposition home or self-care (01) | DRG 698 ==
LOC: ED 11:06 → CCU 13:47 → MS 07-06 17:00
PROVIDERS: ADMIT Internal Medicine
DX: T83.511A Infection and inflammatory reaction due to indwelling urethral catheter, initial encounter (principal); A41.51 Sepsis due to Escherichia coli [E. coli]; R65.20 Severe sepsis without septic shock; N30.00 Acute cystitis without hematuria; Q90.9 Down syndrome, unspecified; I95.89 Other hypotension; E03.9 Hypothyroidism, unspecified; F39 Unspecified mood [affective] disorder; Z79.899 Other long term (current) drug therapy; Z79.1 Long term (current) use of non-steroidal anti-inflammatories (NSAID); Z88.8 Allergy status to other drugs, medicaments and biological substances
CPT/HCPCS: 36415; 71045; 80053; 81001; 83605; 83690; 83735; 84484; 85025; 87077; 87088; 87186; 93005; 93010; 96361; 96365; 96375; 99285-25; J0696; J1100; J1650; J7030; J7121